=== PATIENT | female | born 1955 | race African-American/Black ===

== ENCOUNTER 2016-04-02 08:42 | Emergency (ER) | payer MEDICARE, OTHER ==
[~2016-04-02 08:42] MED LIST: ASPI81 PO; HYDR50TA15 PO; LISI20 PO; SIMV10TA PO; ZOFR4TAB3 SL
[2016-04-02 08:45] VITALS: BP 230/104; PULSE 71; RESP 16; TEMP 98.1; O2SAT 100
[2016-04-02 09:11] VITALS: BP 210/95
[2016-04-02] MEDS ORDERED: LISI40TA PO (09:14)
[2016-04-02] MEDS ORDERED: CLON0.3T PO (09:14)
[2016-04-02] MEDS ORDERED: ASPI1TAB69 PO (09:14)
[2016-04-02] MEDS ORDERED: HYDR50TA15 PO (09:14)
--- NOTE | 2016-04-02 09:21 | PD ---
HPI Chief Complaint: Fall Time Seen by Provider: 08:55 Travel History International Travel<30 days: No Contact w/Intl Traveler<30days: No Traveled to known affect area: No History of Present Illness HPI 60-year-old female complains of right-sided body pain and back pain. Patient states that she fell yesterday on the right side. Patient denies loss of consciousness. Patient denies headache or neck pain. Patient states that she has aching pain on the right upper arm, the right chest, right hip, the right leg and upper and low back. Patient denies any shortness of breath. Patient denies abdominal pain. Patient denies any focal weakness or numbness of the extremity. Patient has history of hypertension and has not taken her blood pressure medications this morning. PFSH Past Medical History Hx Anticoagulant Therapy: No Arthritis: No Asthma: No Autoimmune Disease: No Blood Disorders: Yes Anxiety: No Depression: Yes Heart Rhythm Problems: Yes (Bradycardia) Cancer: No Cardiac Catheterization: Yes (MAY 2013) Cardiovascular Problems: Yes High Cholesterol: Yes Chemotherapy: No Chest Pain: Yes Congestive Heart Failure: No COPD: No Cerebrovascular Accident: Yes (2009 CVA, RIGHT SIDED DEFICIT) Diabetes: No Diminished Hearing: No Endocrine: No Gastrointestinal Disorders: Yes GERD: Yes Genitourinary: No Headaches: Yes Hiatal Hernia: No Hypertension: Yes Immune Disorder: No Implanted Vascular Access Dvce: No Kidney Stones: No Musculoskeletal: Yes (NECK AND BACK INJURY 2007) Neurologic: Yes Psychiatric: No Reproductive: No Respiratory: No Immunizations Current: No Migraines: No Myocardial Infarction: Yes Radiation Therapy: No Renal Failure: No Seizures: No Sickle Cell Disease: No Sleep Apnea: No Thyroid Disease: No Ulcer: No PNEUMOCCOCAL Vaccine (Year): 2 ?: Not Menopausal: Yes : 3 Para: 3 Tubal Ligation: Yes Past Surgical History Abdominal Surgery: Yes AICD: No Arteriovenous Shunt: No Cardiac Surgery: Yes (cardiac cath 05/2013) Cholecystectomy: Yes Coronary Artery Bypass Graft: No Coronary Stent: Yes (X1) Ear Surgery: No Endocrine Surgery: No Eye Surgery: No Genitourinary Surgery: No Gynecologic Surgery: Yes Hysterectomy: Yes Insulin Pump: No Joint Replacement: No Neurologic Surgery: No Oral Surgery: No Pacemaker: No Thoracic Surgery: No Other Surgery: Yes (gallbladder removed, hysterectomy ) Social History Alcohol Use: No Tobacco Use: No Substance Use: No Allergies-Medications (Allergen,Severity, Reaction): Coded Allergies: Demerol (Verified Allergy, Severe, HIVES, 04/02/16) Morphine (Verified Allergy, Severe, Itching, 04/02/16) DENIES ALLERGY TODAY 01/18/16 *MDRO Multi-Drug Resistant Organism (Verified Allergy, Unknown, 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 2004 Reported Meds & Prescriptions Reported Meds & Active Scripts Active Reported Clonidine (Clonidine HCl) 0.3 Mg Tab 0.3 Mg PO TID Hydralazine (Hydralazine HCl) 50 Mg Tab 50 Mg PO TID Take with a meal Lisinopril 40 Mg Tab 40 Mg PO TID Aspirin 81 Mg Tabdr 81 Mg PO DAILY Review of Systems General / Constitutional: No: Fever Eyes: No: Visual changes HENT: No: Headaches Cardiovascular: No: Chest Pain or Discomfort Respiratory: No: Shortness of Breath Gastrointestinal: No: Abdominal Pain Genitourinary: No: Dysuria Musculoskeletal: Positive: Pain Skin: No Rash Neurologic: No: Weakness Psychiatric: No: Depression Endocrine: No: Polydipsia Hematologic/Lymphatic: No: Easy Bruising Physical Exam Narrative GENERAL: Well-nourished, well-developed patient. SKIN: Warm and dry. HEAD: Normocephalic. EYES: No scleral icterus. No injection or drainage. NECK: Supple, trachea midline. No JVD or lymphadenopathy. CARDIOVASCULAR: Regular rate and rhythm without murmurs, gallops, or rubs. RESPIRATORY: Breath sounds equal bilaterally. No accessory muscle use. GASTROINTESTINAL: Abdomen soft, non-tender, nondistended. MUSCULOSKELETAL: Patient has diffuse tenderness of the right upper arm, right chest wall midaxillary line area without crepitus, patient has diffuse tenderness over the lateral aspect the right hip right thigh and right lower leg. Full range of motion all extremity. BACK: Nontender without obvious deformity. No CVA tenderness. Neurologic exam normal. Data Data Last Documented VS Vital Signs Date Time Temp Pulse Resp B/P Pulse Ox O2 Delivery O2 Flow Rate FiO2 04/02/16 10:56 60 16 236/101 96 Room Air 04/02/16 08:45 98.1 Orders Femur (Ap & Lat/2vws) (04/02/16 08:58) Humerus (Min 2vws) (04/02/16 08:58) Tibia/Fibula (Ap/Lat) (04/02/16 08:58) Ribs, Uni (W/Exp Cxr-Min 3vw) (04/02/16 08:58) Pelvis, Ap Only (Routine) (04/02/16 08:58) Spine, Thoracic-Ap/Lat/Sw(3vw) (04/02/16 08:58) Spine, Lumbar - Ltd (Ap & Lat) (04/02/16 08:58) Clonidine (Catapres) (04/02/16 11:15) Lisinopril (Prinivil) (04/02/16 11:15) MDM Medical Decision Making Medical Screen Exam Complete: Yes Emergency Medical Condition: Yes Interpretation(s) Last Impressions Tibia/Fibula X-Ray 04/02/16857 Signed Impressions: Service Date/Time: March 09:33 - CONCLUSION: No acute fracture. Raman Rodriguez MD Thoracic Spine X-Ray 04/02/16857 Signed Impressions: Service Date/Time: March 09:43 - CONCLUSION: Levocurvature mild degenerative changes. No fracture.. Raman Rodriguez MD Ribs X-Ray 04/02/16857 Signed Impressions: Service Date/Time: March 09:47 - CONCLUSION: No right-sided rib fracture. Raman Rodriguez MD Pelvis X-Ray 04/02/16857 Signed Impressions: Service Date/Time: March 09:39 - CONCLUSION: 1. No acute findings. Mild osteoarthritis of the hips. Lloyd Valenzuela MD Lumbar Spine X-Ray 04/02/16857 Signed Impressions: Service Date/Time: March 09:29 - CONCLUSION: 1. Mild to moderate degenerative disc disease in the lower lumbar spine. No acute findings. Lloyd Valenzuela MD Humerus X-Ray 04/02/16857 Signed Impressions: Service Date/Time: March 09:31 - CONCLUSION: Normal examination for a patient of this age. Lloyd Valenzuela MD Femur X-Ray 04/02/16857 Signed Impressions: Service Date/Time: March 09:40 - CONCLUSION: No acute fracture. Raman Rodriguez MD Differential Diagnosis Differential diagnosis including contusion, fracture, dislocation. Narrative Course 60-year-old female with right-sided body pain and back pain, status post fall yesterday. Patient's hypotensive. Patient did not take her blood pressure medication this morning. Lisinopril 20 mg by mouth given. Clonidine 0.3 mg by mouth given. Diagnosis Primary Impression: Multiple contusions Patient Instructions: General Instructions Additional Instructions: Take medications as directed. Follow-up with personal physician. Follow-up with orthopedist if persistent problem. Return if worse. Med/Other Pt SpecificInfo: Prescription(s) given Scripts Tramadol (Ultram)50 Mg Tab50 Mg PO Q6H PRN (PAIN) #20 TAB Ref 0 Prov:Luis Dixon MD 04/02/16 Meloxicam (Mobic)15 Mg Tab15 Mg PO DAILY #20 TAB Ref 0 Prov:Luis Dixon MD 04/02/16 Disposition: 01 DISCHARGE HOME Condition: Stable Luis Dixon MD Apr 02, 2016 09:21
--- NOTE | 2016-04-02 09:58 | RADRPT ---
EXAM DATE/TIME: 04/02/2016 09:33 [facility] COMPARISON: No previous studies available for comparison. INDICATIONS : Right tibia pain after fall yesterday. MEDICAL HISTORY : None. SURGICAL HISTORY : None. ENCOUNTER: Initial ACUITY: 2 days PAIN SCORE: 10/10 LOCATION: Right proximal tibia. FINDINGS: Two view examination of the right tibia demonstrates no evidence of fracture or dislocation. Bony mi neralization is normal. The soft tissue structures are intact. CONCLUSION: No acute fracture. Raman Rodriguez MD on April 02, 2016 at 9:52 Board Certified Radiologist. This report was verified electronically.
--- NOTE | 2016-04-02 10:00 | RADRPT ---
EXAM DATE/TIME: 04/02/2016 09:40 [facility] COMPARISON: No previous studies available for comparison. INDICATIONS : Right femur pain after fall yesterday. MEDICAL HISTORY : None. SURGICAL HISTORY : None. ENCOUNTER: Initial ACUITY: 2 days PAIN SCORE: 10/10 LOCATION: Right proximal femur. FINDINGS: Two view examination of the right femur demonstrates no evidence of fracture or dislocation. Bony mi neralization is normal. The soft tissue structures are intact. CONCLUSION: No acute fracture. Raman Rodriguez MD on April 02, 2016 at 9:56 Board Certified Radiologist. This report was verified electronically.
--- NOTE | 2016-04-02 10:06 | RADRPT ---
EXAM DATE/TIME: 04/02/2016 09:43 [facility] COMPARISON: No previous studies available for comparison. INDICATIONS : Mid back pain after fall yesterday. MEDICAL HISTORY : None. SURGICAL HISTORY : None. ENCOUNTER: Initial ACUITY: 2 days PAIN SCORE: 10/10 LOCATION: Bilateral middle back. FINDINGS: There is normal alignment of the thoracic vertebral bodies. Vertebral body height is maintained. No evidence of fracture or subluxation. There is levocurvature. Mild degenerative changes. Pedicles are intact at all levels. The paravertebral reflections are not thickened. CONCLUSION: Levocurvature mild degenerative changes. No fracture.. Raman Rodriguez MD on April 02, 2016 at 9:59 Board Certified Radiologist. This report was verified electronically.
--- NOTE | 2016-04-02 10:08 | RADRPT ---
EXAM DATE/TIME: 04/02/2016 09:47 [facility] COMPARISON: No previous studies available for comparison. INDICATIONS : Right rib pain after fall yesterday. MEDICAL HISTORY : None. SURGICAL HISTORY : None. ENCOUNTER: Initial ACUITY: 1 day PAIN SCORE: 10/10 LOCATION: Right ribs. FINDINGS: Multiple views of the right ribs were performed. There is no evidence of displaced fracture. No aure tructive lesions or areas of periosteal thickening are seen. Expiratory view of the chest is negativ e for pneumothorax. The mediastinal structures are midline. CONCLUSION: No right-sided rib fracture. Raman Rodriguez MD on April 02, 2016 at 10:05 Board Certified Radiologist. This report was verified electronically.
--- NOTE | 2016-04-02 10:15 | RADRPT ---
EXAM DATE/TIME: 04/02/2016 09:31 [facility] COMPARISON: No previous studies available for comparison. INDICATIONS : Right humerus pain after fall yesterday. MEDICAL HISTORY : None. SURGICAL HISTORY : None. ENCOUNTER: Initial ACUITY: 2 days PAIN SCORE: 10/10 LOCATION: Right middle humerus. FINDINGS: Two view examination of the right humerus demonstrates no evidence of fracture or dislocation. Bony mineralization is normal. The soft tissue structures are intact. CONCLUSION: Normal examination for a patient of this age. Lloyd Valenzuela MD on April 02, 2016 at 10:14 Board Certified Radiologist. This report was verified electronically.
--- NOTE | 2016-04-02 10:15 | RADRPT ---
EXAM DATE/TIME: 04/02/2016 09:29 [facility] COMPARISON: No previous studies available for comparison. INDICATIONS : Lower back pain after fall yesterday. MEDICAL HISTORY : None. SURGICAL HISTORY : None. ENCOUNTER: Initial ACUITY: 2 days PAIN SCORE: 10/10 LOCATION: Bilateral lower back. FINDINGS: Two view examination was performed. There are five non-rib bearing vertebral bodies. The vertebral bodies are in normal alignment without evidence of subluxation or scoliosis. The pedicles are intact . Bony mineralization is normal. No fracture is identified. CONCLUSION: 1. Mild to moderate degenerative disc disease in the lower lumbar spine. No acute findings. Lloyd Valenzuela MD on April 02, 2016 at 10:04 Board Certified Radiologist. This report was verified electronically.
--- NOTE | 2016-04-02 10:16 | RADRPT ---
EXAM DATE/TIME: 04/02/2016 09:39 [facility] COMPARISON: No previous studies available for comparison. INDICATIONS : Pelvic pain after fall yesterday. MEDICAL HISTORY : None. SURGICAL HISTORY : None. ENCOUNTER: Initial ACUITY: 2 days PAIN SCORE: 10/10 LOCATION: Right pelvis. FINDINGS: A single frontal view of the pelvis demonstrates no evidence of fracture. The bony pelvic ring is in tact. Bony mineralization is normal. The soft tissues are intact. CONCLUSION: 1. No acute findings. Mild osteoarthritis of the hips. Lloyd Valenzuela MD on April 02, 2016 at 10:14 Board Certified Radiologist. This report was verified electronically.
[2016-04-02 10:56] VITALS: BP 236/101; PULSE 60; RESP 16; O2SAT 96
[2016-04-02] MEDS ORDERED: LISINOPRIL 20 MG TAB PO ONE (11:15)
[2016-04-02] MEDS ORDERED: cloNIDine HCL 0.3 MG TAB PO ONE (11:15)
[2016-04-02] MEDS ORDERED: ULTR50TA5 PO (11:27)
[2016-04-02] MEDS ORDERED: MOBI15TA PO (11:27)
[2016-04-02 12:50] VITALS: BP 150/76; TEMP 98
== END 2016-04-02 12:49 | disposition home or self-care (01) ==
LOC: NEPC 08:42
DX: T14.8 Other injury of unspecified body region (principal); I10 Essential (primary) hypertension; R00.1 Bradycardia, unspecified; E78.00 Pure hypercholesterolemia, unspecified; I25.2 Old myocardial infarction; W19.XXXA Unspecified fall, initial encounter; Y99.0 Civilian activity done for income or pay
CPT/HCPCS: 71101; 72072; 72100; 72170; 73060; 73552; 73590; 99283

== ENCOUNTER 2016-11-20 08:17 | Inpatient (IN) | payer MEDICARE ==
[2016-11-20] VITALS (12 sets, daily range): BP systolic 161–298; BP diastolic 68–145; PULSE 50–89; RESP 14–25; TEMP 98.1–99.3; O2SAT 98–100
[~2016-11-20] VITALS: Ht 158.8 cm; Wt 81.5 kg
[~2016-11-20 08:17] MED LIST changes: +ASPI1TAB69 PO; -ASPI81 PO; +CLON0.3T PO; -LISI20 PO; +LISI40TA PO; +MOBI15TA PO; -SIMV10TA PO; +ULTR50TA5 PO; -ZOFR4TAB3 SL
--- NOTE | 2016-11-20 08:24 | PD ---
HPI Chief Complaint: Hypertension Time Seen by Provider: 08:24 Travel History International Travel<30 days: No Contact w/Intl Traveler<30days: No Traveled to known affect area: No History of Present Illness HPI 60-year-old female was brought in emergently for headache, chest pain with significantly elevated blood pressure. In triage her blood pressure was 290s systolic. Patient told me that she has been taking her medication but last night she has been having diarrhea and vomiting. She appeared to be in distress. No history of fall coronary artery disease. She's been answering questions appropriately. She points to her left side of the chest and says it' s like a pressure and her headache is bitemporal. Patient has history of previous CVA on the right side which has had some weakness. She says her daughter brought her over. [facility] Past Medical History Narrative Medical List of her past medical, surgical, social and family history is reviewed from the nursing note. Hx Anticoagulant Therapy: No Arthritis: No Asthma: No Autoimmune Disease: No Blood Disorders: Yes Anxiety: No Depression: Yes Heart Rhythm Problems: Yes (Bradycardia) Cancer: No Cardiac Catheterization: Yes (MAY 2013) Cardiovascular Problems: Yes High Cholesterol: Yes Chemotherapy: No Chest Pain: Yes Congestive Heart Failure: No COPD: No Cerebrovascular Accident: Yes (2009 CVA, RIGHT SIDED DEFICIT) Diabetes: No Diminished Hearing: No Endocrine: No Gastrointestinal Disorders: Yes GERD: Yes Genitourinary: No Headaches: Yes Hiatal Hernia: No Hypertension: Yes Immune Disorder: No Implanted Vascular Access Dvce: No Kidney Stones: No Musculoskeletal: Yes (NECK AND BACK INJURY 2007) Neurologic: Yes Psychiatric: No Reproductive: No Respiratory: No Immunizations Current: No Migraines: No Myocardial Infarction: Yes Radiation Therapy: No Renal Failure: No Seizures: No Sickle Cell Disease: No Sleep Apnea: No Thyroid Disease: No Ulcer: No PNEUMOCCOCAL Vaccine (Year): 2 Menopausal: Yes : 3 Para: 3 Tubal Ligation: Yes Past Surgical History Abdominal Surgery: Yes AICD: No Arteriovenous Shunt: No Cardiac Surgery: Yes (cardiac cath 05/2013) Cholecystectomy: Yes Coronary Artery Bypass Graft: No Coronary Stent: Yes (X1) Ear Surgery: No Endocrine Surgery: No Eye Surgery: No Genitourinary Surgery: No Gynecologic Surgery: Yes Hysterectomy: Yes Insulin Pump: No Joint Replacement: No Neurologic Surgery: No Oral Surgery: No Pacemaker: No Thoracic Surgery: No Other Surgery: Yes (gallbladder removed, hysterectomy ) Social History Alcohol Use: No Tobacco Use: No Substance Use: No Allergies-Medications (Allergen,Severity, Reaction): Coded Allergies: meperidine (Unverified Allergy, Severe, HIVES, 11/10/16) morphine (Unverified Allergy, Severe, Itching, 11/10/16) DENIES ALLERGY TODAY 01/18/16 *MDRO Multi-Drug Resistant Organism (Verified Allergy, Unknown, 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 2004 Comments List of her allergies reviewed from the nursing note. Reported Meds & Prescriptions Reported Meds & Active Scripts Active Reported Hydrochlorothiazide 50 Mg Tab 50 Mg PO DAILY Metoprolol Succinate ER 24 HR (Metoprolol Succinate) 50 Mg Tab 50 Mg PO DAILY Simvastatin 40 Mg Tab 40 Mg PO HS Clonidine (Clonidine HCl) 0.2 Mg Tab 0.2 Mg PO DAILY Narrative Medication List of her home medications reviewed from the nursing note. Review of Systems Except as stated in HPI: all other systems reviewed are Neg Physical Exam Narrative GENERAL: Awake, alert, moderate distress SKIN: Focused skin assessment warm/dry. HEAD: Atraumatic. Normocephalic. EYES: Pupils equal and round. No scleral icterus. No injection or drainage. ENT: No nasal bleeding or discharge. Mucous membranes pink and moist. NECK: Trachea midline. No JVD. CARDIOVASCULAR: Regular rate and rhythm. No murmur appreciated. RESPIRATORY: No accessory muscle use. Clear to auscultation. Breath sounds equal bilaterally. GASTROINTESTINAL: Abdomen soft, non-tender, nondistended. Hepatic and splenic margins not palpable. MUSCULOSKELETAL: No obvious deformities. No clubbing. No cyanosis. No edema. NEUROLOGICAL: Awake and alert. No obvious cranial nerve deficits. Decreased right leg strength which is 3 out of 5 and right upper extremity is 4 out of 5. However this is a sequelae from previous stroke. Normal speech. PSYCHIATRIC: Appropriate mood and affect; insight and judgment normal. Data Data Last Documented VS Vital Signs Date Time Temp Pulse Resp B/P (MAP) Pulse Ox O2 Delivery O2 Flow Rate FiO2 11/20/16 10:45 64 165/78 11/20/16 09:06 20 98 11/20/16 08:57 98.2 Room Air Orders Orders Electrocardiogram (11/20/16 08:32) Prothrombin Time / Inr (Pt) (11/20/16 08:32) Complete Blood Count With Diff (11/20/16 08:32) Basic Metabolic Panel (Bmp) (11/20/16 08:32) Creatine Kinase (Cpk) (11/20/16 08:32) Drug Screen, Random Urine (11/20/16 08:32) Troponin I (11/20/16 08:32) Urinalysis - C+S If Indicated (11/20/16 08:32) Ct Brain W/O Iv Contrast(Rout) (11/20/16 08:32) Chest, Single Ap (11/20/16 08:32) Ecg Monitoring (11/20/16 08:32) Iv Access Insert/Monitor (11/20/16 08:32) Oximetry (11/20/16 08:32) Sodium Chloride 0.9% Flush (Ns Flush) (11/20/16 08:45) Hydralazine Inj (Apresoline Inj) (11/20/16 08:45) Sodium Chlor 0.9% 2... W/Nicardipine Inj (11/20/16 08:32) CKMB (11/20/16 08:40) CKMB% (11/20/16 08:40) Ondansetron Inj (Zofran Inj) (11/20/16 10:15) Aspirin Chew (Aspirin Chew) (11/20/16 10:15) Consult Cardiology (11/20/16 ) Admit To Inpatient (11/20/16 ) Vital Signs (Adult) Q4H (11/20/16 10:41) Neuro Checks Q4H (11/20/16 10:41) Activity Bed Rest (11/20/16 10:41) Bedside Glucose RANCHO.AC&HS (11/20/16 10:41) Apparel Rental Clerk / Telemetry .CONTINUOUS (11/20/16 10:41) Intake + Output RANCHO.QSHIFT (11/20/16 10:41) Notify Dr: Other (11/20/16 10:41) Diet Heart Healthy (11/20/16 Lunch) Sodium Chloride 0.9% Flush (Ns Flush) (11/20/16 10:45) Sodium Chloride 0.9% Flush (Ns Flush) (11/20/16 21:00) Acetaminophen (Tylenol) (11/20/16 10:45) Ondansetron Inj (Zofran Inj) (11/20/16 10:45) Basic Metabolic Panel (Bmp) (11/21/16 06:00) Comprehensive Metabolic Panel (11/21/16 06:00) Creatine Kinase (Cpk) (11/20/16 10:41) Creatine Kinase (Cpk) (11/20/16 16:41) Troponin I (11/20/16 10:41) Troponin I (11/20/16 16:41) Electrocardiogram (11/20/16 10:41) Electrocardiogram (11/20/16 16:41) Resp Oxygen Raad C Titrat 1-4 L (11/20/16 ) Heparin Inj (Heparin Inj) (11/20/16 12:00) Scd Bilateral/Knee High RANCHO.BID (11/20/16 10:41) Naloxone Inj (Narcan Inj) (11/20/16 10:45) Inpatient Certification (11/20/16 ) Labetalol Inj (Trandate Inj) (11/20/16 10:45) Hydralazine Inj (Apresoline Inj) (11/20/16 10:45) (Hub Use Only)Inp Phy Cons/Ref (11/20/16 ) Admit Order (Ed Use Only) (11/20/16 10:44) CKMB (11/20/16 12:35) CKMB% (11/20/16 12:35) Labs Laboratory Tests Test 11/20/16 08:40 11/20/16 09:25 White Blood Count 6.7 TH/MM3 Red Blood Count 6.15 MIL/MM3 Hemoglobin 13.4 GM/DL Hematocrit 42.8 % Mean Corpuscular Volume 69.5 FL Mean Corpuscular Hemoglobin 21.8 PG Mean Corpuscular Hemoglobin Concent 31.4 % Red Cell Distribution Width 17.4 % Platelet Count 240 TH/MM3 Mean Platelet Volume 8.9 FL Neutrophils (%) (Auto) 75.2 % Lymphocytes (%) (Auto) 15.0 % Monocytes (%) (Auto) 5.0 % Eosinophils (%) (Auto) 4.5 % Basophils (%) (Auto) 0.3 % Neutrophils # (Auto) 5.0 TH/MM3 Lymphocytes # (Auto) 1.0 TH/MM3 Monocytes # (Auto) 0.3 TH/MM3 Eosinophils # (Auto) 0.3 TH/MM3 Basophils # (Auto) 0.0 TH/MM3 CBC Comment DIFF FINAL Differential Comment Prothrombin Time 11.4 SEC Prothromb Time International Ratio 1.0 RATIO Blood Urea Nitrogen 15 MG/DL Creatinine 0.96 MG/DL Random Glucose 97 MG/DL Calcium Level 8.1 MG/DL Sodium Level 136 MEQ/L Potassium Level 4.1 MEQ/L Chloride Level 105 MEQ/L Carbon Dioxide Level 22.9 MEQ/L Anion Gap 8 MEQ/L Estimat Glomerular Filtration Rate 72 ML/MIN Total Creatine Kinase 243 U/L Creatine Kinase MB 1.7 NG/ML Creatine Kinase MB % 0.7 % Troponin I 0.25 NG/ML Urine Color LIGHT-YELLOW Urine Turbidity CLEAR Urine pH 7.0 Urine Specific [place] 1.013 Urine Protein 30 mg/dL Urine Glucose (UA) NEG mg/dL Urine Ketones NEG mg/dL Urine Occult Blood NEG Urine Nitrite NEG Urine Bilirubin NEG Urine Urobilinogen LESS THAN 2.0 MG/DL Urine Leukocyte Esterase NEG Urine RBC 1 /hpf Urine WBC LESS THAN 1 /hpf Urine Squamous Epithelial Cells 1 /hpf Urine Amorphous Sediment OCC Urine Granular Casts 1 /lpf Microscopic Urinalysis Comment CATH-CULT NOT IND Urine Opiates Screen NEG Urine Barbiturates Screen NEG Urine Amphetamines Screen NEG Urine Benzodiazepines Screen NEG Urine Cocaine Screen NEG Urine Cannabinoids Screen NEG MDM Medical Decision Making Medical Screen Exam Complete: Yes Emergency Medical Condition: Yes Medical Record Reviewed: Yes Interpretation(s) Twelve-lead EKG was reviewed by me. Normal sinus rhythm, left axis deviation, LVH, LV strain, poor R-wave progression, bradycardia. Heart rate of 51 bpm. Differential Diagnosis ACS, non-STEMI, hypertensive emergency, intracranial bleed Narrative Course 10:53 AM blood test results are back and patient has elevated troponin. She was given IV hydralazine initially as soon as she came in and then started on Cardene drip. Her blood pressure currently is 120 systolic. She continued to complain of chest pain and the repeat EKG was done. The repeat EKG does not look any different from the first EKG. I discussed the case with Dr. Valenzuela was on for cardiology. He agreed with the to aspirin and no heparin for now since my concern is her headache and hypertension and head bleed. I discussed the case with the hospitalist and patient has been admitted to the CICU. I let the patient know about the plan and she is agreeable to it. Critical Care Narrative Aggregate critical care time was 60 minutes. Time to perform other separately billable procedures was not included in the critical care time. My time did not include minutes spent treating any other patients simultaneously or on activities that did not directly contribute to the patient's treatment. The services I provided to this patient were to treat and/or prevent clinically significant deterioration that could result in: Hypertensive emergency, elevated troponin, IV Cardene drobi I provided critical care services requiring my management, as noted below: Chart data review, documentation time, medication orders and management, vital sign assessments/reviewing monitor data, ordering and reviewing lab tests, ordering and interpreting/reviewing x-rays and diagnostic studies, care of the patient and discussion of the patient with the admitting physicians. Procedures EKG Prior to Arrival: No Physician Communication Physician Communication Dr. Valenzuela Diagnosis Primary Impression: Hypertensive emergency Additional Impression: Elevated troponin I level Admitting Information Admitting Physician Requests: Admit Velma García MD Nov 20, 2016 08:24
[2016-11-20] MEDS ORDERED: SODIUM CHLORIDE 0.9% FLUSH 10 ML FLUSH IVF PRN (08:45)
[2016-11-20] MEDS ORDERED: hydrALAZINE HCL 20 MG/ML VIAL IV PUSH ONE (08:45)
[2016-11-20] MEDS: niCARdipine INJ 25 MG in SODIUM CHLOR 0.9% 250 ML INJ 250 ML IV PRN ×6 (08:54→23:10)
[2016-11-20 09:12] LABS: BASOPHIL % 0.3 % (0.0-2.0); EOSINOPHIL # 0.3 TH/MM3 (0-0.4); EOSINOPHIL % 4.5 % (0.0-4.0); HEMATOCRIT 42.8 % (35.0-46.0); HEMO FLAGS DIFF FINAL; MEAN CELL VOLUME 69.5 FL (80.0-100.0); MEAN CORPUSCULAR HEMOGLOBIN 21.8 PG (27.0-34.0); MEAN CORPUSCULAR HGB CONC 31.4 % (32.0-36.0); NEUT % 75.2 % (16.0-70.0); PLATELET COUNT 240 TH/MM3 (150-450); RED BLOOD COUNT 6.15 MIL/MM3 (4.00-5.30); RED CELL DISTRIBUTION WIDTH 17.4 % (11.6-17.2); WHITE BLOOD COUNT 6.7 TH/MM3 (4.0-11.0)
--- NOTE | 2016-11-20 09:15 | RADRPT ---
EXAM DATE/TIME: 11/20/2016 08:51 [facility] COMPARISON: CHEST SINGLE AP, January 19, 2016, 12:16. INDICATIONS : Chest pain, hypertension. MEDICAL HISTORY : Hypertension. Myocardial infarction. Stroke. SURGICAL HISTORY : None. ENCOUNTER: Initial ACUITY: 2 days PAIN SCORE: 8/10 LOCATION: Left chest FINDINGS: Portable AP view the chest demonstrates a normal-sized cardiac silhouette. Lungs are underinflated wi th atelectasis at the lung bases. No effusion, consolidation, or pneumothorax is appreciated. The bon es and soft tissues demonstrate no acute finding. CONCLUSION: Underinflated with atelectasis at the lung bases. Otherwise, no acute finding is identified. Alex Peña MD on November 20, 2016 at 9:12 Board Certified Radiologist. This report was verified electronically.
[2016-11-20 09:39] LABS: PROTHROMBIN TIME - PATIENT 11.4 SEC (9.8-11.6)
--- NOTE | 2016-11-20 09:41 | RADRPT ---
EXAM DATE/TIME: 11/20/2016 09:06 [place] COMPARISON: CT BRAIN W/O CONTRAST, January 02, 2014, 11:57. INDICATIONS : Hypertension with cephalgia. RADIATION DOSE: 39.54 CTDIvol (mGy) MEDICAL HISTORY : Stroke. Cardiovascular disease Hypertension. SURGICAL HISTORY : None. ENCOUNTER: Initial ACUITY: 2 months PAIN SCALE: 5/10 LOCATION: Bilateral cranial TECHNIQUE: Multiple contiguous axial images were obtained of the head. Using automated exposure control and adj ustment of the mA and/or kV according to patient size, radiation dose was kept as low as reasonably a chievable to obtain optimal diagnostic quality images. DICOM format image data is available electro nically for review and comparison. FINDINGS: CEREBRUM: There is mild cerebral atrophy. Moderate to severe periventricular white matter low-attenuation is pr esent. No midline shift, mass lesion, hemorrhage or acute infarction. No extra-axial fluid collecti ons are seen. POSTERIOR FOSSA: The cerebellum and brainstem demonstrate no acute finding. The 4th ventricle is midline. The cerebe llopontine angle is unremarkable. EXTRACRANIAL: Visualized sinuses are clear. SKULL: The calvaria is intact. No evidence of skull fracture. CONCLUSION: Stable noncontrast head CT without acute abnormality identified. There is a stable moderate to severe periventricular white matter low attenuation characteristic of chronic microvascular ischemia. Alex Peña MD on November 20, 2016 at 9:38 Board Certified Radiologist. This report was verified electronically.
[2016-11-20] MEDS ORDERED: METO50TA11 PO (09:48)
[2016-11-20] MEDS ORDERED: CLON0.2T PO (09:48)
[2016-11-20] MEDS ORDERED: HYDR50TA3 PO (09:48)
[2016-11-20] MEDS ORDERED: SIMV40TA PO (09:48)
[2016-11-20 09:51] LABS: BLOOD, URINE NEG (NEG); GLUCOSE,URINE NEG (NEG); GRANULAR CAST, URINE 1 /lpf; KETONE, URINE NEG (NEG); NITRITE,URINE NEG (NEG); SQUAMOUS EPITHELIAL CELL URINE 1 /hpf (0-5); URINE COLOR LIGHT-YELLOW (YELLW/STRAW)
[2016-11-20 09:52] LABS: COMMENT (UR) CATH-CULT NOT IND; CULTURE IF INDICATED CATH CULTURE NOT IND
[2016-11-20 09:54] LABS: BICARBONATE 22.9 MEQ/L (21.0-32.0); POTASSIUM 4.1 MEQ/L (3.5-5.1)
[2016-11-20 10:07] LABS: CKMB 1.7 NG/ML (0.5-3.6)
[2016-11-20] MEDS ORDERED: ONDANSETRON HCL 4 MG/2 ML VIAL IV PUSH ONE (10:15)
[2016-11-20] MEDS ORDERED: ASPIRIN 81 MG CHEW TAB CHEW ONE (10:15)
[2016-11-20] MEDS ORDERED: SODIUM CHLORIDE 0.9% FLUSH 10 ML FLUSH IV FLUSH PRN (10:45)
[2016-11-20] MEDS ORDERED: NALOXONE HCL 0.4 MG/ML AMP IV PRN (10:45)
[2016-11-20] MEDS ORDERED: ONDANSETRON HCL 4 MG/2 ML VIAL IVP PRN (10:45)
[2016-11-20] MEDS ORDERED: LABETALOL HCL 100 MG/20 ML VIAL IV PRN (10:45)
[2016-11-20] MEDS: HEPARIN SODIUM - SQ 10,000 UNITS/ML VIAL SQ SCH ×2 (12:00→23:09)
[2016-11-20] MEDS: ACETAMINOPHEN 325 MG TAB PO PRN ×2 (12:07→14:23)
--- NOTE | 2016-11-20 12:16 | HHI.HP ---
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 Patient told me she had the stroke due to "burst vessel "in the past, troponin was found to be related with T-wave inversion on EKG, cardiology consulted I discussed with Dr. Valenzuela, no anticoagulation at this point. Continue cardiac enzyme monitoring. Patient denied abdominal pain diarrhea or constipation, no sore throat fever or chills, no dysuria urgency or frequency. She had a history of hysterectomy and cholecystectomy in the past, she doesn't smoke or drink alcohol or do illicit drugs, father of prostate cancer and mother of heart attack Review of Systems All systems reviewed and was positive for what is mentioned in history of present illness otherwise negative Past Family Social History Past Medical History Hypertension Hyperlipidemia History of CVA Past Surgical History Cholecystectomy Hysterectomy Allergies: Coded Allergies: meperidine (Unverified Allergy, Severe, HIVES, 11/10/16) morphine (Unverified Allergy, Severe, Itching, 11/10/16) DENIES ALLERGY TODAY 01/18/16 *MDRO Multi-Drug Resistant Organism (Verified Allergy, Unknown, 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 Family History Father of prostate cancer, mother of heart attack Social History Denied tobacco alcohol or illicit drug abuse Physical Exam Vital Signs Vital Signs Date Time Temp Pulse Resp B/P (MAP) Pulse Ox O2 Delivery O2 Flow Rate FiO2 11/20/16 11:45 60 157/72 11/20/16 11:30 64 161/75 11/20/16 11:00 60 151/69 11/20/16 10:45 64 165/78 11/20/16 10:23 62 172/79 11/20/16 10:04 64 116/58 11/20/16 09:30 70 142/65 11/20/16 09:23 67 170/77 11/20/16 09:14 66 189/88 11/20/16 09:08 64 183/88 11/20/16 09:06 67 20 183/88 (119) 98 11/20/16 08:57 98.2 54 20 234/113 (153) 98 Room Air 11/20/16 08:54 51 234/113 11/20/16 08:30 48 20 11/20/16 08:30 98.2 50 20 185/117 (139) Room Air 11/20/16 08:23 98.1 89 16 298/145 (195) 100 Physical Exam GENERAL: This is a well-nourished, well-developed patient, in no apparent distress. SKIN: No rashes, warm and dry HEAD: Atraumatic. Normocephalic. EYES: Pupils equal round and reactive. Extraocular motions intact. No scleral icterus. ENT: Nose without bleeding, or drainage, Airway patent. NECK: Trachea midline. Supple CARDIOVASCULAR: Regular rate and rhythm, positive systolic murmur 2 out of 6 RESPIRATORY: Fair air entry bilaterally. No wheezes, rales, or rhonchi. GASTROINTESTINAL: Abdomen soft, non-tender, nondistended. Positive bowel sounds MUSCULOSKELETAL: Extremities without clubbing, cyanosis, or edema. Pedal pulses appreciated NEUROLOGICAL: Awake and alert. Moves all extremity. Normal speech.no focal neurological deficit Laboratory Laboratory Tests Test 11/20/16 08:40 11/20/16 09:25 White Blood Count 6.7 Red Blood Count 6.15 Hemoglobin 13.4 Hematocrit 42.8 Mean Corpuscular Volume 69.5 Mean Corpuscular Hemoglobin 21.8 Mean Corpuscular Hemoglobin Concent 31.4 Red Cell Distribution Width 17.4 Platelet Count 240 Mean Platelet Volume 8.9 Neutrophils (%) (Auto) 75.2 Lymphocytes (%) (Auto) 15.0 Monocytes (%) (Auto) 5.0 Eosinophils (%) (Auto) 4.5 Basophils (%) (Auto) 0.3 Neutrophils # (Auto) 5.0 Lymphocytes # (Auto) 1.0 Monocytes # (Auto) 0.3 Eosinophils # (Auto) 0.3 Basophils # (Auto) 0.0 CBC Comment DIFF FINAL Differential Comment Prothrombin Time 11.4 Prothromb Time International Ratio 1.0 Blood Urea Nitrogen 15 Creatinine 0.96 Random Glucose 97 Calcium Level 8.1 Sodium Level 136 Potassium Level 4.1 Chloride Level 105 Carbon Dioxide Level 22.9 Anion Gap 8 Estimat Glomerular Filtration Rate 72 Total Creatine Kinase 243 Creatine Kinase MB 1.7 Creatine Kinase MB % 0.7 Troponin I 0.25 Urine Color LIGHT-YELLOW Urine Turbidity CLEAR Urine pH 7.0 Urine Specific [place] 1.013 Urine Protein 30 Urine Glucose (UA) NEG Urine Ketones NEG Urine Occult Blood NEG Urine Nitrite NEG Urine Bilirubin NEG Urine Urobilinogen LESS THAN 2.0 Urine Leukocyte Esterase NEG Urine RBC 1 Urine WBC LESS THAN 1 Urine Squamous Epithelial Cells 1 Urine Amorphous Sediment OCC Urine Granular Casts 1 Microscopic Urinalysis Comment CATH-CULT NOT IND Urine Opiates Screen NEG Urine Barbiturates Screen NEG Urine Amphetamines Screen NEG Urine Benzodiazepines Screen NEG Urine Cocaine Screen NEG Urine Cannabinoids Screen NEG Result Diagram: 11/20/1683911/20/16839 Imaging Last Impressions Head CT 11/20/16831 Signed Impressions: Service Date/Time: Sunday, November 20, 2016 09:06 - CONCLUSION: Stable noncontrast head CT without acute abnormality identified. There is a stable moderate to severe periventricular white matter low attenuation characteristic of chronic microvascular ischemia. Alex Peña MD Chest X-Ray 11/20/16831 Signed Impressions: Service Date/Time: Sunday, November 20, 2016 08:51 - CONCLUSION: Underinflated with atelectasis at the lung bases. Otherwise, no acute finding is identified. Alex Peña MD Caprini VTE Risk Assessment Caprini VTE Risk Assessment: No/Low Risk (score <= 1) VTE Pharm Contraindication: Documented (hx brain hemorrhage) Caprini Risk Assessment Model Point Value = 1 Point Value = 2 Point Value = 3 Point Value = 5 Age 41-60 Minor surgery BMI > 25 kg/m2 Swollen legs Varicose veins or History of unexplained or recurrent spontaneous Oral contraceptives or hormone replacement Sepsis (< 1 month) Serious lung disease, including pneumonia (< 1 month) Abnormal pulmonary function Acute myocardial infarction Congestive heart failure (< 1 month) History of inflammatory bowel disease Medical patient at bed rest Age 61-74 Arthroscopic surgery Major open surgery (> 45 min) Laparoscopic surgery (> 45 min) Malignancy Confined to bed (> 72 hours) Immobilizing plaster cast Central venous access Age >= 75 History of VTE Family history of VTE Factor V Leiden Prothrombin [id number] Lupus anticoagulant Anticardiolipin antibodies Elevated serum homocysteine Heparin-induced thrombocytopenia Other congenital or acquired thrombophilia Stroke (< 1 month) Elective arthroplasty Hip, pelvis, or leg fracture Acute spinal cord injury (< 1 month) Prophylaxis Regimen Total Risk Factor Score Risk Level Prophylaxis Regimen 0-1 Low Early ambulation 2 Moderate Order ONE of the following: *Sequential Compression Device (SCD) *Heparin 5000 units SQ BID 3-4 Higher Order ONE of the following medications: *Heparin 5000 units SQ TID *Enoxaparin/Lovenox 40 mg SQ daily (WT < 150 kg, CrCl > 30 mL/min) *Enoxaparin/Lovenox 30 mg SQ daily (WT < 150 kg, CrCl > 10-29 mL/min) *Enoxaparin/Lovenox 30 mg SQ BID (WT < 150 kg, CrCl > 30 mL/min) AND/OR *Sequential Compression Device (SCD) 5 or more Highest Order ONE of the following medications: *Heparin 5000 units SQ TID (Preferred with Epidurals) *Enoxaparin/Lovenox 40 mg SQ daily (WT < 150 kg, CrCl > 30 mL/min) *Enoxaparin/Lovenox 30 mg SQ daily (WT < 150 kg, CrCl > 10-29 mL/min) *Enoxaparin/Lovenox 30 mg SQ BID (WT < 150 kg, CrCl > 30 mL/min) AND *Sequential Compression Device (SCD) Assessment and Plan Assessment and Plan 60 years old female admitted with Severe hypertensive emergency, with chest pain and elevated troponin Chest pain with elevated troponin, mostly due to hypertensive emergency rule out underlying ACS History of hypertension\\ Hyperlipidemia History of CVA"hemorrhagic'with right sided hemiparesis gradually improved DVT prophylaxis, will hold on heparin due Dasha/O ICH Plan: Admit to telemetry, ICU for close monitoring, patient at high risk for intracranial bleed due to previous history of CVA O2, started on Cardene drip with a goal of blood pressure 160/85 Close monitoring blood pressure Hydralazine iv as needed 2-D echo Continue cycling cardiac enzyme, personally reviewed by me first set elevated troponin 0.25 EKG personally reviewed by me showed precordial T-wave inversion Resume statin Consulted cardiology discussed with Dr. 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 In the case of services not specified as inpatient-only, they are appropriately provided as inpatient services in accordance with the 2-midnight benchmark. Estimated LOS (days): 2 days is the estimated time the patient will need to remain in the hospital, assuming treatment plan goals are met and no additional complications. Post-Hospital Plan: Not yet determined Joe Almazan MD Nov 20, 2016 12:15
--- NOTE | 2016-11-20 12:49 | MB ---
cc: JAY JAY WAY DATE OF CONSULTATION 11/20/2016 DATE OF 1955 REASON FOR CONSULTATION Hypertensive emergency, elevated troponins. HISTORY OF PRESENT ILLNESS 60-year-old female with a past medical history significant for ischemic CVA in 2009 with right-sided hemiparesis, hypertension, hyperlipidemia, who came to the emergency department because of high blood pressure. The patient reports that she woke up this morning took her blood pressure and his systolic blood pressure was above 200. She did complain of headache, denied chest pain, shortness of breath, palpitations. Daughter requested her to come to the ER. In the emergency department, she was found to have a blood pressure of 234/113 which was successfully treated with IV medications. EKG shows sinus rhythm with LVH and a left axis deviation. Blood work revealed elevated troponin in the range of 0.25, thus cardiology has been consulted for further management and evaluation. The patient reports being compliant with her hypertensive medications. She reports she does not follow with cardiology. REVIEW OF SYSTEMS Negative except for what is mentioned in the HPI. PAST MEDICAL HISTORY 1. CVA 2. Hypertension 3. Hyperlipidemia 4. Neck and back injury PAST SURGICAL HISTORY 1. Cholecystectomy 2. Hysterectomy SOCIAL HISTORY Denies alcohol use, tobacco use or illicit drug use. ALLERGIES DEMEROL HOME MEDICATIONS 1. Clonidine 0.2 mg p.o. daily 2. Metoprolol 50 mg p.o. twice a day 3. Hydrochlorothiazide 50 mg p.o. daily 4. Simvastatin 40 mg p.o. daily 5. Aspirin 81 mg p.o. daily 6. Lisinopril 40 mg p.o. daily FAMILY HISTORY No significant history of premature coronary artery disease. PHYSICAL EXAM VITAL SIGNS: Temperature 98, respiratory rate 20, heart rate 54, blood pressure 234/113 trending down to 142/65 with medications, O2 sat 100% room air. GENERAL: She is awake, alert, and oriented x3 in no acute distress. NECK: No JVD or carotid bruits. HEART: Regular rate and rhythm. No murmurs, rubs or gallops. LUNGS: Clear to auscultation bilaterally. No wheezes, rhonchi or rales. ABDOMEN: Soft, nontender, and nondistended with positive bowel sounds. EXTREMITIES: No cyanosis or edema. Pulses throughout. DATA CBC hemoglobin 13, hematocrit of 42, platelet count of 240. Chemistry sodium 136, potassium 4.1 and BUN 15, creatinine 0.96. Troponin 0.25, INR 1.0. Urinalysis shows a markedly elevated protein. Toxicology screen negative. EKG sinus rhythm with LVH and left axis deviation. Chest x-ray, no acute cardiopulmonary disease. Head CT unremarkable. She has a left heart cath done in 2013 that showed normal coronaries. ASSESSMENT/PLAN 60-year-old female with cardiac risk factors that include age, hypertension, hyperlipidemia who presented to the hospital with hypertensive urgency with a blood pressure of 234/113. She reports being compliant with medical therapy. On initial blood work, she was also found to have a mildly elevated troponin in the range of 0.25 which in the past she has had chronic elevations of troponins in the range of 0.14. Currently, she remains afebrile and hemodynamically stable. She does not have any cardiovascular complaints. Denies chest pain, palpitations, shortness of breath, PND, leg edema. Troponin elevation secondary to hypertensive crisis. RECOMMENDATIONS 1. Optimize blood pressure regimen. 2. Continue Festus, metoprolol and hydrochlorothiazide. 3. Start Procardia XL 30 mg p.o. daily. 4. Get a 2-D echocardiogram to assess LV systolic function. 5. Continue simvastatin. Thank you for the opportunity to take part in the care of this patient. We will be available on a p.r.n. basis for any other questions or concerns. MD LAZARA Varela/MARLO /11:11 AM /12:33 PM [place]
[2016-11-20 13:41] LABS: CKMB 1.3 NG/ML (0.5-3.6)
[2016-11-20] MEDS: LISINOPRIL 20 MG TAB PO SCH (14:22)
[2016-11-20] MEDS ORDERED: PNEUMOCOCCAL POLYVALENT INJ 25 MCG/0.5 ML SYR IM ONE (15:15)
[2016-11-20] MEDS: traMADol HCL 50 MG TAB PO PRN ×2 (16:58→23:24)
[2016-11-20] MEDS ORDERED: CHLORHEXIDINE GLUCONATE 2 % 1 PACK (2 CLOTHS)(extra cloths) TOPICAL PRN (17:00)
[2016-11-20] MEDS: PRAVASTATIN SOD 80 MG TAB PO SCH (20:03)
[2016-11-20] MEDS: hydrALAZINE HCL 20 MG/ML VIAL IV PRN (20:03)
[2016-11-20] MEDS: SODIUM CHLORIDE 0.9% FLUSH 10 ML FLUSH IV FLUSH SCH (20:03)
[2016-11-21] VITALS (19 sets, daily range): BP systolic 146–185; BP diastolic 65–85; PULSE 66–92; RESP 18–24; TEMP 97.5–99.1; O2SAT 95–100
[2016-11-21] MEDS: niCARdipine INJ 25 MG in SODIUM CHLOR 0.9% 250 ML INJ 250 ML IV PRN ×6 (01:16→23:07)
[2016-11-21] MEDS: CHLORHEXIDINE GLUCONATE 2 % 1 PACK (2 CLOTHS)(taper/protocol) TOPICAL SCH (04:00)
--- NOTE | 2016-11-21 08:53 | PD.CARD.PN ---
Subjective Subjective Remarks no overnight events Objective Medications Current Medications Medications (Trade) Dose Ordered Sig/Galilea Route Start Time Stop Time Status Last Admin Nicardipine HCl 25 mg/Sodium Chloride 260 ml @ 52 mls/hr Q5H PRN IV 11/20/16 08:32 11/21/16 06:03 (NS Flush) 2 ml UNSCH PRN IV FLUSH 11/20/16 10:45 (NS Flush) 2 ml BID IV FLUSH 11/20/16 21:00 11/20/16 20:03 (Tylenol) 650 mg Q4H PRN PO 11/20/16 10:45 11/20/16 14:23 (Zofran Inj) 4 mg Q6H PRN IVP 11/20/16 10:45 11/20/16 20:31 (Heparin Inj) 5,000 units Q12H SQ 11/20/16 12:00 11/20/16 23:09 (Narcan Inj) 0.4 mg UNSCH PRN IV 11/20/16 10:45 11/20/16 20:03 (Trandate Inj) 10 mg Q6H PRN IV 11/20/16 10:45 (Apresoline Inj) 10 mg Q6H PRN IV 11/20/16 10:45 11/20/16 20:03 (Prinivil) 40 mg DAILY PO 11/20/16 14:00 11/20/16 14:22 (Pravachol) 80 mg HS PO 11/20/16 21:00 11/20/16 20:03 (Ultram) 50 mg Q6H PRN PO 11/20/16 16:45 11/20/16 23:24 Miscellaneous Information Patient in critical care unit? Ass... [id number] .XX 11/20/16 17:00 11/20/16 17:00 (Chlorhexidine 2% Cloth) 3 pack DAILY@04 TOPICAL 11/21/16 04:00 11/25/16 04:01 11/21/16 04:00 (Chlorhexidine 2% Cloth) 3 pack UNSCH PRN TOPICAL 11/20/16 17:00 11/25/16 16:50 Vital Signs / I&O Vital Signs Date Time Temp Pulse Resp B/P (MAP) Pulse Ox O2 Delivery O2 Flow Rate FiO2 11/21/16 07:00 98 Nasal Cannula 2.00 8/26/17 06:03 73 145/65 11/21/16 06:00 66 11/21/16 04:13 79 146/65 11/21/16 04:00 98.9 71 24 146/65 (92) 95 11/21/16 04:00 71 11/21/16 02:00 66 11/21/16 01:16 69 148/67 11/21/16 00:00 99.1 67 23 152/67 (95) 97 11/21/16 00:00 67 11/20/16 23:10 67 161/71 11/20/16 22:00 75 11/20/16 21:00 98 21 11/20/16 20:07 73 212/116 11/20/16 20:00 76 11/20/16 20:00 99.2 76 25 162/68 (99) 100 11/20/16 19:28 68 183/78 11/20/16 19:00 98 Nasal Cannula 2.00 11/20/16 18:10 65 11/20/16 18:00 65 11/20/16 17:58 20 11/20/16 16:31 60 173/82 11/20/16 16:30 60 173/82 11/20/16 16:00 61 11/20/16 16:00 99.3 61 22 169/78 (108) 100 Manual Cuff/Auscultation 11/20/16 15:30 59 181/80 11/20/16 14:45 59 152/69 11/20/16 14:44 98.6 59 24 161/74 (103) 100 11/20/16 14:02 11/20/16 14:00 62 11/20/16 14:00 100 Nasal Cannula 2.00 11/20/16 13:32 63 14 162/81 (108) 11/20/16 12:49 60 170/79 11/20/16 12:15 63 170/78 11/20/16 11:45 60 157/72 11/20/16 11:30 64 161/75 11/20/16 11:00 60 151/69 11/20/16 10:45 64 165/78 11/20/16 10:23 62 172/79 11/20/16 10:04 64 116/58 11/20/16 09:30 70 142/65 11/20/16 09:23 67 170/77 11/20/16 09:14 66 189/88 11/20/16 09:08 64 183/88 11/20/16 09:06 67 20 183/88 (119) 98 11/20/16 08:57 98.2 54 20 234/113 (153) 98 Room Air 11/20/16 08:54 51 234/113 I/O 11/20/16 11/20/16 11/20/16 11/21/16 11/21/16 11/21/16 07:00 15:00 23:00 07:00 15:00 23:00 Intake Total 640 ml 1521 ml Output Total 1000 ml Balance 640 ml 521 ml Intake Oral 120 ml 300 ml IV Total 520 ml 1221 ml Output Urine Total 1000 ml # Voids 2 3 # Bowel Movements 0 Physical Exam GENERAL: Well-nourished, well-developed patient. SKIN: Warm and dry. HEAD: Normocephalic. EYES: No scleral icterus. No injection or drainage. NECK: Supple, trachea midline. No JVD or lymphadenopathy. CARDIOVASCULAR: Regular rate and rhythm without murmurs, gallops, or rubs. RESPIRATORY: Breath sounds equal bilaterally. No accessory muscle use. GASTROINTESTINAL: Abdomen soft, non-tender, nondistended. EXTREMITIES: No cyanosis, or edema. NEUROLOGICAL: Awake, alert, and oriented x 3. Non-focal. Laboratory Laboratory Tests Test 11/20/16 09:25 11/20/16 12:35 11/20/16 13:30 11/20/16 16:44 Urine Color LIGHT-YELLOW Urine Turbidity CLEAR Urine pH 7.0 Urine Specific [place] 1.013 Urine Protein 30 mg/dL Urine Glucose (UA) NEG mg/dL Urine Ketones NEG mg/dL Urine Occult Blood NEG Urine Nitrite NEG Urine Bilirubin NEG Urine Urobilinogen LESS THAN 2.0 MG/DL Urine Leukocyte Esterase NEG Urine RBC 1 /hpf Urine WBC LESS THAN 1 /hpf Urine Squamous Epithelial Cells 1 /hpf Urine Amorphous Sediment OCC Urine Granular Casts 1 /lpf Microscopic Urinalysis Comment CATH-CULT NOT IND Urine Opiates Screen NEG Urine Barbiturates Screen NEG Urine Amphetamines Screen NEG Urine Benzodiazepines Screen NEG Urine Cocaine Screen NEG Urine Cannabinoids Screen NEG Total Creatine Kinase 240 U/L 177 U/L Creatine Kinase MB 1.3 NG/ML Creatine Kinase MB % 0.5 % Troponin I 0.22 NG/ML 0.22 NG/ML Nasal Screen MRSA (PCR) MRSA NOT DETECTED Assessment and Plan Problem List: (1) Hypertensive emergency ICD Codes: I16.1 - Hypertensive emergency Status: Acute Plan: 60-year-old female with cardiac risk factors that include age, hypertension, hyperlipidemia admitted with hypertensive urgency with a blood pressure of 234/113. Currently, she remains afebrile and hemodynamically stable. She does not have any cardiovascular complaints. Denies chest pain, palpitations, shortness of breath, PND, leg edema. Troponin elevation secondary to hypertensive crisis. RECOMMENDATIONS 1. Optimize blood pressure regimen. 2. Continue Festus, metoprolol and hydrochlorothiazide. 3. Wean Cardene drip. 4. Start Procardia XL 30 mg p.o. daily. 5. Get a 2-D echocardiogram to assess LV systolic function. 6. Continue simvastatin. 7. Start ASA 81mg PO daily We will be available on a p.r.n. basis for any other questions or concerns. (2) Atypical chest pain Status: Chronic (3) Elevated troponin I level ICD Codes: R74.8 - Abnormal levels of other serum enzymes Status: Acute (4) Essential hypertension Status: Chronic (5) GERD Status: Chronic Jozef Fernando MD Nov 21, 2016 08:53
[2016-11-21] MEDS: LISINOPRIL 20 MG TAB PO SCH ×2 (09:00→14:01)
[2016-11-21] MEDS: SODIUM CHLORIDE 0.9% FLUSH 10 ML FLUSH IV FLUSH SCH ×2 (09:00→21:50)
[2016-11-21] MEDS: ASPIRIN EC 81 MG TABEC PO SCH ×2 (09:00→09:42)
[2016-11-21 09:40] LABS: ALKALINE PHOSPHATASE 70 U/L (45-117); ALT (GPT) 22 U/L (10-53); ANION GAP 7 MEQ/L (5-15); AST (GOT) 13 U/L (15-37); BICARBONATE 25.9 MEQ/L (21.0-32.0); BLOOD UREA NITROGEN 12 MG/DL (7-18); CHLORIDE 107 MEQ/L (98-107); GLOMERULAR FILTRATION RATE 80 ML/MIN (>89); SODIUM (NA) 140 MEQ/L (136-145); TOTAL BILIRUBIN ADULT 0.2 MG/DL (0.2-1.0)
[2016-11-21 09:44] LABS: POTASSIUM 2.6 MEQ/L (3.5-5.1)
[2016-11-21] MEDS: NIFEdipine 30 MG SUSTAINED RELEASE TAB PO SCH (09:45)
[2016-11-21] MEDS ORDERED: PNEUMOCOCCAL POLYVALENT INJ 25 MCG/0.5 ML SYR IM ONE (10:00)
[2016-11-21] MEDS ORDERED: POTASSIUM CHLOR 40 MEQ PREMIX 100 ML IV ONE (10:00)
[2016-11-21] MEDS: traMADol HCL 50 MG TAB PO PRN ×2 (10:44→17:14)
[2016-11-21] MEDS: POTASSIUM CHLOR 20 MEQ PREMIX 100 ML IV SCH ×3 (11:37→22:09)
[2016-11-21] MEDS: HEPARIN SODIUM - SQ 10,000 UNITS/ML VIAL SQ SCH (11:50)
[2016-11-21] MEDS: hydrALAZINE HCL 20 MG/ML VIAL IV PRN (15:34)
--- NOTE | 2016-11-21 16:58 | HHI.PR ---
Subjective Remarks Resting in bed, no chest pain or short of breath Potassium is 2.6 today, 3 sets of cardiac enzymes around 0.2 No nausea or vomiting Cardiology recommended continuing daily and electrolyte monitoring, awaiting 2- D echo Objective Vitals Vital Signs Date Time Temp Pulse Resp B/P (MAP) Pulse Ox O2 Delivery O2 Flow Rate FiO2 11/21/16 16:40 90 176/77 11/21/16 14:00 88 11/21/16 13:00 69 11/21/16 12:00 98.0 74 23 185/85 (118) 97 11/21/16 12:00 74 11/21/16 11:50 66 191/84 11/21/16 11:00 66 11/21/16 10:00 69 11/21/16 09:00 68 11/21/16 08:00 79 11/21/16 08:00 97.5 79 19 177/79 (111) 99 11/21/16 07:12 98 21 11/21/16 07:00 98 Nasal Cannula 2.00 11/21/16 07:00 72 11/21/16 06:03 73 145/65 11/21/16 06:00 66 11/21/16 04:13 79 146/65 11/21/16 04:00 98.9 71 24 146/65 (92) 95 11/21/16 04:00 71 11/21/16 02:00 66 11/21/16 01:16 69 148/67 11/21/16 00:00 99.1 67 23 152/67 (95) 97 11/21/16 00:00 67 11/20/16 23:10 67 161/71 11/20/16 22:00 75 11/20/16 21:00 98 21 11/20/16 20:07 73 212/116 11/20/16 20:00 76 11/20/16 20:00 99.2 76 25 162/68 (99) 100 11/20/16 19:28 68 183/78 11/20/16 19:00 98 Nasal Cannula 2.00 11/20/16 18:10 65 11/20/16 18:00 65 11/20/16 17:58 20 I/O 11/20/16 11/20/16 11/20/16 11/21/16 11/21/16 11/21/16 07:00 15:00 23:00 07:00 15:00 23:00 Intake Total 640 ml 1521 ml 100 ml Output Total 1000 ml Balance 640 ml 521 ml 100 ml Intake Oral 120 ml 300 ml IV Total 520 ml 1221 ml 100 ml Output Urine Total 1000 ml # Voids 2 3 # Bowel Movements 0 Result Diagram: 11/20/16 0840 11/21/16 0845 Imaging Last Impressions Head CT 11/20/16 0832 Signed Impressions: Service Date/Time: Sunday, November 20, 2016 09:06 - CONCLUSION: Stable noncontrast head CT without acute abnormality identified. There is a stable moderate to severe periventricular white matter low attenuation characteristic of chronic microvascular ischemia. Alex Peña MD Chest X-Ray 11/20/16831 Signed Impressions: Service Date/Time: Sunday, November 20, 2016 08:51 - CONCLUSION: Underinflated with atelectasis at the lung bases. Otherwise, no acute finding is identified. Alex Peña MD Objective Remarks GENERAL: This is a well-nourished, well-developed patient, in no apparent distress. SKIN: No rashes, warm and dry HEAD: Atraumatic. Normocephalic. EYES: Pupils equal round and reactive. Extraocular motions intact. No scleral icterus. ENT: Nose without bleeding, or drainage, Airway patent. NECK: Trachea midline. Supple CARDIOVASCULAR: Regular rate and rhythm without murmurs, gallops, or rubs. RESPIRATORY: Fair air entry bilaterally. No wheezes, rales, or rhonchi. GASTROINTESTINAL: Abdomen soft, non-tender, nondistended. Positive bowel sounds MUSCULOSKELETAL: Extremities without clubbing, cyanosis, or edema. Pedal pulses appreciated NEUROLOGICAL: Awake and alert. Moves all extremity. Normal speech.no focal neurological deficit A/P Assessment and Plan 60 years old female admitted with Severe hypertensive emergency, with chest pain and elevated troponin Chest pain with elevated troponin, mostly due to hypertensive emergency rule out underlying ACS Hypokalemia History of hypertension\\ Hyperlipidemia History of CVA"hemorrhagic'with right sided hemiparesis gradually improved DVT prophylaxis, will hold on heparin due Dasha/O ICH Plan: Appreciate cardiology consult Dr. Valenzuela recommended against full atrial fibrillation, recommending Procardia and beta filomena ICU for close monitoring, patient at high risk for intracranial bleed due to previous history of CVA KCl iv, check magnesium and replace iv, BMP in a.m. O2, started on Cardene drip with a goal of blood pressure 160/85 Close monitoring blood pressure Hydralazine iv as needed 2-D echo P neg cycling cardiac enzyme, personally reviewed by me first set elevated troponin 0.2 EKG personally reviewed by me showed precordial T-wave inversion Resume statin Resume heparin and SCD Joe Almazan MD Nov 21, 2016 16:58
[2016-11-21] MEDS ORDERED: MAGNESIUM SULFATE 2 GM/NS 100 ML IV ONE ×2 (17:00)
[2016-11-21] MEDS: MAGNESIUM SULFAT 1 GM PREMIX 100 ML x2 bags IV SCH ×2 (17:30→21:51)
--- NOTE | 2016-11-21 18:30 | EKG ---
Date Performed: 11/20/2016 Time Performed: 17:54:01 PTAGE: 60 years EKG: Sinus rhythm POSSIBLE LEFT ATRIAL ENLARGEMENT MARKED LEFT AXIS DEVIATION LEFT VENTRICULAR HYPERTROPHY AND ST-T CH DYLAN ABNORMAL ECG PREVIOUS TRACING : 11/20/2016 10.08 Compared to prior tracing no significant change DOCTOR: Lennie Reid Interpretating Date/Time 11/21/2016 18:29:24
[2016-11-21] MEDS: NITROGLYCERIN 0.4 MG SL 25 TABS/BTL SL PRN (18:51)
--- NOTE | 2016-11-21 18:51 | EKG ---
Date Performed: 11/20/2016 Time Performed: 10:08:19 PTAGE: 60 years EKG: SINUS BRADYCARDIA MARKED LEFT AXIS DEVIATION VOLTAGE CRITERIA FOR LVH MODERATE T-WAVE ABNOR MALITY, CONSIDER LATERAL ISCHEMIA ABNORMAL ECG PREVIOUS TRACING : 06/18/2015 09.43 Compared to prior tracing no significant change DOCTOR: Lennie Reid Interpretating Date/Time 11/21/2016 18:49:49
--- NOTE | 2016-11-21 18:53 | EKG ---
Date Performed: 11/20/2016 Time Performed: 08:32:51 PTAGE: 60 years EKG: SINUS BRADYCARDIA POSSIBLE LEFT ATRIAL ENLARGEMENT MARKED LEFT AXIS DEVIATION LEFT VENTRICU LAR HYPERTROPHY AND ST-T CHANGE ABNORMAL ECG Compared to prior tracing no significant change DOCTOR: Lennie Reid Interpretating Date/Time 11/21/2016 18:52:54
[2016-11-21] MEDS ORDERED: NITROGLYCERIN 0.4 MG SL 25 TABS/BTL SL ONE (18:58)
[2016-11-21] MEDS ORDERED: POTASSIUM CHLORIDE 25 MEQ EFFERVESCENT TAB PO ONE (21:45)
[2016-11-21] MEDS: PRAVASTATIN SOD 80 MG TAB PO SCH (21:51)
[2016-11-22] VITALS (15 sets, daily range): BP systolic 139–165; BP diastolic 64–76; PULSE 76–102; RESP 17–31; TEMP 98.2–98.8; O2SAT 95–100
[2016-11-22] MEDS: POTASSIUM CHLOR 20 MEQ PREMIX 100 ML IV SCH (00:04)
[2016-11-22] MEDS: HEPARIN SODIUM - SQ 10,000 UNITS/ML VIAL SQ SCH ×3 (00:04→23:50)
[2016-11-22] MEDS: niCARdipine INJ 25 MG in SODIUM CHLOR 0.9% 250 ML INJ 250 ML IV PRN ×7 (03:18→23:57)
[2016-11-22] MEDS: ACETAMINOPHEN 325 MG TAB PO PRN (03:19)
[2016-11-22] MEDS: CHLORHEXIDINE GLUCONATE 2 % 1 PACK (2 CLOTHS)(taper/protocol) TOPICAL SCH ×2 (04:00→23:50)
[2016-11-22] MEDS: traMADol HCL 50 MG TAB PO PRN ×2 (04:05→23:50)
[2016-11-22] MEDS: NITROGLYCERIN 0.4 MG SL 25 TABS/BTL SL PRN ×5 (04:41→12:31)
[2016-11-22] MEDS: SODIUM CHLORIDE 0.9% FLUSH 10 ML FLUSH IV FLUSH SCH ×2 (09:14→21:27)
[2016-11-22] MEDS: ASPIRIN EC 81 MG TABEC PO SCH (09:14)
[2016-11-22] MEDS: LISINOPRIL 20 MG TAB PO SCH (09:14)
[2016-11-22] MEDS: NIFEdipine 30 MG SUSTAINED RELEASE TAB PO SCH (09:14)
[2016-11-22] MEDS: hydrALAZINE HCL 20 MG/ML VIAL IV PRN (11:53)
--- NOTE | 2016-11-22 12:40 | ECHRPT ---
Indication: cad CONCLUSIONS The left ventricular systolic function is hyperdynamic with an estimated ejection fraction in the ra nge of 65- 70%. Normal left ventricular size. Moderate concentric left ventricular hypertrophy. No regional wall motion abnormalities are present. Doppler parameters are consistent with a pseudonormal left ventricular filling pattern with concomin ant abnormal relaxation and increased filling pressure (grade 2 diastolic dysfunction). Mild mitral valve regurgitation. There is mild tricuspid valve regurgitation. The estimated pulmonary arterial pressure is 38mmHg. BP: / HR: Rhythm: MEASUREMENTS (Male / Female) Normal Values Technical Quality:Good 2D ECHO LV Diastolic Diameter PLAX 3.9 cm 4.2 - 5.9 / 3.9 - 5.3 cm LV Systolic Diameter PLAX 2.6 cm IVS Diastolic Thickness 2.0 cm 0.6 - 1.0 / 0.6 - 0.9 cm LVPW Diastolic Thickness 1.8 cm 0.6 - 1.0 / 0.6 - 0.9 cm LV Relative Wall Thickness 1.0 RV Internal Dim ED PLAX 2.2 cm LVOT Diameter 2.0 cm M-MODE Aortic Root Diameter MM 2.1 cm LA Systolic Diameter MM 3.5 cm LA Ao Ratio MM 1.7 AV Cusp Separation MM 1.2 cm DOPPLER AV Peak Velocity 230.0 cm/s AV Peak Gradient 21.2 mmHg AV Mean Gradient 12.0 mmHg AV Velocity Time Integral 40.3 cm LVOT Peak Velocity 129.0 cm/s LVOT Peak Gradient 6.7 mmHg LVOT Velocity Time Integral 28.5 cm AV Area Cont Eq vti 2.2 cm AV Area Cont Eq pk 1.8 cm Mitral E Point Velocity 80.0 cm/s Mitral A Point Velocity 94.3 cm/s Mitral E to A Ratio 0.8 LV E' Lateral Velocity 9.3 cm/s Mitral E to LV E' Lateral Ratio 8.6 LV E' Septal Velocity 8.8 cm/s Mitral E to LV E' Septal Ratio 9.1 TR Peak Velocity 257.0 cm/s TR Peak Gradient 26.4 mmHg FINDINGS LEFT VENTRICLE The left ventricular systolic function is hyperdynamic with an estimated ejection fraction in the ra nge of 65- 70%. Normal left ventricular size. Moderate concentric left ventricular hypertrophy. No regional wall motion abnormalities are present. Doppler parameters are consistent with a pseudonormal left ventricular filling pattern with concomin ant abnormal relaxation and increased filling pressure (grade 2 diastolic dysfunction). RIGHT VENTRICLE Normal right ventricular size and systolic function. LEFT ATRIUM The left atrial size is normal. RIGHT ATRIUM The right atrial size is normal. ATRIAL SEPTUM Normal atrial septal thickness without atrial level shunting by limited color doppler interrogation. AORTA The aortic root and proximal ascending aorta are normal in size on limited imaging. MITRAL VALVE Structurally normal mitral valve. Mild mitral valve regurgitation. AORTIC VALVE Trileaflet aortic valve. No aortic valve stenosis or regurgitation. TRICUSPID VALVE Structurally normal tricuspid valve. There is mild tricuspid valve regurgitation. The estimated pulmonary arterial pressure is __ 38mmHg. PULMONARY VALVE The pulmonary valve is not well visualized. VESSELS The inferior vena cava is normal in size. PERICARDIUM No pericardial effusion. Jozef Fernando MD (Electronically Signed) Final Date:22 November 2016 12:39
--- NOTE | 2016-11-22 13:18 | PD.CARD.PN ---
Subjective Subjective Remarks Chest overnight Objective Medications Current Medications Medications (Trade) Dose Ordered Sig/Galilea Route Start Time Stop Time Status Last Admin Nicardipine HCl 25 mg/Sodium Chloride 260 ml @ 52 mls/hr Q5H PRN IV 11/20/16 08:32 11/22/16 09:16 (NS Flush) 2 ml UNSCH PRN IV FLUSH 11/20/16 10:45 (NS Flush) 2 ml BID IV FLUSH 11/20/16 21:00 11/22/16 09:14 (Tylenol) 650 mg Q4H PRN PO 11/20/16 10:45 11/22/16 03:19 (Zofran Inj) 4 mg Q6H PRN IVP 11/20/16 10:45 11/20/16 20:31 (Heparin Inj) 5,000 units Q12H SQ 11/20/16 12:00 11/22/16 11:53 (Narcan Inj) 0.4 mg UNSCH PRN IV 11/20/16 10:45 11/20/16 20:03 (Trandate Inj) 10 mg Q6H PRN IV 11/20/16 10:45 11/21/16 18:17 (Apresoline Inj) 10 mg Q6H PRN IV 11/20/16 10:45 11/22/16 11:53 (Prinivil) 40 mg DAILY PO 11/20/16 14:00 11/22/16 09:14 (Pravachol) 80 mg HS PO 11/20/16 21:00 11/21/16 21:51 (Ultram) 50 mg Q6H PRN PO 11/20/16 16:45 11/22/16 04:05 Miscellaneous Information Patient in critical care unit? Ass... Q361D .XX 11/20/16 17:00 11/20/16 17:00 (Chlorhexidine 2% Cloth) 3 pack DAILY@04 TOPICAL 11/21/16 04:00 11/25/16 04:01 11/22/16 04:00 (Chlorhexidine 2% Cloth) 3 pack UNSCH PRN TOPICAL 11/20/16 17:00 11/25/16 16:50 (Procardia Xl) 30 mg DAILY PO 11/21/16 10:00 11/22/16 09:14 (Ecotrin Ec) 81 mg DAILY PO 11/21/16 09:00 11/22/16 09:14 (Nitrostat Sl) 0.4 mg Q5M PRN SL 11/21/16 18:45 11/22/16 12:31 (Lopressor) 25 mg Q12HR PO 11/22/16 13:15 UNV Vital Signs / I&O Vital Signs Date Time Temp Pulse Resp B/P (MAP) Pulse Ox O2 Delivery O2 Flow Rate FiO2 11/22/16 12:00 86 11/22/16 12:00 98.7 86 19 161/69 (99) 100 11/22/16 10:00 89 11/22/16 09:16 97 139/66 11/22/16 08:00 98.8 84 17 156/70 (98) 97 11/22/16 08:00 84 11/22/16 07:54 98 Nasal Cannula 3.00 11/22/16 07:00 98 Nasal Cannula 2.00 11/22/16 06:36 81 155/69 11/22/16 06:00 86 11/22/16 05:08 18 11/22/16 05:05 18 11/22/16 05:03 84 145/66 11/22/16 04:19 18 11/22/16 04:00 93 11/22/16 04:00 98.2 93 19 154/65 (94) 100 11/22/16 03:18 91 165/73 11/22/16 02:00 84 11/22/16 00:00 77 11/22/16 00:00 98.7 77 20 165/76 (105) 100 11/21/16 23:07 76 174/81 11/21/16 22:00 82 11/21/16 21:14 98 Nasal Cannula 3.00 11/21/16 20:00 80 11/21/16 20:00 98.3 80 18 166/80 (108) 100 11/21/16 19:00 100 Nasal Cannula 2.00 11/21/16 18:00 92 11/21/16 17:00 87 11/21/16 16:40 90 176/77 11/21/16 16:00 98.5 86 23 169/72 (104) 99 11/21/16 16:00 86 11/21/16 14:00 88 I/O 811/21/16 11/21/16 11/22/16 11/22/16 11/22/16 07:00 15:00 23:00 07:00 15:00 23:00 Intake Total 1521 ml 100 ml 600 ml 1565 ml Output Total 1000 ml Balance 521 ml 100 ml 600 ml 1565 ml Intake Oral 300 ml 500 ml 240 ml IV Total 1221 ml 100 ml 100 ml 1325 ml Output Urine Total 1000 ml # Voids 6 5 # Bowel Movements 0 0 Physical Exam GENERAL: Well-nourished, well-developed patient. SKIN: Warm and dry. HEAD: Normocephalic. EYES: No scleral icterus. No injection or drainage. NECK: Supple, trachea midline. No JVD or lymphadenopathy. CARDIOVASCULAR: Regular rate and rhythm without murmurs, gallops, or rubs. RESPIRATORY: Breath sounds equal bilaterally. No accessory muscle use. GASTROINTESTINAL: Abdomen soft, non-tender, nondistended. EXTREMITIES: No cyanosis, or edema. NEUROLOGICAL: Awake, alert, and oriented x 3. Non-focal. Laboratory Laboratory Tests Test 11/21/16 20:15 11/22/16 12:19 Potassium Level 2.7 MEQ/L Assessment and Plan Problem List: (1) Hypertensive emergency ICD Codes: I16.1 - Hypertensive emergency Status: Acute Plan: 60-year-old female with cardiac risk factors that include age, hypertension, hyperlipidemia admitted with hypertensive urgency with a blood pressure of 234/113. Currently, she remains afebrile and hemodynamically stable. Denies palpitations, shortness of breath, PND, leg edema. Troponin elevation secondary to hypertensive crisis. Echo- preserved LV systolic function with LVH. EKG unchanged, no acute ST changes. RECOMMENDATIONS 1. Continue ACEi 2. Start Lopressor 25mg PO BID 3. Wean Cardene drip. 4. Cont Procardia XL 30 mg p.o. daily. 5. Continue simvastatin. 6. Replete K per protocol We will be available on a p.r.n. basis for any other questions or concerns. (2) Atypical chest pain Status: Chronic (3) Elevated troponin I level ICD Codes: R74.8 - Abnormal levels of other serum enzymes Status: Acute (4) Essential hypertension Status: Chronic (5) GERD Status: Chronic Jozef Fernando MD Nov 22, 2016 13:18
[2016-11-22 13:31] LABS: BICARBONATE 25.5 MEQ/L (21.0-32.0); POTASSIUM 3.3 MEQ/L (3.5-5.1)
[2016-11-22] MEDS ORDERED: hydrALAZINE HCL 25 MG TAB PO SCH (14:00)
--- NOTE | 2016-11-22 14:58 | HHI.PR ---
Subjective Remarks Resting in bed, feeling tired, she reported chest pain left sided 9 out of 10, still with mild short of breath Blood pressure still not optimized, cardiology added Lopressor Objective Vitals Vital Signs Date Time Temp Pulse Resp B/P (MAP) Pulse Ox O2 Delivery O2 Flow Rate FiO2 11/22/16 12:00 86 11/22/16 12:00 98.7 86 19 161/69 (99) 100 11/22/16 10:00 89 11/22/16 09:16 97 139/66 11/22/16 08:00 98.8 84 17 156/70 (98) 97 11/22/16 08:00 84 11/22/16 07:54 98 Nasal Cannula 3.00 11/22/16 07:00 98 Nasal Cannula 2.00 11/22/16 06:36 81 155/69 11/22/16 06:00 86 11/22/16 05:08 18 11/22/16 05:05 18 11/22/16 05:03 84 145/66 11/22/16 04:19 18 11/22/16 04:00 93 11/22/16 04:00 98.2 93 19 154/65 (94) 100 11/22/16 03:18 91 165/73 11/22/16 02:00 84 11/22/16 00:00 77 11/22/16 00:00 98.7 77 20 165/76 (105) 100 11/21/16 23:07 76 174/81 11/21/16 22:00 82 11/21/16 21:14 98 Nasal Cannula 3.00 11/21/16 20:00 80 11/21/16 20:00 98.3 80 18 166/80 (108) 100 11/21/16 19:00 100 Nasal Cannula 2.00 11/21/16 18:00 92 11/21/16 17:00 87 11/21/16 16:40 90 176/77 11/21/16 16:00 98.5 86 23 169/72 (104) 99 11/21/16 16:00 86 I/O 11/21/16 11/21/16 11/21/16 11/22/16 11/22/16 11/22/16 07:00 15:00 23:00 07:00 15:00 23:00 Intake Total 1521 ml 100 ml 600 ml 1565 ml Output Total 1000 ml Balance 521 ml 100 ml 600 ml 1565 ml Intake Oral 300 ml 500 ml 240 ml IV Total 1221 ml 100 ml 100 ml 1325 ml Output Urine Total 1000 ml # Voids 6 5 # Bowel Movements 0 0 Result Diagram: 11/20/16 0840 11/22/16 1219 Objective Remarks GENERAL: This is a well-nourished, well-developed patient, in no apparent distress. SKIN: No rashes, warm and dry HEAD: Atraumatic. Normocephalic. EYES: Pupils equal round and reactive. Extraocular motions intact. No scleral icterus. ENT: Nose without bleeding, or drainage, Airway patent. NECK: Trachea midline. Supple CARDIOVASCULAR: Regular rate and rhythm without murmurs, gallops, or rubs. RESPIRATORY: Fair air entry bilaterally. No wheezes, rales, or rhonchi. GASTROINTESTINAL: Abdomen soft, non-tender, nondistended. Positive bowel sounds MUSCULOSKELETAL: Extremities without clubbing, cyanosis, or edema. Pedal pulses appreciated NEUROLOGICAL: Awake and alert. Moves all extremity. Normal speech.no focal neurological deficit A/P Assessment and Plan 11/22: Today still with chest pain 9 out of 10 on the left side, blood pressure improved but still not optimized, appreciate cardiology [facility], added Lopressor , will continue monitoring electrolytes, awaiting 2-D echo 60 years old female admitted with Severe hypertensive emergency, with chest pain and elevated troponin Chest pain with elevated troponin, mostly due to hypertensive emergency rule out underlying ACS Hypokalemia History of hypertension\\ Hyperlipidemia History of CVA"hemorrhagic'with right sided hemiparesis gradually improved DVT prophylaxis, will hold on heparin due Dasha/O ICH Plan: Appreciate cardiology consult Dr. Valenzuela recommended against full atrial fibrillation, recommending Procardia and beta filomena ICU for close monitoring, patient at high risk for intracranial bleed due to previous history of CVA KCl iv, check magnesium and replace iv, BMP in a.m. O2, started on Cardene drip with a goal of blood pressure 160/85 Close monitoring blood pressure Hydralazine iv as needed 2-D echo P neg cycling cardiac enzyme, personally reviewed by me first set elevated troponin 0.2 EKG personally reviewed by me showed precordial T-wave inversion Resume statin Resume heparin and SCD Joe Almazan MD Nov 22, 2016 14:58
[2016-11-22] MEDS: METOPROLOL TARTRATE 25 MG TAB PO SCH ×2 (15:40→21:26)
[2016-11-22] MEDS: HYDROCHLOROTHIAZIDE 25 MG TAB PO SCH (15:41)
[2016-11-22 16:59] LABS: CREATINE KINASE 157 U/L (26-192)
[2016-11-22 17:22] LABS: CKMB 3.2 NG/ML (0.5-3.6)
[2016-11-22] MEDS ORDERED: POTASSIUM PHOSPHATE INJ 30 MMOL in SODIUM CHLOR 0.9% 250 ML INJ 250 ML IV ONE (18:00)
[2016-11-22 20:30] LABS: CREATINE KINASE 172 U/L (26-192)
[2016-11-22 20:42] LABS: CKMB 3.4 NG/ML (0.5-3.6)
[2016-11-22] MEDS: POTASSIUM PHOSPHATE/SODIUM PHOSPHATE 250 MG TAB PO SCH (21:27)
[2016-11-22] MEDS: PRAVASTATIN SOD 80 MG TAB PO SCH (21:27)
--- NOTE | 2016-11-22 22:15 | RADRPT ---
EXAM DATE/TIME: 11/22/2016 20:55 [place] COMPARISON: CT BRAIN W/O CONTRAST, November 20, 2016, 9:06. INDICATIONS : Trauma, fall. RADIATION DOSE: 45.32 CTDIvol (mGy) MEDICAL HISTORY : Cardiovascular disease. Hypertension. Gastroesophageal reflux disease.CVA. SURGICAL HISTORY : Cholecystectomy. Tubal ligation. ENCOUNTER: Initial ACUITY: 1 day PAIN SCALE: Non-responsive LOCATION: Cranial TECHNIQUE: Multiple contiguous axial images were obtained of the head. Using automated exposure control and adj ustment of the mA and/or kV according to patient size, radiation dose was kept as low as reasonably a chievable to obtain optimal diagnostic quality images. DICOM format image data is available electro nically for review and comparison. FINDINGS: Moderate periventricular and subcortical white matter small vessel ischemic changes are noted bilaterally. There is no acute infarct, acute hemorrhage, mass effect or extra-axial fluid co llections. The ventricles sulci and cisterns are in normal size, shape and position for the patient's age. The bon e windows are unremarkable. CONCLUSION: 1. Moderate periventricular and subcortical white matter small vessel ischemic changes bilaterally. 2. No acute infarct, acute hemorrhage, mass effect or extra-axial fluid collections. Luther Madera MD on November 22, 2016 at 21:03 Board Certified Radiologist. This report was verified electronically.
[2016-11-23] VITALS (19 sets, daily range): BP systolic 140–165; BP diastolic 68–79; PULSE 70–94; RESP 15–30; TEMP 98–98.8; O2SAT 94–98
[2016-11-23] MEDS: niCARdipine INJ 25 MG in SODIUM CHLOR 0.9% 250 ML INJ 250 ML IV PRN (02:17)
[2016-11-23] MEDS: hydrALAZINE HCL 20 MG/ML VIAL IV PRN (04:34)
[2016-11-23] MEDS: traMADol HCL 50 MG TAB PO PRN ×3 (06:20→17:29)
[2016-11-23] MEDS: HYDROCHLOROTHIAZIDE 25 MG TAB PO SCH (09:00)
[2016-11-23] MEDS: POTASSIUM PHOSPHATE/SODIUM PHOSPHATE 250 MG TAB PO SCH ×2 (09:26→21:10)
[2016-11-23] MEDS: METOPROLOL TARTRATE 25 MG TAB PO SCH ×2 (09:26→21:05)
[2016-11-23] MEDS: ASPIRIN EC 81 MG TABEC PO SCH (09:26)
[2016-11-23] MEDS: NIFEdipine 30 MG SUSTAINED RELEASE TAB PO SCH (09:27)
[2016-11-23] MEDS: SODIUM CHLORIDE 0.9% FLUSH 10 ML FLUSH IV FLUSH SCH ×2 (09:27→22:59)
[2016-11-23] MEDS: LOSARTAN 50 MG TAB PO SCH ×2 (10:36→21:06)
[2016-11-23] MEDS: HEPARIN SODIUM - SQ 10,000 UNITS/ML VIAL SQ SCH (11:36)
--- NOTE | 2016-11-23 12:38 | HHI.PR ---
Subjective Remarks Patient stated chest pain is much better today, blood pressure still going occasionally high systolic 170 as per the nurse No nausea or vomiting no short of breath, Cardene drip has been resumed due to systolic blood pressure 170 I instructed the nurse to DC Cardene drip and cover with hydralazine as needed, will continue titrating blood pressure medication, transfer to medical floor. Yesterday patient was trying to get out of bed she slipped, CT of the head did not show hemorrhage however did show small vessel ischemia most likely due to hypertension I advised the patient extensively about the importance of keeping her blood pressure under control Objective Vitals Vital Signs Date Time Temp Pulse Resp B/P (MAP) Pulse Ox O2 Delivery O2 Flow Rate FiO2 11/23/16 10:43 98 Nasal Cannula 2.00 11/23/16 10:00 88 11/23/16 09:00 94 11/23/16 08:00 98.1 80 19 149/74 (99) 97 11/23/16 08:00 80 11/23/16 07:00 84 11/23/16 07:00 Room Air 11/23/16 06:00 91 11/23/16 04:00 81 11/23/16 04:00 98.8 81 20 164/77 (106) 94 11/23/16 02:17 80 138/63 11/23/16 02:00 82 11/23/16 00:00 98.7 84 30 140/68 (92) 95 11/23/16 00:00 84 11/22/16 23:57 82 143/65 11/22/16 22:00 83 11/22/16 22:00 83 24 155/70 (98) 96 11/22/16 21:55 86 158/70 11/22/16 21:28 85 153/71 11/22/16 21:00 86 25 139/66 (90) 97 11/22/16 20:00 96 11/22/16 20:00 98.8 96 31 155/67 (96) 95 11/22/16 19:02 97 Nasal Cannula 2.00 11/22/16 19:00 97 Nasal Cannula 2.00 11/22/16 18:00 76 11/22/16 16:00 98.4 102 23 161/64 (96) 97 11/22/16 16:00 102 11/22/16 14:00 97 I/O 11/22/16 11/22/16 11/22/16 11/23/16 11/23/16 11/23/16 07:00 15:00 23:00 07:00 15:00 23:00 Intake Total 1565 ml 300 ml 5584 ml Output Total 850 ml 2800 ml Balance 1565 ml -550 ml 2784 ml Intake Oral 240 ml 300 ml 300 ml IV Total 1325 ml 5284 ml Output Urine Total 850 ml 2800 ml # Voids 5 # Bowel Movements 0 0 Result Diagram: 11/20/16 0840 11/22/16 1219 Objective Remarks GENERAL: This is a well-nourished, well-developed patient, in no apparent distress. SKIN: No rashes, warm and dry HEAD: Atraumatic. Normocephalic. EYES: Pupils equal round and reactive. Extraocular motions intact. No scleral icterus. ENT: Nose without bleeding, or drainage, Airway patent. NECK: Trachea midline. Supple CARDIOVASCULAR: Regular rate and rhythm without murmurs, gallops, or rubs. RESPIRATORY: Fair air entry bilaterally. No wheezes, rales, or rhonchi. GASTROINTESTINAL: Abdomen soft, non-tender, nondistended. Positive bowel sounds MUSCULOSKELETAL: Extremities without clubbing, cyanosis, or edema. Pedal pulses appreciated NEUROLOGICAL: Awake and alert. Moves all extremity. Normal speech.no focal neurological deficit A/P Assessment and Plan 11/22: Today still with chest pain 9 out of 10 on the left side, blood pressure improved but still not optimized, appreciate cardiology [facility], added Lopressor , will continue monitoring electrolytes, awaiting 2-D echo 11/23: , Cardene drip totally, cover with hydralazine drip, transferred to regular floor, chest pain much improved today, will switch lisinopril to candesartan since 2-D echo showed diastolic dysfunction grade 2 with preserved EF 65-70%, mild TR and MR, continue monitoring his blood pressure CT of the head without contrast has been done overnight due to fall, no hemorrhage, small vessel ischemia 60 years old female admitted with Severe hypertensive emergency, with chest pain and elevated troponin Chest pain with elevated troponin, mostly due to hypertensive emergency rule out underlying ACS Hypokalemia History of hypertension\\ Hyperlipidemia History of CVA"hemorrhagic'with right sided hemiparesis gradually improved DVT prophylaxis, will hold on heparin due Dasha/O ICH Plan: Appreciate cardiology consult Dr. Valenzuela recommended against full atrial fibrillation, recommending Procardia and beta filomena ICU for close monitoring, patient at high risk for intracranial bleed due to previous history of CVA KCl iv, check magnesium and replace iv, BMP in a.m. O2, started on Cardene drip with a goal of blood pressure 160/85 Close monitoring blood pressure Hydralazine iv as needed 2-D echo P neg cycling cardiac enzyme, personally reviewed by me first set elevated troponin 0.2 EKG personally reviewed by me showed precordial T-wave inversion Resume statin Resume heparin and SCD Joe Almazan MD Nov 23, 2016 12:38
--- NOTE | 2016-11-23 15:37 | PD.CARD.PN ---
Subjective Subjective Remarks no complaints off Cardene drip Objective Medications Current Medications Medications (Trade) Dose Ordered Sig/Galilea Route Start Time Stop Time Status Last Admin Nicardipine HCl 25 mg/Sodium Chloride 260 ml @ 52 mls/hr Q5H PRN IV 11/20/16 08:32 11/23/16 02:17 (NS Flush) 2 ml UNSCH PRN IV FLUSH 11/20/16 10:45 (NS Flush) 2 ml BID IV FLUSH 11/20/16 21:00 11/23/16 09:27 (Tylenol) 650 mg Q4H PRN PO 11/20/16 10:45 11/22/16 03:19 (Zofran Inj) 4 mg Q6H PRN IVP 11/20/16 10:45 11/20/16 20:31 (Heparin Inj) 5,000 units Q12H SQ 11/20/16 12:00 11/23/16 11:36 (Narcan Inj) 0.4 mg UNSCH PRN IV 11/20/16 10:45 11/20/16 20:03 (Trandate Inj) 10 mg Q6H PRN IV 11/20/16 10:45 11/21/16 18:17 (Apresoline Inj) 10 mg Q6H PRN IV 11/20/16 10:45 11/23/16 04:34 (Pravachol) 80 mg HS PO 11/20/16 21:00 11/22/16 21:27 (Ultram) 50 mg Q6H PRN PO 11/20/16 16:45 11/23/16 11:36 Miscellaneous Information Patient in critical care unit? Ass... Q361D .XX 11/20/16 17:00 11/20/16 17:00 (Chlorhexidine 2% Cloth) 3 pack DAILY@04 TOPICAL 11/21/16 04:00 11/25/16 04:01 11/22/16 23:50 (Chlorhexidine 2% Cloth) 3 pack UNSCH PRN TOPICAL 11/20/16 17:00 11/25/16 16:50 (Procardia Xl) 30 mg DAILY PO 11/21/16 10:00 11/23/16 09:27 (Ecotrin Ec) 81 mg DAILY PO 11/21/16 09:00 11/23/16 09:26 (Nitrostat Sl) 0.4 mg Q5M PRN SL 11/21/16 18:45 11/22/16 12:31 (Lopressor) 25 mg Q12HR PO 11/22/16 14:00 11/23/16 09:26 (Hydrodiuril) 25 mg DAILY PO 11/22/16 14:00 11/23/16 09:00 (K-Phos Neutral) 625 mg BID PO 11/22/16 21:00 11/24/16 09:01 11/23/16 09:26 (Cozaar) 50 mg Q12HR PO 11/23/16 09:30 11/23/16 10:36 Vital Signs / I&O Vital Signs Date Time Temp Pulse Resp B/P (MAP) Pulse Ox O2 Delivery O2 Flow Rate FiO2 11/23/16 15:00 73 11/23/16 14:00 70 11/23/16 13:00 70 11/23/16 12:00 72 11/23/16 12:00 98.0 72 18 156/74 (101) 97 11/23/16 11:00 89 11/23/16 10:43 98 Nasal Cannula 2.00 11/23/16 10:00 88 11/23/16 09:00 94 11/23/16 08:00 98.1 80 19 149/74 (99) 97 11/23/16 08:00 80 11/23/16 07:00 84 11/23/16 07:00 Room Air 11/23/16 06:00 91 11/23/16 04:00 81 11/23/16 04:00 98.8 81 20 164/77 (106) 94 11/23/16 02:17 80 138/63 11/23/16 02:00 82 11/23/16 00:00 98.7 84 30 140/68 (92) 95 11/23/16 00:00 84 11/22/16 23:57 82 143/65 11/22/16 22:00 83 11/22/16 22:00 83 24 155/70 (98) 96 11/22/16 21:55 86 158/70 11/22/16 21:28 85 153/71 11/22/16 21:00 86 25 139/66 (90) 97 11/22/16 20:00 96 11/22/16 20:00 98.8 96 31 155/67 (96) 95 11/22/16 19:02 97 Nasal Cannula 2.00 11/22/16 19:00 97 Nasal Cannula 2.00 11/22/16 18:00 76 11/22/16 16:00 98.4 102 23 161/64 (96) 97 11/22/16 16:00 102 I/O 11/22/16 11/22/16 11/22/16 11/23/16 11/23/16 11/23/16 07:00 15:00 23:00 07:00 15:00 23:00 Intake Total 1565 ml 300 ml 5584 ml Output Total 850 ml 2800 ml Balance 1565 ml -550 ml 2784 ml Intake Oral 240 ml 300 ml 300 ml IV Total 1325 ml 5284 ml Output Urine Total 850 ml 2800 ml # Voids 5 # Bowel Movements 0 0 Physical Exam GENERAL: Well-nourished, well-developed patient. SKIN: Warm and dry. HEAD: Normocephalic. EYES: No scleral icterus. No injection or drainage. NECK: Supple, trachea midline. No JVD or lymphadenopathy. CARDIOVASCULAR: Regular rate and rhythm without murmurs, gallops, or rubs. RESPIRATORY: Breath sounds equal bilaterally. No accessory muscle use. GASTROINTESTINAL: Abdomen soft, non-tender, nondistended. EXTREMITIES: No cyanosis, or edema. NEUROLOGICAL: Awake, alert, and oriented x 3. Non-focal. Laboratory Laboratory Tests Test 11/22/16 16:06 11/22/16 19:49 Total Creatine Kinase 157 U/L 172 U/L Creatine Kinase MB 3.2 NG/ML 3.4 NG/ML Troponin I 0.49 NG/ML 0.50 NG/ML Imaging Last Impressions Head CT 11/22/16 0000 Signed Impressions: Service Date/Time: Tuesday, November 22, 2016 20:55 - CONCLUSION: 1. Moderate periventricular and subcortical white matter small vessel ischemic changes bilaterally. 2. No acute infarct, acute hemorrhage, mass effect or extra- axial fluid collections. Luther Madera MD Chest X-Ray 11/20/16 0832 Signed Impressions: Service Date/Time: Sunday, November 20, 2016 08:51 - CONCLUSION: Underinflated with atelectasis at the lung bases. Otherwise, no acute finding is identified. Alex Peña MD Assessment and Plan Problem List: (1) Hypertensive emergency ICD Codes: I16.1 - Hypertensive emergency Status: Acute Plan: 60-year-old female with cardiac risk factors that include age, hypertension, hyperlipidemia admitted with hypertensive urgency with a blood pressure of 234/113. Currently, she remains afebrile and hemodynamically stable. BP better control, OFF Cardene drip. Denies palpitations, shortness of breath, PND, leg edema. Troponin elevation secondary to hypertensive crisis. Echo- preserved LV systolic function with LVH. EKG unchanged, no acute ST changes. RECOMMENDATIONS 1. Continue ACEi/ARB and HCTZ 2. Start Lopressor 50mg PO BID 3. Increase Procardia XL to 60 mg p.o. daily. 4. Continue simvastatin. Follow up with cardiology upon discharge Sign off (2) Atypical chest pain Status: Chronic (3) Elevated troponin I level ICD Codes: R74.8 - Abnormal levels of other serum enzymes Status: Acute (4) Essential hypertension Status: Chronic (5) GERD Status: Chronic Jozef Fernando MD Nov 23, 2016 15:37
--- NOTE | 2016-11-23 15:45 | EKG ---
Date Performed: 11/22/2016 Time Performed: 13:20:56 PTAGE: 60 years EKG: Sinus rhythm . Left axis deviation LVH with secondary repolarization abnormality Lateral ST-T changes are probably due to ventricular hypertrophy Abnormal ECG PREVIOUS TRACING 11/20/2016 17.54.01 Since previous tracing, no significant change noted DOCTOR: Dez Weiner Interpretating Date/Time 11/23/2016 15:44:10
[2016-11-23] MEDS: PRAVASTATIN SOD 80 MG TAB PO SCH (21:06)
[2016-11-23] MEDS ORDERED: hydrALAZINE HCL 20 MG/ML VIAL IV PUSH ONE (22:45)
[2016-11-24] VITALS (10 sets, daily range): BP systolic 142–170; BP diastolic 65–86; PULSE 64–74; RESP 16–18; TEMP 97.2–98.4; O2SAT 96–99
[2016-11-24] MEDS: HEPARIN SODIUM - SQ 10,000 UNITS/ML VIAL SQ SCH ×3 (01:04→23:46)
[2016-11-24] MEDS: traMADol HCL 50 MG TAB PO PRN ×3 (01:20→21:05)
[2016-11-24] MEDS: CHLORHEXIDINE GLUCONATE 2 % 1 PACK (2 CLOTHS)(taper/protocol) TOPICAL SCH ×2 (02:26→23:48)
[2016-11-24] MEDS: SODIUM CHLORIDE 0.9% FLUSH 10 ML FLUSH IV FLUSH SCH ×2 (08:18→21:08)
[2016-11-24] MEDS: HYDROCHLOROTHIAZIDE 25 MG TAB PO SCH (08:19)
[2016-11-24] MEDS: LOSARTAN 50 MG TAB PO SCH ×2 (08:19→21:08)
[2016-11-24] MEDS: ASPIRIN EC 81 MG TABEC PO SCH (08:20)
[2016-11-24] MEDS: NIFEdipine 30 MG SUSTAINED RELEASE TAB PO SCH (08:20)
[2016-11-24] MEDS: METOPROLOL TARTRATE 25 MG TAB PO SCH ×2 (08:20→21:08)
[2016-11-24] MEDS: POTASSIUM PHOSPHATE/SODIUM PHOSPHATE 250 MG TAB PO SCH (08:21)
[2016-11-24] MEDS: ENALAPRILAT 2.5 MG/2 ML VIAL IV PUSH PRN ×2 (11:57→23:46)
--- NOTE | 2016-11-24 12:13 | HHI.PR ---
Subjective Remarks Patient again complained off left chest pain but it looks more musculoskeletal it's reproducible with pressure Blood pressure still need more optimization, Lopressor and Procardia increased by cardiology will continue monitoring Objective Vitals Vital Signs Date Time Temp Pulse Resp B/P (MAP) Pulse Ox O2 Delivery O2 Flow Rate FiO2 11/24/16 08:44 97.2 73 17 161/84 (109) 96 11/24/16 07:00 Room Air 3.00 21 11/24/16 04:20 98.0 74 18 143/74 (97) 97 11/24/16 02:37 72 11/24/16 00:52 95 Room Air 11/24/16 00:48 98.3 74 16 142/65 (90) 99 11/23/16 22:00 71 11/23/16 20:00 76 11/23/16 20:00 98.4 76 15 165/79 (107) 98 11/23/16 19:00 98 3.00 11/23/16 18:00 73 11/23/16 17:00 82 11/23/16 16:00 98.7 73 18 161/78 (105) 97 11/23/16 16:00 73 11/23/16 15:00 73 11/23/16 14:00 70 11/23/16 13:00 70 I/O 11/23/16 11/23/16 11/23/16 11/24/16 11/24/16 11/24/16 07:00 15:00 23:00 07:00 15:00 23:00 Intake Total 5584 ml 1250 ml Output Total 2800 ml Balance 2784 ml 1250 ml Intake Oral 300 ml 1250 ml IV Total 5284 ml Output Urine Total 2800 ml # Voids 5 Result Diagram: 11/20/16 0840 11/22/16 1219 Objective Remarks GENERAL: This is a well-nourished, well-developed patient, in no apparent distress. SKIN: No rashes, warm and dry HEAD: Atraumatic. Normocephalic. EYES: Pupils equal round and reactive. Extraocular motions intact. No scleral icterus. ENT: Nose without bleeding, or drainage, Airway patent. NECK: Trachea midline. Supple CARDIOVASCULAR: Regular rate and rhythm without murmurs, gallops, or rubs. RESPIRATORY: Fair air entry bilaterally. No wheezes, rales, or rhonchi. GASTROINTESTINAL: Abdomen soft, non-tender, nondistended. Positive bowel sounds MUSCULOSKELETAL: Extremities without clubbing, cyanosis, or edema. Pedal pulses appreciated NEUROLOGICAL: Awake and alert. Moves all extremity. Normal speech.no focal neurological deficit A/P Assessment and Plan 11/22: Today still with chest pain 9 out of 10 on the left side, blood pressure improved but still not optimized, appreciate cardiology health, added Lopressor , will continue monitoring electrolytes, awaiting 2-D echo 11/23: , Cardene drip totally, cover with hydralazine drip, transferred to regular floor, chest pain much improved today, will switch lisinopril to candesartan since 2-D echo showed diastolic dysfunction grade 2 with preserved EF 65-70%, mild TR and MR, continue monitoring his blood pressure CT of the head without contrast has been done overnight due to fall, no hemorrhage, small vessel ischemia 11/24: Lopressor and Procardia increased by cardiology, continue monitor to optimize blood pressure 60 years old female admitted with Severe hypertensive emergency, with chest pain and elevated troponin Chest pain with elevated troponin, mostly due to hypertensive emergency rule out underlying ACS Hypokalemia History of hypertension\\ Hyperlipidemia History of CVA"hemorrhagic'with right sided hemiparesis gradually improved DVT prophylaxis, will hold on heparin due Dasha/O ICH Plan: Appreciate cardiology consult Dr. Valenzuela recommended against full atrial fibrillation, recommending Procardia and beta filomena ICU for close monitoring, patient at high risk for intracranial bleed due to previous history of CVA KCl iv, check magnesium and replace iv, BMP in a.m. O2, started on Cardene drip with a goal of blood pressure 160/85 Close monitoring blood pressure Hydralazine iv as needed 2-D echo P neg cycling cardiac enzyme, personally reviewed by me first set elevated troponin 0.2 EKG personally reviewed by me showed precordial T-wave inversion Resume statin Resume heparin and SCD Discharge Planning Hopefully in a.m. if blood pressure under control Joe Almazan MD Nov 24, 2016 12:13
[2016-11-24] MEDS: POTASSIUM PHOSPHATE MONOBASIC 500 MG TAB PO SCH ×2 (13:05→21:08)
--- NOTE | 2016-11-24 13:16 | EKG ---
Date Performed: 11/22/2016 Time Performed: 16:56:37 PTAGE: 60 years EKG: Sinus rhythm LEFT VENTRICULAR HYPERTROPHY AND ST-T CHANGE POSSIBLE ANTERIOR MYOCARDIAL INFARCTION , OF INDETERMIN ATE AGE ABNORMAL ECG PREVIOUS TRACING : 11/20/2016 17.54 Compared to prior tracing no significant change DOCTOR: Tara Ramírez Interpretating Date/Time 11/24/2016 13:15:07
[2016-11-24] MEDS: PRAVASTATIN SOD 80 MG TAB PO SCH (21:08)
[2016-11-25] VITALS (10 sets, daily range): BP systolic 138–178; BP diastolic 66–84; PULSE 62–72; RESP 14–18; TEMP 97.3–98.4; O2SAT 97–99
[2016-11-25] MEDS: ENALAPRILAT 2.5 MG/2 ML VIAL IV PUSH PRN (05:17)
[2016-11-25 06:59] LABS: BICARBONATE 31.1 MEQ/L (21.0-32.0); POTASSIUM 3.2 MEQ/L (3.5-5.1)
[2016-11-25] MEDS: traMADol HCL 50 MG TAB PO PRN ×2 (08:05→21:34)
[2016-11-25] MEDS: SODIUM CHLORIDE 0.9% FLUSH 10 ML FLUSH IV FLUSH SCH ×2 (08:05→20:55)
[2016-11-25] MEDS: POTASSIUM PHOSPHATE MONOBASIC 500 MG TAB PO SCH ×2 (08:06→20:55)
[2016-11-25] MEDS: NIFEdipine 30 MG SUSTAINED RELEASE TAB PO SCH (08:06)
[2016-11-25] MEDS: ASPIRIN EC 81 MG TABEC PO SCH (08:06)
[2016-11-25] MEDS: METOPROLOL TARTRATE 25 MG TAB PO SCH ×2 (08:06→20:55)
[2016-11-25] MEDS: LOSARTAN 50 MG TAB PO SCH (08:06)
[2016-11-25] MEDS: HYDROCHLOROTHIAZIDE 25 MG TAB PO SCH (08:09)
[2016-11-25] MEDS: hydrALAZINE HCL 50 MG TAB PO SCH ×3 (11:26→20:55)
[2016-11-25] MEDS: POTASSIUM CHLORIDE 10 MEQ CONTROLLED RELEASE TAB PO SCH ×2 (11:26→13:35)
[2016-11-25] MEDS: HEPARIN SODIUM - SQ 10,000 UNITS/ML VIAL SQ SCH (11:27)
--- NOTE | 2016-11-25 11:49 | HHI.PR ---
Subjective Remarks mild headache , no n/v bp still not optimized , and CR inc today LEYDI , will hold abbi /ARBs, will replace with hydralazine , ivf Objective Vitals Vital Signs Date Time Temp Pulse Resp B/P (MAP) Pulse Ox O2 Delivery O2 Flow Rate FiO2 11/25/16 09:30 18 11/25/16 08:49 97.4 62 16 173/84 (113) 98 11/25/16 05:15 97.8 69 14 158/81 (106) 98 11/25/16 01:00 70 159/82 (107) 11/24/16 23:45 97.9 69 18 170/81 (110) 97 11/24/16 21:17 98.4 73 16 163/80 (107) 98 11/24/16 20:00 Room Air 11/24/16 20:00 69 11/24/16 17:36 99 21 11/24/16 16:57 97.5 64 18 167/82 (110) 99 11/24/16 12:53 97.7 65 18 169/86 (113) 97 I/O 11/24/16 11/24/16 11/24/16 11/25/16 11/25/16 11/25/16 07:00 15:00 23:00 07:00 15:00 23:00 Intake Total 480 ml 350 ml Balance 480 ml 350 ml Intake Oral 480 ml 350 ml # Voids 1 1 1 Result Diagram: 11/25/16 0337 Objective Remarks GENERAL: This is a well-nourished, well-developed patient, in no apparent distress. SKIN: No rashes, warm and dry HEAD: Atraumatic. Normocephalic. EYES: Pupils equal round and reactive. Extraocular motions intact. No scleral icterus. ENT: Nose without bleeding, or drainage, Airway patent. NECK: Trachea midline. Supple CARDIOVASCULAR: Regular rate and rhythm without murmurs, gallops, or rubs. RESPIRATORY: Fair air entry bilaterally. No wheezes, rales, or rhonchi. GASTROINTESTINAL: Abdomen soft, non-tender, nondistended. Positive bowel sounds MUSCULOSKELETAL: Extremities without clubbing, cyanosis, or edema. Pedal pulses appreciated NEUROLOGICAL: Awake and alert. Moves all extremity. Normal speech.no focal neurological deficit A/P Assessment and Plan 11/22: Today still with chest pain 9 out of 10 on the left side, blood pressure improved but still not optimized, appreciate cardiology health, added Lopressor , will continue monitoring electrolytes, awaiting 2-D echo 11/23: , Cardene drip totally, cover with hydralazine drip, transferred to regular floor, chest pain much improved today, will switch lisinopril to candesartan since 2-D echo showed diastolic dysfunction grade 2 with preserved EF 65-70%, mild TR and MR, continue monitoring his blood pressure CT of the head without contrast has been done overnight due to fall, no hemorrhage, small vessel ischemia 11/24: Lopressor and Procardia increased by cardiology, continue monitor to optimize blood pressure 12/26: LEYDI >>inc CR 0.8>1.15, with hyponatremia and hypokalemia, hold CEinh and ARB, add hydralazine poq8 , add clonidine prn , monitor over night il ns ivf , avoid nephrotoxins 60 years old female admitted with Severe hypertensive emergency, with chest pain and elevated troponin Chest pain with elevated troponin, mostly due to hypertensive emergency rule out underlying ACS Hypokalemia History of hypertension\\ Hyperlipidemia History of CVA"hemorrhagic'with right sided hemiparesis gradually improved DVT prophylaxis, will hold on heparin due Dasha/O ICH Plan: cardiology consult Dr. Valenzuela recommended against full AntiCOAG recommending Procardia and beta filomena ICU for close monitoring, patient at high risk for intracranial bleed due to previous history of CVA KCl iv, check magnesium and replace iv, BMP in a.m. O2, started on Cardene drip with a goal of blood pressure 160/85 Close monitoring blood pressure Hydralazine iv as needed 2-D echo P neg cycling cardiac enzyme, personally reviewed by me first set elevated troponin 0.2 EKG personally reviewed by me showed precordial T-wave inversion Resume statin Resume heparin and SCD Discharge Planning Hopefully in a.m. if blood pressure under control Joe Almazan MD Nov 25, 2016 11:49
[2016-11-25] MEDS: cloNIDine HCL 0.1 MG TAB PO PRN (13:34)
[2016-11-25] MEDS: SODIUM CHLOR 0.9% 1000 ML INJ 1,000 ML IV SCH (13:35)
[2016-11-25] MEDS: PRAVASTATIN SOD 80 MG TAB PO SCH (20:55)
[2016-11-26] VITALS (7 sets, daily range): BP systolic 94–152; BP diastolic 60–82; PULSE 57–68; RESP 16–20; TEMP 97.6–98.3; O2SAT 96–100
[2016-11-26] MEDS: HEPARIN SODIUM - SQ 10,000 UNITS/ML VIAL SQ SCH ×2 (00:17→11:41)
[2016-11-26] MEDS: cloNIDine HCL 0.1 MG TAB PO PRN ×2 (00:18→05:41)
[2016-11-26] MEDS: traMADol HCL 50 MG TAB PO PRN (05:28)
[2016-11-26] MEDS: hydrALAZINE HCL 50 MG TAB PO SCH ×2 (05:28→14:07)
[2016-11-26] MEDS: SODIUM CHLOR 0.9% 1000 ML INJ 1,000 ML IV SCH (05:42)
[2016-11-26] MEDS: NIFEdipine 30 MG SUSTAINED RELEASE TAB PO SCH (08:22)
[2016-11-26] MEDS: METOPROLOL TARTRATE 25 MG TAB PO SCH (08:22)
[2016-11-26] MEDS: HYDROCHLOROTHIAZIDE 25 MG TAB PO SCH (08:22)
[2016-11-26] MEDS: ASPIRIN EC 81 MG TABEC PO SCH (08:25)
[2016-11-26] MEDS: POTASSIUM PHOSPHATE MONOBASIC 500 MG TAB PO SCH (08:25)
[2016-11-26] MEDS: SODIUM CHLORIDE 0.9% FLUSH 10 ML FLUSH IV FLUSH SCH (08:25)
[2016-11-26 09:09] LABS: BICARBONATE 25.4 MEQ/L (21.0-32.0); POTASSIUM 3.9 MEQ/L (3.5-5.1)
[2016-11-26] MEDS ORDERED: ASPI-99 PO (13:21)
[2016-11-26] MEDS ORDERED: HYDR-3800 PO (13:21)
[2016-11-26] MEDS ORDERED: K-PHTAB PO (13:21)
[2016-11-26] MEDS ORDERED: HYDR25TA5 PO (13:21)
[2016-11-26] MEDS ORDERED: NIFE30TA8 PO (13:21)
[2016-11-26] MEDS ORDERED: CLON.1 PO (13:22)
--- NOTE | 2016-11-26 13:39 | HHI.DS ---
Discharge Summary Admission Date Nov 20, 2016 at 10:51 Discharge Date: Nov 26, 2016 Admitting Diagnosis hypertensive emergency, elevated troponin (1) GERD Status: Chronic (2) Essential hypertension Status: Chronic (3) Atypical chest pain Status: Chronic (4) Hypertensive emergency ICD Code: I16.1 - Hypertensive emergency Status: Acute (5) Elevated troponin I level ICD Code: R74.8 - Abnormal levels of other serum enzymes Status: Acute Procedures See below Brief History - From Admission 60 years old female with history of hypertension and CVA in 2009 ended with right sided hemiparesis which improved with physical therapy came today complaining of left chest pain 8 out of 10 radiating to her arm, positive diaphoresis and short of breath, nausea but no vomiting, pain is steady , improved now after starting Cardene drip to increase her blood pressure. Patient told me she had the stroke due to "burst vessel "in the past, troponin was found to be related with T-wave inversion on EKG, cardiology consulted I discussed with Dr. Valenzuela, no anticoagulation at this point. Continue cardiac enzyme monitoring. Patient denied abdominal pain diarrhea or constipation, no sore throat fever or chills, no dysuria urgency or frequency. She had a history of hysterectomy and cholecystectomy in the past, she doesn't smoke or drink alcohol or do illicit drugs, father of prostate cancer and mother of heart attack CBC/BMP: 11/26/16 0654 Significant Findings Laboratory Tests Test 11/23/16 13:45 11/25/16 03:37 11/26/16 06:54 Creatinine 1.15 MG/DL (0.50-1.00) 1.25 MG/DL (0.50-1.00) Sodium Level 135 MEQ/L (136-145) 135 MEQ/L (136-145) Potassium Level 3.2 MEQ/L (3.5-5.1) Chloride Level 97 MEQ/L (98-107) Estimat Glomerular Filtration Rate 58 ML/MIN (>89) 53 ML/MIN (>89) Random Glucose 132 MG/DL (74-106) PE at Discharge GENERAL: This is a well-nourished, well-developed patient, in no apparent distress. SKIN: No rashes, warm and dry HEAD: Atraumatic. Normocephalic. EYES: Pupils equal round and reactive. Extraocular motions intact. No scleral icterus. ENT: Nose without bleeding, or drainage, Airway patent. NECK: Trachea midline. Supple CARDIOVASCULAR: Regular rate and rhythm without murmurs, gallops, or rubs. RESPIRATORY: Fair air entry bilaterally. No wheezes, rales, or rhonchi. GASTROINTESTINAL: Abdomen soft, non-tender, nondistended. Positive bowel sounds MUSCULOSKELETAL: Extremities without clubbing, cyanosis, or edema. Pedal pulses appreciated NEUROLOGICAL: Awake and alert. Moves all extremity. Normal speech.no focal neurological deficit Hospital Course Patient admitted for severe hypertensive emergency with chest pain and elevated own and hypokalemia, admitted to the ICU cardiology consult was started on Cardene drip and electrolyte monitoring and balancing 2-D echo has been done. Antihypertensive medication is being titrated via the hospitalist and cardiology service, patient creatinine start to increase so GABBY inhibitor on arms has been on hold substitute it with hydralazine and clonidine when necessary, blood pressure improved significantly, patient medically stable for discharge, BMP to be checked in the rehabilitation and followed by PCP. Encourage oral intake Sost-me-oaph encounter performed with the patient on discharge day, as well as physical exam, summary of hospitalization course and postdischarge plan has been D/W the patient. D/W nurse Discharge medications reviewed and printed and signed, post discharge follow up visit with PCP and other specialist as well as Brief hospital course and discharge summary has been placed. Pt Condition on Discharge: Fair Discharge Disposition: Discharge to SNF Discharge Time: > 30 minutes Discharge Instructions DIET: Follow Instructions for: Heart Healthy Diet Activities you can perform: See Additionl Instruction Other Activity Instructions: per PT Follow up Referrals: Cardiology - 2 Weeks with Jozef Fernando MD New Orders: BASIC METABOLIC PROF - Daily New Medications: Aspirin DR (Adult Aspirin EC Low Strength) 81 Mg Tabec 81 MG PO DAILY for proph, #30 TAB Clonidine (Catapres) 0.1 Mg Tab 0.1 MG PO Q6H PRN for bp>160/90, #30 TAB Hydralazine HCl (Hydralazine HCl) 50 Mg Tablet 50 MG PO Q8HR for htn, #90 TAB Hydrochlorothiazide (Hydrochlorothiazide) 25 Mg Tab 25 MG PO DAILY for htn, #30 TAB Nifedipine ER 24 HR (Nifedipine ER 24 HR) 30 Mg Tab 60 MG PO DAILY for htn, #30 TAB Potassium Phosphate Monobasic (K-Phos) 500 Mg Tab 500 MG PO Q12HR for replacement , #6 TAB Continued Medications: Metoprolol Succinate ER 24 HR (Metoprolol Succinate ER 24 HR) 50 Mg Tab 50 MG PO DAILY, #30 TAB 0 Refills Simvastatin (Simvastatin) 40 Mg Tab 40 MG PO HS for Cholesterol Management, #30 TAB 0 Refills Joe Almazan MD Nov 26, 2016 13:39
[2016-11-26] MEDS ORDERED: PERI8.6T PO (15:50)
[2016-11-26] MEDS ORDERED: DULC10SU3 RECTAL (15:50)
[2016-11-26] MEDS ORDERED: BISACODYL 10 MG SUPP RECTAL PRN (16:00)
[2016-11-26] MEDS ORDERED: MAGNESIUM HYDROXIDE SUSP 30 ML CUP PO PRN (16:00)
[2016-11-26] MEDS ORDERED: DOCUSATE SODIUM 50 MG/SENNA 8.6 MG TAB PO PRN (16:00)
== END 2016-11-26 20:16 | DRG 305 ==
LOC: NEPE 08:17 → NEDA 10:51 → HIME 13:50 → N05A 11-23 23:23
PROVIDERS: ADMIT Hospitalist; ATTEND Hospitalist
DX: I16.9 Hypertensive crisis, unspecified (principal); N17.9 Acute kidney failure, unspecified; E87.1 Hypo-osmolality and hyponatremia; I69.351 Hemiplegia and hemiparesis following cerebral infarction affecting right dominant side; I11.9 Hypertensive heart disease without heart failure; E78.5 Hyperlipidemia, unspecified; R74.8 Abnormal levels of other serum enzymes; K21.9 Gastro-esophageal reflux disease without esophagitis; E87.6 Hypokalemia; I08.1 Rheumatic disorders of both mitral and tricuspid valves; Z82.49 Family history of ischemic heart disease and other diseases of the circulatory system; Z86.14 Personal history of Methicillin resistant Staphylococcus aureus infection; Z88.5 Allergy status to narcotic agent
CPT/HCPCS: 70450; 71010; 76937; 80048; 80053; 80307; 81001; 82550; 82552; 82948; 83735; 84100; 84132; 84484; 85025; 85610; 87641; 93005; 93306; 96365; 96375; J0360; J1644; J2310; J2405; J3475; J3480; J7030; J7050

== ENCOUNTER 2016-12-31 21:34 | Inpatient (IN) | payer MEDICARE ==
[~2016-12-31] VITALS: Ht 157.5 cm; Wt 81.0 kg
[2016-12-31] MEDS: NITROGLYCERIN 0.4 MG SL 25 TABS/BTL SL SCH ×3 (00:45→23:35)
[~2016-12-31 21:34] MED LIST changes: +ASPI-99 PO; -ASPI1TAB69 PO; +CLON.1 PO; +CLON0.2T PO; -CLON0.3T PO; +DULC10SU3 RECTAL; +HYDR-3800 PO; +HYDR25TA5 PO; -HYDR50TA15 PO; +HYDR50TA3 PO; +K-PHTAB PO; -LISI40TA PO; +METO50TA11 PO; -MOBI15TA PO; +NIFE30TA8 PO; +PERI8.6T PO; +SIMV40TA PO; -ULTR50TA5 PO
[2016-12-31 21:36] VITALS: BP 149/107; PULSE 55; RESP 16; TEMP 98; O2SAT 100
[2016-12-31] MEDS ORDERED: SODIUM CHLORID 0.9% 500 ML INJ 500 ML IV ONE (23:00)
[2016-12-31] MEDS ORDERED: SODIUM CHLORIDE 0.9% FLUSH 10 ML FLUSH IVF PRN (23:00)
[2016-12-31] MEDS ORDERED: ASPIRIN 81 MG CHEW TAB PO ONE (23:00)
--- NOTE | 2016-12-31 23:14 | PD ---
HPI Chief Complaint: Numbness/Tingling Time Seen by Provider: 22:45 Travel History International Travel<30 days: No Contact w/Intl Traveler<30days: No Traveled to known affect area: No History of Present Illness HPI Patient is a 61-year-old female who presents to emergency room with complaints of chest pain and numbness and tingling started her left arm. She reports that she has been having these symptoms since . Patient reports that these symptoms have been continuous. Patient reports that she was recently admitted for hypertensive emergency and was hospitalized for multiple days in the ICU. Patient reports that after her hospitalization, she did go to rehabilitation. 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 Patient reports that she follow-up with her neurologist Dr. Siegel this morning as she was having left sided chest pain with numbness and burning to the left arm. Dr. Siegel told her that symptoms are most likely cardiac in nature and if she continued have symptoms, she should go to the emergency room for cardiac workup. As per patient's chest pain, patient reports that her chest pain is left-sided, that she feels a "pressure" to her chest with associated shortness of breath. Patient with no nausea or vomiting with symptoms. PFSH Past Medical History Hx Anticoagulant Therapy: No Arthritis: No Asthma: No Autoimmune Disease: No Blood Disorders: Yes Anxiety: Yes Depression: No Heart Rhythm Problems: Yes (Bradycardia) Cancer: No Cardiac Catheterization: Yes (MAY 2013) Cardiovascular Problems: Yes (HTN, ) High Cholesterol: Yes Chemotherapy: No Chest Pain: Yes Congestive Heart Failure: No COPD: No Cerebrovascular Accident: Yes (Stroke 2009) Diabetes: No Diminished Hearing: No Endocrine: No Gastrointestinal Disorders: Yes GERD: Yes Genitourinary: No Headaches: Yes Hiatal Hernia: No Hypertension: Yes Immune Disorder: No Implanted Vascular Access Dvce: No Kidney Stones: No Musculoskeletal: Yes (NECK AND BACK INJURY 2007) Neurologic: Yes Psychiatric: No Reproductive: No Respiratory: No Immunizations Current: No Migraines: No Myocardial Infarction: Yes Radiation Therapy: No Renal Failure: No Seizures: No Sickle Cell Disease: No Sleep Apnea: No Thyroid Disease: No Ulcer: No PNEUMOCCOCAL Vaccine (Year): 2 ?: Not Menopausal: Yes : 3 Para: 3 Tubal Ligation: Yes Past Surgical History Abdominal Surgery: Yes AICD: No Arteriovenous Shunt: No Cardiac Surgery: Yes (cardiac cath 05/2013) Cholecystectomy: Yes Coronary Artery Bypass Graft: No Coronary Stent: Yes (X1) Ear Surgery: No Endocrine Surgery: No Eye Surgery: No Genitourinary Surgery: No Gynecologic Surgery: Yes Hysterectomy: Yes Insulin Pump: No Joint Replacement: No Neurologic Surgery: No Oral Surgery: No Pacemaker: No Thoracic Surgery: No Other Surgery: Yes (gallbladder removed, hysterectomy ) Social History Alcohol Use: No Tobacco Use: No Substance Use: No Allergies-Medications (Allergen,Severity, Reaction): Coded Allergies: meperidine (Unverified Allergy, Severe, HIVES, 11/10/16) morphine (Unverified Allergy, Severe, Itching, 11/10/16) DENIES ALLERGY TODAY 01/18/16 Reported Meds & Prescriptions Reported Meds & Active Scripts Active Catapres (Clonidine) 0.1 Mg Tab 0.1 Mg PO Q6H PRN Hydralazine HCl 50 Mg Tablet 50 Mg PO Q8HR Nifedipine ER 24 HR (Nifedipine) 30 Mg Tab 60 Mg PO DAILY Adult Aspirin EC Low Strength (Aspirin) 81 Mg Tabec 81 Mg PO DAILY K-Phos (Potassium Phosphate Monobasic) 500 Mg Tab 500 Mg PO Q12HR Reported Hydrochlorothiazide 50 Mg Tab 50 Mg PO DAILY Metoprolol Succinate ER 24 HR (Metoprolol Succinate) 50 Mg Tab 50 Mg PO DAILY Simvastatin 40 Mg Tab 40 Mg PO HS Clonidine (Clonidine HCl) 0.2 Mg Tab 0.2 Mg PO DAILY Review of Systems General / Constitutional: No: Fever Eyes: No: Visual changes HENT: No: Headaches Cardiovascular: Positive: Chest Pain or Discomfort Respiratory: No: Shortness of Breath Gastrointestinal: No: Abdominal Pain Genitourinary: No: Dysuria Musculoskeletal: No: Pain Skin: No Rash Neurologic: Positive: Paresthesia, No: Weakness Psychiatric: No: Depression Endocrine: No: Polydipsia Hematologic/Lymphatic: No: Easy Bruising Physical Exam Narrative GENERAL: Mild distress SKIN: Focused skin assessment warm/dry. HEAD: Atraumatic. Normocephalic. EYES: Pupils equal and round. No scleral icterus. No injection or drainage. ENT: No nasal bleeding or discharge. Mucous membranes pink and moist. NECK: Trachea midline. No JVD. CARDIOVASCULAR: Regular rate and rhythm. No murmur appreciated. RESPIRATORY: No accessory muscle use. Clear to auscultation. Breath sounds equal bilaterally. GASTROINTESTINAL: Abdomen soft, non-tender, nondistended. Hepatic and splenic margins not palpable. MUSCULOSKELETAL: No obvious deformities. No clubbing. No cyanosis. No edema. NEUROLOGICAL: Awake and alert. No obvious cranial nerve deficits. Patient with right sided weakness which patient reports is at baseline given her past CVA. Normal speech. PSYCHIATRIC: Appropriate mood and affect; insight and judgment normal. Data Data Last Documented VS Vital Signs Date Time Temp Pulse Resp B/P (MAP) Pulse Ox O2 Delivery O2 Flow Rate FiO2 01/01/17 00:00 44 15 144/68 (93) 98 Room Air 12/31/16 21:36 98.0 Orders Orders Electrocardiogram (12/31/16 22:56) Ckmb (Isoenzyme) Profile (12/31/16 22:56) Complete Blood Count With Diff (12/31/16 22:56) Comprehensive Metabolic Panel (12/31/16 22:56) Magnesium (Mg) (12/31/16 22:56) Prothrombin Time / Inr (Pt) (12/31/16 22:56) Act Partial Throm Time (Ptt) (12/31/16 22:56) Troponin I (12/31/16 22:56) Chest, Single Ap (12/31/16 22:56) Ecg Monitoring (12/31/16 22:56) Iv Access Insert/Monitor (12/31/16 22:56) Oximetry (12/31/16 22:56) Aspirin Chew (Aspirin Chew) (12/31/16 23:00) Sodium Chloride 0.9% Flush (Ns Flush) (12/31/16 23:00) Nitroglycerin Sl (Nitrostat Sl) (12/31/16 23:00) Sodium Chlorid 0.9% 500 Ml Inj (Ns 500 M (12/31/16 23:00) Ct Brain W/O Iv Contrast(Rout) (12/31/16 22:56) CKMB (01/01/17 00:16) CKMB% (01/01/17 00:16) Heparin Infusion RANCHO.Q1H (01/01/17 01:36) Heparin-D5w 25,000 U/250 Ml (Heparin-D5w (01/01/17 01:45) Nitroglycerin-D5w 50 Mg/250 Ml (Nitrogly (01/01/17 01:45) Admit Order (Ed Use Only) (01/01/17 02:11) Labs Laboratory Tests Test 01/01/17 00:16 White Blood Count 7.9 TH/MM3 Red Blood Count 4.97 MIL/MM3 Hemoglobin 11.1 GM/DL Hematocrit 33.9 % Mean Corpuscular Volume 68.2 FL Mean Corpuscular Hemoglobin 22.4 PG Mean Corpuscular Hemoglobin Concent 32.9 % Red Cell Distribution Width 16.0 % Platelet Count 207 TH/MM3 Mean Platelet Volume 8.1 FL Neutrophils (%) (Auto) 56.4 % Lymphocytes (%) (Auto) 33.3 % Monocytes (%) (Auto) 7.5 % Eosinophils (%) (Auto) 2.2 % Basophils (%) (Auto) 0.6 % Neutrophils # (Auto) 4.4 TH/MM3 Lymphocytes # (Auto) 2.6 TH/MM3 Monocytes # (Auto) 0.6 TH/MM3 Eosinophils # (Auto) 0.2 TH/MM3 Basophils # (Auto) 0.0 TH/MM3 CBC Comment DIFF FINAL Differential Comment Prothrombin Time 11.0 SEC Prothromb Time International Ratio 1.0 RATIO Activated Partial Thromboplast Time 27.1 SEC Blood Urea Nitrogen 17 MG/DL Creatinine 1.22 MG/DL Random Glucose 99 MG/DL Total Protein 7.1 GM/DL Albumin 3.2 GM/DL Calcium Level 9.0 MG/DL Magnesium Level 2.0 MG/DL Alkaline Phosphatase 59 U/L Aspartate Amino Transf (AST/SGOT) 12 U/L Alanine Aminotransferase (ALT/SGPT) 21 U/L Total Bilirubin 0.2 MG/DL Sodium Level 140 MEQ/L Potassium Level 3.2 MEQ/L Chloride Level 103 MEQ/L Carbon Dioxide Level 28.8 MEQ/L Anion Gap 8 MEQ/L Estimat Glomerular Filtration Rate 54 ML/MIN Total Creatine Kinase 268 U/L Creatine Kinase MB 1.7 NG/ML Creatine Kinase MB % 0.6 % Troponin I 0.12 NG/ML MDM Medical Decision Making Medical Screen Exam Complete: Yes Emergency Medical Condition: Yes Medical Record Reviewed: Yes Interpretation(s) EKG at 2257: Sinus bradycardia at 48bpm, qt/qtc: 451/419, non specific t wave changes Vital Signs Date Time Temp Pulse Resp B/P (MAP) Pulse Ox O2 Delivery O2 Flow Rate FiO2 12/31/16 21:36 98.0 55 16 149/107 (121) 100 Room Air Differential Diagnosis Differential includes ACS, arrhythmia, electrolyte abnormality, cervical radiculopathy Narrative Course 61-year-old female who presents to emergency room with complaints of left sided chest pain with numbness and burning sensation to her left upper extremity since . She was seen by her neurologist this morning and was recommended to go to the emergency room for cardiac workup given her recent hospitalization for her blood pressure issues. Patient was placed on a ekg monitor tech upon arrival to the emergency room. Lab work including CE ordered. Chest xray ordered. SL nitro ordered. Plan to monitor patient Vital Signs Date Time Temp Pulse Resp B/P (MAP) Pulse Ox O2 Delivery O2 Flow Rate FiO2 12/31/16 23:21 55 14 168/71 (103) 100 Room Air 12/31/16 21:36 98.0 55 16 149/107 (121) 100 Room Air Laboratory Tests Test 01/01/17 00:16 White Blood Count 7.9 TH/MM3 (4.0-11.0) Red Blood Count 4.97 MIL/MM3 (4.00-5.30) Hemoglobin 11.1 GM/DL (11.6-15.3) Hematocrit 33.9 % (35.0-46.0) Mean Corpuscular Volume 68.2 FL (80.0-100.0) Mean Corpuscular Hemoglobin 22.4 PG (27.0-34.0) Mean Corpuscular Hemoglobin Concent 32.9 % (32.0-36.0) Red Cell Distribution Width 16.0 % (11.6-17.2) Platelet Count 207 TH/MM3 (150-450) Mean Platelet Volume 8.1 FL (7.0-11.0) Neutrophils (%) (Auto) 56.4 % (16.0-70.0) Lymphocytes (%) (Auto) 33.3 % (9.0-44.0) Monocytes (%) (Auto) 7.5 % (0.0-8.0) Eosinophils (%) (Auto) 2.2 % (0.0-4.0) Basophils (%) (Auto) 0.6 % (0.0-2.0) Neutrophils # (Auto) 4.4 TH/MM3 (1.8-7.7) Lymphocytes # (Auto) 2.6 TH/MM3 (1.0-4.8) Monocytes # (Auto) 0.6 TH/MM3 (0-0.9) Eosinophils # (Auto) 0.2 TH/MM3 (0-0.4) Basophils # (Auto) 0.0 TH/MM3 (0-0.2) CBC Comment DIFF FINAL Differential Comment Prothrombin Time 11.0 SEC (9.8-11.6) Prothromb Time International Ratio 1.0 RATIO Activated Partial Thromboplast Time 27.1 SEC (24.3-30.1) Blood Urea Nitrogen 17 MG/DL (7-18) Creatinine 1.22 MG/DL (0.50-1.00) Random Glucose 99 MG/DL (74-106) Total Protein 7.1 GM/DL (6.4-8.2) Albumin 3.2 GM/DL (3.4-5.0) Calcium Level 9.0 MG/DL (8.5-10.1) Magnesium Level 2.0 MG/DL (1.5-2.5) Alkaline Phosphatase 59 U/L (45-117) Aspartate Amino Transf (AST/SGOT) 12 U/L (15-37) Alanine Aminotransferase (ALT/SGPT) 21 U/L (10-53) Total Bilirubin 0.2 MG/DL (0.2-1.0) Sodium Level 140 MEQ/L (136-145) Potassium Level 3.2 MEQ/L (3.5-5.1) Chloride Level 103 MEQ/L (98-107) Carbon Dioxide Level 28.8 MEQ/L (21.0-32.0) Anion Gap 8 MEQ/L (5-15) Estimat Glomerular Filtration Rate 54 ML/MIN (>89) Total Creatine Kinase 268 U/L (26-192) Creatine Kinase MB 1.7 NG/ML (0.5-3.6) Creatine Kinase MB % 0.6 % (0.0-4.0) Troponin I 0.12 NG/ML (0.02-0.05) trop 0.12 - patient reports slight relief of chest pain with SL nitro, given her positive troponin, plan to admit to [facility] with nitro gtt and heparin gtt. case reviewed with dr. teixeira who accepts pt to service Critical Care Narrative Aggregate critical care time was 30 minutes. Time to perform other separately billable procedures was not included in the critical care time. My time did not include minutes spent treating any other patients simultaneously or on activities that did not directly contribute to the patient's treatment. The services I provided to this patient were to treat and/or prevent clinically significant deterioration that could result in: , decompensation, deterioration I provided critical care services requiring my management, as noted below: Chart data review, documentation time, medication orders and management, vital sign assessments/reviewing monitor data, ordering and reviewing lab tests, ordering and interpreting/reviewing x-rays and diagnostic studies, care of the patient and discussion of the patient with the admitting physicians. Diagnosis Primary Impression: NSTEMI (non-ST elevated myocardial infarction) Admitting Information Admitting Physician Requests: Heather Yeager DO Dec 31, 2016 23:14
[2016-12-31 23:21] VITALS: BP 168/71; PULSE 55; RESP 14; O2SAT 100
--- NOTE | 2016-12-31 23:24 | RADRPT ---
EXAM DATE/TIME: 12/31/2016 23:01 [facility] COMPARISON: CHEST SINGLE AP, November 20, 2016, 8:51. INDICATIONS : Left sided numbness and pain from jaw to left fingers. MEDICAL HISTORY : Hypertension. Myocardial infarction. Stroke. SURGICAL HISTORY : None. ENCOUNTER: Initial ACUITY: 4 - 6 days PAIN SCORE: 7/10 LOCATION: Bilateral chest FINDINGS: A single view of the chest demonstrates the lungs to be symmetrically aerated without evidence of mas s, infiltrate or effusion. Mild cardiomegaly. No pulmonary vascular engorgement. Osseous structures a re intact. CONCLUSION: Cardiomegaly. Clear lungs. Jorge Chen Jr., MD on December 31, 2016 at 23:22 Board Certified Radiologist. This report was verified electronically.
[2017-01-01] VITALS: BP 144/68; PULSE 44; RESP 15; O2SAT 98
[2017-01-01 00:45] LABS: AUTOMATED NEUTROPHIL # 4.4 TH/MM3 (1.8-7.7); BASOPHIL % 0.6 % (0.0-2.0); EOSINOPHIL # 0.2 TH/MM3 (0-0.4); EOSINOPHIL % 2.2 % (0.0-4.0); HEMATOCRIT 33.9 % (35.0-46.0); HEMO FLAGS DIFF FINAL; LYMPH % 33.3 % (9.0-44.0); LYMPHOCYTE # 2.6 TH/MM3 (1.0-4.8); MEAN CELL VOLUME 68.2 FL (80.0-100.0); MEAN CORPUSCULAR HEMOGLOBIN 22.4 PG (27.0-34.0); MEAN CORPUSCULAR HGB CONC 32.9 % (32.0-36.0); MONO % 7.5 % (0.0-8.0); NEUT % 56.4 % (16.0-70.0); PLATELET COUNT 207 TH/MM3 (150-450); RED BLOOD COUNT 4.97 MIL/MM3 (4.00-5.30); WHITE BLOOD COUNT 7.9 TH/MM3 (4.0-11.0)
[2017-01-01 01:00] LABS: ALT (GPT) 21 U/L (10-53); ANION GAP 8 MEQ/L (5-15); APTT (PATIENT) 27.1 SEC (24.3-30.1); AST (GOT) 12 U/L (15-37); BICARBONATE 28.8 MEQ/L (21.0-32.0); BLOOD UREA NITROGEN 17 MG/DL (7-18); CHLORIDE 103 MEQ/L (98-107); GLOMERULAR FILTRATION RATE 54 ML/MIN (>89); POTASSIUM 3.2 MEQ/L (3.5-5.1); SODIUM (NA) 140 MEQ/L (136-145)
[2017-01-01 01:05] LABS: ALKALINE PHOSPHATASE 59 U/L (45-117); CREATINE KINASE 268 U/L (26-192); TOTAL BILIRUBIN ADULT 0.2 MG/DL (0.2-1.0)
--- NOTE | 2017-01-01 01:07 | RADRPT ---
EXAM DATE/TIME: 01/01/2017 00:54 [facility] COMPARISON: CT BRAIN W/O CONTRAST, November 22, 2016, 20:55. INDICATIONS : Dizziness. Left arm numbness. RADIATION DOSE: 44.50 CTDIvol (mGy) MEDICAL HISTORY : Cerebrovascular disease. Hypertension. SURGICAL HISTORY : None. ENCOUNTER: Initial ACUITY: 1 day PAIN SCALE: 0/10 LOCATION: cranial TECHNIQUE: Multiple contiguous axial images were obtained of the head. Using automated exposure control and adj ustment of the mA and/or kV according to patient size, radiation dose was kept as low as reasonably a chievable to obtain optimal diagnostic quality images. DICOM format image data is available electro nically for review and comparison. FINDINGS: CEREBRUM: Extensive periventricular low attenuation change involving both cerebral hemispheres. Pattern is stab le from the prior study. The ventricles are normal for age. No evidence of midline shift, mass lesio n, hemorrhage or acute infarction. No extra-axial fluid collections are seen. POSTERIOR FOSSA: The cerebellum and brainstem are intact. The 4th ventricle is midline. The cerebellopontine angle i s unremarkable. EXTRACRANIAL: The visualized portion of the orbits is intact. SKULL: The calvaria is intact. No evidence of skull fracture. CONCLUSION: 1. No acute intracranial abnormality. 2. Extensive chronic small vessel ischemic change. Jorge Chen Jr., MD on January 01, 2017 at 1:04 Board Certified Radiologist. This report was verified electronically.
[2017-01-01 01:17] LABS: CKMB 1.7 NG/ML (0.5-3.6)
[2017-01-01] MEDS ORDERED: NITROGLYCERIN-D5W 50 MG/250 ML 250 ML IV PRN (01:45)
[2017-01-01] MEDS ORDERED: ALPR0.5T3 PO (02:29)
[2017-01-01] MEDS ORDERED: OMEP40CA2 PO (02:29)
[2017-01-01] MEDS ORDERED: HYDR-3583 PO (02:29)
[2017-01-01] MEDS ORDERED: ESTR0.5T PO (02:29)
[2017-01-01] MEDS ORDERED: NALOXONE HCL 0.4 MG/ML AMP IV PUSH PRN (02:30)
[2017-01-01] MEDS: HEPARIN-D5W 25,000 U/250 ML 250 ML IV PRN (03:20)
--- NOTE | 2017-01-01 06:30 | HHI.HP ---
[facility] Suhail Christensen, DO Admission Diagnosis NSTEMI Diagnoses: Travel History International Travel<30 Days: No Contact w/Intl Traveler <30 Da: No Traveled to Known Affected Are: No History of Present Illness left arm numb, painful, swollen, started like a tothache= started on wednesday went to neurologist yesterday did not lie on the arm had prior nerve damage to it before was 5 days in icu-discharged 11/26/16 then to rehab [facility] - for 20 days cva in 2009, had right side paralysis [facility] nurse came home and pt too neurologist told to come to er bp was also starting high also had chest pain, left side, neck pain nothing makes the pain go away diaphoretic and dizziness during pain usually works with a work neurologist is dr billy has had continued dizziness while walking around home in past few weeks cramps in stomach Review of Systems Except as stated in HPI: all other systems reviewed are Neg Past Family Social History Past Medical History htn cad- s/p stent heart murmur stroke 2009- residual right weakness/ paralysis Past Surgical History [id number]- cholecystetomy Reported Medications denies eoth abuse father- colon [facility]- [facility] sister- dm + Allergies: Coded Allergies: meperidine (Unverified Allergy, Severe, HIVES, 11/10/16) morphine (Unverified Allergy, Severe, Itching, 11/10/16) DENIES ALLERGY TODAY 01/18/16 Family History none as far as she knows Social History denies smoking/ etoh abuse/ drug abuse Physical Exam Vital Signs Vital Signs Date Time Temp Pulse Resp B/P (MAP) Pulse Ox O2 Delivery O2 Flow Rate FiO2 01/01/17 00:00 44 15 144/68 (93) 98 Room Air 12/31/16 23:21 55 14 168/71 (103) 100 Room Air 12/31/16 21:36 98.0 55 16 149/107 (121) 100 Room Air Physical Exam GENERAL: This is a well-nourished, well-developed patient, in no apparent distress. SKIN: No rashes, ecchymoses or lesions. Cool and dry. HEAD: Atraumatic. Normocephalic. No temporal or scalp tenderness. EYES: Pupils equal round and reactive. Extraocular motions intact. No scleral icterus. No injection or drainage. ENT: Nose without bleeding, purulent drainage or septal hematoma. . Airway patent. NECK: Trachea midline. No JVD CARDIOVASCULAR: Regular rate and rhythm without murmurs, gallops, or rubs. RESPIRATORY: Clear to auscultation. Breath sounds equal bilaterally. No wheezes , rales, or rhonchi. GASTROINTESTINAL: Abdomen soft, non-tender, nondistended. No hepato-splenomegaly , or palpable masses. No guarding. MUSCULOSKELETAL: Extremities without clubbing, cyanosis, or edema. No calf tenderness. NEUROLOGICAL: Awake and alert. Cranial nerves II through XII intact. Motor and sensory grossly within normal limits. Normal speech. Laboratory Laboratory Tests Test 01/01/17 00:16 White Blood Count 7.9 Red Blood Count 4.97 Hemoglobin 11.1 Hematocrit 33.9 Mean Corpuscular Volume 68.2 Mean Corpuscular Hemoglobin 22.4 Mean Corpuscular Hemoglobin Concent 32.9 Red Cell Distribution Width 16.0 Platelet Count 207 Mean Platelet Volume 8.1 Neutrophils (%) (Auto) 56.4 Lymphocytes (%) (Auto) 33.3 Monocytes (%) (Auto) 7.5 Eosinophils (%) (Auto) 2.2 Basophils (%) (Auto) 0.6 Neutrophils # (Auto) 4.4 Lymphocytes # (Auto) 2.6 Monocytes # (Auto) 0.6 Eosinophils # (Auto) 0.2 Basophils # (Auto) 0.0 CBC Comment DIFF FINAL Differential Comment Prothrombin Time 11.0 Prothromb Time International Ratio 1.0 Activated Partial Thromboplast Time 27.1 Blood Urea Nitrogen 17 Creatinine 1.22 Random Glucose 99 Total Protein 7.1 Albumin 3.2 Calcium Level 9.0 Magnesium Level 2.0 Alkaline Phosphatase 59 Aspartate Amino Transf (AST/SGOT) 12 Alanine Aminotransferase (ALT/SGPT) 21 Total Bilirubin 0.2 Sodium Level 140 Potassium Level 3.2 Chloride Level 103 Carbon Dioxide Level 28.8 Anion Gap 8 Estimat Glomerular Filtration Rate 54 Total Creatine Kinase 268 Creatine Kinase MB 1.7 Creatine Kinase MB % 0.6 Troponin I 0.12 Result Diagram: 01/01/171501/01/1715 Caprini VTE Risk Assessment Caprini VTE Risk Assessment: Mod/High Risk (score >= 2) Caprini Risk Assessment Model Point Value = 1 Point Value = 2 Point Value = 3 Point Value = 5 Age 41-60 Minor surgery BMI > 25 kg/m2 Swollen legs Varicose veins or History of unexplained or recurrent spontaneous Oral contraceptives or hormone replacement Sepsis (< 1 month) Serious lung disease, including pneumonia (< 1 month) Abnormal pulmonary function Acute myocardial infarction Congestive heart failure (< 1 month) History of inflammatory bowel disease Medical patient at bed rest Age 61-74 Arthroscopic surgery Major open surgery (> 45 min) Laparoscopic surgery (> 45 min) Malignancy Confined to bed (> 72 hours) Immobilizing plaster cast Central venous access Age >= 75 History of VTE Family history of VTE Factor V Leiden Prothrombin [id number] Lupus anticoagulant Anticardiolipin antibodies Elevated serum homocysteine Heparin-induced thrombocytopenia Other congenital or acquired thrombophilia Stroke (< 1 month) Elective arthroplasty Hip, pelvis, or leg fracture Acute spinal cord injury (< 1 month) Prophylaxis Regimen Total Risk Factor Score Risk Level Prophylaxis Regimen 0-1 Low Early ambulation 2 Moderate Order ONE of the following: *Sequential Compression Device (SCD) *Heparin 5000 units SQ BID 3-4 Higher Order ONE of the following medications: *Heparin 5000 units SQ TID *Enoxaparin/Lovenox 40 mg SQ daily (WT < 150 kg, CrCl > 30 mL/min) *Enoxaparin/Lovenox 30 mg SQ daily (WT < 150 kg, CrCl > 10-29 mL/min) *Enoxaparin/Lovenox 30 mg SQ BID (WT < 150 kg, CrCl > 30 mL/min) AND/OR *Sequential Compression Device (SCD) 5 or more Highest Order ONE of the following medications: *Heparin 5000 units SQ TID (Preferred with Epidurals) *Enoxaparin/Lovenox 40 mg SQ daily (WT < 150 kg, CrCl > 30 mL/min) *Enoxaparin/Lovenox 30 mg SQ daily (WT < 150 kg, CrCl > 10-29 mL/min) *Enoxaparin/Lovenox 30 mg SQ BID (WT < 150 kg, CrCl > 30 mL/min) AND *Sequential Compression Device (SCD) Assessment and Plan Assessment and Plan Impression: elevated troponin/ possible NSTEMI Left UE pain -possibly musculoskeletal ; good radial pulse htn cad- s/p stent heart murmur stroke 2009- residual right weakness/ paralysis Plan: serial enzymes and ekg heparin drip asa full dose cardiology consult neurology consult head ct - personally reviewed, no evidence of infarct/ hemorrhage/ mass per CT CXR reviewed- no overt failur/ pneumothorax Discussed Condition With patient, ER MD, nursing staff Physician Certification 2 Midnight Certification Type: Admission for Inpatient Services Order for Inpatient Services The services are ordered in accordance with Medicare regulations or non- Medicare payer requirements, as applicable. In the case of services not specified as inpatient-only, they are appropriately provided as inpatient services in accordance with the 2-midnight benchmark. Estimated LOS (days): 3 days is the estimated time the patient will need to remain in the hospital, assuming treatment plan goals are met and no additional complications. Post-Hospital Plan: Home Zaki Sommer MD Jan 01, 2017 06:30
[2017-01-01 08:00] VITALS: BP 224/104; PULSE 51; RESP 22; TEMP 98; O2SAT 97
[2017-01-01 08:16] LABS: CKMB 1.4 NG/ML (0.5-3.6)
[2017-01-01] MEDS: niCARdipine INJ 25 MG in SODIUM CHLOR 0.9% 250 ML INJ 240 ML IV PRN ×3 (08:34→18:13)
[2017-01-01] MEDS: SODIUM CHLORIDE 0.9% FLUSH 10 ML FLUSH IV FLUSH SCH ×2 (09:00→21:00)
[2017-01-01] MEDS: LISINOPRIL 20 MG TAB PO SCH (09:15)
--- NOTE | 2017-01-01 09:16 | HHI.PR ---
Subjective Remarks Follow up for chest pain, severely accelerated hypertension. Ms. Guillen is a 61 year old female with a history of CVA in 2010, resistant hypertension who presented to the ED on 12/31/2016 due to left sided sharp chest pain radiation to the neck, left arm numbness and tingling that started about one week prior to this admission. Upon admission, patient was started on heparin drip, received aspirin. Cardiology and Neurology were consulted. I received a call in the morning regarding patient's blood pressure well above 200 systolic. I immediately went to evaluate patient. She complains of left sided sharp chest discomfort. No nausea, vomiting or diaphoresis. Objective Vitals Vital Signs Date Time Temp Pulse Resp B/P (MAP) Pulse Ox O2 Delivery O2 Flow Rate FiO2 01/01/17 08:34 50 230/111 01/01/17 00:00 44 15 144/68 (93) 98 Room Air 12/31/16 23:21 55 14 168/71 (103) 100 Room Air 12/31/16 21:36 98.0 55 16 149/107 (121) 100 Room Air Result Diagram: 01/01/17 0016 01/01/17 0016 Imaging Last Impressions Upper Extremity Ultrasound 01/01/17 0000 Signed Impressions: Service Date/Time: Sunday, January 01, 2017 17:02 - CONCLUSION: 1. No sonographic evidence for left upper extremity DVT. Moises Ambrose MD Head Magnetic Resonance Angiography 01/01/17 Signed Impressions: Service Date/Time: Sunday, January 01, 2017 20:03 - CONCLUSION: Normal examination for a patient of this age. Lloyd Valenzuela MD Cervical Spine MRI 01/01/17 Signed Impressions: Service Date/Time: Sunday, January 01, 2017 20:03 - CONCLUSION: 1. Mild stenosis at C4-5 and C5-6 centrally and at the neural foramina. Normal alignment. No cord signal abnormality. Lloyd Valenzuela MD Carotid Artery Ultrasound 01/01/17 Signed Impressions: Service Date/Time: Sunday, January 01, 2017 16:38 - CONCLUSION: 1. No significant flow-limiting stenosis. 2. Antegrade vertebral artery flow bilaterally. Moises Ambrose MD Brain MRI 01/01/17 Signed Impressions: Service Date/Time: Sunday, January 01, 2017 20:03 - CONCLUSION: 1. Probable acute small lacunar infarct left posterior periventricular white matter. Severe white matter disease, probably ischemic with multiple lacunar infarcts in the white matter and corpus callosum. Cannot exclude multiple sclerosis or other causes of demyelinization. Lloyd Valenzuela MD Head CT 12/31/162255 Signed Impressions: Service Date/Time: Sunday, January 01, 2017 00:54 - CONCLUSION: 1. No acute intracranial abnormality. 2. Extensive chronic small vessel ischemic change. Jorge Chen Jr., MD Chest X-Ray 12/31/162255 Signed Impressions: Service Date/Time: December 23:01 - CONCLUSION: Cardiomegaly. Clear lungs. Jorge Chen Jr., MD Objective Remarks GENERAL: Alert, has some chest discomfort. SKIN: Warm and dry. HEAD: Normocephalic. EYES: No scleral icterus. No injection or drainage. NECK: Supple, trachea midline. No JVD or lymphadenopathy. CARDIOVASCULAR: Regular rate and rhythm without murmurs, gallops, or rubs. RESPIRATORY: Breath sounds equal bilaterally. No accessory muscle use. GASTROINTESTINAL: Abdomen soft, non-tender, nondistended. MUSCULOSKELETAL: No cyanosis, or edema. BACK: Nontender without obvious deformity. No CVA tenderness. Procedures None. A/P Problem List: (1) Accelerated hypertension ICD Code: I10 - Essential (primary) hypertension (2) Lacunar infarct, acute ICD Code: I63.9 - Cerebral infarction, unspecified (3) Non-ST elevation myocardial infarction (NSTEMI), type 2 ICD Code: I21.4 - Non-ST elevation (NSTEMI) myocardial infarction (4) Microcytic normochromic anemia ICD Code: D50.9 - Iron deficiency anemia, unspecified (5) LEYDI (acute kidney injury) ICD Code: N17.9 - Acute kidney failure, unspecified Assessment and Plan Ms. Guillen is a pleasant 61 year old female with a history of CVA in 2010, resistant HTN who presented to the ED on 12/31/2016 due to left sided sharp chest pain with radiation to the neck/jaw and also numbness, tingling of her left arm. Troponins were mildly elevated 0.12, 0.13, 0.13. Patient's blood pressure was in the 200s range systolic. - Accelerated hypertension - Patient's blood pressure went upto 230 systlic. - After evaluating patient in the morning, started patient on Nicardipine drip. - Will start patient on Nifedipine 60mg Qday, Continue Lisinopril 40mg Qday. - IF a third agent is needed, we will consider a diuretic. - Patient's home med includes clonidine 0.2mg Qday and PRN clonidine. - Once Nicardipine drip is weaned off, we can consider clonidine for PRN. However, we would prefer to not use Clonidine - Once patient is on 3 blood pressure meds including a diuretic, we can consider secondary cause work up. - NSTEMI - type 2. - Patient's left sided chest pain was not consistent with cardiac chest pain. - Cardiology evaluated patient. I also believe mild elevation in troponin is due to non-cardiac reasons including hypertension. - Probable Lexiscan in the AM. - We can likely discontinue Heparin drip tomorrow morning if okay with Cardiology. - Acute lacunar infarction - Per neurology, Patient underwent further brain imaging studies. MRI brain indicated probable acute lacunar infarction. - Continue Aspirin 325mg Qday. - Will also start patient on Lipitor 40mg Qday. - Acute kidney injury - Creatinine is slightly up 1.2 range. Baseline below 1.0. - Avoid nephrotoxins, we will monitor. Full code. Heparin drip. Discussed with RN. Total critical care time spent over 40 minutes. Marcial German DO Jan 01, 2017 09:16
--- NOTE | 2017-01-01 09:46 | MB ---
cc: CISCO AGUILAR DATE OF CONSULTATION: 01/01/2017 REASON FOR CONSULTATION Elevated troponin. HISTORY OF PRESENT ILLNESS This is a 61-year-old female. She has significant hypertension with prior history of coronary disease and percutaneous intervention. She had a stroke back in 2009 with some residual right-sided weakness, follows with neurology on an outpatient basis. She states that recently she has had some left arm pain, it is swollen and tender to touch. This started last Wednesday. She went to her neurologist yesterday and was unable to move the arm very well. She came into the emergency department and was found to be significantly hypertensive with systolic blood pressure around 200. She had initial troponin drawn which was 0.12, mildly elevated. She states she has a slight chest pain on the left lateral aspect midclavicular line just underneath her breast. It is not associated with any nausea or vomiting, no diaphoresis, but does have some mild shortness of breath. She is limited in her mobility due to a prior stroke. We are consulted for further recommendations. PAST MEDICAL HISTORY 1. Bradycardia. 2. Hypertension. 3. Prior cardiac catheterization 2013. 4. Prior stroke 2009. 5. Neck/back injury 2007. SOCIAL HISTORY Denies alcohol, tobacco or drug use. ALLERGIES 1. MEPERIDINE. 2. MORPHINE. MEDICATIONS 1. Catapres. 2. Hydralazine. 3. Nifedipine. 4. Potassium. 5. Aspirin. 6. Hydrochlorothiazide. 7. Metoprolol. 8. Simvastatin. 9. Clonidine. REVIEW OF SYSTEMS A 12-point review of systems was performed and negative unless otherwise listed in the history of present illness. PHYSICAL EXAMINATION VITAL SIGNS: Temperature 98, pulse 50, blood pressure 230/111 mmHg. GENERAL: Alert and oriented x3, in no acute distress. HEENT: Pupils are reactive to light and accommodation. Extraocular movements are intact. NECK: No jugular venous distention. No thyromegaly. No lymphadenopathy. No carotid bruits. LUNGS: Clear to auscultation bilaterally. CARDIOVASCULAR: Regular rate and rhythm without murmurs, rubs or gallops. 1/6 systolic murmur right sternal border. ABDOMEN: Nontender, nondistended. Good bowel sounds. No hepatosplenomegaly. EXTREMITIES: No clubbing, cyanosis or edema. Good peripheral pulses. NEUROLOGIC: Cranial nerves intact. Motor and sensory grossly intact. LABORATORY WBC 7.9, hemoglobin 7.1, platelet counts 207. INR is 1. Sodium 140, potassium 3.2, BUN 17, creatinine 1.22. Troponin 0.12 and 0.13. ASSESSMENT 1. Elevated troponin. 2. Hypertension. 3. History of coronary disease. 4. History of stroke. PLAN Her mildly elevated troponin may be demand mediated secondary to severe hypertension. Her left arm and chest pain is rather atypical and not classic for angina. Given her hypertension right now with systolic blood pressure well over 200, I do not think it is a safe to take her for cardiac catheterization due to risk of bleeding. Will need to get her blood pressure under better control. She may be a better candidate for a Lexiscan to determine if she really does have any significant ischemic territory to warrant an invasive strategy. Will make her n.p.o. after midnight for a Lexiscan tomorrow and if that is abnormal then she would require heart catheterization. I do not think that clonidine is a very good drug for her for blood pressure control if we can avoid it. If she misses a dose and has rebound hypertension she is likely to sustain another stroke. I do not see any allergies on her regimen. She may be better served with converting over to carvedilol instead of metoprolol and will have less heart rate bradycardia in addition to better blood pressure control. Also, addition of lisinopril would be helpful and then we can wean off the Cardene drip and hopefully wean her off clonidine. Amlodipine would also be another option if her blood pressure is still uncontrolled. Will continue to follow. Will get a 2-D echocardiogram secondary to her hypertension to evaluate for structural heart disease including left ventricular hypertrophy and/or valvular heart disease. MD TEAGAN [place]/WINSOME /8:59 AM /9:11 AM
[2017-01-01 11:05] LABS: APTT (PATIENT) 45.4 SEC (24.3-30.1)
[2017-01-01 12:00] VITALS: BP 145/63; PULSE 47; RESP 24; TEMP 98.4; O2SAT 99
--- NOTE | 2017-01-01 12:52 | EKG ---
Date Performed: 12/31/2016 Time Performed: 22:57:25 PTAGE: 61 years EKG: SINUS BRADYCARDIA BORDERLINE LEFT AXIS DEVIATION LEFT VENTRICULAR HYPERTROPHY NONSPECIFIC T -WAVE ABNORMALITY Poor R-wave progression ABNORMAL ECG PREVIOUS TRACING : 11/22/2016 16.56 DOCTOR: Jarod Reyez Interpretating Date/Time 01/01/2017 12:59:43
[2017-01-01] MEDS: HYDROmorphone HCL PF 1 MG/ML VIAL IV PUSH PRN ×2 (14:07→21:26)
--- NOTE | 2017-01-01 14:57 | PD.CONS ---
History of Present Illness Service Neurology Consult Requested By medical Reason for Consult weakness Primary Care Physician Suhail Christensen DO History of Present Illness 61 y/o f admitted for severe htn, left arm pain, swelling numbness/cp. tx'd to icu for closer bp management. ct brain- naicp, extensive white matter dz. seen by cardiology. acute left mca stroke in 08/2009, with residual right sided hemiparesis and speech difficulty, ambulates with a cane. she feels better and feels the swelling her left arm has gone down. no white, no cp. 10/2016 similar symptoms/dx: elevated bp, elevated trops was on cardene gtt at that time and seen by cardiology Review of Systems Except as stated in HPI: all other systems reviewed are Neg Past Family Social History Past Medical History htn cad- s/p stent heart murmur stroke 2009- residual right weakness Past Surgical History hysterectomy cholecystectomy Reported Medications denies etoh abuse father- colon cancer mohter- [place] sister- dm + Allergies: Coded Allergies: meperidine (Unverified Allergy, Severe, HIVES, 11/10/16) morphine (Unverified Allergy, Severe, Itching, 11/10/16) DENIES ALLERGY TODAY 01/18/16 Family History none as far as she knows Social History denies smoking/ etoh abuse/ drug abuse Review of Systems All other ROS: ROS reviewed as documented in chart Past Family Social History Allergies: Coded Allergies: meperidine (Unverified Allergy, Severe, HIVES, 11/10/16) morphine (Unverified Allergy, Severe, Itching, 11/10/16) DENIES ALLERGY TODAY 01/18/16 Active Ordered Medications Current Medications Medications (Trade) Dose Ordered Sig/Galilea Route Start Time Stop Time Status Last Admin (NS Flush) 2 ml UNSCH PRN IVF 12/31/16 23:00 Heparin Sodium/ Dextrose 250 ml @ 8.52 mls/hr TITRATE PRN IV 01/01/17 01:45 01/01/17 03:20 (NS Flush) 2 ml UNSCH PRN IV FLUSH 01/01/17 02:30 (NS Flush) 2 ml BID IV FLUSH 01/01/17 09:00 01/01/17 09:00 (Narcan Inj) 0.4 mg UNSCH PRN IV PUSH 01/01/17 02:30 (Nitrostat Sl) 0.4 mg Q5M PRN SL 01/01/17 04:00 (Dilaudid Pf Inj) 0.5 mg Q4H PRN IV PUSH 01/01/17 06:45 01/01/17 14:07 (Benadryl Inj) 25 mg Q4H PRN IV PUSH 01/01/17 06:45 Nicardipine HCl 25 mg/Sodium Chloride 250 ml @ 50 mls/hr TITRATE PRN IV 01/01/17 08:30 01/01/17 11:34 (Prinivil) 40 mg DAILY PO 01/01/17 09:15 01/01/17 09:15 (Coreg) 6.25 mg Q12HR PO 01/01/17 21:00 (Apresoline Inj) 20 mg Q4H PRN IV PUSH 01/01/17 10:00 Exam I&O / VS Vital Signs Date Time Temp Pulse Resp B/P (MAP) Pulse Ox O2 Delivery O2 Flow Rate FiO2 01/01/17 12:00 98.4 47 24 145/63 (90) 99 01/01/17 11:34 55 157/72 01/01/17 08:34 50 230/111 01/01/17 08:00 98.0 51 22 224/104 (144) 97 01/01/17 07:00 94 Room Air 01/01/17 00:00 44 15 144/68 (93) 98 Room Air 12/31/16 23:21 55 14 168/71 (103) 100 Room Air 12/31/16 21:36 98.0 55 16 149/107 (121) 100 Room Air General: Alert and Oriented, No acute distress Eye: EOMI Respiratory: Non-labored respirations Neurologic: Alert, Oriented, CN II-XII intact Psychiatric: Cooperative, Appropriate mood & affect Exam Comments alert, ox3, mild expressive aphasia, follows, eomi, mild rt nlf, rt hemiparesis -05/31 Review/Management Diagnosis/Plan: (1) Hypertensive emergency ICD Codes: I16.1 - Hypertensive emergency Status: Acute Plan: probable cause of symptoms on cardene gtt 10/2016 similar symptoms/dx: elevated bp, elevated trops was on cardene gtt at that time (2) Chronic ischemic left MCA stroke ICD Codes: I69.30 - Unspecified sequelae of cerebral infarction Status: Chronic Plan: w/u with left sided symptoms and subjective feeling of worse check mri/mra check left ue u/s restart aspirin therapy (3) Essential hypertension Status: Chronic (4) Atypical chest pain Status: Acute Plan: seen by cardiology (5) Elevated troponin ICD Codes: R74.8 - Abnormal levels of other serum enzymes Status: Acute Plan: seen by cardiology Kory Correia MD Jan 01, 2017 14:57
[2017-01-01] MEDS: diphenhydrAMINE HCL 50 MG/ML VIAL IV PUSH PRN ×2 (15:24→21:26)
[2017-01-01 16:00] VITALS: BP 138/66; PULSE 44; RESP 20; TEMP 97.7; O2SAT 96
[2017-01-01 16:54] LABS: CKMB 1.3 NG/ML (0.5-3.6)
--- NOTE | 2017-01-01 17:32 | RADRPT ---
EXAM DATE/TIME: 01/01/2017 16:38 [facility] COMPARISON: CAROTID ARTERIES, September 19, 2009, 11:59. EXTERNAL COMPARISON : [facility], CAROTID ARTERIES, September 02, 2016 INDICATIONS : Cerebrovascular accident. MEDICAL HISTORY : Myocardial infarction. Hypercholesterolemia. Arthritis. CVA. Headaches. Chest pain. Dizziness. Irregu lar heartbeat. HTN. Dyspnea. Depression. Anxiety. MRSA. SURGICAL HISTORY : Coronary artery stent. Cholecystectomy. Hysterectomy. Cardiac cath. Tubal ligation. Blood transfusion s. ENCOUNTER: Initial ACUITY: 1 day PAIN SCORE: 2/10 LOCATION: Bilateral neck PEAK SYSTOLIC VELOCITIES (cm/sec): ICA/CCA RATIO: Right: 0.9 Left: 0.7 ICA: Right: 85.3 Left: 64.6 CCA: Right: 90.3 Left: 87.1 ECA: Right: 74.2 Left: 77.5 VERTEBRAL: Right: 51.4 antegrade Left: 39.8 antegrade Elevated flow velocities and ICA/CCA ratios have been found to correlate with increased degrees of vessel stenosis, calculated as percentage of diameter relative to a normal segment of distal ICA/CCA FINDINGS: RIGHT CAROTID: No significant stenosis is visualized. The waveforms are within normal limits. LEFT CAROTID: No significant stenosis is visualized. The waveforms are within normal limits. VERTEBRAL ARTERIES: Antegrade flow is seen in both vertebral arteries. MISCELLANEOUS: None. CONCLUSION: 1. No significant flow-limiting stenosis. 2. Antegrade vertebral artery flow bilaterally. Moises Ambrose MD on January 01, 2017 at 17:30 Board Certified Radiologist. This report was verified electronically.
--- NOTE | 2017-01-01 17:37 | RADRPT ---
EXAM DATE/TIME: 01/01/2017 17:02 [facility] COMPARISON: No previous studies available for comparison. INDICATIONS : Left arm swelling. MEDICAL HISTORY : Arthritis. Hypercholesterolemia. Myocardial infarction. CVA. Headaches. Chest pain. Dizziness. Irregu lar heartbeat. HTN. Dyspnea. Depression. Anxiety. MRSA. SURGICAL HISTORY : Hysterectomy. Cholecystectomy. Coronary artery stent. Cardiac cath. Tubal ligation. Blood transfusio ns. ENCOUNTER: Initial ACUITY: 1 day PAIN SCORE: 6/10 LOCATION: Left arm. FINDINGS: There is spontaneous flow documented in the brachial, basilic, cephalic, axillary, and subclavian vei ns. The vessels are compressible and augmentation response is documented. No filling defects are se en. The flow is phasic with respiration. Direction of flow in the jugular vein is caudal. CONCLUSION: 1. No sonographic evidence for left upper extremity DVT. Moises Ambrose MD on January 01, 2017 at 17:35 Board Certified Radiologist. This report was verified electronically.
[2017-01-01] MEDS: ASPIRIN EC 325 MG TABEC PO SCH (18:13)
--- NOTE | 2017-01-01 21:01 | RADRPT ---
EXAM DATE/TIME: 01/01/2017 20:03 [facility] COMPARISON: MRA BRAIN W/O CONTRAST, September 19, 2009, 11:26. Not currently available for comparison. INDICATIONS : Right side weakness, right facial droop. MEDICAL HISTORY : Hypertension. Stroke SURGICAL HISTORY : Coronary artery stent. Hysterectomy. ENCOUNTER: Initial ACUITY: 1 day PAIN SCORE: 0/10 LOCATION: cranial TECHNIQUE: Multiplanar, multisequence MRI of the brain was performed without contrast. FINDINGS: Agustín probable small acute lacunar infarct in the left posterior periventricular white matter. Ther e is severe white matter disease, probably ischemic infarcts in the periventricular white matter and in the corpus callosum. Multiple sclerosis is a consideration as well. There is no mass effect or mid line shift. No hydrocephalus. No abnormal extra-axial fluid. Multifocal hemosiderin deposits noted ar e related to remote infarcts. CONCLUSION: 1. Probable acute small lacunar infarct left posterior periventricular white matter. Severe white matter disease, probably ischemic with multiple lacunar infarcts in the white matter and corpus callosum. Cannot exclude multiple sclerosis or other causes of demyelinization. Lloyd Valenzuela MD on January 01, 2017 at 20:54 Board Certified Radiologist. This report was verified electronically.
--- NOTE | 2017-01-01 21:05 | RADRPT ---
EXAM DATE/TIME: 01/01/2017 20:03 [facility] COMPARISON: No previous studies available for comparison. INDICATIONS : Right side weakness, right facial droop. MEDICAL HISTORY : Hypertension. CVA. SURGICAL HISTORY : Coronary artery stent. Hysterectomy. ENCOUNTER: Initial ACUITY: 1 day PAIN SCORE: 0/10 LOCATION: cranial Please note a normal MRA of the brain does not entirely exclude the possibility of a small aneurysm, nor the possibility of distal intracranial vessel disease. TECHNIQUE: 3D time of flight MRA was performed. Source images, multiplanar STS MIP, and 3D volume MIP reconstru ctions were reviewed. FINDINGS: There is excellent visualization of the major intracranial arteries out to the second-order branch ve ssels. There is no evidence for aneurysm, vessel truncation or stenosis, and no evidence for vascula r malformation. CONCLUSION: Normal examination for a patient of this age. Lloyd Valenzuela MD on January 01, 2017 at 20:59 Board Certified Radiologist. This report was verified electronically.
--- NOTE | 2017-01-01 21:08 | RADRPT ---
EXAM DATE/TIME: 01/01/2017 20:03 [facility] COMPARISON: Not currently available. INDICATIONS : Right side weakness, right facial droop. MEDICAL HISTORY : Hypertension. Stroke SURGICAL HISTORY : Coronary artery stent. Hysterectomy. ENCOUNTER: Initial ACUITY: 1 day PAIN SCORE: 0/10 LOCATION: Paraspinal TECHNIQUE: Multiplanar, multisequence MRI examination of the cervical spine was performed. FINDINGS: At C2-3 there is no significant abnormality. At C3-4 there is a disc bulge without stenosis At C4-5 and C5-6 posterior disc osteophyte complexes result in mild stenosis and foraminal encroachme nt. Minimal bulge at C6-7 without stenosis. C7-T1 unremarkable. No fracture or spondylolisthesis. No cord signal abnormality. CONCLUSION: 1. Mild stenosis at C4-5 and C5-6 centrally and at the neural foramina. Normal alignment. No cord sig nal abnormality. Lloyd Valenzuela MD on January 01, 2017 at 21:04 Board Certified Radiologist. This report was verified electronically.
[2017-01-01] MEDS: CARVEDILOL 6.25 MG TAB PO SCH (21:27)
[2017-01-01] MEDS: hydrALAZINE HCL 20 MG/ML VIAL IV PUSH PRN (22:10)
[2017-01-02] VITALS (12 sets, daily range): BP systolic 126–171; BP diastolic 55–75; PULSE 51–90; RESP 13–22; TEMP 97.6–98.9; O2SAT 97–100
[2017-01-02] MEDS: NITROGLYCERIN 0.4 MG SL 25 TABS/BTL SL PRN (01:51)
[2017-01-02] MEDS: HYDROmorphone HCL PF 1 MG/ML VIAL IV PUSH PRN ×6 (02:07→23:42)
[2017-01-02] MEDS: diphenhydrAMINE HCL 50 MG/ML VIAL IV PUSH PRN ×6 (02:07→23:41)
--- NOTE | 2017-01-02 05:19 | EKG ---
Date Performed: 01/01/2017 Time Performed: 12:01:20 PTAGE: 61 years EKG: SINUS BRADYCARDIA LEFT VENTRICULAR HYPERTROPHY AND ST-T CHANGE POSSIBLE ANTERIOR MYOCARDIAL INFARCTION , OF INDETERMINATE AGE ABNORMAL ECG PREVIOUS TRACING : 01/01/2017 07.26 DOCTOR: Jozef Fernando Interpretating Date/Time 01/02/2017 05:14:13
[2017-01-02 05:21] LABS: APTT (PATIENT) 61.4 SEC (24.3-30.1)
[2017-01-02 05:23] LABS: AUTOMATED NEUTROPHIL # 3.7 TH/MM3 (1.8-7.7); BASOPHIL % 0.6 % (0.0-2.0); EOSINOPHIL # 0.3 TH/MM3 (0-0.4); EOSINOPHIL % 3.9 % (0.0-4.0); HEMATOCRIT 34.9 % (35.0-46.0); HEMO FLAGS DIFF FINAL; LYMPH % 35.9 % (9.0-44.0); LYMPHOCYTE # 2.6 TH/MM3 (1.0-4.8); MEAN CELL VOLUME 68.6 FL (80.0-100.0); MEAN CORPUSCULAR HEMOGLOBIN 21.9 PG (27.0-34.0); MONO % 7.5 % (0.0-8.0); NEUT % 52.1 % (16.0-70.0); PLATELET COUNT 233 TH/MM3 (150-450); RED BLOOD COUNT 5.09 MIL/MM3 (4.00-5.30); RED CELL DISTRIBUTION WIDTH 16.5 % (11.6-17.2); WHITE BLOOD COUNT 7.1 TH/MM3 (4.0-11.0)
--- NOTE | 2017-01-02 05:27 | EKG ---
Date Performed: 01/01/2017 Time Performed: 07:26:27 PTAGE: 61 years EKG: SINUS BRADYCARDIA POSSIBLE LEFT VENTRICULAR HYPERTROPHY MODERATE T-WAVE ABNORMALITY, CONSID ER LATERAL ISCHEMIA ABNORMAL ECG PREVIOUS TRACING : 12/31/2016 22.57 DOCTOR: Jozef Fernando Interpretating Date/Time 01/02/2017 05:16:47
[2017-01-02 05:39] LABS: BICARBONATE 28.2 MEQ/L (21.0-32.0); POTASSIUM 3.1 MEQ/L (3.5-5.1)
--- NOTE | 2017-01-02 07:06 | PD.CARD.PN ---
Subjective Subjective Remarks no CV complaints Objective Medications Current Medications Medications (Trade) Dose Ordered Sig/Galilea Route Start Time Stop Time Status Last Admin (NS Flush) 2 ml UNSCH PRN IVF 12/31/16 23:00 Heparin Sodium/ Dextrose 250 ml @ 8.52 mls/hr TITRATE PRN IV 01/01/17 01:45 01/01/17 03:20 (NS Flush) 2 ml UNSCH PRN IV FLUSH 01/01/17 02:30 (NS Flush) 2 ml BID IV FLUSH 01/01/17 09:00 01/01/17 21:00 (Narcan Inj) 0.4 mg UNSCH PRN IV PUSH 01/01/17 02:30 (Nitrostat Sl) 0.4 mg Q5M PRN SL 01/01/17 04:00 01/02/17 01:51 (Dilaudid Pf Inj) 0.5 mg Q4H PRN IV PUSH 01/01/17 06:45 01/02/17 06:14 (Benadryl Inj) 25 mg Q4H PRN IV PUSH 01/01/17 06:45 01/02/17 06:13 Nicardipine HCl 25 mg/Sodium Chloride 250 ml @ 50 mls/hr TITRATE PRN IV 01/01/17 08:30 01/01/17 18:13 (Prinivil) 40 mg DAILY PO 01/01/17 09:15 01/01/17 09:15 (Coreg) 6.25 mg Q12HR PO 01/01/17 21:00 01/01/17 21:27 (Apresoline Inj) 20 mg Q4H PRN IV PUSH 01/01/17 10:00 01/01/17 22:10 (Ecotrin Ec) 325 mg DAILY PO 01/01/17 15:30 01/01/17 18:13 (Procardia Xl) 60 mg DAILY PO 01/02/17 09:00 (Lipitor) 40 mg HS PO 01/02/17 21:00 Vital Signs / I&O Vital Signs Date Time Temp Pulse Resp B/P (MAP) Pulse Ox O2 Delivery O2 Flow Rate FiO2 01/02/17 04:00 97.6 54 14 126/57 (80) 99 01/02/17 00:00 01/01/17 20:00 01/01/17 19:00 Room Air 01/01/17 18:13 55 154/68 01/01/17 16:00 97.7 44 20 138/66 (90) 96 01/01/17 12:00 98.4 47 24 145/63 (90) 99 01/01/17 11:34 55 157/72 01/01/17 08:34 50 230/111 01/01/17 08:00 98.0 51 22 224/104 (144) 97 I/O 01/01/17 01/01/17 01/01/17 01/02/17 01/02/17 01/02/17 07:00 15:00 23:00 07:00 15:00 23:00 Intake Total 1523 ml 99 ml 99.1 ml Output Total 0 ml Balance 1523 ml 99 ml 99.1 ml Intake Oral 500 ml 0 ml IV Total 1023 ml 99 ml 99.1 ml Output Stool Total 0 ml # Voids 4 3 # Bowel Movements 0 Physical Exam GENERAL: Well-nourished, well-developed patient. SKIN: Warm and dry. HEAD: Normocephalic. EYES: No scleral icterus. No injection or drainage. NECK: Supple, trachea midline. No JVD or lymphadenopathy. CARDIOVASCULAR: Regular rate and rhythm without murmurs, gallops, or rubs. RESPIRATORY: Breath sounds equal bilaterally. No accessory muscle use. GASTROINTESTINAL: Abdomen soft, non-tender, nondistended. EXTREMITIES: No cyanosis, or edema. Laboratory Laboratory Tests Test 01/01/17 07:07 01/01/17 08:47 01/01/17 10:23 01/01/17 15:15 Total Creatine Kinase 227 U/L 211 U/L Creatine Kinase MB 1.4 NG/ML 1.3 NG/ML Creatine Kinase MB % 0.6 % 0.6 % Troponin I 0.13 NG/ML 0.13 NG/ML Nasal Screen MRSA (PCR) MRSA NOT DETECTED Activated Partial Thromboplast Time 45.4 SEC Test 01/01/17 15:55 01/02/17 04:55 Activated Partial Thromboplast Time 67.0 SEC 61.4 SEC White Blood Count 7.1 TH/MM3 Red Blood Count 5.09 MIL/MM3 Hemoglobin 11.2 GM/DL Hematocrit 34.9 % Mean Corpuscular Volume 68.6 FL Mean Corpuscular Hemoglobin 21.9 PG Mean Corpuscular Hemoglobin Concent 32.0 % Red Cell Distribution Width 16.5 % Platelet Count 233 TH/MM3 Mean Platelet Volume 7.8 FL Neutrophils (%) (Auto) 52.1 % Lymphocytes (%) (Auto) 35.9 % Monocytes (%) (Auto) 7.5 % Eosinophils (%) (Auto) 3.9 % Basophils (%) (Auto) 0.6 % Neutrophils # (Auto) 3.7 TH/MM3 Lymphocytes # (Auto) 2.6 TH/MM3 Monocytes # (Auto) 0.5 TH/MM3 Eosinophils # (Auto) 0.3 TH/MM3 Basophils # (Auto) 0.0 TH/MM3 CBC Comment DIFF FINAL Differential Comment Blood Urea Nitrogen 16 MG/DL Creatinine 1.34 MG/DL Random Glucose 113 MG/DL Calcium Level 9.2 MG/DL Sodium Level 140 MEQ/L Potassium Level 3.1 MEQ/L Chloride Level 104 MEQ/L Carbon Dioxide Level 28.2 MEQ/L Anion Gap 8 MEQ/L Estimat Glomerular Filtration Rate 49 ML/MIN Imaging Last Impressions Upper Extremity Ultrasound 01/01/17 Signed Impressions: Service Date/Time: Sunday, January 01, 2017 17:02 - CONCLUSION: 1. No sonographic evidence for left upper extremity DVT. Moises Ambrose MD Head Magnetic Resonance Angiography 01/01/17 Signed Impressions: Service Date/Time: Sunday, January 01, 2017 20:03 - CONCLUSION: Normal examination for a patient of this age. Lloyd Valenzuela MD Cervical Spine MRI 01/01/17 Signed Impressions: Service Date/Time: Sunday, January 01, 2017 20:03 - CONCLUSION: 1. Mild stenosis at C4-5 and C5-6 centrally and at the neural foramina. Normal alignment. No cord signal abnormality. Lloyd Valenzuela MD Carotid Artery Ultrasound 01/01/17 Signed Impressions: Service Date/Time: Sunday, January 01, 2017 16:38 - CONCLUSION: 1. No significant flow-limiting stenosis. 2. Antegrade vertebral artery flow bilaterally. Moises Ambrose MD Brain MRI 01/01/17 Signed Impressions: Service Date/Time: Sunday, January 01, 2017 20:03 - CONCLUSION: 1. Probable acute small lacunar infarct left posterior periventricular white matter. Severe white matter disease, probably ischemic with multiple lacunar infarcts in the white matter and corpus callosum. Cannot exclude multiple sclerosis or other causes of demyelinization. Lloyd Valenzuela MD Head CT [id number]/31/162255 Signed Impressions: Service Date/Time: Sunday, January 01, 2017 00:54 - CONCLUSION: 1. No acute intracranial abnormality. 2. Extensive chronic small vessel ischemic change. Jorge Chen Jr., MD Chest X-Ray 12/31/162255 Signed Impressions: Service Date/Time: December 23:01 - CONCLUSION: Cardiomegaly. Clear lungs. Jorge Chen Jr., MD Assessment and Plan Problem List: (1) Elevated troponin ICD Codes: R74.8 - Abnormal levels of other serum enzymes Status: Acute Plan: Her mildly elevated troponin may be demand mediated secondary to severe hypertension. Her left arm and chest pain is rather atypical and not classic for angina. Recs: BP management Lexiscan Stress test (2) NSTEMI (non-ST elevated myocardial infarction) ICD Codes: I21.4 - Non-ST elevation (NSTEMI) myocardial infarction Status: Acute (3) Hypertensive emergency ICD Codes: I16.1 - Hypertensive emergency Status: Acute (4) Atypical chest pain Status: Acute Jozef Fernando MD Jan 02, 2017 07:06
[2017-01-02] MEDS: SODIUM CHLORIDE 0.9% FLUSH 10 ML FLUSH IV FLUSH SCH ×2 (07:44→21:16)
[2017-01-02] MEDS: HEPARIN-D5W 25,000 U/250 ML 250 ML IV PRN (08:01)
--- NOTE | 2017-01-02 08:55 | HHI.PR ---
Subjective Remarks Follow up for chest pain, severely accelerated hypertension. Patient is currently doing well. No chest pain but she still has left arm numbness and tingling. No fever or chills. Going for [employer] today. Objective Vitals Vital Signs Date Time Temp Pulse Resp B/P (MAP) Pulse Ox O2 Delivery O2 Flow Rate FiO2 01/02/17 08:00 98.2 51 13 166/61 (96) 100 01/02/17 07:00 99 Nasal Cannula 2.00 01/02/17 04:00 97.6 54 14 126/57 (80) 99 01/02/17 00:00 01/01/17 20:00 01/01/17 19:00 Room Air 01/01/17 18:13 55 154/68 01/01/17 16:00 97.7 44 20 138/66 (90) 96 01/01/17 12:00 98.4 47 24 145/63 (90) 99 01/01/17 11:34 55 157/72 I/O 01/01/17 01/01/17 01/01/17 01/02/17 01/02/17 01/02/17 07:00 15:00 23:00 07:00 15:00 23:00 Intake Total 1523 ml 99 ml 99.1 ml Output Total 0 ml Balance 1523 ml 99 ml 99.1 ml Intake Oral 500 ml 0 ml IV Total 1023 ml 99 ml 99.1 ml Output Stool Total 0 ml # Voids 4 3 # Bowel Movements 0 Result Diagram: 01/02/17 0455 01/02/17 0455 Imaging Last Impressions Upper Extremity Ultrasound 01/01/17 Signed Impressions: Service Date/Time: Sunday, January 01, 2017 17:02 - CONCLUSION: 1. No sonographic evidence for left upper extremity DVT. Moises Ambrose MD Head Magnetic Resonance Angiography 01/01/17 Signed Impressions: Service Date/Time: Sunday, January 01, 2017 20:03 - CONCLUSION: Normal examination for a patient of this age. Lloyd Valenzuela MD Cervical Spine MRI 01/01/17 Signed Impressions: Service Date/Time: Sunday, January 01, 2017 20:03 - CONCLUSION: 1. Mild stenosis at C4-5 and C5-6 centrally and at the neural foramina. Normal alignment. No cord signal abnormality. Lloyd Valenzuela MD Carotid Artery Ultrasound 01/01/17 0000 Signed Impressions: Service Date/Time: Sunday, January 01, 2017 16:38 - CONCLUSION: 1. No significant flow-limiting stenosis. 2. Antegrade vertebral artery flow bilaterally. Moises Ambrose MD Brain MRI 01/01/17 0000 Signed Impressions: Service Date/Time: Sunday, January 01, 2017 20:03 - CONCLUSION: 1. Probable acute small lacunar infarct left posterior periventricular white matter. Severe white matter disease, probably ischemic with multiple lacunar infarcts in the white matter and corpus callosum. Cannot exclude multiple sclerosis or other causes of demyelinization. Lloyd Valenzuela MD Head CT 12/31/162255 Signed Impressions: Service Date/Time: Sunday, January 01, 2017 00:54 - CONCLUSION: 1. No acute intracranial abnormality. 2. Extensive chronic small vessel ischemic change. Jorge Chen Jr., MD Chest X-Ray 12/31/162255 Signed Impressions: Service Date/Time: December 23:01 - CONCLUSION: Cardiomegaly. Clear lungs. Jorge Chen Jr., MD Objective Remarks GENERAL: Alert, has some chest discomfort. SKIN: Warm and dry. HEAD: Normocephalic. EYES: No scleral icterus. No injection or drainage. NECK: Supple, trachea midline. No JVD or lymphadenopathy. CARDIOVASCULAR: Regular rate and rhythm without murmurs, gallops, or rubs. RESPIRATORY: Breath sounds equal bilaterally. No accessory muscle use. GASTROINTESTINAL: Abdomen soft, non-tender, nondistended. MUSCULOSKELETAL: No cyanosis, or edema. BACK: Nontender without obvious deformity. No CVA tenderness. Procedures None. A/P Problem List: (1) Accelerated hypertension ICD Code: I10 - Essential (primary) hypertension (2) Lacunar infarct, acute ICD Code: I63.9 - Cerebral infarction, unspecified (3) Non-ST elevation myocardial infarction (NSTEMI), type 2 ICD Code: I21.4 - Non-ST elevation (NSTEMI) myocardial infarction (4) Microcytic normochromic anemia ICD Code: D50.9 - Iron deficiency anemia, unspecified (5) LEYDI (acute kidney injury) ICD Code: N17.9 - Acute kidney failure, unspecified Assessment and Plan Ms. Guillen is a pleasant 61 year old female with a history of CVA in 2010, resistant HTN who presented to the ED on 12/31/2016 due to left sided sharp chest pain with radiation to the neck/jaw and also numbness, tingling of her left arm. Troponins were mildly elevated 0.12, 0.13, 0.13. Patient's blood pressure was in the 200s range systolic. - Accelerated hypertension - We'll try to wean off nicardipine drip - Continue Nifedipine 60mg Qday, Lisinopril 40mg Qday. - IF a third agent is needed, we will consider a diuretic. - We'll try to avoid clonidine. - Once patient is on 3 blood pressure meds including a diuretic, we can consider secondary cause work up. - NSTEMI - type 2. - Patient's left sided chest pain was not consistent with cardiac chest pain. - Cardiology evaluated patient. I also believe mild elevation in troponin is due to non-cardiac reasons including hypertension. - Lexiscan pending this morning - Discontinue heparin drip. - Acute lacunar infarction - Per neurology, Patient underwent further brain imaging studies. MRI brain indicated probable acute lacunar infarction. - Continue Aspirin 325mg Qday. - Continue Lipitor 40mg Qday. - Acute kidney injury - Creatinine is slightly up 1.2 range. Baseline below 1.0. - Avoid nephrotoxins, we will monitor. Full code. Heparin subcutaneous - Will transfer patient to the floor once she is off Nicardipine drip. Discussed with GRETA. Marcial German DO Jan 02, 2017 8:55 am
--- NOTE | 2017-01-02 10:06 | HHI.PR ---
Review/Management Diagnosis/Plan: (1) Hypertensive emergency ICD Codes: I16.1 - Hypertensive emergency Status: Acute Plan: probable cause of symptoms on cardene gtt 10/2016 similar symptoms/dx: elevated bp, elevated trops was on cardene gtt at that time (2) Chronic ischemic left MCA stroke ICD Codes: I69.30 - Unspecified sequelae of cerebral infarction Status: Chronic Plan: w/u with left sided symptoms and subjective feeling of worse check mri/mra check left ue u/s restart aspirin therapy (3) Essential hypertension Status: Chronic (4) Atypical chest pain Status: Acute Plan: seen by cardiology (5) Elevated troponin ICD Codes: R74.8 - Abnormal levels of other serum enzymes Status: Acute Plan: seen by cardiology Subjective Subjective Comments No acute events reported No headache No chest pain No dyspnea Active Medications Current Medications Medications (Trade) Dose Ordered Sig/Galilea Route Start Time Stop Time Status Last Admin (NS Flush) 2 ml UNSCH PRN IVF 12/31/16 23:00 Heparin Sodium/ Dextrose 250 ml @ 8.52 mls/hr TITRATE PRN IV 01/01/17 01:45 01/02/17 08:01 (NS Flush) 2 ml UNSCH PRN IV FLUSH 01/01/17 02:30 (NS Flush) 2 ml BID IV FLUSH 01/01/17 09:00 01/02/17 07:44 (Narcan Inj) 0.4 mg UNSCH PRN IV PUSH 01/01/17 02:30 (Nitrostat Sl) 0.4 mg Q5M PRN SL 01/01/17 04:00 01/02/17 01:51 (Dilaudid Pf Inj) 0.5 mg Q4H PRN IV PUSH 01/01/17 06:45 01/02/17 06:14 (Benadryl Inj) 25 mg Q4H PRN IV PUSH 01/01/17 06:45 01/02/17 06:13 Nicardipine HCl 25 mg/Sodium Chloride 250 ml @ 50 mls/hr TITRATE PRN IV 01/01/17 08:30 01/01/17 18:13 (Prinivil) 40 mg DAILY PO 01/01/17 09:15 01/01/17 09:15 (Coreg) 6.25 mg Q12HR PO 01/01/17 21:00 01/01/17 21:27 (Apresoline Inj) 20 mg Q4H PRN IV PUSH 01/01/17 10:00 01/01/17 22:10 (Ecotrin Ec) 325 mg DAILY PO 01/01/17 15:30 01/01/17 18:13 (Procardia Xl) 60 mg DAILY PO 01/02/17 09:00 (Lipitor) 40 mg HS PO 01/02/17 21:00 Allergies Allergies Coded Allergies meperidine (Unverified Allergy, Severe, HIVES, 11/10/16) morphine (Unverified Allergy, Severe, Itching, 11/10/16) Review of Systems All other ROS: ROS reviewed as documented in chart Exam I&O / VS 01/02/17 01/02/17 01/03/17 15:00 23:00 07:00 Intake Total 99.1 ml Balance 99.1 ml IV Total 99.1 ml Vital Signs Date Time Temp Pulse Resp B/P (MAP) Pulse Ox O2 Delivery O2 Flow Rate FiO2 01/02/17 08:00 98.2 51 13 166/61 (96) 100 01/02/17 07:00 99 Nasal Cannula 2.00 01/02/17 04:00 97.6 54 14 126/57 (80) 99 01/02/17 00:00 01/01/17 20:00 01/01/17 19:00 Room Air 01/01/17 18:13 55 154/68 01/01/17 16:00 97.7 44 20 138/66 (90) 96 01/01/17 12:00 98.4 47 24 145/63 (90) 99 01/01/17 11:34 55 157/72 General: Alert and Oriented, No acute distress Eye: EOMI Respiratory: Non-labored respirations Neurologic: Alert, Oriented, CN II-XII intact Psychiatric: Cooperative, Appropriate mood & affect Exam Comments alert, ox3, mild expressive aphasia, follows, eomi, mild rt nlf, rt hemiparesis 2-3/5 Objective Micro and Labs Laboratory Tests Test 01/01/17 10:23 01/01/17 15:15 01/01/17 15:55 01/02/17 04:55 Activated Partial Thromboplast Time 45.4 67.0 61.4 Total Creatine Kinase 211 Creatine Kinase MB 1.3 Creatine Kinase MB % 0.6 Troponin I 0.13 White Blood Count 7.1 Red Blood Count 5.09 Hemoglobin 11.2 Hematocrit 34.9 Mean Corpuscular Volume 68.6 Mean Corpuscular Hemoglobin 21.9 Mean Corpuscular Hemoglobin Concent 32.0 Red Cell Distribution Width 16.5 Platelet Count 233 Mean Platelet Volume 7.8 Neutrophils (%) (Auto) 52.1 Lymphocytes (%) (Auto) 35.9 Monocytes (%) (Auto) 7.5 Eosinophils (%) (Auto) 3.9 Basophils (%) (Auto) 0.6 Neutrophils # (Auto) 3.7 Lymphocytes # (Auto) 2.6 Monocytes # (Auto) 0.5 Eosinophils # (Auto) 0.3 Basophils # (Auto) 0.0 CBC Comment DIFF FINAL Differential Comment Blood Urea Nitrogen 16 Creatinine 1.34 Random Glucose 113 Calcium Level 9.2 Sodium Level 140 Potassium Level 3.1 Chloride Level 104 Carbon Dioxide Level 28.2 Anion Gap 8 Estimat Glomerular Filtration Rate 49 Kory Correia MD Jan 02, 2017 10:06
[2017-01-02] MEDS ORDERED: REGADENOSON INJ 0.4 MG/5 ML SYR ONE (10:38)
[2017-01-02] MEDS: NIFEdipine 60 MG SUSTAINED RELEASE TAB PO SCH (12:06)
[2017-01-02] MEDS: LISINOPRIL 20 MG TAB PO SCH (12:06)
[2017-01-02] MEDS: ASPIRIN EC 325 MG TABEC PO SCH (12:07)
[2017-01-02] MEDS: CARVEDILOL 6.25 MG TAB PO SCH ×2 (12:07→21:16)
--- NOTE | 2017-01-02 12:13 | RADRPT ---
EXAM DATE/TIME: 01/02/2017 10:23 [facility] COMPARISON: MYOCARDIAL PERF PHARM SPECT, GATED W/EF, November 08, 2014, 12:45. INDICATIONS : Left sided chest pain with shortness of breath for one day. Angina. DOSE: 25.4 mCi Tc99m Myoview at stress. 8.5 mCi Tc99m Myoview at rest. 0.4 mg Lexiscan STRESS SYMPTOMS: Shortness of breath. EJECTION FRACTION: 43% MEDICAL HISTORY : Cardiovascular disease. Hypertension. Stroke. SURGICAL HISTORY : Coronary artery stent. Hysterectomy. Cholecystectomy. ENCOUNTER: Initial ACUITY: 1 day PAIN SCALE: 2/10 LOCATION: Left chest TECHNIQUE: The patient underwent pharmacologic stress with infusion of prescribed dose. Continuous ECG tracing was monitored during stress. Gated SPECT imaging was performed after stress and conventional SPECT i maging was performed at rest. The examination was performed on a SPECT/CT scanner, both attenuation and non-corrected datasets were reviewed. FINDINGS: DISTRIBUTION: The maximum perfused segment at stress is in the septal wall. PERFUSION STUDY: The pattern of perfusion at stress is within normal limits. GATED STUDY: The gated study demonstrates abnormal wall motion with dyskinesis in the cardiac apex. Ejection fract ion is somewhat low. CONCLUSION: 1. No reversible perfusion defect indicate myocardial ischemia identified. 2. The ejection fraction is somewhat low at 43%. RISK CATEGORY: Intermediate (1-3% Annual Mortality Rate) Hemanth Mayo MD on January 02, 2017 at 12:09 Board Certified Radiologist. This report was verified electronically.
[2017-01-02] MEDS: hydrALAZINE HCL 20 MG/ML VIAL IV PUSH PRN ×2 (12:58→16:15)
[2017-01-02] MEDS ORDERED: hydrALAZINE HCL 50 MG TAB PO ONE (14:30)
[2017-01-02] MEDS: HEPARIN SODIUM - SQ 10,000 UNITS/ML VIAL SQ SCH (21:16)
[2017-01-02] MEDS: ATORVASTATIN 40 MG TAB PO SCH (21:16)
[2017-01-02] MEDS: hydrALAZINE HCL 50 MG TAB PO SCH (21:16)
[2017-01-03] VITALS (25 sets, daily range): BP systolic 151–211; BP diastolic 63–94; PULSE 64–111; RESP 18; TEMP 97.5–98.8; O2SAT 94–100
[2017-01-03] MEDS: hydrALAZINE HCL 50 MG TAB PO SCH ×3 (05:26→21:04)
[2017-01-03] MEDS: diphenhydrAMINE HCL 50 MG/ML VIAL IV PUSH PRN ×5 (05:27→22:43)
[2017-01-03] MEDS: HYDROmorphone HCL PF 1 MG/ML VIAL IV PUSH PRN ×5 (05:30→22:45)
--- NOTE | 2017-01-03 08:17 | PD.CARD.PN ---
Subjective Subjective Remarks no CV complaints Objective Medications Current Medications Medications (Trade) Dose Ordered Sig/Galilea Route Start Time Stop Time Status Last Admin (NS Flush) 2 ml UNSCH PRN IVF 12/31/16 23:00 (NS Flush) 2 ml UNSCH PRN IV FLUSH 01/01/17 02:30 (NS Flush) 2 ml BID IV FLUSH 01/01/17 09:00 01/02/17 21:16 (Narcan Inj) 0.4 mg UNSCH PRN IV PUSH 01/01/17 02:30 (Nitrostat Sl) 0.4 mg Q5M PRN SL 01/01/17 04:00 01/02/17 01:51 (Dilaudid Pf Inj) 0.5 mg Q4H PRN IV PUSH 01/01/17 06:45 01/03/17 05:30 (Benadryl Inj) 25 mg Q4H PRN IV PUSH 01/01/17 06:45 01/03/17 05:27 Nicardipine HCl 25 mg/Sodium Chloride 250 ml @ 50 mls/hr TITRATE PRN IV 01/01/17 08:30 01/01/17 18:13 (Prinivil) 40 mg DAILY PO 01/01/17 09:15 01/02/17 12:06 (Coreg) 6.25 mg Q12HR PO 01/01/17 21:00 01/02/17 21:16 (Apresoline Inj) 20 mg Q4H PRN IV PUSH 01/01/17 10:00 01/02/17 16:15 (Ecotrin Ec) 325 mg DAILY PO 01/01/17 15:30 01/02/17 12:07 (Procardia Xl) 60 mg DAILY PO 01/02/17 09:00 01/02/17 12:06 (Lipitor) 40 mg HS PO 01/02/17 21:00 01/02/17 21:16 (Heparin Inj) 5,000 units Q12HR SQ 01/02/17 21:00 01/02/17 21:16 (Apresoline) 50 mg Q8HR PO 01/02/17 22:00 01/03/17 05:26 Vital Signs / I&O Vital Signs Date Time Temp Pulse Resp B/P (MAP) Pulse Ox O2 Delivery O2 Flow Rate FiO2 01/03/17 06:00 80 01/03/17 05:00 74 01/03/17 04:28 75 18 153/63 (93) 95 01/03/17 04:00 78 01/03/17 03:00 79 01/03/17 02:00 82 01/03/17 01:00 76 01/03/17 00:00 82 01/02/17 23:48 90 20 137/63 (87) 97 01/02/17 23:00 86 01/02/17 22:00 90 01/02/17 21:00 86 01/02/17 20:00 88 01/02/17 19:00 97 Room Air 01/02/17 19:00 84 01/02/17 19:00 98.9 74 18 157/67 (97) 97 01/02/17 17:00 147/55 (85) 01/02/17 16:00 98.2 66 16 171/64 (99) 99 01/02/17 15:33 70 18 139/63 (88) 100 01/02/17 12:00 97.9 81 22 169/75 (106) 100 01/02/17 08:00 98.2 51 13 166/61 (96) 100 I/O 01/02/17 01/02/17 01/02/17 01/03/17 01/03/17 01/03/17 06:59 14:59 22:59 06:59 14:59 22:59 Intake Total 99 ml 214.1 ml 100 ml 500 ml Output Total 0 ml Balance 99 ml 214.1 ml 100 ml 500 ml Intake Oral 0 ml 100 ml 500 ml IV Total 99 ml 214.1 ml Output Stool Total 0 ml # Voids 3 2 # Bowel Movements 0 0 Physical Exam GENERAL: Well-nourished, well-developed patient. SKIN: Warm and dry. HEAD: Normocephalic. EYES: No scleral icterus. No injection or drainage. NECK: Supple, trachea midline. No JVD or lymphadenopathy. CARDIOVASCULAR: Regular rate and rhythm without murmurs, gallops, or rubs. RESPIRATORY: Breath sounds equal bilaterally. No accessory muscle use. GASTROINTESTINAL: Abdomen soft, non-tender, nondistended. EXTREMITIES: No cyanosis, or edema. Imaging Last Impressions Myocardial Perfusion Scan Nuc Med 01/02/17 0000 Signed Impressions: Service Date/Time: Monday, January 02, 2017 10:23 - CONCLUSION: 1. No reversible perfusion defect indicate myocardial ischemia identified. 2. The ejection fraction is somewhat low at 43%%. RISK CATEGORY: Intermediate (1-3%% Annual Mortality Rate) Hemanth Mayo MD Upper Extremity Ultrasound 01/01/17 Signed Impressions: Service Date/Time: Sunday, January 01, 2017 17:02 - CONCLUSION: 1. No sonographic evidence for left upper extremity DVT. Moises Ambrose MD Head Magnetic Resonance Angiography 01/01/17 Signed Impressions: Service Date/Time: Sunday, January 01, 2017 20:03 - CONCLUSION: Normal examination for a patient of this age. Lloyd Valenzuela MD Cervical Spine MRI 01/01/17 Signed Impressions: Service Date/Time: Sunday, January 01, 2017 20:03 - CONCLUSION: 1. Mild stenosis at C4-5 and C5-6 centrally and at the neural foramina. Normal alignment. No cord signal abnormality. Lloyd Valenzuela MD Carotid Artery Ultrasound 01/01/17 Signed Impressions: Service Date/Time: Sunday, January 01, 2017 16:38 - CONCLUSION: 1. No significant flow-limiting stenosis. 2. Antegrade vertebral artery flow bilaterally. Moises Ambrose MD Brain MRI 01/01/17 Signed Impressions: Service Date/Time: Sunday, January 01, 2017 20:03 - CONCLUSION: 1. Probable acute small lacunar infarct left posterior periventricular white matter. Severe white matter disease, probably ischemic with multiple lacunar infarcts in the white matter and corpus callosum. Cannot exclude multiple sclerosis or other causes of demyelinization. Lloyd Valenzuela MD Head CT 12/31/162255 Signed Impressions: Service Date/Time: Sunday, January 01, 2017 00:54 - CONCLUSION: 1. No acute intracranial abnormality. 2. Extensive chronic small vessel ischemic change. Jorge Chen Jr., MD Chest X-Ray 12/31/162255 Signed Impressions: Service Date/Time: December 23:01 - CONCLUSION: Cardiomegaly. Clear lungs. Jorge Chen Jr., MD Assessment and Plan Problem List: (1) Elevated troponin ICD Codes: R74.8 - Abnormal levels of other serum enzymes Status: Acute Plan: Elevated troponin demand secondary to severe hypertension. Unremarkable Lexiscan stress test Recommendations: BP management Sign off (2) NSTEMI (non-ST elevated myocardial infarction) ICD Codes: I21.4 - Non-ST elevation (NSTEMI) myocardial infarction Status: Acute (3) Hypertensive emergency ICD Codes: I16.1 - Hypertensive emergency Status: Acute (4) Atypical chest pain Status: Acute Jozef Fernando MD Jan 03, 2017 07:36
[2017-01-03] MEDS: NIFEdipine 60 MG SUSTAINED RELEASE TAB PO SCH (08:37)
[2017-01-03] MEDS: ASPIRIN EC 325 MG TABEC PO SCH (08:37)
[2017-01-03] MEDS: LISINOPRIL 20 MG TAB PO SCH (08:38)
[2017-01-03] MEDS: HEPARIN SODIUM - SQ 10,000 UNITS/ML VIAL SQ SCH ×2 (08:38→21:05)
[2017-01-03] MEDS: CARVEDILOL 6.25 MG TAB PO SCH (08:54)
[2017-01-03] MEDS: SODIUM CHLORIDE 0.9% FLUSH 10 ML FLUSH IV FLUSH SCH ×3 (08:54→21:05)
[2017-01-03] MEDS ORDERED: ACETAMINOPHEN 500 MG CPLT PO PRN (11:15)
[2017-01-03] MEDS: oxyCODONE/ACETAMINOPHEN 7.5 MG/325 MG TAB PO PRN ×2 (12:49→21:28)
--- NOTE | 2017-01-03 13:06 | HHI.PR ---
Review/Management Diagnosis/Plan: (1) Hypertensive emergency ICD Codes: I16.1 - Hypertensive emergency Status: Acute Plan: probable cause of symptoms on cardene gtt 10/2016 similar symptoms/dx: elevated bp, elevated trops was on cardene gtt at that time recs iv solumedrol for left ue pain; ? mild rhabdo vs inflammatory check esr/crp/aldolase p.t. follow exam (2) Chronic ischemic left MCA stroke ICD Codes: I69.30 - Unspecified sequelae of cerebral infarction Status: Chronic Plan: w/u with left sided symptoms and subjective feeling of worse check mri/mra check left ue u/s restart aspirin therapy (3) Essential hypertension Status: Chronic (4) Atypical chest pain Status: Acute Plan: seen by cardiology (5) Elevated troponin ICD Codes: R74.8 - Abnormal levels of other serum enzymes Status: Acute Plan: seen by cardiology Subjective Subjective Comments No acute events reported c/o of left arm pain/swelling No headache No chest pain No dyspnea Active Medications Current Medications Medications (Trade) Dose Ordered Sig/Galilea Route Start Time Stop Time Status Last Admin (NS Flush) 2 ml UNSCH PRN IVF 12/31/16 23:00 (NS Flush) 2 ml UNSCH PRN IV FLUSH 01/01/17 02:30 (NS Flush) 2 ml BID IV FLUSH 01/01/17 09:00 01/03/17 12:50 (Narcan Inj) 0.4 mg UNSCH PRN IV PUSH 01/01/17 02:30 (Nitrostat Sl) 0.4 mg Q5M PRN SL 01/01/17 04:00 01/02/17 01:51 (Benadryl Inj) 25 mg Q4H PRN IV PUSH 01/01/17 06:45 01/03/17 12:50 Nicardipine HCl 25 mg/Sodium Chloride 250 ml @ 50 mls/hr TITRATE PRN IV 01/01/17 08:30 01/01/17 18:13 (Prinivil) 40 mg DAILY PO 01/01/17 09:15 01/03/17 08:38 (Coreg) 6.25 mg Q12HR PO 01/01/17 21:00 01/03/17 08:54 (Apresoline Inj) 20 mg Q4H PRN IV PUSH 01/01/17 10:00 01/02/17 16:15 (Ecotrin Ec) 325 mg DAILY PO 01/01/17 15:30 01/03/17 08:37 (Procardia Xl) 60 mg DAILY PO 01/02/17 09:00 01/03/17 08:37 (Lipitor) 40 mg HS PO 01/02/17 21:00 01/02/17 21:16 (Heparin Inj) 5,000 units Q12HR SQ 01/02/17 21:00 01/03/17 08:38 (Apresoline) 50 mg Q8HR PO 01/02/17 22:00 01/03/17 05:26 (Dilaudid Pf Inj) 1 mg Q4H PRN IV PUSH 01/03/17 14:45 01/03/17 12:49 (Tylenol) 500 mg Q4H PRN PO 01/03/17 11:15 (Percocet 7.5-325 Mg) 1 tab Q6H PRN PO 01/03/17 11:15 01/03/17 12:49 Allergies Allergies Coded Allergies meperidine (Unverified Allergy, Severe, HIVES, 11/10/16) morphine (Unverified Allergy, Severe, Itching, 11/10/16) Review of Systems All other ROS: ROS reviewed as documented in chart Exam I&O / VS Vital Signs Date Time Temp Pulse Resp B/P (MAP) Pulse Ox O2 Delivery O2 Flow Rate FiO2 01/03/17 07:30 98.3 78 18 151/72 (98) 95 01/03/17 06:00 80 01/03/17 05:00 74 01/03/17 04:28 75 18 153/63 (93) 95 01/03/17 04:00 78 01/03/17 03:00 79 01/03/17 02:00 82 01/03/17 01:00 76 01/03/17 00:00 82 01/02/17 23:48 90 20 137/63 (87) 97 01/02/17 23:00 86 01/02/17 22:00 90 01/02/17 21:00 86 01/02/17 20:00 88 01/02/17 19:00 97 Room Air 01/02/17 19:00 84 01/02/17 19:00 98.9 74 18 157/67 (97) 97 01/02/17 17:00 147/55 (85) 01/02/17 16:00 98.2 66 16 171/64 (99) 99 01/02/17 15:33 70 18 139/63 (88) 100 General: Alert and Oriented, No acute distress Eye: EOMI Respiratory: Non-labored respirations Neurologic: Alert, Oriented, CN II-XII intact Psychiatric: Cooperative, Appropriate mood & affect Exam Comments alert, ox3, mild expressive aphasia, follows, eomi, mild rt nlf, rt hemiparesis 2-3/5 left ue tender to touch Kory Correia MD Jan 03, 2017 13:05
--- NOTE | 2017-01-03 13:10 | ECHRPT ---
Indication: Chest pain CONCLUSIONS Normal left ventricular size. Moderate concentric left ventricular hypertrophy. The left ventricular systolic function is hyperdynamic with an estimated ejection fraction in the ra nge of 65- 70%. There is trace tricuspid valve regurgitation. The estimated pulmonary arterial pressure is 25.2 mmHg. BP: 230 / 111 HR: 50 Rhythm: MEASUREMENTS (Male / Female) Normal Values Technical Quality:Good 2D ECHO LV Diastolic Diameter PLAX 3.9 cm 4.2 - 5.9 / 3.9 - 5.3 cm LV Systolic Diameter PLAX 2.5 cm IVS Diastolic Thickness 1.7 cm 0.6 - 1.0 / 0.6 - 0.9 cm LVPW Diastolic Thickness 1.4 cm 0.6 - 1.0 / 0.6 - 0.9 cm LV Relative Wall Thickness 0.8 RV Internal Dim ED PLAX 2.0 cm LA Systolic Diameter LX 3.3 cm 3.0 - 4.0 / 2.7 - 3.8 cm M-MODE Aortic Root Diameter MM 2.6 cm AV Cusp Separation MM 1.7 cm DOPPLER AV Peak Velocity 239.0 cm/s AV Peak Gradient 22.8 mmHg LVOT Peak Velocity 85.9 cm/s LVOT Peak Gradient 3.0 mmHg Mitral E Point Velocity 64.7 cm/s Mitral A Point Velocity 91.3 cm/s Mitral E to A Ratio 0.7 TR Peak Velocity 195.0 cm/s TR Peak Gradient 15.2 mmHg Right Atrial Pressure 10.0 mmHg Pulmonary Artery Systolic Pressu 25.2 mmHg Right Ventricular Systolic Press 25.2 mmHg FINDINGS LEFT VENTRICLE Normal left ventricular size. Moderate concentric left ventricular hypertrophy. The left ventricular systolic function is hyperdynamic with an estimated ejection fraction in the ra nge of 65- 70%. RIGHT VENTRICLE Normal right ventricular size and systolic function. LEFT ATRIUM The left atrial size is normal. RIGHT ATRIUM The right atrial size is normal. ATRIAL SEPTUM Normal atrial septal thickness without atrial level shunting by limited color doppler interrogation. AORTA The aortic root and proximal ascending aorta are normal in size on limited imaging. MITRAL VALVE Structurally normal mitral valve. No mitral valve stenosis or regurgitation. AORTIC VALVE Trileaflet aortic valve. No aortic valve stenosis or regurgitation. TRICUSPID VALVE There is trace tricuspid valve regurgitation. The estimated pulmonary arterial pressure is 25.2 mmHg. PULMONARY VALVE No pulmonary valve regurgitation or stenosis. VESSELS The inferior vena cava is normal in size. PERICARDIUM No pericardial effusion. Jozef Valenzuela-Gm MD (Electronically Signed) Final Date:03 January 2017 13:09
--- NOTE | 2017-01-03 13:14 | HHI.PR ---
Subjective Remarks Follow up for chest pain, severely accelerated hypertension. Patient complains of left upper chest, shoulder and left upper ext pain. No N/V, SOB, fever, chills. Objective Vitals Vital Signs Date Time Temp Pulse Resp B/P (MAP) Pulse Ox O2 Delivery O2 Flow Rate FiO2 01/03/17 07:30 98.3 78 18 151/72 (98) 95 01/03/17 06:00 80 01/03/17 05:00 74 01/03/17 04:28 75 18 153/63 (93) 95 01/03/17 04:00 78 01/03/17 03:00 79 01/03/17 02:00 82 01/03/17 01:00 76 01/03/17 00:00 82 01/02/17 23:48 90 20 137/63 (87) 97 01/02/17 23:00 86 01/02/17 22:00 90 01/02/17 21:00 86 01/02/17 20:00 88 01/02/17 19:00 97 Room Air 01/02/17 19:00 84 01/02/17 19:00 98.9 74 18 157/67 (97) 97 01/02/17 17:00 147/55 (85) 01/02/17 16:00 98.2 66 16 171/64 (99) 99 01/02/17 15:33 70 18 139/63 (88) 100 I/O 01/02/17 01/02/17 01/02/17 01/03/17 01/03/17 01/03/17 07:00 15:00 23:00 07:00 15:00 23:00 Intake Total 99 ml 214.1 ml 100 ml 500 ml Output Total 0 ml Balance 99 ml 214.1 ml 100 ml 500 ml Intake Oral 0 ml 100 ml 500 ml IV Total 99 ml 214.1 ml Output Stool Total 0 ml # Voids 3 2 # Bowel Movements 0 0 Result Diagram: 01/02/17 0455 01/02/17 0455 Imaging Last Impressions Myocardial Perfusion Scan Nuc Med 01/02/17 0000 Signed Impressions: Service Date/Time: Monday, January 02, 2017 10:23 - CONCLUSION: 1. No reversible perfusion defect indicate myocardial ischemia identified. 2. The ejection fraction is somewhat low at 43%%. RISK CATEGORY: Intermediate (1-3%% Annual Mortality Rate) Hemanth Mayo MD Upper Extremity Ultrasound 01/01/17 Signed Impressions: Service Date/Time: Sunday, January 01, 2017 17:02 - CONCLUSION: 1. No sonographic evidence for left upper extremity DVT. Moises Ambrose MD Head Magnetic Resonance Angiography 01/01/17 Signed Impressions: Service Date/Time: Sunday, January 01, 2017 20:03 - CONCLUSION: Normal examination for a patient of this age. Lloyd Valenzuela MD Cervical Spine MRI 01/01/17 Signed Impressions: Service Date/Time: Sunday, January 01, 2017 20:03 - CONCLUSION: 1. Mild stenosis at C4-5 and C5-6 centrally and at the neural foramina. Normal alignment. No cord signal abnormality. Lloyd Valenzuela MD Carotid Artery Ultrasound 01/01/17 Signed Impressions: Service Date/Time: Sunday, January 01, 2017 16:38 - CONCLUSION: 1. No significant flow-limiting stenosis. 2. Antegrade vertebral artery flow bilaterally. Moises Ambrose MD Brain MRI 01/01/17 Signed Impressions: Service Date/Time: Sunday, January 01, 2017 20:03 - CONCLUSION: 1. Probable acute small lacunar infarct left posterior periventricular white matter. Severe white matter disease, probably ischemic with multiple lacunar infarcts in the white matter and corpus callosum. Cannot exclude multiple sclerosis or other causes of demyelinization. Lloyd Valenzuela MD Head CT 12/31/162255 Signed Impressions: Service Date/Time: Sunday, January 01, 2017 00:54 - CONCLUSION: 1. No acute intracranial abnormality. 2. Extensive chronic small vessel ischemic change. Jorge Chen Jr., MD Chest X-Ray 12/31/162255 Signed Impressions: Service Date/Time: December 23:01 - CONCLUSION: Cardiomegaly. Clear lungs. Jorge Chen Jr., MD Objective Remarks GENERAL: Alert, has some chest discomfort. SKIN: Warm and dry. HEAD: Normocephalic. EYES: No scleral icterus. No injection or drainage. NECK: Supple, trachea midline. No JVD or lymphadenopathy. CARDIOVASCULAR: Regular rate and rhythm without murmurs, gallops, or rubs. RESPIRATORY: Breath sounds equal bilaterally. No accessory muscle use. GASTROINTESTINAL: Abdomen soft, non-tender, nondistended. MUSCULOSKELETAL: No cyanosis, or edema. BACK: Nontender without obvious deformity. No CVA tenderness. Procedures None. A/P Problem List: (1) Accelerated hypertension ICD Code: I10 - Essential (primary) hypertension (2) Lacunar infarct, acute ICD Code: I63.9 - Cerebral infarction, unspecified (3) Non-ST elevation myocardial infarction (NSTEMI), type 2 ICD Code: I21.4 - Non-ST elevation (NSTEMI) myocardial infarction (4) Microcytic normochromic anemia ICD Code: D50.9 - Iron deficiency anemia, unspecified (5) LEYDI (acute kidney injury) ICD Code: N17.9 - Acute kidney failure, unspecified Assessment and Plan Ms. Guillen is a pleasant 61 year old female with a history of CVA in 2009, resistant HTN who presented to the ED on 12/31/2016 due to left sided sharp chest pain with radiation to the neck/jaw and also numbness, tingling of her left arm. Troponins were mildly elevated 0.12, 0.13, 0.13. Patient's blood pressure was in the 200s range systolic. - Accelerated hypertension - Tachycardia - Continue Nifedipine 60mg Qday, Lisinopril 40mg Qday. - Start Hydralazine 50mg Q8hrs. - Increase Carvedilol to 12.5mg Q12hrs. - We'll try to avoid clonidine. - Once patient is on 3 blood pressure meds including a diuretic, we can consider secondary cause work up. - NSTEMI - type 2. - Patient's left sided chest pain was not consistent with cardiac chest pain. - Cardiology evaluated patient.Mild elevation in troponin is due to non- cardiac reasons including hypertension. - Lexiscan unremarkable. Cardiology signed off. - Discontinued heparin drip. - Acute lacunar infarction - Per neurology, Patient underwent further brain imaging studies. MRI brain indicated probable acute lacunar infarction. - Continue Aspirin 81mg Qday. Neurology started Plavix 75mg Qday. - Continue Lipitor 40mg Qday. - Acute kidney injury - Creatinine 1.2 --> 1.34. Can be monitored outpatient. - Avoid nephrotoxins. Full code. Heparin subcutaneous Marcial German DO Jan 03, 2017 13:14
[2017-01-03] MEDS: methylPREDNISolone SOD SUCC 125 MG/2 ML VIAL IV SCH ×2 (14:05→21:05)
[2017-01-03] MEDS: SODIUM CHLORIDE 0.9% FLUSH 10 ML FLUSH IV FLUSH PRN (17:19)
[2017-01-03 17:43] LABS: CKMB 1.4 NG/ML (0.5-3.6)
[2017-01-03] MEDS: CARVEDILOL 12.5 MG TAB PO SCH (21:04)
[2017-01-03] MEDS: ATORVASTATIN 40 MG TAB PO SCH (21:05)
[2017-01-03] MEDS: POTASSIUM CHLORIDE 10 MEQ CONTROLLED RELEASE TAB PO SCH (21:28)
[2017-01-03] MEDS: hydrALAZINE HCL 20 MG/ML VIAL IV PUSH PRN (21:35)
[2017-01-04] VITALS (17 sets, daily range): BP systolic 153–189; BP diastolic 70–82; PULSE 81–104; RESP 18–20; TEMP 98.1–98.3; O2SAT 96–100
[2017-01-04] MEDS: NITROGLYCERIN 0.4 MG SL 25 TABS/BTL SL PRN ×3 (00:46→01:22)
[2017-01-04] MEDS: diphenhydrAMINE HCL 50 MG/ML VIAL IV PUSH PRN ×3 (02:19→10:27)
[2017-01-04] MEDS: hydrALAZINE HCL 20 MG/ML VIAL IV PUSH PRN ×2 (02:20→10:37)
[2017-01-04] MEDS: HYDROmorphone HCL PF 1 MG/ML VIAL IV PUSH PRN ×3 (02:21→10:28)
[2017-01-04] MEDS: oxyCODONE/ACETAMINOPHEN 7.5 MG/325 MG TAB PO PRN ×2 (03:52→15:27)
[2017-01-04] MEDS: hydrALAZINE HCL 50 MG TAB PO SCH ×2 (05:30→14:41)
--- NOTE | 2017-01-04 06:01 | HHI.PR ---
Review/Management Diagnosis/Plan: (1) Hypertensive emergency ICD Codes: I16.1 - Hypertensive emergency Status: Acute Plan: probable cause of symptoms on cardene gtt 10/2016 similar symptoms/dx: elevated bp, elevated trops was on cardene gtt at that time left swelling/pain, mildly elevated ck- ? focal rhabdo/myopathy vs brachial plexitis- responding to steroids recs doing better chage to prednisone 10mg po qam on d/c and further titration outpatient crp mildly elevated; aldolase pending pain control d/c planning from neuro and outpatient f/u (2) Chronic ischemic left MCA stroke ICD Codes: I69.30 - Unspecified sequelae of cerebral infarction Status: Chronic Plan: w/u with left sided symptoms and subjective feeling of worse check mri/mra check left ue u/s restart aspirin therapy (3) Essential hypertension Status: Chronic (4) Atypical chest pain Status: Acute Plan: seen by cardiology (5) Elevated troponin ICD Codes: R74.8 - Abnormal levels of other serum enzymes Status: Acute Plan: seen by cardiology Subjective Subjective Comments No acute events reported arm feels better, less swollen takes xanax bid at home; asking for dose this am for anxiety No headache No chest pain No dyspnea Active Medications Current Medications Medications (Trade) Dose Ordered Sig/Galilea Route Start Time Stop Time Status Last Admin (NS Flush) 2 ml UNSCH PRN IV FLUSH 01/01/17 02:30 01/03/17 17:19 (NS Flush) 2 ml BID IV FLUSH 01/01/17 09:00 01/03/17 21:05 (Narcan Inj) 0.4 mg UNSCH PRN IV PUSH 01/01/17 02:30 (Nitrostat Sl) 0.4 mg Q5M PRN SL 01/01/17 04:00 01/04/17 01:22 (Benadryl Inj) 25 mg Q4H PRN IV PUSH 01/01/17 06:45 01/04/17 02:19 Nicardipine HCl 25 mg/Sodium Chloride 250 ml @ 50 mls/hr TITRATE PRN IV 01/01/17 08:30 01/01/17 18:13 (Prinivil) 40 mg DAILY PO 01/01/17 09:15 01/03/17 08:38 (Apresoline Inj) 20 mg Q4H PRN IV PUSH 01/01/17:00 01/04/17 02:20 (Procardia Xl) 60 mg DAILY PO 01/02/17 09:00 01/03/17 08:37 (Lipitor) 40 mg HS PO 01/02/17 21:00 01/03/17 21:05 (Heparin Inj) 5,000 units Q12HR SQ 01/02/17 21:00 01/03/17 21:05 (Apresoline) 50 mg Q8HR PO 01/02/17 22:00 01/04/17 05:30 (Dilaudid Pf Inj) 1 mg Q4H PRN IV PUSH 01/03/17 14:45 01/04/17 02:21 (Tylenol) 500 mg Q4H PRN PO 01/03/17 11:15 (Percocet 7.5-325 Mg) 1 tab Q6H PRN PO 01/03/17 11:15 01/04/17 03:52 (SoluMEDROL INJ) 125 mg Q12HR IV 01/03/17 13:15 01/05/17 09:00 01/03/17 21:05 (Ecotrin Ec) 81 mg DAILY PO 01/04/17 09:00 (Plavix) 75 mg DAILY PO 01/04/17 09:00 (KCl) 30 meq Q12HR PO 01/03/17 21:00 01/06/17 20:59 01/03/17 21:28 (Coreg) 12.5 mg Q12HR PO 01/03/17 21:00 01/03/17 21:04 Allergies Allergies Coded Allergies meperidine (Unverified Allergy, Severe, HIVES, 11/10/16) morphine (Unverified Allergy, Severe, Itching, 11/10/16) Review of Systems All other ROS: ROS reviewed as documented in chart Exam I&O / VS Vital Signs Date Time Temp Pulse Resp B/P (MAP) Pulse Ox O2 Delivery O2 Flow Rate FiO2 01/04/17 05:21 89 01/04/17 04:31 18 01/04/17 04:00 99 01/04/17 03:33 98.1 97 18 189/82 (117) 100 01/04/17 03:00 98 01/04/17 02:51 18 01/04/17 02:00 97 01/04/17 01:28 18 01/04/17 01:00 104 01/03/17 23:00 105 01/03/17 23:00 98.1 111 18 188/94 (125) 94 01/03/17 21:00 102 01/03/17 20:00 95 01/03/17 19:00 97 Room Air 01/03/17 19:00 97.5 85 18 211/94 (133) 100 01/03/17 19:00 82 01/03/17 18:00 94 01/03/17 17:00 82 01/03/17 16:00 80 01/03/17 15:15 98.8 64 18 159/73 (101) 97 01/03/17 15:00 82 01/03/17 14:00 70 01/03/17 13:00 70 01/03/17 12:00 74 01/03/17 11:00 97.5 67 18 153/76 (101) 96 01/03/17 11:00 65 01/03/17 10:00 78 01/03/17 09:00 78 01/03/17 08:00 76 01/03/17 07:30 98.3 78 18 151/72 (98) 95 01/03/17 07:30 72 01/03/17 07:00 Room Air General: Alert and Oriented, No acute distress Eye: EOMI Respiratory: Non-labored respirations Neurologic: Alert, Oriented, CN II-XII intact Psychiatric: Cooperative, Appropriate mood & affect Exam Comments alert, ox3, mild expressive aphasia, follows, eomi, mild rt nlf, rt hemiparesis 2-3/5 left ue mildly tender, reduced swelling Objective Micro and Labs Laboratory Tests Test 01/03/17 16:13 Erythrocyte Sedimentation Rate 17 Total Creatine Kinase 200 Creatine Kinase MB 1.4 Creatine Kinase MB % 0.7 C-Reactive Protein 0.46 Vitamin B12 Level 1220 Thyroid Stimulating Hormone 3rd Gen 1.760 Kory Correia MD Jan 04, 2017 06:01
[2017-01-04] MEDS ORDERED: ALPRAZolam 0.5 MG TAB PO PRN (08:45)
[2017-01-04] MEDS: methylPREDNISolone SOD SUCC 125 MG/2 ML VIAL IV SCH (09:00)
[2017-01-04] MEDS ORDERED: CLOPIDOGREL 75 MG TAB PO SCH (09:00)
[2017-01-04] MEDS ORDERED: ASPIRIN EC 81 MG TABEC PO SCH (09:00)
[2017-01-04] MEDS: LISINOPRIL 20 MG TAB PO SCH (09:01)
[2017-01-04] MEDS: NIFEdipine 60 MG SUSTAINED RELEASE TAB PO SCH (09:03)
[2017-01-04] MEDS: POTASSIUM CHLORIDE 10 MEQ CONTROLLED RELEASE TAB PO SCH (09:03)
[2017-01-04] MEDS: CARVEDILOL 12.5 MG TAB PO SCH (09:04)
[2017-01-04] MEDS: HEPARIN SODIUM - SQ 10,000 UNITS/ML VIAL SQ SCH (09:07)
[2017-01-04] MEDS: SODIUM CHLORIDE 0.9% FLUSH 10 ML FLUSH IV FLUSH PRN (09:08)
[2017-01-04] MEDS ORDERED: WHEEMIS3 (14:47)
--- NOTE | 2017-01-04 14:48 | HHI.FF ---
Face to Face Verification Diagnosis: (1) Lacunar infarct, acute (2) Hypertensive emergency (3) LEYDI (acute kidney injury) (4) Chronic ischemic left MCA stroke Physical Therapy Order: Evaluate and Treat, Improve ambulation, Strength and gait training Home Health Nursing Order: Medical education Signs/symptoms of disease process Diabetic education Medication education-adverse effect Nursing assessment with vital signs I have seen patient Vivian Guillen on 01/04/17. My clinical findings support the need for the requested home health care services because: Deconditioned w/ increased weakness Med compliance is questionable Limited ability to care for self Need for psychosocial assistance Impaired cognition/judgement High risk of falls Infection w/ risk of complications I certify that my clinical findings support that this patient is homebound because: Impaired cognitive ability/safety Unsteady gait/balance Unsafe to leave home unassisted Need for psychosocial assistance [id number] bed/chair Unable to use public transportation Marcial German DO Jan 04, 2017 2:48 pm
[2017-01-04] MEDS ORDERED: PLAV75TA29 PO (14:50)
[2017-01-04] MEDS ORDERED: HYDR-3800 PO (14:50)
[2017-01-04] MEDS ORDERED: LIPI10TA PO (14:50)
[2017-01-04] MEDS ORDERED: NIFE60TA8 PO (14:50)
[2017-01-04] MEDS ORDERED: CARV12.5 PO (14:50)
--- NOTE | 2017-01-04 14:51 | HHI.DS ---
Discharge Summary Admission Date Jan 01, 2017 at 2:12 am Discharge Date: Jan 04, 2017 Admitting Diagnosis NSTEMI (1) Accelerated hypertension ICD Code: I10 - Essential (primary) hypertension Diagnosis: Principal (2) Lacunar infarct, acute ICD Code: I63.9 - Cerebral infarction, unspecified Diagnosis: Principal (3) Non-ST elevation myocardial infarction (NSTEMI), type 2 ICD Code: I21.4 - Non-ST elevation (NSTEMI) myocardial infarction Diagnosis: Principal (4) Microcytic normochromic anemia ICD Code: D50.9 - Iron deficiency anemia, unspecified (5) LEYDI (acute kidney injury) ICD Code: N17.9 - Acute kidney failure, unspecified Procedures echo 01/03/2017 Normal left ventricular size. Moderate concentric left ventricular hypertrophy. The left ventricular systolic function is hyperdynamic with an estimated ejection fraction in the range of 65- 70%. There is trace tricuspid valve regurgitation. The estimated pulmonary arterial pressure is 25.2 mmHg. Brief History - From Admission left arm numb, painful, swollen, started like a tothache= started on wednesday went to neurologist yesterday did not lie on the arm had prior nerve damage to it before was 5 days in icu-discharged 11/26/16 then to rehab [facility] - for 20 days cva in 2009, had right side paralysis [facility] came home and pt too neurologist told to come to er bp was also starting high also had chest pain, left side, neck pain nothing makes the pain go away diaphoretic and dizziness during pain usually works with a work neurologist is dr billy has had continued dizziness while walking around home in past few weeks cramps in stomach CBC/BMP: 01/02/17 0455 01/02/17 0455 Significant Findings Laboratory Tests Test 01/01/17 15:15 01/01/17 15:55 01/02/17 04:55 01/03/17 16:13 Total Creatine Kinase 211 U/L (26-192) 200 U/L (26-192) Troponin I 0.13 NG/ML (0.02-0.05) Activated Partial Thromboplast Time 67.0 SEC (24.3-30.1) 61.4 SEC (24.3-30.1) Hemoglobin 11.2 GM/DL (11.6-15.3) Hematocrit 34.9 % (35.0-46.0) Mean Corpuscular Volume 68.6 FL (80.0-100.0) Mean Corpuscular Hemoglobin 21.9 PG (27.0-34.0) Creatinine 1.34 MG/DL (0.50-1.00) Random Glucose 113 MG/DL (74-106) Potassium Level 3.1 MEQ/L (3.5-5.1) Estimat Glomerular Filtration Rate 49 ML/MIN (>89) C-Reactive Protein 0.46 MG/DL (0.00-0.30) Vitamin B12 Level 1220 PG/ML (193-986) Imaging Last Impressions Myocardial Perfusion Scan Nuc Med 01/02/17 Signed Impressions: Service Date/Time: Monday, January 02, 2017 10:23 - CONCLUSION: 1. No reversible perfusion defect indicate myocardial ischemia identified. 2. The ejection fraction is somewhat low at 43%%. RISK CATEGORY: Intermediate (1-3%% Annual Mortality Rate) Hemanth Mayo MD Upper Extremity Ultrasound 01/01/17 Signed Impressions: Service Date/Time: Sunday, January 01, 2017 17:02 - CONCLUSION: 1. No sonographic evidence for left upper extremity DVT. Moises Ambrose MD Head Magnetic Resonance Angiography 01/01/17 Signed Impressions: Service Date/Time: Sunday, January 01, 2017 20:03 - CONCLUSION: Normal examination for a patient of this age. Lloyd Valenzuela MD Cervical Spine MRI 01/01/17 Signed Impressions: Service Date/Time: Sunday, January 01, 2017 20:03 - CONCLUSION: 1. Mild stenosis at C4-5 and C5-6 centrally and at the neural foramina. Normal alignment. No cord signal abnormality. Lloyd Valenzuela MD Carotid Artery Ultrasound 01/01/17 Signed Impressions: Service Date/Time: Sunday, January 01, 2017 16:38 - CONCLUSION: 1. No significant flow-limiting stenosis. 2. Antegrade vertebral artery flow bilaterally. Moises Ambrose MD Brain MRI 01/01/17 0000 Signed Impressions: Service Date/Time: Sunday, January 01, 2017 20:03 - CONCLUSION: 1. Probable acute small lacunar infarct left posterior periventricular white matter. Severe white matter disease, probably ischemic with multiple lacunar infarcts in the white matter and corpus callosum. Cannot exclude multiple sclerosis or other causes of demyelinization. Lloyd Valenzuela MD Head CT 12/31/162255 Signed Impressions: Service Date/Time: Sunday, January 01, 2017 00:54 - CONCLUSION: 1. No acute intracranial abnormality. 2. Extensive chronic small vessel ischemic change. Jorge Chen Jr., MD Chest X-Ray 12/31/162255 Signed Impressions: Service Date/Time: December 23:01 - CONCLUSION: Cardiomegaly. Clear lungs. Jorge Chen Jr., MD PE at Discharge GENERAL: Alert, has some chest discomfort. SKIN: Warm and dry. HEAD: Normocephalic. EYES: No scleral icterus. No injection or drainage. NECK: Supple, trachea midline. No JVD or lymphadenopathy. CARDIOVASCULAR: Regular rate and rhythm without murmurs, gallops, or rubs. RESPIRATORY: Breath sounds equal bilaterally. No accessory muscle use. GASTROINTESTINAL: Abdomen soft, non-tender, nondistended. MUSCULOSKELETAL: No cyanosis, or edema. BACK: Nontender without obvious deformity. No CVA tenderness. Pt update on day of discharge Patient is doing well. No acute concerns. Hospital Course Ms. Guillen is a pleasant 61 year old female with a history of CVA in 2010, resistant HTN who presented to the ED on 12/31/2016 due to left sided sharp chest pain with radiation to the neck/jaw and also numbness, tingling of her left arm. Troponins were mildly elevated 0.12, 0.13, 0.13. Patient's blood pressure was in the 200s range systolic. - Accelerated hypertension - Tachycardia - Continue Nifedipine 60mg BID, Lisinopril 40mg Qday. - Start Hydralazine 50mg Q8hrs. - Increased Carvedilol to 12.5mg Q12hrs. - We'll try to avoid clonidine. - NSTEMI - type 2. - Patient's left sided chest pain was not consistent with cardiac chest pain. - Cardiology evaluated patient.Mild elevation in troponin is due to non- cardiac reasons including hypertension. - Lexiscan unremarkable. Cardiology signed off. - Discontinued heparin drip. - Acute lacunar infarction - Per neurology, Patient underwent further brain imaging studies. MRI brain indicated probable acute lacunar infarction. - Continue Aspirin 81mg Qday. Neurology started Plavix 75mg Qday. - Continue Lipitor 40mg Qday. - Possible myopathy - Neurology gave IV steroid and recommended Prednisone 10mg QAM on discharge. - Acute kidney injury - Creatinine 1.2 --> 1.34. Can be monitored outpatient. - Avoid nephrotoxins. Full code. Heparin subcutaneous while in the hospital. Pt Condition on Discharge: Good Discharge Disposition: Disch w/ Home Health Serv Discharge Time: > 30 minutes Discharge Instructions DIET: Follow Instructions for: Diabetic Diet Activities you can perform: Regular-No Restrictions Follow up Referrals: Neurology - 10 Days with Kory Correia MD PCP Follow-up - 1 Week New Medications: Prednisone (Prednisone) 10 Mg Tab 10 MG PO DAILY for Inflammation for 30 Days, #30 TAB 0 Refills Per neurology recommendations. Wheelchair (Wheelchair) 1 Mis Mis EA DIRECTED, #1 0 Refills Atorvastatin (Lipitor) 10 Mg Tab 10 MG PO HS for Cholesterol Management, #90 TAB 3 Refills Carvedilol (Coreg) 12.5 Mg Tab 12.5 MG PO Q12HR for Blood Pressure Management, #60 TAB 3 Refills Clopidogrel (Plavix) 75 Mg Tab 75 MG PO DAILY for Blood Clot Prevention, #30 TAB 3 Refills Nifedipine ER 24 HR (Nifedipine ER 24 HR) 60 Mg Tab 60 MG PO BID for Blood Pressure Management, #60 TAB 2 Refills Oxycodone-Acetaminophen (Oxycodone-Acetaminophen) 7.5-325 mg Tab 1 TAB PO Q6H PRN for PAIN SCALE 5 TO 10, #20 TAB Continued Medications: Alprazolam (Alprazolam) 0.5 Mg Tab 0.5 MG PO DAILY PRN for ANXIETY, TAB [address] (Adult Aspirin EC Low Strength) 81 Mg Tabec 81 MG PO DAILY for proph, #30 TAB Estradiol (Estradiol) 0.5 Mg Tab 0.5 MG PO DAILY for Estrogen Supplements, #30 TAB 0 Refills Hydralazine HCl (Hydralazine HCl) 50 Mg Tablet 50 MG PO Q8HR for Blood Pressure Management, #90 TAB 3 Refills (This prescription has been renewed) Hydrochlorothiazide (Hydrochlorothiazide) 50 Mg Tab 50 MG PO DAILY, #60 TAB 0 Refills Hydrocodone-Acetaminophen (Hydrocodone-Acetaminophen) 10-325 mg Tab 1 TAB PO BID PRN for PAIN, #60 TAB 0 Refills Omeprazole (Omeprazole) 40 Mg Cap 40 MG PO DAILY, #30 CAP 0 Refills Potassium Phosphate Monobasic (K-Phos) 500 Mg Tab 500 MG PO Q12HR for replacement , #6 TAB Discontinued Medications: Clonidine (Clonidine) 0.2 Mg Tab 0.2 MG PO DAILY for Blood Pressure Management, #60 TAB 0 Refills Clonidine (Catapres) 0.1 Mg Tab 0.1 MG PO Q6H PRN for bp>160/90, #30 TAB Metoprolol Succinate ER 24 HR (Metoprolol Succinate ER 24 HR) 50 Mg Tab 50 MG PO DAILY, #30 TAB 0 Refills Nifedipine ER 24 HR (Nifedipine ER 24 HR) 30 Mg Tab 60 MG PO DAILY for htn, #30 TAB Simvastatin (Simvastatin) 40 Mg Tab 40 MG PO HS for Cholesterol Management, #30 TAB 0 Refills Marcial German DO Jan 04, 2017 14:51
[2017-01-04] MEDS ORDERED: OXYC1TAB35 PO (14:53)
[2017-01-04] MEDS ORDERED: PRED10 PO (16:50)
[2017-01-04] MEDS ORDERED: NIFEdipine 60 MG SUSTAINED RELEASE TAB PO SCH (21:00)
[2017-01-04] MEDS ORDERED: ATORVASTATIN 10 MG TAB PO SCH (21:00)
--- NOTE | 2017-01-12 15:22 | PQ ---
Physician Query Response Document PATIENT: TIMMY TEMPLE : 1955 ADMIT DATE: 01/01/2017 2:12 AM DISCH DATE: 01/04/2017 3:52 PM RESPONDING PROVIDER #: [email or web address] QUERY TEXT: Conflicting Documentation Clarification A single mention or documentation of multiple diagnoses for the same clinical presentation appears in the record. Please clarify the diagnosis/diagnoses: Was NSTEMI ruled in or out? Please also document if the condition is: -- Confirmed and current -- Confirmed, treated and resolved -- Ruled out -- Other, please specify If you have any additional questions/comments and/or concerns, please do not hesitate to reach out to the CDI/Coding Hotline, Ext. [phone]. The patient's Clinical Indicators include: Cardiology Progress notes (Dr. Fernando) document: Assessment and Plan : Problem List: (1) Elevated troponin ICD Codes: R74.8 - Abnormal levels of other serum enzymes Status: Acute Plan: Her mildly elevated troponin may be demand mediated secondary to severe hypertension. Her left arm an d chest pain is rather atypical and not classic for angina. Recs: BP management Lexiscan Stress test (2) NSTEMI (non-ST elevated myocardial infarction) ICD Codes: I21.4 - Non-ST elevation (NSTEMI) myocardial infarction Status: Acute Discharge Summary documents: - NSTEMI - type 2. - Patient's left sided chest pain was not consistent with cardiac chest pain. - Cardiology evaluated patient.Mild elevation in troponin is due to non-cardiac reasons including hypertension. - Lexiscan unremarkable. Cardiology signed off. - Discontinued heparin drip. Query created by: Veda Rees on 01/12/2017 8:36 AM RESPONSE TEXT: NSTEMI type 2 is likely due to hypertension. Acute coronary syndrome was ruled out by negative Lexisc an. Electronically signed by: Asif German DO 01/12/2017 3:18 PM
== END 2017-01-04 15:52 | disposition home health service (06) | DRG 280 ==
LOC: NEPC 21:34 → NEDA 01-01 02:12 → N03B 01-01 08:10 → HCIS 01-02 15:45
PROVIDERS: ADMIT Hospitalist; ATTEND Hospitalist
DX: I21.4 Non-ST elevation (NSTEMI) myocardial infarction (principal); I63.8 Other cerebral infarction; N17.9 Acute kidney failure, unspecified; I69.351 Hemiplegia and hemiparesis following cerebral infarction affecting right dominant side; I16.1 Hypertensive emergency; I69.328 Other speech and language deficits following cerebral infarction; I10 Essential (primary) hypertension; I25.10 Atherosclerotic heart disease of native coronary artery without angina pectoris; Z95.5 Presence of coronary angioplasty implant and graft; D50.9 Iron deficiency anemia, unspecified; M79.602 Pain in left arm; R20.0 Anesthesia of skin
CPT/HCPCS: 70450; 70544; 70551; 71010; 72141; 78452; 80048; 80053; 82085; 82550; 82552; 82607; 83735; 84443; 84484; 85025; 85610; 85652; 85730; 86140; 87641; 93005; 93017; 93306; 93880; 93971; 96360; 99291; A9502; J0360; J1170; J1200; J1644; J2785; J2930; J7040; J7050

== ENCOUNTER 2017-01-16 23:09 | Inpatient (IN) | payer MEDICARE ==
[~2017-01-16] VITALS: Ht 160 cm; Wt 79.8 kg
[~2017-01-16 23:09] MED LIST changes: +ALPR0.5T3 PO; +CARV12.5 PO; -CLON.1 PO; -CLON0.2T PO; -DULC10SU3 RECTAL; +ESTR0.5T PO; +HYDR-3583 PO; -HYDR25TA5 PO; +LIPI10TA PO; -METO50TA11 PO; -NIFE30TA8 PO; +NIFE60TA8 PO; +OMEP40CA2 PO; -PERI8.6T PO; +PLAV75TA29 PO; +PRED10 PO; -SIMV40TA PO; +WHEEMIS3
[2017-01-16] MEDS ORDERED: LISI40TA PO (23:20)
[2017-01-16] MEDS ORDERED: RANI150T PO (23:20)
[2017-01-16] MEDS ORDERED: CLON0.2T PO (23:26)
--- NOTE | 2017-01-16 23:27 | PD ---
HPI Chief Complaint: chest pain Time Seen by Provider: 23:26 Travel History International Travel<30 days: No Contact w/Intl Traveler<30days: No History of Present Illness HPI Patient is a 61-year-old female recent history of stroke, cardiac catheterization presents emergency department for evaluation of shortness of breath. Patient states she's been having a cough nonproductive has been short of breath [facility]. Denies any fever denies any chest pain. She endorses a mild headache as well. She states she's been having some pain in the left upper left lower extremity consensus at the stroke was on. States symptoms are moderate, gradually worsening, not associated with any chest pain. Context as above. PFSH Past Medical History Hx Anticoagulant Therapy: No Arthritis: Yes Asthma: No Autoimmune Disease: No Blood Disorders: Yes Anxiety: Yes Depression: Yes Heart Rhythm Problems: Yes Cancer: No Cardiac Catheterization: Yes (MAY 2013) Cardiovascular Problems: Yes High Cholesterol: Yes Chemotherapy: No Chest Pain: Yes Congestive Heart Failure: No COPD: No Cerebrovascular Accident: Yes Diabetes: No Diminished Hearing: No Endocrine: No Gastrointestinal Disorders: Yes GERD: No Genitourinary: No Headaches: Yes Hiatal Hernia: No Hypertension: Yes Immune Disorder: No Implanted Vascular Access Dvce: No Kidney Stones: No Musculoskeletal: Yes Neurologic: Yes (stroke in 2009) Psychiatric: Yes (anxiety) Reproductive: Yes Respiratory: Yes Immunizations Current: No Migraines: No Myocardial Infarction: Yes Radiation Therapy: No Renal Failure: No Seizures: No Sickle Cell Disease: No Sleep Apnea: No Thyroid Disease: No Ulcer: No PNEUMOCCOCAL Vaccine (Year): 2 Menopausal: Yes : 3 Para: 3 Tubal Ligation: Yes Past Surgical History Abdominal Surgery: Yes (gall bladder) AICD: No Arteriovenous Shunt: No Cardiac Surgery: Yes (stents x1 (1999)) Cholecystectomy: Yes Coronary Artery Bypass Graft: No Coronary Stent: Yes (X1) Ear Surgery: No Endocrine Surgery: No Eye Surgery: No Genitourinary Surgery: No Gynecologic Surgery: Yes (hysterectomy) Hysterectomy: Yes Insulin Pump: No Joint Replacement: No Neurologic Surgery: No Oral Surgery: No Pacemaker: No Thoracic Surgery: No Other Surgery: Yes (gallbladder removed, hysterectomy ) Social History Alcohol Use: No Tobacco Use: No Substance Use: No Allergies-Medications (Allergen,Severity, Reaction): Coded Allergies: meperidine (Unverified Allergy, Severe, HIVES, 11/10/16) morphine (Unverified Allergy, Severe, Itching, 11/10/16) DENIES ALLERGY TODAY 01/18/16 Reported Meds & Prescriptions Reported Meds & Active Scripts Active Prednisone 10 Mg Tab 10 Mg PO DAILY 30 Days Per neurology recommendations. Nifedipine ER 24 HR (Nifedipine) 60 Mg Tab 60 Mg PO BID Coreg (Carvedilol) 12.5 Mg Tab 12.5 Mg PO Q12HR Lipitor (Atorvastatin Calcium) 10 Mg Tab 10 Mg PO HS Plavix (Clopidogrel Bisulfate) 75 Mg Tab 75 Mg PO DAILY Hydralazine HCl 50 Mg Tablet 50 Mg PO Q8HR Wheelchair (Device) 1 Mis Mis Ea DIRECTED Adult Aspirin EC Low Strength (Aspirin) 81 Mg Tabec 81 Mg PO DAILY K-Phos (Potassium Phosphate Monobasic) 500 Mg Tab 500 Mg PO Q12HR Reported Clonidine (Clonidine HCl) 0.2 Mg Tab 0.2 Mg PO DAILY Lisinopril 40 Mg Tab 40 Mg PO DAILY Ranitidine (Ranitidine HCl) 150 Mg Tab 150 Mg PO BID Estradiol 0.5 Mg Tab 0.5 Mg PO DAILY Alprazolam 0.5 Mg Tab 0.5 Mg PO DAILY PRN Hydrocodone-Acetaminophen 10-325 mg Tab 1 Tab PO BID PRN Hydrochlorothiazide 50 Mg Tab 50 Mg PO DAILY Review of Systems Except as stated in HPI: all other systems reviewed are Neg Physical Exam Narrative GENERAL: WD/WN in nad SKIN: Warm and dry. HEAD: Atraumatic. Normocephalic. EYES: Pupils equal and round. No scleral icterus. No injection or drainage. ENT: No nasal bleeding or discharge. Mucous membranes pink and moist. NECK: Trachea midline. No JVD. CARDIOVASCULAR: Regular rate and rhythm. RESPIRATORY: No accessory muscle use. Clear to auscultation. Breath sounds equal bilaterally. GASTROINTESTINAL: Abdomen soft, non-tender, nondistended. Hepatic and splenic margins not palpable. MUSCULOSKELETAL: Extremities without clubbing, cyanosis, or edema. No obvious deformities. NEUROLOGICAL: Awake and alert. No obvious cranial nerve deficits. Motor grossly within normal limits. Five out of 5 muscle strength in the arms and legs. Normal speech. PSYCHIATRIC: Appropriate mood and affect; insight and judgment normal. Data Data Last Documented VS Vital Signs Date Time Temp Pulse Resp B/P (MAP) Pulse Ox O2 Delivery O2 Flow Rate FiO2 01/17/17 06:30 72 172/76 (108) Room Air 01/17/17 05:11 14 95 Orders Orders Electrocardiogram (01/16/17 23:27) Ckmb (Isoenzyme) Profile (01/16/17 23:27) Complete Blood Count With Diff (01/16/17 23:27) Comprehensive Metabolic Panel (01/16/17:) D-Dimer (01/16/17:27) Magnesium (Mg) (01/16/17 23:27) Prothrombin Time / Inr (Pt) (01/16/17:27) Act Partial Throm Time (Ptt) (01/16/17:27) Troponin I (01/16/17:27) Chest, Single Ap (01/16/17 23:) Ecg Monitoring (01/16/17 23:27) Iv Access Insert/Monitor (01/16/17 23:27) Oximetry (01/16/17 23:27) Oxygen Administration (01/16/17 23:27) Sodium Chloride 0.9% Flush (Ns Flush) (01/16/17 23:30) CKMB (01/16/17 23:59) CKMB% (01/16/17 23:59) Ct Pulmonary Angiogram (01/17/17 ) Diphenhydramine Inj (Benadryl Inj) (01/17/17 01:30) Prochlorperazine Inj (Compazine Inj) (01/17/17 01:30) Diphenhydramine Inj (Benadryl Inj) (01/17/17 01:45) Methylprednisolone So Succ Inj (Solumedr (01/17/17 01:45) Nicardipine Inj (Cardene Inj) (01/17/17 03:00) Troponin I (01/17/17 05:52) Electrocardiogram (01/17/17 ) Admit Order (Ed Use Only) (01/17/17 ) Labs Laboratory Tests Test 01/16/17 23:59 01/17/17 06:33 White Blood Count 9.4 TH/MM3 Red Blood Count 5.04 MIL/MM3 Hemoglobin 11.2 GM/DL Hematocrit 35.0 % Mean Corpuscular Volume 69.5 FL Mean Corpuscular Hemoglobin 22.2 PG Mean Corpuscular Hemoglobin Concent 32.0 % Red Cell Distribution Width 16.7 % Platelet Count 224 TH/MM3 Mean Platelet Volume 7.9 FL Neutrophils (%) (Auto) 68.3 % Lymphocytes (%) (Auto) 24.5 % Monocytes (%) (Auto) 4.9 % Eosinophils (%) (Auto) 2.0 % Basophils (%) (Auto) 0.3 % Neutrophils # (Auto) 6.4 TH/MM3 Lymphocytes # (Auto) 2.3 TH/MM3 Monocytes # (Auto) 0.5 TH/MM3 Eosinophils # (Auto) 0.2 TH/MM3 Basophils # (Auto) 0.0 TH/MM3 CBC Comment DIFF FINAL Differential Comment Prothrombin Time 10.8 SEC Prothromb Time International Ratio 1.0 RATIO Activated Partial Thromboplast Time 23.8 SEC D-Dimer Quantitative (PE/DVT) 0.57 MG/L FEU Blood Urea Nitrogen 15 MG/DL Creatinine 1.07 MG/DL Random Glucose 132 MG/DL Total Protein 7.1 GM/DL Albumin 3.4 GM/DL Calcium Level 8.9 MG/DL Magnesium Level 2.1 MG/DL Alkaline Phosphatase 58 U/L Aspartate Amino Transf (AST/SGOT) 9 U/L Alanine Aminotransferase (ALT/SGPT) 23 U/L Total Bilirubin 0.2 MG/DL Sodium Level 139 MEQ/L Potassium Level 3.7 MEQ/L Chloride Level 106 MEQ/L Carbon Dioxide Level 27.5 MEQ/L Anion Gap 6 MEQ/L Estimat Glomerular Filtration Rate 63 ML/MIN Total Creatine Kinase 125 U/L Creatine Kinase MB 1.4 NG/ML Troponin I 0.10 NG/ML 0.11 NG/ML [facility] Medical Decision Making Medical Screen Exam Complete: Yes Emergency Medical Condition: Yes Differential Diagnosis Hypertensive emergency, ACS, AMI, Narrative Course Patient roomed emergency department, given Benadryl and Compazine for her headache, no response blood pressure, headache better. Started on a Cardene drip. Troponin elevated at 0.10, EKG nonischemic. Repeat troponin 0.11. Patient certainly is high risk for competitions of hypertension, will discussed with hospitalist for admission. Patient did have a weakly positive d-dimer, given her recent hospitalization PE does need to be considered. A CT PE protocol was ordered however the patient does have iodine allergy documented in the PAC system. She was given Benadryl and steroids however the patient was discussed with radiology techs and cannot be having a CT PE protocol without 24 hour prep. Will defer to Dr. German regarding CT PE versus VQ scan versus observation. Diagnosis Primary Impression: Hypertensive emergency Additional Impression: Elevated troponin Admitting Information Admitting Physician Requests: Admit Condition: Stable Luther Pina MD Jan 16, 2017 23:27
[2017-01-16] MEDS ORDERED: SODIUM CHLORIDE 0.9% FLUSH 10 ML FLUSH IVF PRN (23:30)
--- NOTE | 2017-01-16 23:59 | RADRPT ---
EXAM DATE/TIME: 01/16/2017 23:32 [facility] COMPARISON: CHEST SINGLE AP, December 31, 2016, 23:01. INDICATIONS : Chest pain MEDICAL HISTORY : Cardiovascular disease. Hypertension Stroke. SURGICAL HISTORY : Hysterectomy. Cholecystectomy. Coronary Artery stent ENCOUNTER: Initial ACUITY: 1 day PAIN SCORE: 6/10 LOCATION: Bilateral chest FINDINGS: A single view of the chest demonstrates cardiomegaly. Mild basilar airspace disease. No significant e ffusion. No pneumothorax. CONCLUSION: Cardiomegaly with mild basilar airspace disease. No pneumothorax. Findings similar to December 31. Lloyd Valenzuela MD on January 16, 2017 at 23:57 Board Certified Radiologist. This report was verified electronically.
[2017-01-17] VITALS (19 sets, daily range): BP systolic 90–209; BP diastolic 57–96; PULSE 50–95; RESP 14–20; TEMP 98–98.4; O2SAT 95–100
[2017-01-17 00:35] LABS: AUTOMATED NEUTROPHIL # 6.4 TH/MM3 (1.8-7.7); BASOPHIL % 0.3 % (0.0-2.0); EOSINOPHIL # 0.2 TH/MM3 (0-0.4); HEMO FLAGS DIFF FINAL; LYMPH % 24.5 % (9.0-44.0); LYMPHOCYTE # 2.3 TH/MM3 (1.0-4.8); MEAN CELL VOLUME 69.5 FL (80.0-100.0); MEAN CORPUSCULAR HEMOGLOBIN 22.2 PG (27.0-34.0); MONO % 4.9 % (0.0-8.0); NEUT % 68.3 % (16.0-70.0); PLATELET COUNT 224 TH/MM3 (150-450); RED BLOOD COUNT 5.04 MIL/MM3 (4.00-5.30); RED CELL DISTRIBUTION WIDTH 16.7 % (11.6-17.2); WHITE BLOOD COUNT 9.4 TH/MM3 (4.0-11.0)
[2017-01-17 00:49] LABS: ANION GAP 6 MEQ/L (5-15); AST (GOT) 9 U/L (15-37); BICARBONATE 27.5 MEQ/L (21.0-32.0); BLOOD UREA NITROGEN 15 MG/DL (7-18); CHLORIDE 106 MEQ/L (98-107); GLOMERULAR FILTRATION RATE 63 ML/MIN (>89); MAGNESIUM 2.1 MG/DL (1.5-2.5); POTASSIUM 3.7 MEQ/L (3.5-5.1); SODIUM (NA) 139 MEQ/L (136-145)
[2017-01-17 00:54] LABS: ALKALINE PHOSPHATASE 58 U/L (45-117); ALT (GPT) 23 U/L (10-53); APTT (PATIENT) 23.8 SEC (24.3-30.1); CREATINE KINASE 125 U/L (26-192); PROTHROMBIN TIME - PATIENT 10.8 SEC (9.8-11.6); TOTAL BILIRUBIN ADULT 0.2 MG/DL (0.2-1.0)
[2017-01-17 01:06] LABS: CKMB 1.4 NG/ML (0.5-3.6)
[2017-01-17] MEDS ORDERED: PROCHLORPERAZINE INJ 10 MG/2 ML VIAL IV PUSH ONE (01:30)
[2017-01-17] MEDS ORDERED: diphenhydrAMINE HCL 50 MG/ML VIAL IV PUSH ONE ×2 (01:30→01:45)
[2017-01-17] MEDS ORDERED: methylPREDNISolone SOD SUCC 125 MG/2 ML VIAL IV PUSH ONE (01:45)
[2017-01-17] MEDS: niCARdipine INJ 25 MG in SODIUM CHLOR 0.9% 250 ML INJ 240 ML IV PRN ×5 (03:19→15:05)
[2017-01-17] MEDS ORDERED: SODIUM CHLORIDE 0.9% FLUSH 10 ML FLUSH IV FLUSH PRN (08:15)
[2017-01-17] MEDS ORDERED: ONDANSETRON HCL 4 MG/2 ML VIAL IVP PRN (08:15)
[2017-01-17] MEDS ORDERED: LACTULOSE SYRUP 20 GM/30 ML CUP PO PRN (08:15)
[2017-01-17] MEDS ORDERED: MAGNESIUM HYDROXIDE SUSP 30 ML CUP PO PRN (08:15)
[2017-01-17] MEDS ORDERED: NALOXONE HCL 0.4 MG/ML AMP IV PUSH PRN (08:15)
[2017-01-17] MEDS ORDERED: BISACODYL 10 MG SUPP RECTAL PRN (08:15)
[2017-01-17] MEDS ORDERED: SENNOSIDES 8.6 MG TAB PO PRN (08:15)
[2017-01-17] MEDS ORDERED: TEMAZEPAM 15 MG CAP PO PRN (08:15)
[2017-01-17] MEDS: SODIUM CHLORIDE 0.9% FLUSH 10 ML FLUSH IV FLUSH SCH ×2 (09:00→21:00)
[2017-01-17] MEDS: CLOPIDOGREL 75 MG TAB PO SCH (10:01)
[2017-01-17] MEDS: NIFEdipine 60 MG SUSTAINED RELEASE TAB PO SCH ×2 (10:02→21:00)
[2017-01-17] MEDS ORDERED: TORSEMIDE 5 MG TAB PO ONE (10:30)
[2017-01-17] MEDS: ACETAMINOPHEN 325 MG TAB PO PRN ×2 (13:09→17:35)
[2017-01-17] MEDS: hydrALAZINE HCL 50 MG TAB PO SCH ×2 (13:13→22:00)
--- NOTE | 2017-01-17 13:19 | HHI.HP ---
HPI Service [facility] Primary Care Physician Suhail Christensen DO Admission Diagnosis Hypertensive Emergency Diagnoses: Travel History International Travel<30 Days: No Contact w/Intl Traveler <30 Da: No Traveled to Known Affected Are: No History of Present Illness Ms. Guillen is a pleasant 61-year-old female with a history of CAD, CVA who presented to the emergency department due to shortness of breath. She reports having a nonproductive cough as well. She reports no chest pain, fever or chills. Patient's blood pressure was significantly high which led to this admission. Patient was discharged on 01/04/2017 after being treated for hypertensive urgency. She has had resistant hypertension for a while. Patient denies any abdominal pain, constipation or diarrhea. No changes in bladder habits. Review of Systems Except as stated in HPI: all other systems reviewed are Neg Past Family Social History Past Medical History Hypertension Coronary artery disease status post stent Stroke 2009 - residual right weakness Past Surgical History Hysterectomy, cholecystectomy Reported Medications Prednisone 10 Mg Tab 10 Mg PO DAILY 30 Days Per neurology recommendations. Nifedipine ER 24 HR (Nifedipine) 60 Mg Tab 60 Mg PO BID Coreg (Carvedilol) 12.5 Mg Tab 12.5 Mg PO Q12HR Lipitor (Atorvastatin Calcium) 10 Mg Tab 10 Mg PO HS Plavix (Clopidogrel Bisulfate) 75 Mg Tab 75 Mg PO DAILY Hydralazine HCl 50 Mg Tablet 50 Mg PO Q8HR Wheelchair (Device) 1 Mis Mis Ea DIRECTED Adult Aspirin EC Low Strength (Aspirin) 81 Mg Tabec 81 Mg PO DAILY K-Phos (Potassium Phosphate Monobasic) 500 Mg Tab 500 Mg PO Q12HR Reported Clonidine (Clonidine HCl) 0.2 Mg Tab 0.2 Mg PO DAILY Lisinopril 40 Mg Tab 40 Mg PO DAILY Ranitidine (Ranitidine HCl) 150 Mg Tab 150 Mg PO BID Estradiol 0.5 Mg Tab 0.5 Mg PO DAILY Alprazolam 0.5 Mg Tab 0.5 Mg PO DAILY PRN Hydrocodone-Acetaminophen 10-325 mg Tab 1 Tab PO BID PRN Hydrochlorothiazide 50 Mg Tab 50 Mg PO DAILY Allergies: Coded Allergies: meperidine (Unverified Allergy, Severe, HIVES, 11/10/16) morphine (Unverified Allergy, Severe, Itching, 11/10/16) DENIES ALLERGY TODAY 01/18/16 Iodinated Contrast- Oral and IV Dye (Verified Allergy, Unknown, 01/17/17) Family History No family history of Alzheimer's or Parkinson's disease Social History Patient denies using alcohol or tobacco. Physical Exam Vital Signs Vital Signs Date Time Temp Pulse Resp B/P (MAP) Pulse Ox O2 Delivery O2 Flow Rate FiO2 01/17/17 12:25 01/17/17 12:00 85 20 155/68 (97) 100 Room Air 01/17/17 11:21 69 184/79 01/17/17 10:00 58 17 123/60 (81) 97 Room Air 01/17/17 09:18 74 153/67 01/17/17 09:11 76 125/60 01/17/17 09:08 98 Room Air 01/17/17 09:07 82 18 125/60 (81) 98 Room Air 01/17/17 08:53 75 140/64 01/17/17 08:50 83 181/79 01/17/17 06:30 72 172/76 (108) Room Air 01/17/17 05:11 58 14 134/60 (84) 95 Room Air 01/17/17 04:10 95 161/75 (103) 95 Room Air 01/17/17 04:00 50 209/96 (133) 01/17/17 03:19 62 251/111 Physical Exam GENERAL: This is a well-nourished, well-developed patient, in no apparent distress. SKIN: No rashes, ecchymoses or lesions. Warm and dry. HEAD: Atraumatic. Normocephalic. No temporal or scalp tenderness. EYES: Pupils equal round and reactive. No injection or drainage. ENT: Nose without bleeding, purulent drainage or septal hematoma. Airway patent. NECK: Trachea midline. No lymphadenopathy. Supple, nontender, no meningeal signs. CARDIOVASCULAR: Regular rate and rhythm without murmurs, gallops, or rubs. No JVD. RESPIRATORY: Clear to auscultation. Breath sounds equal bilaterally. No wheezes , rales, or rhonchi. GASTROINTESTINAL: Abdomen soft, non-tender, nondistended. No guarding. MUSCULOSKELETAL: Extremities without clubbing, cyanosis, or edema. NEUROLOGICAL: Awake and alert. Cranial nerves II through XII intact. No focal neurological deficits. Normal speech. Laboratory Laboratory Tests Test 01/16/17 23:59 01/17/17 06:33 White Blood Count 9.4 Red Blood Count 5.04 Hemoglobin 11.2 Hematocrit 35.0 Mean Corpuscular Volume 69.5 Mean Corpuscular Hemoglobin 22.2 Mean Corpuscular Hemoglobin Concent 32.0 Red Cell Distribution Width 16.7 Platelet Count 224 Mean Platelet Volume 7.9 Neutrophils (%) (Auto) 68.3 Lymphocytes (%) (Auto) 24.5 Monocytes (%) (Auto) 4.9 Eosinophils (%) (Auto) 2.0 Basophils (%) (Auto) 0.3 Neutrophils # (Auto) 6.4 Lymphocytes # (Auto) 2.3 Monocytes # (Auto) 0.5 Eosinophils # (Auto) 0.2 Basophils # (Auto) 0.0 CBC Comment DIFF FINAL Differential Comment Prothrombin Time 10.8 Prothromb Time International Ratio 1.0 Activated Partial Thromboplast Time 23.8 D-Dimer Quantitative (PE/DVT) 0.57 Blood Urea Nitrogen 15 Creatinine 1.07 Random Glucose 132 Total Protein 7.1 Albumin 3.4 Calcium Level 8.9 Magnesium Level 2.1 Alkaline Phosphatase 58 Aspartate Amino Transf (AST/SGOT) 9 Alanine Aminotransferase (ALT/SGPT) 23 Total Bilirubin 0.2 Sodium Level 139 Potassium Level 3.7 Chloride Level 106 Carbon Dioxide Level 27.5 Anion Gap 6 Estimat Glomerular Filtration Rate 63 Total Creatine Kinase 125 Creatine Kinase MB 1.4 Troponin I 0.10 0.11 Result Diagram: 01/16/17235801/16/172358 Imaging Last Impressions Chest X-Ray 01/16/172326 Signed Impressions: Service Date/Time: Monday, January 16, 2017 23:32 - CONCLUSION: Cardiomegaly with mild basilar airspace disease. No pneumothorax. Findings similar to December 31. Lloyd Valenzuela MD Caprini VTE Risk Assessment Caprini VTE Risk Assessment: Mod/High Risk (score >= 2) Caprini Risk Assessment Model Point Value = 1 Point Value = 2 Point Value = 3 Point Value = 5 Age 41-60 Minor surgery BMI > 25 kg/m2 Swollen legs Varicose veins or History of unexplained or recurrent spontaneous Oral contraceptives or hormone replacement Sepsis (< 1 month) Serious lung disease, including pneumonia (< 1 month) Abnormal pulmonary function Acute myocardial infarction Congestive heart failure (< 1 month) History of inflammatory bowel disease Medical patient at bed rest Age 61-74 Arthroscopic surgery Major open surgery (> 45 min) Laparoscopic surgery (> 45 min) Malignancy Confined to bed (> 72 hours) Immobilizing plaster cast Central venous access Age >= 75 History of VTE Family history of VTE Factor V Leiden Prothrombin [id number] Lupus anticoagulant Anticardiolipin antibodies Elevated serum homocysteine Heparin-induced thrombocytopenia Other congenital or acquired thrombophilia Stroke (< 1 month) Elective arthroplasty Hip, pelvis, or leg fracture Acute spinal cord injury (< 1 month) Prophylaxis Regimen Total Risk Factor Score Risk Level Prophylaxis Regimen 0-1 Low Early ambulation 2 Moderate Order ONE of the following: *Sequential Compression Device (SCD) *Heparin 5000 units SQ BID 3-4 Higher Order ONE of the following medications: *Heparin 5000 units SQ TID *Enoxaparin/Lovenox 40 mg SQ daily (WT < 150 kg, CrCl > 30 mL/min) *Enoxaparin/Lovenox 30 mg SQ daily (WT < 150 kg, CrCl > 10-29 mL/min) *Enoxaparin/Lovenox 30 mg SQ BID (WT < 150 kg, CrCl > 30 mL/min) AND/OR *Sequential Compression Device (SCD) 5 or more Highest Order ONE of the following medications: *Heparin 5000 units SQ TID (Preferred with Epidurals) *Enoxaparin/Lovenox 40 mg SQ daily (WT < 150 kg, CrCl > 30 mL/min) *Enoxaparin/Lovenox 30 mg SQ daily (WT < 150 kg, CrCl > 10-29 mL/min) *Enoxaparin/Lovenox 30 mg SQ BID (WT < 150 kg, CrCl > 30 mL/min) AND *Sequential Compression Device (SCD) Assessment and Plan Problem List: (1) Accelerated hypertension ICD Code: I10 - Essential (primary) hypertension Assessment and Plan Ms. Guillen is a 61-year-old female with a history of CVA, CAD who presents today due to shortness of breath and hypertensive urgency. On presentation her blood pressure was 251/111. Patient was started on Cardene drip. - Hypertensive urgency - Continue Cardene drip. We'll try to wean off as soon as possible. - Start nifedipine 60 mg twice a day, hydralazine 50 mg by mouth every 8 hours, torsemide 10 mg twice a day. - The blood pressure not controlled by tomorrow we'll consider workup for secondary causes of hypertension. - History of CAD - History of CVA - Continue atorvastatin 10 mg daily at bedtime, Plavix 75 mg daily - Continue carvedilol 12.5 mg by mouth every 12 hours - Anxiety - Continue alprazolam 0.5 mg every 8 hours when necessary Full code. [facility] Physician Certification 2 Midnight Certification Type: Admission for Inpatient Services Order for Inpatient Services The services are ordered in accordance with Medicare regulations or non- Medicare payer requirements, as applicable. In the case of services not specified as inpatient-only, they are appropriately provided as inpatient services in accordance with the 2-midnight benchmark. Estimated LOS (days): 2 days is the estimated time the patient will need to remain in the hospital, assuming treatment plan goals are met and no additional complications. Post-Hospital Plan: Home Marcial German DO Jan 17, 2017 13:19
--- NOTE | 2017-01-17 13:20 | EKG ---
Date Performed: 01/16/2017 Time Performed: 23:56:22 PTAGE: 61 years EKG: SINUS BRADYCARDIA BORDERLINE LEFT AXIS DEVIATION MODERATE VOLTAGE CRITERIA FOR LVH, CONSIDE R NORMAL VARIANT NONSPECIFIC T-WAVE ABNORMALITY BORDERLINE ECG PREVIOUS TRACING : 01/01/2017 12.01 DOCTOR: Jacob Hawkins Interpretating Date/Time 01/17/2017 13:19:38
[2017-01-17] MEDS: ENOXAPARIN SODIUM 40 MG/0.4 ML SYRINGE SQ SCH (17:30)
[2017-01-17] MEDS: TORSEMIDE 5 MG TAB PO SCH (17:30)
[2017-01-17] MEDS: ALPRAZolam 0.5 MG TAB PO PRN (17:35)
[2017-01-17] MEDS: ATORVASTATIN 10 MG TAB PO SCH (21:00)
[2017-01-18] VITALS (18 sets, daily range): BP systolic 92–148; BP diastolic 52–70; PULSE 53–81; RESP 12–18; TEMP 95.3–98.1; O2SAT 94–98
[2017-01-18 05:25] LABS: AUTOMATED NEUTROPHIL # 11.3 TH/MM3 (1.8-7.7); BASOPHIL % 0.2 % (0.0-2.0); EOSINOPHIL % 0.1 % (0.0-4.0); HEMATOCRIT 36.1 % (35.0-46.0); HEMO FLAGS DIFF FINAL; LYMPH % 15.2 % (9.0-44.0); LYMPHOCYTE # 2.2 TH/MM3 (1.0-4.8); MEAN CELL VOLUME 68.6 FL (80.0-100.0); MEAN CORPUSCULAR HEMOGLOBIN 21.7 PG (27.0-34.0); MEAN CORPUSCULAR HGB CONC 31.6 % (32.0-36.0); MONO % 5.7 % (0.0-8.0); NEUT % 78.8 % (16.0-70.0); PLATELET COUNT 239 TH/MM3 (150-450); RED BLOOD COUNT 5.26 MIL/MM3 (4.00-5.30); RED CELL DISTRIBUTION WIDTH 16.8 % (11.6-17.2); WHITE BLOOD COUNT 14.3 TH/MM3 (4.0-11.0)
[2017-01-18 05:50] LABS: BICARBONATE 26.6 MEQ/L (21.0-32.0); POTASSIUM 3.4 MEQ/L (3.5-5.1)
[2017-01-18] MEDS: hydrALAZINE HCL 50 MG TAB PO SCH ×3 (06:00→22:16)
[2017-01-18] MEDS: NIFEdipine 60 MG SUSTAINED RELEASE TAB PO SCH ×3 (08:35→20:48)
[2017-01-18] MEDS: TORSEMIDE 5 MG TAB PO SCH ×3 (08:37→19:21)
[2017-01-18] MEDS: SODIUM CHLORIDE 0.9% FLUSH 10 ML FLUSH IV FLUSH SCH ×2 (09:00→20:48)
[2017-01-18] MEDS: CLOPIDOGREL 75 MG TAB PO SCH (09:26)
--- NOTE | 2017-01-18 10:46 | HHI.PR ---
Subjective Remarks F-u Hypertensive emergency 01/18/17-patient seen and examined; BP now improved however soft this AM; patient denies any chest pain or shortness of breath Objective Vitals Vital Signs Date Time Temp Pulse Resp B/P (MAP) Pulse Ox O2 Delivery O2 Flow Rate FiO2 01/18/17 10:00 73 01/18/17 09:00 65 01/18/17 08:00 64 01/18/17 08:00 98.0 64 12 92/52 (65) 96 01/18/17 07:00 55 01/18/17 06:10 97.8 54 14 105/68 (80) 96 01/18/17 06:00 55 01/18/17 05:00 53 01/18/17 04:00 58 01/18/17 03:00 54 01/18/17 03:00 98.1 54 12 101/61 (74) 96 01/18/17 02:00 57 01/18/17 01:00 58 01/18/17 00:01 55 01/17/17 23:00 55 01/17/17 23:00 55 90/58 01/17/17 23:00 98.0 55 14 90/58 (69) 96 01/17/17 22:00 55 01/17/17 22:00 71 109/64 01/17/17 21:00 58 01/17/17 20:00 61 01/17/17 19:00 60 01/17/17 19:00 98.4 61 14 109/57 (74) 95 01/17/17 18:31 87 117/62 01/17/17 18:29 16 01/17/17 18:00 60 01/17/17 18:00 59 124/60 01/17/17 17:03 87 01/17/17 17:00 82 178/80 01/17/17 16:37 94 01/17/17 15:47 98.0 79 16 147/71 (96) 100 01/17/17 15:47 81 01/17/17 15:30 88 165/78 01/17/17 15:05 87 141/71 01/17/17 15:00 62 147/71 01/17/17 15:00 62 147/71 01/17/17 14:16 95 01/17/17 13:31 98.0 79 16 156/81 (106) 95 10/22/17 13:31 81 01/17/17 12:25 01/17/17 12:00 85 20 155/68 (97) 100 Room Air 01/17/17 11:21 69 184/79 I/O 01/17/17 01/17/17 01/17/17 01/18/17 01/18/17 01/18/17 07:00 15:00 23:00 07:00 15:00 23:00 Intake Total 597 ml 480 ml Output Total 1150 ml 660 ml Balance -553 ml -180 ml Intake Oral 480 ml 480 ml IV Total 117 ml Output Urine Total 1150 ml 660 ml # Voids 1 # Bowel Movements 0 Result Diagram: 01/18/1744601/18/17446 Imaging Last Impressions Chest X-Ray 01/16/172326 Signed Impressions: Service Date/Time: Wednesday, January 16, 2017 23:32 - CONCLUSION: Cardiomegaly with mild basilar airspace disease. No pneumothorax. Findings similar to December 31. Lloyd Valenzuela MD Objective Remarks GENERAL: NAD SKIN: Warm and dry. HEAD: Normocephalic. EYES: No scleral icterus. No injection or drainage. NECK: Supple, trachea midline. No JVD or lymphadenopathy. CARDIOVASCULAR: Regular rate and rhythm without murmurs, gallops, or rubs. RESPIRATORY: Breath sounds equal bilaterally. No accessory muscle use. GASTROINTESTINAL: Abdomen soft, non-tender, nondistended. MUSCULOSKELETAL: No cyanosis, or edema. BACK: Nontender without obvious deformity. No CVA tenderness. A/P Problem List: (1) Accelerated hypertension ICD Code: I10 - Essential (primary) hypertension Assessment and Plan 61 yrs old female with - Hypertensive urgency - d/c Cardene drip. - Currently on nifedipine 60 mg twice a day, hydralazine 50 mg by mouth every 8 hours, torsemide 10 mg twice a day. -Recent 2D echo 65-70% (01/12) H/o of Resistant hypertension -Patient will need follow up after discharge with MD specializing on HTN - History of CAD - History of CVA - Continue atorvastatin 10 mg daily at bedtime, Plavix 75 mg daily and resume ASA 81mg daily - Continue carvedilol 12.5 mg by mouth every 12 hours - Anxiety - Continue alprazolam 0.5 mg every 8 hours when necessary Hypokalemia Give K 60meQ x 1 and monitor electrolyte Leukocytosis Stress reactive, and continue to monitor Full code. [facility]urg Discharge Planning Likely discharge in 1 day Raman Damian MD Jan 18, 2017 10:46
[2017-01-18] MEDS ORDERED: POTASSIUM CHLORIDE 10 MEQ CONTROLLED RELEASE TAB PO ONE (11:00)
[2017-01-18] MEDS ORDERED: RESP: ALBUTEROL 2.5 MG/IPRATROPIUM 0.5 MG NEB (PRN) NEB (11:00)
[2017-01-18] MEDS: ENOXAPARIN SODIUM 40 MG/0.4 ML SYRINGE SQ SCH (15:10)
[2017-01-18] MEDS: ALPRAZolam 0.5 MG TAB PO PRN (20:47)
[2017-01-18] MEDS: ACETAMINOPHEN 325 MG TAB PO PRN (20:47)
[2017-01-18] MEDS: ATORVASTATIN 10 MG TAB PO SCH (20:48)
[2017-01-19 00:29] VITALS: BP 112/57; PULSE 80; RESP 17; TEMP 96.4; O2SAT 96
[2017-01-19 04:15] VITALS: BP 146/66; PULSE 80; RESP 17; TEMP 96.5; O2SAT 98
[2017-01-19] MEDS: hydrALAZINE HCL 50 MG TAB PO SCH ×2 (05:33→13:52)
[2017-01-19] MEDS: ACETAMINOPHEN 325 MG TAB PO PRN ×2 (05:33→10:46)
[2017-01-19 08:00] VITALS: BP 148/69; PULSE 90; RESP 16; TEMP 97.6; O2SAT 100
[2017-01-19] MEDS: NIFEdipine 60 MG SUSTAINED RELEASE TAB PO SCH (08:57)
[2017-01-19] MEDS: CLOPIDOGREL 75 MG TAB PO SCH (08:57)
[2017-01-19] MEDS: TORSEMIDE 5 MG TAB PO SCH (08:57)
[2017-01-19] MEDS: SODIUM CHLORIDE 0.9% FLUSH 10 ML FLUSH IV FLUSH SCH (08:58)
[2017-01-19] MEDS ORDERED: CARVEDILOL 12.5 MG TAB PO SCH (09:00)
[2017-01-19] MEDS ORDERED: ASPIRIN EC 81 MG TABEC PO SCH (09:00)
[2017-01-19 12:00] VITALS: BP 145/70; PULSE 78; RESP 16; TEMP 97.8; O2SAT 99
--- NOTE | 2017-01-19 13:44 | HHI.PR ---
Objective Vitals Vital Signs Date Time Temp Pulse Resp B/P (MAP) Pulse Ox O2 Delivery O2 Flow Rate FiO2 01/19/17 12:00 97.8 78 16 145/70 (95) 99 01/19/17 08:00 97.6 90 16 148/69 (95) 100 01/19/17 04:15 96.5 80 17 146/66 (92) 98 01/19/17 00:29 96.4 80 17 112/57 (75) 96 01/18/17 20:00 97.6 79 17 133/60 (84) 98 01/18/17 20:00 70 01/18/17 14:35 95.3 81 18 142/70 (94) 94 I/O 01/18/17 01/18/17 01/18/17 01/19/17 01/19/17 01/19/17 07:00 15:00 23:00 07:00 15:00 23:00 Intake Total 480 ml 725 ml 120 ml 240 ml Output Total 660 ml 550 ml Balance -180 ml 175 ml 120 ml 240 ml Intake Oral 480 ml 725 ml 120 ml 240 ml Output Urine Total 660 ml 550 ml # Voids 2 2 # Bowel Movements 1 0 0 Result Diagram: 01/18/1744601/18/17446 Imaging Last Impressions Chest X-Ray 01/16/172326 Signed Impressions: Service Date/Time: Wednesday, January 16, 2017 23:32 - CONCLUSION: Cardiomegaly with mild basilar airspace disease. No pneumothorax. Findings similar to December 31. Lloyd Valenzuela MD Objective Remarks GENERAL: NAD SKIN: Warm and dry. HEAD: Normocephalic. EYES: No scleral icterus. No injection or drainage. NECK: Supple, trachea midline. No JVD or lymphadenopathy. CARDIOVASCULAR: Regular rate and rhythm without murmurs, gallops, or rubs. RESPIRATORY: Breath sounds equal bilaterally. No accessory muscle use. GASTROINTESTINAL: Abdomen soft, non-tender, nondistended. MUSCULOSKELETAL: No cyanosis, or edema. BACK: Nontender without obvious deformity. No CVA tenderness. Procedures none A/P Problem List: (1) Accelerated hypertension ICD Code: I10 - Essential (primary) hypertension Assessment and Plan 61 yrs old female with - Hypertensive urgency - d/c Cardene drip. - Currently on nifedipine 60 mg twice a day, hydralazine 50 mg by mouth every 8 hours, torsemide 10 mg twice a day. -Recent 2D echo 65-70% (01/12) H/o of Resistant hypertension -Patient will need follow up after discharge with MD specializing on HTN - History of CAD - History of CVA - Continue atorvastatin 10 mg daily at bedtime, Plavix 75 mg daily and resume ASA 81mg daily - Continue carvedilol 12.5 mg by mouth every 12 hours - Anxiety - Continue alprazolam 0.5 mg every 8 hours when necessary Hypokalemia Give K 60meQ x 1 and monitor electrolyte Leukocytosis Stress reactive, and continue to monitor Full code. Mina Aguayo MD Jan 19, 2017 13:44
[2017-01-19 15:16] LABS: AUTOMATED NEUTROPHIL # 6.7 TH/MM3 (1.8-7.7); BASOPHIL # 0.1 TH/MM3 (0-0.2); BASOPHIL % 0.9 % (0.0-2.0); EOSINOPHIL # 0.2 TH/MM3 (0-0.4); EOSINOPHIL % 1.5 % (0.0-4.0); HEMO FLAGS DIFF FINAL; LYMPH % 27.7 % (9.0-44.0); MEAN CELL VOLUME 68.7 FL (80.0-100.0); MEAN CORPUSCULAR HEMOGLOBIN 22.4 PG (27.0-34.0); MEAN CORPUSCULAR HGB CONC 32.6 % (32.0-36.0); MONO % 7.6 % (0.0-8.0); NEUT % 62.3 % (16.0-70.0); PLATELET COUNT 258 TH/MM3 (150-450); RED BLOOD COUNT 5.97 MIL/MM3 (4.00-5.30); RED CELL DISTRIBUTION WIDTH 16.9 % (11.6-17.2); WHITE BLOOD COUNT 10.8 TH/MM3 (4.0-11.0)
[2017-01-19 15:37] LABS: BICARBONATE 28.3 MEQ/L (21.0-32.0); POTASSIUM 3.5 MEQ/L (3.5-5.1)
[2017-01-19] MEDS ORDERED: TORS5TAB2 PO (15:37)
[2017-01-19] MEDS ORDERED: FAMO1TAB37 PO (15:39)
--- NOTE | 2017-01-19 15:39 | HHI.DCPOC ---
Discharge Care Plan Diagnosis: (1) Accelerated hypertension Your Health Problems Are: Difficulty with ADL Exercise Tolerance Goals to Promote Your Health * To prevent worsening of your condition and complications * To maintain your health at the optimal level Directions to Meet Your Goals Take your medications as prescribed Follow your dietary instruction Follow activity as directed Keep your appointments as scheduled Take your immunizations and boosters as scheduled If your symptoms worsen call your PCP, if no PCP go to Urgent Care Center or Emergency Room Smoking is Dangerous to Your Health. Avoid second hand smoke Call the 24-hour hour crisis hotline for domestic abuse at Mina Larsen MD Jan 19, 2017 15:39
[2017-01-19] MEDS: ENOXAPARIN SODIUM 40 MG/0.4 ML SYRINGE SQ SCH (16:00)
[2017-01-19] MEDS ORDERED: predniSONE 5 MG TAB PO SCH (16:00)
[2017-01-19 16:22] VITALS: BP 146/78; PULSE 88; RESP 16; TEMP 97.7; O2SAT 99
--- NOTE | 2017-01-19 16:28 | HHI.FF ---
Face to Face Verification Diagnosis: (1) Coronary artery disease (2) Accelerated hypertension (3) Hypertensive emergency (4) Chronic ischemic left MCA stroke Physical Therapy Order: Evaluate and Treat, Improve ambulation, Strength and gait training Occupational Therapy Order: Evaluate and Treat, Improve ADL, Gross motor coordination, Fine motor coordination Speech Therapy Order: To Improve: Speech and communication skills, Cognitive skills, Swallowing Home Health Nursing Order: Medical education Signs/symptoms of disease process Medication education-adverse effect Nursing assessment with vital signs I have seen patient Vivian Guillen on 01/19/17. My clinical findings support the need for the requested home health care services because: Ltd mobility - disease progression Deconditioned w/ increased weakness I certify that my clinical findings support that this patient is homebound because: Unsteady gait/balance Unsafe to leave home unassisted Unable to use public transportation Poor cardiac reserve Mery Lopes Jan 19, 2017 16:28
--- NOTE | 2017-01-19 17:12 | HHI.DS ---
Discharge Summary Admission Date Jan 17, 2017 at 08:01 Discharge Date: Jan 19, 2017 Admitting Diagnosis Hypertensive Emergency (1) Accelerated hypertension ICD Code: I10 - Essential (primary) hypertension Diagnosis: Principal Procedures none Brief History - From Admission Ms. Guillen is a pleasant 61-year-old female with a history of CAD, CVA who presented to the emergency department due to shortness of breath. She reports having a nonproductive cough as well. She reports no chest pain, fever or chills. Patient's blood pressure was significantly high which led to this admission. Patient was discharged on 01/04/2017 after being treated for hypertensive urgency. She has had resistant hypertension for a while. Patient denies any abdominal pain, constipation or diarrhea. No changes in bladder habits. CBC/BMP: 01/19/17 1503 01/19/17 1503 Significant Findings Laboratory Tests Test 01/16/17 23:59 01/17/17 06:33 01/18/17 04:47 01/19/17 15:03 Hemoglobin 11.2 GM/DL (11.6-15.3) 11.4 GM/DL (11.6-15.3) Mean Corpuscular Volume 69.5 FL (80.0-100.0) 68.6 FL (80.0-100.0) 68.7 FL (80.0-100.0) Mean Corpuscular Hemoglobin 22.2 PG (27.0-34.0) 21.7 PG (27.0-34.0) 22.4 PG (27.0-34.0) Activated Partial Thromboplast Time 23.8 SEC (24.3-30.1) D-Dimer Quantitative (PE/DVT) 0.57 MG/L FEU (0.00-0.50) Creatinine 1.07 MG/DL (0.50-1.00) 1.61 MG/DL (0.50-1.00) 1.41 MG/DL (0.50-1.00) Random Glucose 132 MG/DL (74-106) 141 MG/DL (74-106) 109 MG/DL (74-106) Aspartate Amino Transf (AST/SGOT) 9 U/L (15-37) Estimat Glomerular Filtration Rate 63 ML/MIN (>89) 39 ML/MIN (>89) 46 ML/MIN (>89) Troponin I 0.10 NG/ML (0.02-0.05) 0.11 NG/ML (0.02-0.05) White Blood Count 14.3 TH/MM3 (4.0-11.0) Mean Corpuscular Hemoglobin Concent 31.6 % (32.0-36.0) Neutrophils (%) (Auto) 78.8 % (16.0-70.0) Neutrophils # (Auto) 11.3 TH/MM3 (1.8-7.7) Blood Urea Nitrogen 25 MG/DL (7-18) 26 MG/DL (7-18) Potassium Level 3.4 MEQ/L (3.5-5.1) Red Blood Count 5.97 MIL/MM3 (4.00-5.30) Imaging Last Impressions Chest X-Ray 01/16/17 0086 Signed Impressions: Service Date/Time: Wednesday, January 16, 2017 23:32 - CONCLUSION: Cardiomegaly with mild basilar airspace disease. No pneumothorax. Findings similar to December 31. Lloyd Valenzuela MD PE at Discharge GENERAL: NAD SKIN: Warm and dry. HEAD: Normocephalic. EYES: No scleral icterus. No injection or drainage. NECK: Supple, trachea midline. No JVD or lymphadenopathy. CARDIOVASCULAR: Regular rate and rhythm without murmurs, gallops, or rubs. RESPIRATORY: Breath sounds equal bilaterally. No accessory muscle use. GASTROINTESTINAL: Abdomen soft, non-tender, nondistended. MUSCULOSKELETAL: No cyanosis, or edema. BACK: Nontender without obvious deformity. No CVA tenderness. Hospital Course 61 yrs old female with - Hypertensive urgency. Resolved - d/c Cardene drip. - Currently on nifedipine 60 mg twice a day, hydralazine 50 mg by mouth every 8 hours, torsemide 10 mg twice a day and Coreg. - Recent 2D echo 65-70% (01/12) H/o of Resistant hypertension -Patient will need follow up after discharge with MD specializing on HTN - History of CAD - History of CVA - Continue atorvastatin 10 mg daily at bedtime, Plavix 75 mg daily and resume ASA 81mg daily - Continue carvedilol 12.5 mg by mouth every 12 hours - Anxiety - Continue alprazolam 0.5 mg every 8 hours when necessary Hypokalemia Status post-replacement Leukocytosis. Resolved Stress reactive, and continue to monitor Chronic kidney disease stage III. Nonoliguric. Avoid nephrotoxins Full code. Lovenox Pt Condition on Discharge: Stable Discharge Disposition: Discharge Home Discharge Time: > 30 minutes Discharge Instructions DIET: Follow Instructions for: As Tolerated, No Restrictions Activities you can perform: Regular-No Restrictions Activities to Avoid: Driving Follow up Referrals: PCP Follow-up - 1 Week New Orders: BASIC METABOLIC PROF - 1 Week New Medications: Famotidine (Pepcid) 20 Mg Tab 10 MG PO BID for Regulate Heart Beat, #60 TAB 0 Refills Torsemide (Torsemide) 5 Mg Tab 10 MG PO BID@09,18 for Blood Pressure Management, #60 TAB Continued Medications: Alprazolam (Alprazolam) 0.5 Mg Tab 0.5 MG PO DAILY PRN for ANXIETY, TAB [address] (Adult Aspirin EC Low Strength) 81 Mg Tabec 81 MG PO DAILY for proph, #30 TAB Atorvastatin (Lipitor) 10 Mg Tab 10 MG PO HS for Cholesterol Management, #90 TAB 3 Refills Carvedilol (Coreg) 12.5 Mg Tab 12.5 MG PO Q12HR for Blood Pressure Management, #60 TAB 3 Refills Clopidogrel (Plavix) 75 Mg Tab 75 MG PO DAILY for Blood Clot Prevention, #30 TAB 3 Refills Estradiol (Estradiol) 0.5 Mg Tab 0.5 MG PO DAILY for Estrogen Supplements, #30 TAB 0 Refills Hydralazine HCl (Hydralazine HCl) 50 Mg Tablet 50 MG PO Q8HR for Blood Pressure Management, #90 TAB 3 Refills Hydrocodone-Acetaminophen (Hydrocodone-Acetaminophen) 10-325 mg Tab 1 TAB PO BID PRN for PAIN, #60 TAB 0 Refills Nifedipine ER 24 HR (Nifedipine ER 24 HR) 60 Mg Tab 60 MG PO BID for Blood Pressure Management, #60 TAB 2 Refills Prednisone (Prednisone) 10 Mg Tab 10 MG PO DAILY for Inflammation for 30 Days, #30 TAB 0 Refills Per neurology recommendations. Wheelchair (Wheelchair) 1 Mis Mis EA DIRECTED, #1 0 Refills Discontinued Medications: Clonidine (Clonidine) 0.2 Mg Tab 0.2 MG PO DAILY for Blood Pressure Management, #60 TAB 0 Refills Hydrochlorothiazide (Hydrochlorothiazide) 50 Mg Tab 50 MG PO DAILY, #60 TAB 0 Refills Lisinopril (Lisinopril) 40 Mg Tab 40 MG PO DAILY for Blood Pressure Management, #30 TAB 0 Refills Potassium Phosphate Monobasic (K-Phos) 500 Mg Tab 500 MG PO Q12HR for replacement , #6 TAB Ranitidine (Ranitidine) 150 Mg Tab 150 MG PO BID for Heartburn Management, #60 TAB 0 Refills Mina Larsen MD Jan 19, 2017 17:12
== END 2017-01-19 17:03 | disposition home or self-care (01) | DRG 305 ==
LOC: NEPE 23:09 → NEDH 01-17 08:01 → HCPC 01-17 12:10 → N06B 01-18 13:59
PROVIDERS: ADMIT Internal Medicine; ATTEND Internal Medicine
DX: I16.1 Hypertensive emergency (principal); I69.351 Hemiplegia and hemiparesis following cerebral infarction affecting right dominant side; N18.3 Chronic kidney disease, stage 3 (moderate); E87.6 Hypokalemia; F41.9 Anxiety disorder, unspecified; I12.9 Hypertensive chronic kidney disease with stage 1 through stage 4 chronic kidney disease, or unspecified chronic kidney disease; I25.10 Atherosclerotic heart disease of native coronary artery without angina pectoris; D72.829 Elevated white blood cell count, unspecified; R06.02 Shortness of breath; R74.8 Abnormal levels of other serum enzymes; M19.90 Unspecified osteoarthritis, unspecified site; I25.2 Old myocardial infarction; F32.9 Major depressive disorder, single episode, unspecified; Z95.5 Presence of coronary angioplasty implant and graft; Z88.5 Allergy status to narcotic agent; Z91.041 Radiographic dye allergy status
CPT/HCPCS: 71010; 80048; 80053; 82550; 82552; 83735; 84484; 85025; 85379; 85610; 85730; 93005; 96365; 96366; 96375; J0780; J1200; J1650; J2930; J7050; J7512

== ENCOUNTER 2017-07-23 23:32 | Inpatient (IN) | payer MEDICARE ==
[~2017-07-23] VITALS: Ht 157.5 cm; Wt 76.7 kg
[~2017-07-23 23:32] MED LIST changes: -ASPI-99 PO; +ASPI1TAB56 PO; +FAMO1TAB37 PO; -HYDR50TA3 PO; -K-PHTAB PO; -OMEP40CA2 PO; +TORS5TAB2 PO
[2017-07-23 23:56] VITALS: BP 159/73; PULSE 63; RESP 16; TEMP 98.6; O2SAT 98
[2017-07-24] VITALS (24 sets, daily range): BP systolic 129–179; BP diastolic 62–81; PULSE 41–76; RESP 16–18; TEMP 97.7–98.6; O2SAT 96–98
[2017-07-24] MEDS ORDERED: SODIUM CHLORID 0.9% 500 ML INJ 500 ML IV ONE
[2017-07-24 00:09] LABS: AUTOMATED NEUTROPHIL # 5.7 TH/MM3 (1.8-7.7); BASOPHIL # 0.1 TH/MM3 (0-0.2); BASOPHIL % 0.8 % (0.0-2.0); EOSINOPHIL # 0.2 TH/MM3 (0-0.4); EOSINOPHIL % 2.2 % (0.0-4.0); HEMATOCRIT 37.8 % (35.0-46.0); HEMOGLOBIN 12.3 GM/DL (11.6-15.3); LYMPH % 26.7 % (9.0-44.0); LYMPHOCYTE # 2.5 TH/MM3 (1.0-4.8); MEAN CELL VOLUME 67.7 FL (80.0-100.0); MEAN CORPUSCULAR HGB CONC 32.5 % (32.0-36.0); MEAN PLATELET VOLUME 7.9 FL (7.0-11.0); MONO % 8.5 % (0.0-8.0); MONOCYTE # 0.8 TH/MM3 (0-0.9); NEUT % 61.8 % (16.0-70.0); PLATELET COUNT 278 TH/MM3 (150-450); RED BLOOD COUNT 5.58 MIL/MM3 (4.00-5.30); RED CELL DISTRIBUTION WIDTH 16.6 % (11.6-17.2); WHITE BLOOD COUNT 9.3 TH/MM3 (4.0-11.0)
[2017-07-24 00:45] LABS: ALKALINE PHOSPHATASE 66 U/L (45-117); ALT (GPT) 25 U/L (10-53); AST (GOT) 20 U/L (15-37); BICARBONATE 31.3 MEQ/L (21.0-32.0); BLOOD UREA NITROGEN 37 MG/DL (7-18); CALCIUM 10.8 MG/DL (8.5-10.1); CHLORIDE 97 MEQ/L (98-107); CREATININE 2.05 MG/DL (0.50-1.00); GLOMERULAR FILTRATION RATE 30 ML/MIN (>89); GLUCOSE,RANDOM 118 MG/DL (74-106); SODIUM (NA) 139 MEQ/L (136-145); TOTAL BILIRUBIN ADULT 0.4 MG/DL (0.2-1.0); TOTAL PROTEIN 8.3 GM/DL (6.4-8.2); TROPONIN I 0.13 NG/ML (0.02-0.05)
--- NOTE | 2017-07-24 00:52 | PD ---
HPI Chief Complaint: Syncope/Near-Syncope Time Seen by Provider: 23:38 Travel History International Travel<30 days: No Contact w/Intl Traveler<30days: No Traveled to known affect area: No History of Present Illness HPI Patient is a 7-year-old female who today after eating is getting up to go to the bathroom and the next thing she knew she was in the hospital and the nurse was asking her questions she does not remember falling she denies any injury to her body she has a history of hypertension for which she takes this Toprol all and lisinopril. Patient in the ER his normal blood pressure denies head trauma she is a poor historian because she says she does not remember anything more than getting up to go to the bathroom and the family member at the bedside says that " she fell out on the floor meaning she was praying to God thinking that she was going to pass" , this is what the family member said Pt said before she syncopized. Patient having left-sided CP PFSH Past Medical History Hx Anticoagulant Therapy: No Arthritis: Yes Asthma: No Autoimmune Disease: No Blood Disorders: Yes Anxiety: Yes Depression: Yes Heart Rhythm Problems: Yes Cancer: No Cardiac Catheterization: Yes (MAY 2013) Cardiovascular Problems: Yes High Cholesterol: Yes Chemotherapy: No Chest Pain: Yes Congestive Heart Failure: No COPD: No Cerebrovascular Accident: Yes Diabetes: No Diminished Hearing: No Endocrine: No Gastrointestinal Disorders: Yes GERD: No Genitourinary: No Headaches: Yes Hiatal Hernia: No Hypertension: Yes Immune Disorder: No Implanted Vascular Access Dvce: No Kidney Stones: No Musculoskeletal: Yes Neurologic: Yes (stroke in 2009) Psychiatric: Yes (anxiety) Reproductive: Yes Respiratory: Yes Immunizations Current: No Migraines: No Myocardial Infarction: Yes Radiation Therapy: No Renal Failure: No Seizures: No Sickle Cell Disease: No Sleep Apnea: No Thyroid Disease: No Ulcer: No PNEUMOCCOCAL Vaccine (Year): 2 Menopausal: Yes : 3 Para: 3 Tubal Ligation: Yes Past Surgical History Abdominal Surgery: Yes (gall bladder) AICD: No Arteriovenous Shunt: No Cardiac Surgery: Yes (stents x1 (1999)) Cholecystectomy: Yes Coronary Artery Bypass Graft: No Coronary Stent: Yes (X1) Ear Surgery: No Endocrine Surgery: No Eye Surgery: No Genitourinary Surgery: No Gynecologic Surgery: Yes (hysterectomy) Hysterectomy: Yes Insulin Pump: No Joint Replacement: No Neurologic Surgery: No Oral Surgery: No Pacemaker: No Thoracic Surgery: No Other Surgery: Yes (gallbladder removed, hysterectomy ) Social History Alcohol Use: No Tobacco Use: No Substance Use: No Allergies-Medications (Allergen,Severity, Reaction): Coded Allergies: meperidine (Unverified Allergy, Severe, HIVES, 07/24/17) morphine (Unverified Allergy, Severe, Itching, 07/24/17) DENIES ALLERGY TODAY 01/18/16 Iodinated Contrast- Oral and IV Dye (Verified Allergy, Unknown, 07/24/17) Reported Meds & Prescriptions Reported Meds & Active Scripts Active Pepcid (Famotidine) 20 Mg Tab 10 Mg PO BID Torsemide 5 Mg Tab 10 Mg PO BID@,18 Nifedipine ER 24 HR (Nifedipine) 60 Mg Tab 60 Mg PO BID Lipitor (Atorvastatin Calcium) 10 Mg Tab 10 Mg PO HS Plavix (Clopidogrel Bisulfate) 75 Mg Tab 75 Mg PO DAILY Hydralazine HCl 50 Mg Tablet 50 Mg PO Q8HR Wheelchair (Device) 1 Mis Mis Ea DIRECTED Adult Aspirin EC Low Strength (Aspirin) 81 Mg Tabec 81 Mg PO DAILY Reported Estradiol 0.5 Mg Tab 0.5 Mg PO DAILY Hydrocodone-Acetaminophen 10-325 mg Tab 1 Tab PO BID PRN Review of Systems Except as stated in HPI: all other systems reviewed are Neg Neurologic: Positive: Weakness, Dizziness, Syncope Physical Exam Narrative GENERAL: non toxic awake alert SKIN: Warm and dry. HEAD: Atraumatic. Normocephalic. EYES: Pupils equal and round. No scleral icterus. No injection or drainage. ENT: No nasal bleeding or discharge. Mucous membranes pink and moist. NECK: Trachea midline. No JVD. CARDIOVASCULAR: Regular rate and rhythm. chest wall reproducible left pain with palpation RESPIRATORY: No accessory muscle use. Clear to auscultation. Breath sounds equal bilaterally. GASTROINTESTINAL: Abdomen soft, non-tender, nondistended. Hepatic and splenic margins not palpable. MUSCULOSKELETAL: Extremities without clubbing, cyanosis, or edema. No obvious deformities. NEUROLOGICAL: Awake and alert. No obvious cranial nerve deficits. Motor grossly within normal limits. Five out of 5 muscle strength in the arms and legs. Normal speech. PSYCHIATRIC: Appropriate mood and affect; insight and judgment normal. Data Data Last Documented VS Orders Orders Complete Blood Count With Diff (07/23/17 23:58) Comprehensive Metabolic Panel (07/23/17 23:58) Ckmb (Isoenzyme) Profile (07/23/17 23:58) Troponin I (07/23/17 23:58) Lipase (07/23/17 23:58) Sodium Chlorid 0.9% 500 Ml Inj (Ns 500 M (07/24/17 00:00) CKMB (07/24/17 00:00) CKMB% (07/24/17 00:00) Aspirin Chew (Aspirin Chew) (07/24/17 01:00) Potassium Chloride (Kcl) (07/24/17 01:00) D5-1/2 Ns + Kcl 40 Meq Inj (D5-1/2 Ns + (07/24/17 01:45) Morphine Inj (Morphine Inj) (07/24/17 01:45) Diphenhydramine Inj (Benadryl Inj) (07/24/17 02:15) Urinalysis - C+S If Indicated (07/24/17 02:24) Chest, Single Ap (07/24/17 ) Admit To Inpatient (07/24/17 ) Vital Signs (Adult) Q4H (07/24/17 02:24) Activity Oob With Assistance (07/24/17 02:24) Manager Stone / Telemetry .CONTINUOUS (07/24/17 02:24) Intake + Output RANCHO.QSHIFT (07/24/17 02:24) Sodium Chlor 0.9% 1000 Ml Inj (Ns 1000 M (07/24/17 02:24) Sodium Chloride 0.9% Flush (Ns Flush) (07/24/17 02:30) Sodium Chloride 0.9% Flush (Ns Flush) (07/24/17 09:00) Ondansetron Inj (Zofran Inj) (07/24/17 02:30) Comprehensive Metabolic Panel (07/25/17 06:00) Complete Blood Count With Diff (07/25/17 06:00) Troponin I (07/24/17 06:00) Troponin I (07/24/17 12:00) Pt Request For Service (07/24/17 02:24) Case Management Consult (07/24/17 02:24) Scd Bilateral/Knee High RANCHO.BID (07/24/17 02:24) Noah Bilateral/Knee High RANCHO.QSHIFT (07/24/17 02:26) Acetaminophen (Tylenol) (07/24/17 02:30) Acetamin-Hydrocod 325-5 Mg (Jenkins 5-325 (07/24/17 02:30) Acetamin-Hydrocod 325-10 Mg (Jenkins 10-32 (07/24/17 02:30) Docusate Sodium-Senna (Kae-Colace) (07/24/17 09:00) Magnesium Hydroxide Liq (Milk Of Magnesi (07/24/17 02:30) Sennosides (Senokot) (07/24/17 02:30) Bisacodyl Supp (Dulcolax Supp) (07/24/17 02:30) Lactulose Liq (Lactulose Liq) (07/24/17 02:30) Inpatient Certification (07/24/17 ) Alprazolam (Xanax) (07/24/17 02:30) Aspirin Ec (Ecotrin Ec) (07/24/17 09:00) Atorvastatin (Lipitor) (07/24/17 21:00) Carvedilol (Coreg) (07/24/17 09:00) Clopidogrel (Plavix) (07/24/17 09:00) Admit Order (Ed Use Only) (07/24/17 02:34) Thyroid Stimulating Hormone (07/24/17 12:05) Labs Laboratory Tests Test 07/24/17 00:00 07/24/17 02:00 White Blood Count 9.3 TH/MM3 Red Blood Count 5.58 MIL/MM3 Hemoglobin 12.3 GM/DL Hematocrit 37.8 % Mean Corpuscular Volume 67.7 FL Mean Corpuscular Hemoglobin 22.0 PG Mean Corpuscular Hemoglobin Concent 32.5 % Red Cell Distribution Width 16.6 % Platelet Count 278 TH/MM3 Mean Platelet Volume 7.9 FL Neutrophils (%) (Auto) 61.8 % Lymphocytes (%) (Auto) 26.7 % Monocytes (%) (Auto) 8.5 % Eosinophils (%) (Auto) 2.2 % Basophils (%) (Auto) 0.8 % Neutrophils # (Auto) 5.7 TH/MM3 Lymphocytes # (Auto) 2.5 TH/MM3 Monocytes # (Auto) 0.8 TH/MM3 Eosinophils # (Auto) 0.2 TH/MM3 Basophils # (Auto) 0.1 TH/MM3 CBC Comment DIFF FINAL Differential Comment Blood Urea Nitrogen 37 MG/DL Creatinine 2.05 MG/DL Random Glucose 118 MG/DL Total Protein 8.3 GM/DL Albumin 4.0 GM/DL Calcium Level 10.8 MG/DL Alkaline Phosphatase 66 U/L Aspartate Amino Transf (AST/SGOT) 20 U/L Alanine Aminotransferase (ALT/SGPT) 25 U/L Total Bilirubin 0.4 MG/DL Sodium Level 139 MEQ/L Potassium Level 2.5 MEQ/L Chloride Level 97 MEQ/L Carbon Dioxide Level 31.3 MEQ/L Anion Gap 11 MEQ/L Estimat Glomerular Filtration Rate 30 ML/MIN Total Creatine Kinase 342 U/L Creatine Kinase MB 2.0 NG/ML Creatine Kinase MB % 0.6 % Troponin I 0.13 NG/ML Lipase 152 U/L Urine Color LIGHT-YELLOW Urine Turbidity CLEAR Urine pH 5.0 Urine Specific [place] 1.008 Urine Protein NEG mg/dL Urine Glucose (UA) NEG mg/dL Urine Ketones NEG mg/dL Urine Occult Blood NEG Urine Nitrite NEG Urine Bilirubin NEG Urine Urobilinogen LESS THAN 2.0 MG/DL Urine Leukocyte Esterase NEG Urine RBC LESS THAN 1 /hpf Microscopic Urinalysis Comment CULT NOT INDICATED MDM Medical Decision Making Medical Screen Exam Complete: Yes Emergency Medical Condition: Yes Differential Diagnosis chest pain and syncope of ACS or ischemia or arrhythmia and neuro cause of syncope vasovagal syncope Narrative Course mild elevation in Trop and normal ekg no ST elevation and aspirin 324 mg po chew given.. and pt is admitted to [facility] for syncope .I reviewed her prior trops levels and troponins have been mildly elevated. always so no heparin given at this time and will trend trops and treat with ASA pt stable at this time CP only with Palpation of chest wall Diagnosis Primary Impression: Syncope Additional Impression: Elevated troponin Scripts Hydrocodone/Acetaminophen (Hydrocodone-Acetamin 10-325 mg) 10 Mg-325 Mg Tablet 1 TAB PO Q4H Y for PAIN SCALE 6 TO 10, #30 TAB Prov: Nelson Solis DO 07/27/17 Potassium Chloride ER (Potassium Chloride ER) 20 Meq Tab 20 MEQ PO DAILY for Electrolyte Replacement, #30 TAB 0 Refills Prov: Nelson Solis DO 07/27/17 Carvedilol (Coreg) 6.25 Mg Tab 6.25 MG PO Q12HR for Blood Pressure Management, #60 TAB Prov: Nelson Solis DO 07/27/17 Alprazolam (Alprazolam) 0.5 Mg Tab 0.5 MG PO DAILY Y for ANXIETY, #20 TAB 0 Refills Prov: Nelson Solis DO 07/27/17 Anmol Mari MD Jul 24, 2017 00:52
[2017-07-24] MEDS ORDERED: ASPIRIN 81 MG CHEW TAB CHEW ONE (01:00)
[2017-07-24] MEDS ORDERED: POTASSIUM CHLORIDE 20 MEQ CONTROLLED RELEASE TAB PO ONE ×2 (01:00→16:00)
[2017-07-24] MEDS ORDERED: D5-1/2 NS + KCL 40 MEQ INJ 1,000 ML IV SCH (01:45)
[2017-07-24] MEDS ORDERED: MORPHINE SULFATE 2 MG/ML SYRINGE IV PUSH ONE (01:45)
[2017-07-24] MEDS ORDERED: diphenhydrAMINE HCL 50 MG/ML VIAL IV PUSH ONE (02:15)
[2017-07-24] MEDS ORDERED: LACTULOSE SYRUP 20 GM/30 ML CUP PO PRN (02:30)
[2017-07-24] MEDS ORDERED: MAGNESIUM HYDROXIDE SUSP 30 ML CUP PO PRN (02:30)
[2017-07-24] MEDS ORDERED: BISACODYL 10 MG SUPP RECTAL PRN (02:30)
[2017-07-24] MEDS ORDERED: ACETAMINOPHEN/HYDROcodone 325 MG/5 MG TAB PO PRN (02:30)
[2017-07-24] MEDS ORDERED: ONDANSETRON HCL 4 MG/2 ML VIAL IVP PRN (02:30)
[2017-07-24] MEDS ORDERED: SENNOSIDES 8.6 MG TAB PO PRN (02:30)
[2017-07-24] MEDS ORDERED: ACETAMINOPHEN 325 MG TAB PO PRN (02:30)
[2017-07-24] MEDS ORDERED: SODIUM CHLORIDE 0.9% FLUSH 10 ML FLUSH IV FLUSH PRN (02:30)
[2017-07-24] MEDS: SODIUM CHLOR 0.9% 1000 ML INJ 1,000 ML IV SCH ×2 (02:49→12:16)
[2017-07-24 03:04] LABS: BILIRUBIN, URINE NEG (NEG); BLOOD, URINE NEG (NEG); GLUCOSE,URINE NEG (NEG); KETONE, URINE NEG (NEG); NITRITE,URINE NEG (NEG); URINE COLOR LIGHT-YELLOW (YELLW/STRAW); URINE LEUKOCYTE ESTERASE NEG (NEG)
--- NOTE | 2017-07-24 03:14 | RADRPT ---
EXAM DATE/TIME: 07/24/2017 02:52 [facility] COMPARISON: CHEST SINGLE AP, December 31, 2016, 23:01. CHEST SINGLE AP, January 16, 2017, 23:32. INDICATIONS : Syncopal episode. MEDICAL HISTORY : Cardiovascular disease. Hypertension Stroke. SURGICAL HISTORY : Hysterectomy. Cholecystectomy. Coronary artery stent. ENCOUNTER: Initial ACUITY: 1 day PAIN SCORE: 0/10 LOCATION: Bilateral chest FINDINGS: There is mild non-consolidative opacity in the left lower lung, similar to prior. The right lung is clear. Both hemidiaphragms are well delineated. No evidence of pneumothorax. The heart is normal s ize. CONCLUSION: Chronic left lower lobe opacity/atelectasis. No acute findings. No focal areas of consolidation. Jorge Baer MD on July 24, 2017 at 3:10 Board Certified Radiologist. This report was verified electronically.
--- NOTE | 2017-07-24 03:19 | HHI.HP ---
HPI Service [facility] Primary Care Physician No Primary Care Physician Admission Diagnosis low potassium and elevated trop Diagnoses: (1) Syncope Diagnosis: Principal (2) Elevated troponin Diagnosis: Principal (3) Hypokalemia Diagnosis: Principal (4) LEYDI (acute kidney injury) Diagnosis: Principal Travel History International Travel<30 Days: No Contact w/Intl Traveler <30 Da: No Traveled to Known Affected Are: No History of Present Illness This is a 61-year-old female with a PMH of Anxiety, Depression, HTN, Hyperlipidemia, CAD and h/o CVA who was brought to the ER after syncopal event. Pt states she was having a conversation w/ her Sister In Law and doesn't remember anything else until now. Denies fever, chills, chest pain or SOB. States she was cleaning the house and "feeling good" all day. Family reports pt got up to go to the bathroom when she fell to the floor saying she was going to pass out. No seizure activity noted, no head trauma. On arrival, BP 159/73 , HR 63, O2 sat 98% on RA, Afebrile. CBC unremarkable. K+ 2.5. Creatinine 2.05, previously 1.41 on 01/19/2017. CPK 342. Troponin 0.13. EKG with no acute changes. UA negative for UTI. Patient currently without complaints. States she follows w/ Dr. Valenzuela as outpatient. Review of Systems Except as stated in HPI: all other systems reviewed are Neg ROS: 14 point review of systems otherwise negative. Past Family Social History Past Medical History PMH: Anxiety, Depression, HTN, Hyperlipidemia, CAD and h/o CVA Past Surgical History PAST SURGICAL HISTORY: Cholecystectomy, Cardiac Stents, Hysterectomy Allergies: Coded Allergies: meperidine (Unverified Allergy, Severe, HIVES, 07/24/17) morphine (Unverified Allergy, Severe, Itching, 07/24/17) DENIES ALLERGY TODAY 01/18/16 Iodinated Contrast- Oral and IV Dye (Verified Allergy, Unknown, 07/24/17) Family History PAST FAMILY HISTORY: Reviewed. No h/o DM or CAD Social History PAST SOCIAL HISTORY: Negative for alcohol, tobacco or drugs. Physical Exam Vital Signs Vital Signs Date Time Temp Pulse Resp B/P (MAP) Pulse Ox O2 Delivery O2 Flow Rate FiO2 07/23/17 23:56 98.6 63 16 159/73 (101) 98 Room Air 07/23/17 23:40 16 98 Room Air Physical Exam PE: GENERAL: Very pleasant middle-aged black female in no acute distress. HEENT: PERRLA, EOMI. No scleral icterus or conjunctival pallor. No lid lag or facial droop. CARDIOVASCULAR: Regular rate and rhythm. No obvious murmurs to auscultation. No chest tenderness to palpation. RESPIRATORY: No obvious rhonchi or wheezing. Clear to auscultation. Breath sounds equal bilaterally. GASTROINTESTINAL: Abdomen soft, non-tender, nondistended. BS normal. MUSCULOSKELETAL: Extremities without clubbing, cyanosis, or edema. No obvious deformities. NEUROLOGICAL: Awake, alert and oriented x4. No focal neurologic deficits. Moving both upper and lower extremities spontaneously. Laboratory Laboratory Tests Test 07/24/17 00:00 07/24/17 02:00 White Blood Count 9.3 Red Blood Count 5.58 Hemoglobin 12.3 Hematocrit 37.8 Mean Corpuscular Volume 67.7 Mean Corpuscular Hemoglobin 22.0 Mean Corpuscular Hemoglobin Concent 32.5 Red Cell Distribution Width 16.6 Platelet Count 278 Mean Platelet Volume 7.9 Neutrophils (%) (Auto) 61.8 Lymphocytes (%) (Auto) 26.7 Monocytes (%) (Auto) 8.5 Eosinophils (%) (Auto) 2.2 Basophils (%) (Auto) 0.8 Neutrophils # (Auto) 5.7 Lymphocytes # (Auto) 2.5 Monocytes # (Auto) 0.8 Eosinophils # (Auto) 0.2 Basophils # (Auto) 0.1 CBC Comment DIFF FINAL Differential Comment Blood Urea Nitrogen 37 Creatinine 2.05 Random Glucose 118 Total Protein 8.3 Albumin 4.0 Calcium Level 10.8 Alkaline Phosphatase 66 Aspartate Amino Transf (AST/SGOT) 20 Alanine Aminotransferase (ALT/SGPT) 25 Total Bilirubin 0.4 Sodium Level 139 Potassium Level 2.5 Chloride Level 97 Carbon Dioxide Level 31.3 Anion Gap 11 Estimat Glomerular Filtration Rate 30 Total Creatine Kinase 342 Creatine Kinase MB 2.0 Creatine Kinase MB % 0.6 Troponin I 0.13 Lipase 152 Urine Color LIGHT-YELLOW Urine Turbidity CLEAR Urine pH 5.0 Urine Specific [place] 1.008 Urine Protein NEG Urine Glucose (UA) NEG Urine Ketones NEG Urine Occult Blood NEG Urine Nitrite NEG Urine Bilirubin NEG Urine Urobilinogen LESS THAN 2.0 Urine Leukocyte Esterase NEG Urine RBC LESS THAN 1 Microscopic Urinalysis Comment CULT NOT INDICATED Result Diagram: 07/24/17 0000 07/24/17 0000 Caprini VTE Risk Assessment Caprini VTE Risk Assessment: No/Low Risk (score <= 1) Caprini Risk Assessment Model Point Value = 1 Point Value = 2 Point Value = 3 Point Value = 5 Age 41-60 Minor surgery BMI > 25 kg/m2 Swollen legs Varicose veins or History of unexplained or recurrent spontaneous Oral contraceptives or hormone replacement Sepsis (< 1 month) Serious lung disease, including pneumonia (< 1 month) Abnormal pulmonary function Acute myocardial infarction Congestive heart failure (< 1 month) History of inflammatory bowel disease Medical patient at bed rest Age 61-74 Arthroscopic surgery Major open surgery (> 45 min) Laparoscopic surgery (> 45 min) Malignancy Confined to bed (> 72 hours) Immobilizing plaster cast Central venous access Age >= 75 History of VTE Family history of VTE Factor V Leiden Prothrombin [id number] Lupus anticoagulant Anticardiolipin antibodies Elevated serum homocysteine Heparin-induced thrombocytopenia Other congenital or acquired thrombophilia Stroke (< 1 month) Elective arthroplasty Hip, pelvis, or leg fracture Acute spinal cord injury (< 1 month) Prophylaxis Regimen Total Risk Factor Score Risk Level Prophylaxis Regimen 0-1 Low Early ambulation 2 Moderate Order ONE of the following: *Sequential Compression Device (SCD) *Heparin 5000 units SQ BID 3-4 Higher Order ONE of the following medications: *Heparin 5000 units SQ TID *Enoxaparin/Lovenox 40 mg SQ daily (WT < 150 kg, CrCl > 30 mL/min) *Enoxaparin/Lovenox 30 mg SQ daily (WT < 150 kg, CrCl > 10-29 mL/min) *Enoxaparin/Lovenox 30 mg SQ BID (WT < 150 kg, CrCl > 30 mL/min) AND/OR *Sequential Compression Device (SCD) 5 or more Highest Order ONE of the following medications: *Heparin 5000 units SQ TID (Preferred with Epidurals) *Enoxaparin/Lovenox 40 mg SQ daily (WT < 150 kg, CrCl > 30 mL/min) *Enoxaparin/Lovenox 30 mg SQ daily (WT < 150 kg, CrCl > 10-29 mL/min) *Enoxaparin/Lovenox 30 mg SQ BID (WT < 150 kg, CrCl > 30 mL/min) AND *Sequential Compression Device (SCD) Assessment and Plan Problem List: (1) Syncope ICD Code: R55 - Syncope and collapse (2) Elevated troponin ICD Code: R74.8 - Abnormal levels of other serum enzymes (3) Hypokalemia ICD Code: E87.6 - Hypokalemia (4) LEYDI (acute kidney injury) ICD Code: N17.9 - Acute kidney failure, unspecified Assessment and Plan A/P: 1. Syncope: acute syncopal event, pt denies prior lightheadedness/dizziness. Admit for further work up, place on telemetry. Echo 01/03/17 w/ EF 65-70%. Check CT Head to eval for possible underlying CVA in light of extensive history. 2. Elevated Trop: Trop 0.13, EKG w/ no acute ischemia, no c/o chest pain, chronically elevated trop per review of labs back to 2017. Follows w/ Dr. Valenzuela as outpatient, will consult for further evaluation. Check serial cardiac enzymes for trend. Resume home ASA/Plavix, Statin, Coreg. Check CXR to eval for possible abnormalities. 3. Hypokalemia: K+ 2.5, s/p replacement, will recheck and replace as needed. IVF for hydration. 4. LEYDI: Acute on Chronic. Creatinine 2.05, previously 1.41 on 01/19/17, IVF for hydration, U/a negative for UTI, repeat labs in am 5. DVT Prophylaxis: SCD/Teds 6. Social work for d/c planning as needed 7. Case discussed w/ ER physician at length, labs/records reviewed by me. Physician Certification 2 Midnight Certification Type: Admission for Inpatient Services Order for Inpatient Services The services are ordered in accordance with Medicare regulations or non- Medicare payer requirements, as applicable. In the case of services not specified as inpatient-only, they are appropriately provided as inpatient services in accordance with the 2-midnight benchmark. Estimated LOS (days): 2 days is the estimated time the patient will need to remain in the hospital, assuming treatment plan goals are met and no additional complications. Post-Hospital Plan: Not yet determined Guerline Moreno MD Jul 24, 2017 03:19
--- NOTE | 2017-07-24 04:04 | RADRPT ---
EXAM DATE/TIME: 07/24/2017 03:28 [facility] COMPARISON: CT BRAIN W/O CONTRAST, January 01, 2017, 0:54. INDICATIONS : Syncopal episode; patient complains of weakness. RADIATION DOSE: 56.35 CTDIvol (mGy) MEDICAL HISTORY : Hypertension. Myocardial infarction. SURGICAL HISTORY : Hysterectomy. Cholecystectomy.Cardiac stents ENCOUNTER: Initial ACUITY: 1 day PAIN SCALE: 0/10 LOCATION: cranial TECHNIQUE: Multiple contiguous axial images were obtained of the head. Using automated exposure control and adj ustment of the mA and/or kV according to patient size, radiation dose was kept as low as reasonably a chievable to obtain optimal diagnostic quality images. DICOM format image data is available electro nically for review and comparison. FINDINGS: CEREBRUM: The ventricles are mildly prominent but stable from prior. Attenuation in the supratentorial white m atter characteristic of diffuse ischemic change, stable in appearance.. No evidence of midline shift , mass lesion, hemorrhage or acute infarction. No extra-axial fluid collections are seen. POSTERIOR FOSSA: The cerebellum and brainstem are intact. The 4th ventricle is midline. The cerebellopontine angle i s unremarkable. EXTRACRANIAL: The visualized portion of the orbits is intact. SKULL: The calvaria is intact. No evidence of skull fracture. CONCLUSION: 1. No new findings in the brain. 2. Stable diffuse supratentorial white matter ischemic change. Jorge Baer MD on July 24, 2017 at 3:59 Board Certified Radiologist. This report was verified electronically.
[2017-07-24] MEDS: ACETAMINOPHEN/HYDROcodone 325 MG/10 MG TAB PO PRN ×3 (04:05→21:21)
[2017-07-24] MEDS: DOCUSATE SODIUM 50 MG/SENNA 8.6 MG TAB PO SCH ×2 (08:29→20:18)
[2017-07-24] MEDS: ASPIRIN EC 81 MG TABEC PO SCH (08:29)
[2017-07-24] MEDS: CLOPIDOGREL 75 MG TAB PO SCH (08:29)
[2017-07-24] MEDS: SODIUM CHLORIDE 0.9% FLUSH 10 ML FLUSH IV FLUSH SCH ×2 (08:29→20:19)
[2017-07-24] MEDS ORDERED: CARVEDILOL 12.5 MG TAB PO SCH (09:00)
--- NOTE | 2017-07-24 10:23 | EKG ---
Date Performed: 07/23/2017 Time Performed: 23:44:31 PTAGE: 61 years EKG: Sinus rhythm ST DEVIATION AND MODERATE T-WAVE ABNORMALITY, CONSIDER INFERIOR ISCHEMIA ABNORMAL ECG Compared to PREVIOUS TRACING , ST/T wave changes noted inferiorly DOCTOR: Alessandro Serrano Interpretating Date/Time 07/24/2017 10:22:24
[2017-07-24] MEDS ORDERED: hydrALAZINE HCL 20 MG/ML VIAL IV PUSH PRN (11:30)
[2017-07-24] MEDS ORDERED: amLODIPine BESYLATE 5 MG TAB PO SCH (11:45)
--- NOTE | 2017-07-24 11:58 | HHI.PR ---
Addendum to Inpatient Note Addendum Reason: Additional Documentation Additional Information The patient was currently asymptomatic. Phlebotomy was having a hard time drawing her labs the patient does not recall much from her syncopal episode. She has never had any episodes before. Appreciate cardiology consultation. Continue to trend troponins. Echocardiogram pending. Coreg dose reduced secondary to bradycardia. Resumed home antihypertensive medications. Will monitor and replete electrolytes as needed. Check orthostatics. Continue telemetry. Discussed with nursing. Taco Alberto DO Jul 24, 2017 11:58
[2017-07-24] MEDS: NIFEdipine 60 MG SUSTAINED RELEASE TAB PO SCH ×2 (12:14→20:18)
[2017-07-24] MEDS: ESTRADIOL 1 MG TAB PO SCH (12:14)
[2017-07-24] MEDS: FAMOTIDINE 20 MG TAB PO SCH ×2 (12:14→20:18)
--- NOTE | 2017-07-24 12:18 | MB ---
cc: Alessandro Serrano DO DATE: 07/24/2017 REASON FOR CONSULTATION: Elevated troponin. HISTORY OF PRESENT ILLNESS: Melia Cho is a pleasant 61-year-old female who previously was followed by Dr. Valenzuela and presented to [facility] Emergency Department after a syncopal episode. Overall, the patient is a poor historian as she does not remember much from the actual episode. She states that she got up and was having a normal day. She used the restroom as she normally would and then she told me that she was going back to bed, whereas other reports say that she was having a conversation with her [id number]. Apparently, on her way back to going to bed, she does not remember what happened, but woke up in the hospital. She does not remember falling and hitting her head, having chest pain, shortness of breath or palpitations. In seeing her, she is currently hemodynamically stable, without complaints. PAST MEDICAL HISTORY: 1. Coronary artery disease. 2. Cerebrovascular accident. 3. Anxiety. 4. Depression. 5. Hypertension. 6. Hyperlipidemia. PAST SURGICAL HISTORY: 1. Cholecystectomy. 2. Questionable history of previous coronary stenting. 3. Hysterectomy. ALLERGIES: 1. IODINE. 2. MEPERIDINE. 3. MORPHINE. MEDICATIONS: 1. Plavix 75 mg daily. 2. Lipitor 10 mg every night. 3. Hydralazine 50 mg every 8 hours. 4. Coreg 12.5 mg every 12 hours. 5. Nifedipine ER 60 mg b.i.d. 6. Aspirin 81 mg daily. 7. Hydrocodone/acetaminophen 10/325 b.i.d. as needed for pain. 8. Xanax 0.5 mg daily. 9. Furosemide 10 mg b.i.d. 10. Pepcid 10 mg b.i.d. 11. Estradiol 0.5 mg daily. FAMILY HISTORY: Denies premature coronary artery disease or sudden cardiac within the family. SOCIAL HISTORY: Denies tobacco, alcohol or drug abuse. REVIEW OF SYSTEMS: Fourteen systems were reviewed including osteopathic. Pertinent positives and negatives above, otherwise negative. PHYSICAL EXAMINATION: VITAL SIGNS: Temperature 98.4, heart rate 47, blood pressure 135/63, respirations 16, pulse oximetry 97% on room air. GENERAL: The patient appears well in no acute distress, alert, awake and oriented x 3. HEENT: Extraocular muscles intact. Mucous membranes moist. NECK: Supple. No JVD at 45 degrees. No carotid bruits heard bilaterally. Carotid upstroke is brisk in nature. HEART: Regular rhythm, but bradycardic in nature. No murmurs, gallops or rubs. LUNGS: Clear to auscultation bilaterally. No wheezes, rales, or rhonchi. ABDOMEN: Soft, nontender, and nondistended. No organomegaly noted. EXTREMITIES: Show no clubbing, cyanosis or edema. Femoral and distal pulses are intact bilaterally. NEUROLOGIC: No focal deficits. SKIN: Warm, dry and intact. OSTEOPATHIC: No kyphoscoliosis, lordosis or paraspinal tender points. LABORATORY DATA: Hemoglobin 12.3, hematocrit 37.8, platelets 278. Potassium 2.5, BUN 37, creatinine 2.05. Troponin 0.14. Electrocardiogram (07/23/2017 at 2344) sinus rhythm, possible minimal ST-T wave changes inferiorly, cannot rule out ischemia. IMPRESSION: 1. Syncope of unknown cause. 2. Chronically elevated troponins. 3. Hypertension. 4. Hypokalemia. 5. Acute kidney injury on chronic kidney disease. 6. History of cerebrovascular accident with right-sided residual neurological defects. 7. Bradycardia. RECOMMENDATIONS: 1. Ms. Cho appears to have had a syncopal episode which might be due to multiple problems, although it is difficult as she is unable to give us any true history on it. Apparently, she appears dehydrated with an acute kidney injury, as well as bradycardic on beta filomena therapy, which may all have combined for this episode. 2. Overall, with her dehydration, she will be treated with IV fluids gently. 3. As far as her baseline bradycardia, her carvedilol had been increased previously due to her blood pressure issues, but overall would attempt to decrease her carvedilol and possibly increase her hydralazine. 4. She currently is on estradiol and with a syncopal episode, consideration should be made for ruling out a pulmonary embolism, although overall she does not have significant hypoxia. 5. She does have a mildly elevated troponin, but looking back, she has had this chronically going back to 2012. She recently had a pharmacologic nuclear stress test in 12/2016, which showed no reversible defects. No further workup at this time. 6. Would plan to repeat 2-D echocardiogram to evaluate the overall left ventricular function, her left ventricular hypertrophy and possible diastolic dysfunction. 7. Further recommendations will be made based on the hospital course. Thank you for allowing me to see Melia Cho. If there are any questions, please do not hesitate to call. Alessandro Serrano DO VGP/KD , 11:46 AM , 12:16 PM
[2017-07-24 13:07] LABS: BICARBONATE 28.2 MEQ/L (21.0-32.0); CALCIUM 9.8 MG/DL (8.5-10.1); CREATININE 1.48 MG/DL (0.50-1.00); TROPONIN I 0.14 NG/ML (0.02-0.05)
[2017-07-24] MEDS: ALPRAZolam 0.5 MG TAB PO PRN (13:22)
[2017-07-24] MEDS: hydrALAZINE HCL 50 MG TAB PO SCH ×2 (14:11→22:00)
[2017-07-24] MEDS: D5-1/2 NS + KCL 20 MEQ INJ 1,000 ML IV SCH (16:23)
[2017-07-24] MEDS: TORSEMIDE 5 MG TAB PO SCH (16:24)
[2017-07-24] MEDS: CARVEDILOL 6.25 MG TAB PO SCH (20:18)
[2017-07-24] MEDS: ATORVASTATIN 10 MG TAB PO SCH (20:18)
[2017-07-25] VITALS (28 sets, daily range): BP systolic 123–142; BP diastolic 60–99; PULSE 49–80; RESP 16–18; TEMP 97.6–98.6; O2SAT 97–98
[2017-07-25 05:38] LABS: AUTOMATED NEUTROPHIL # 3.3 TH/MM3 (1.8-7.7); BASOPHIL % 0.5 % (0.0-2.0); EOSINOPHIL # 0.2 TH/MM3 (0-0.4); EOSINOPHIL % 2.6 % (0.0-4.0); HEMATOCRIT 35.9 % (35.0-46.0); HEMOGLOBIN 11.5 GM/DL (11.6-15.3); LYMPH % 38.6 % (9.0-44.0); LYMPHOCYTE # 2.6 TH/MM3 (1.0-4.8); MEAN CELL VOLUME 69.2 FL (80.0-100.0); MEAN CORPUSCULAR HEMOGLOBIN 22.2 PG (27.0-34.0); MEAN PLATELET VOLUME 8.1 FL (7.0-11.0); MONO % 8.8 % (0.0-8.0); MONOCYTE # 0.6 TH/MM3 (0-0.9); NEUT % 49.5 % (16.0-70.0); PLATELET COUNT 245 TH/MM3 (150-450); RED BLOOD COUNT 5.19 MIL/MM3 (4.00-5.30); RED CELL DISTRIBUTION WIDTH 16.6 % (11.6-17.2); WHITE BLOOD COUNT 6.7 TH/MM3 (4.0-11.0)
[2017-07-25 06:14] LABS: ALBUMIN 3.3 GM/DL (3.4-5.0); ALKALINE PHOSPHATASE 56 U/L (45-117); ALT (GPT) 21 U/L (10-53); AST (GOT) 18 U/L (15-37); BICARBONATE 28.9 MEQ/L (21.0-32.0); BLOOD UREA NITROGEN 21 MG/DL (7-18); CALCIUM 9.4 MG/DL (8.5-10.1); CHLORIDE 102 MEQ/L (98-107); CREATININE 1.37 MG/DL (0.50-1.00); GLOMERULAR FILTRATION RATE 48 ML/MIN (>89); GLUCOSE,RANDOM 127 MG/DL (74-106); SODIUM (NA) 141 MEQ/L (136-145); TOTAL BILIRUBIN ADULT 0.3 MG/DL (0.2-1.0); TOTAL PROTEIN 6.8 GM/DL (6.4-8.2)
[2017-07-25] MEDS: hydrALAZINE HCL 50 MG TAB PO SCH ×2 (07:09→13:15)
[2017-07-25] MEDS: TORSEMIDE 5 MG TAB PO SCH (08:20)
[2017-07-25] MEDS: FAMOTIDINE 20 MG TAB PO SCH ×2 (08:20→20:23)
[2017-07-25] MEDS: DOCUSATE SODIUM 50 MG/SENNA 8.6 MG TAB PO SCH ×2 (08:21→20:23)
[2017-07-25] MEDS: CLOPIDOGREL 75 MG TAB PO SCH (08:21)
[2017-07-25] MEDS: SODIUM CHLORIDE 0.9% FLUSH 10 ML FLUSH IV FLUSH SCH ×2 (08:21→20:23)
[2017-07-25] MEDS: ASPIRIN EC 81 MG TABEC PO SCH (08:21)
[2017-07-25] MEDS: CARVEDILOL 6.25 MG TAB PO SCH ×2 (08:21→20:23)
[2017-07-25] MEDS: NIFEdipine 60 MG SUSTAINED RELEASE TAB PO SCH ×2 (08:21→20:23)
[2017-07-25] MEDS: ESTRADIOL 1 MG TAB PO SCH (08:21)
[2017-07-25] MEDS ORDERED: POTASSIUM CHLORIDE 25 MEQ EFFERVESCENT TAB PO ONE (09:00)
[2017-07-25] MEDS: ACETAMINOPHEN/HYDROcodone 325 MG/10 MG TAB PO PRN ×2 (09:02→16:59)
[2017-07-25] MEDS: ALPRAZolam 0.5 MG TAB PO PRN (10:49)
[2017-07-25] MEDS: D5-1/2 NS + KCL 20 MEQ INJ 1,000 ML IV SCH (11:26)
--- NOTE | 2017-07-25 12:07 | HHI.PR ---
Subjective Remarks The pt was resting in a chair. She said she feels better. She is breathing comfortably and denies any chest pain. She says her chronic back pain got worse after passing out. Her questions were answered. Discussed with nursing. Objective Vitals Vital Signs Date Time Temp Pulse Resp B/P (MAP) Pulse Ox O2 Delivery O2 Flow Rate FiO2 07/25/17 11:16 98.3 78 16 142/69 (93) 97 07/25/17 11:00 74 07/25/17 10:00 78 07/25/17 09:00 80 07/25/17 08:00 66 07/25/17 07:52 98.5 58 16 140/99 (113) 97 07/25/17 07:00 51 07/25/17 06:06 49 07/25/17 05:03 53 07/25/17 04:00 98.4 53 18 132/60 (84) 97 07/25/17 04:00 53 07/25/17 03:00 52 07/25/17 02:00 55 07/25/17 01:00 55 07/25/17 00:03 98.6 52 18 123/61 (81) 97 07/25/17 00:00 52 07/24/17 23:00 58 07/24/17 22:00 57 07/24/17 21:00 56 07/24/17 20:00 98.6 69 18 179/80 (113) 98 07/24/17 20:00 58 07/24/17 19:00 69 07/24/17 18:00 58 07/24/17 17:00 60 07/24/17 16:00 67 07/24/17 15:23 98.0 55 16 164/69 (100) 96 07/24/17 15:00 53 07/24/17 14:00 54 07/24/17 13:00 67 07/24/17 12:00 55 I/O 07/24/17 07/24/17 07/24/17 07/25/17 07/25/17 07/25/17 07:00 15:00 23:00 07:00 15:00 23:00 Intake Total 840 ml 1420 ml 1440 ml Output Total 450 ml 850 ml 300 ml Balance 390 ml 570 ml 1140 ml Intake Oral 240 ml 920 ml 240 ml IV Total 600 ml 500 ml 1200 ml Output Urine Total 450 ml 850 ml 300 ml # Bowel Movements 0 Result Diagram: 07/25/17 0454 07/25/17 0454 Imaging Last Impressions Head CT 07/24/17 0000 Signed Impressions: Service Date/Time: Monday, July 24, 2017 03:28 - CONCLUSION: 1. No new findings in the brain. 2. Stable diffuse supratentorial white matter ischemic change. Jorge Baer MD Chest X-Ray 07/24/17 0000 Signed Impressions: Service Date/Time: Monday, July 24, 2017 02:52 - CONCLUSION: Chronic left lower lobe opacity/atelectasis. No acute findings. No focal areas of consolidation. Jorge Baer MD Objective Remarks GENERAL: Very pleasant female in no acute distress. HEENT: PERRLA, EOMI. No scleral icterus or conjunctival pallor. No lid lag or facial droop. CARDIOVASCULAR: Regular rate and rhythm. No obvious murmurs to auscultation. No chest tenderness to palpation. RESPIRATORY: No obvious rhonchi or wheezing. Clear to auscultation. Breath sounds equal bilaterally. GASTROINTESTINAL: Abdomen soft, non-tender, nondistended. BS normal. MUSCULOSKELETAL: Extremities without clubbing, cyanosis, or edema. No obvious deformities. NEUROLOGICAL: Awake, alert and oriented x4. No focal neurologic deficits. Moving both upper and lower extremities spontaneously. PSYCH: Mood and affect appropriate. Medications and IVs Current Medications Medications (Trade) Dose Ordered Sig/Galilea Route Start Time Stop Time Status Last Admin (NS Flush) 2 ml UNSCH PRN IV FLUSH 07/24/17 02:30 (NS Flush) 2 ml BID IV FLUSH 07/24/17 09:00 07/25/17 08:21 (Zofran Inj) 4 mg Q6H PRN IVP 07/24/17 02:30 (Tylenol) 650 mg Q6H PRN PO 07/24/17 02:30 ([place] 5-325 Mg) 1 tab Q4H PRN PO 07/24/17 02:30 ([place] 10-325 Mg) 1 tab Q4H PRN PO 07/24/17 02:30 07/25/17 09:02 (Kae-Colace) 1 tab BID PO 07/24/17 09:00 07/25/17 08:21 (Milk Of Magnesia Liq) 30 ml Q12H PRN PO 07/24/17 02:30 (Senokot) 17.2 mg Q12H PRN PO 07/24/17 02:30 (Dulcolax Supp) 10 mg DAILY PRN RECTAL 07/24/17 02:30 (Lactulose Liq) 30 ml DAILY PRN PO 07/24/17 02:30 (Xanax) 0.5 mg DAILY PRN PO 07/24/17 02:30 07/25/17 10:49 (Ecotrin Ec) 81 mg DAILY PO 07/24/17 09:00 07/25/17 08:21 (Lipitor) 10 mg HS PO 07/24/17 21:00 07/24/17 20:18 (Plavix) 75 mg DAILY PO 07/24/17 09:00 07/25/17 08:21 (Apresoline Inj) 10 mg Q4H PRN IV PUSH 07/24/17 11:30 (Estradiol) 0.5 mg DAILY PO 07/24/17 11:45 07/25/17 08:21 (Pepcid) 10 mg BID PO 07/24/17 11:45 07/25/17 08:20 (Apresoline) 50 mg Q8HR PO 07/24/17 14:00 07/25/17 07:09 (Procardia Xl) 60 mg BID PO 07/24/17 11:45 07/25/17 08:21 (Coreg) 6.25 mg Q12HR PO 07/24/17 21:00 07/25/17 08:21 Potassium Chloride/Dextrose/ Sod Cl 1,000 ml @ 100 mls/hr Q10H IV 07/24/17 16:00 07/25/17 11:26 A/P Problem List: (1) Syncope ICD Code: R55 - Syncope and collapse (2) Elevated troponin ICD Code: R74.8 - Abnormal levels of other serum enzymes (3) Hypokalemia ICD Code: E87.6 - Hypokalemia (4) LEYDI (acute kidney injury) ICD Code: N17.9 - Acute kidney failure, unspecified Assessment and Plan Syncope/ elevated troponin Acute syncopal event, pt denies prior lightheadedness/dizziness. Head CT and CXR without acute process. Echo 01/03/17 w/ EF 65-70%. EKG w/ no acute ischemia. No chest pain. Trops are chronically elevated. Cardiology consult appreciated. Possibly exacerbated by bradycardia. - decrease Coreg. Hold clonidine. - repeat echo pending. - follow up with cardiology. Continue cardiac regimen. - PT. - check thoracic x ray as pt is indicated increased pain there following syncope. Hypokalemia K+ 2.5 on admission. Possibly s/t torsemide and dehydration. - IVFs with KCl, as well as PO supplementation. - hold torsemide. LEYDI Acute on Chronic. Creatinine 2.05, previously 1.41 on 01/19/17. - IVF for hydration. - hold torsemide. DVT Prophylaxis: SCD/Teds Discharge Planning Hopefully d/c home with C in 1-2 days Taco Alberto DO Jul 25, 2017 12:07
--- NOTE | 2017-07-25 12:15 | PD.CARD.PN ---
Subjective Subjective Remarks No events overnight Up and moving without a problem Objective Medications Current Medications Medications (Trade) Dose Ordered Sig/Galilea Route Start Time Stop Time Status Last Admin (NS Flush) 2 ml UNSCH PRN IV FLUSH 07/24/17 02:30 (NS Flush) 2 ml BID IV FLUSH 07/24/17 09:00 07/25/17 08:21 (Zofran Inj) 4 mg Q6H PRN IVP 07/24/17 02:30 (Tylenol) 650 mg Q6H PRN PO 07/24/17 02:30 ([place] 5-325 Mg) 1 tab Q4H PRN PO 07/24/17 02:30 ([place] 10-325 Mg) 1 tab Q4H PRN PO 07/24/17 02:30 07/25/17 09:02 (Kae-Colace) 1 tab BID PO 07/24/17 09:00 07/25/17 08:21 (Milk Of Magnesia Liq) 30 ml Q12H PRN PO 07/24/17 02:30 (Senokot) 17.2 mg Q12H PRN PO 07/24/17 02:30 (Dulcolax Supp) 10 mg DAILY PRN RECTAL 07/24/17 02:30 (Lactulose Liq) 30 ml DAILY PRN PO 07/24/17 02:30 (Xanax) 0.5 mg DAILY PRN PO 07/24/17 02:30 07/25/17 10:49 (Ecotrin Ec) 81 mg DAILY PO 07/24/17 09:00 07/25/17 08:21 (Lipitor) 10 mg HS PO 07/24/17 21:00 07/24/17 20:18 (Plavix) 75 mg DAILY PO 07/24/17 09:00 07/25/17 08:21 (Apresoline Inj) 10 mg Q4H PRN IV PUSH 07/24/17 11:30 (Estradiol) 0.5 mg DAILY PO 07/24/17 11:45 07/25/17 08:21 (Pepcid) 10 mg BID PO 07/24/17 11:45 07/25/17 08:20 (Apresoline) 50 mg Q8HR PO 07/24/17 14:00 07/25/17 07:09 (Procardia Xl) 60 mg BID PO 07/24/17 11:45 07/25/17 08:21 (Coreg) 6.25 mg Q12HR PO 07/24/17 21:00 07/25/17 08:21 Potassium Chloride/Dextrose/ Sod Cl 1,000 ml @ 100 mls/hr Q10H IV 07/24/17 16:00 07/25/17 11:26 Vital Signs / I&O Vital Signs Date Time Temp Pulse Resp B/P (MAP) Pulse Ox O2 Delivery O2 Flow Rate FiO2 07/25/17 12:00 62 07/25/17 11:16 98.3 78 16 142/69 (93) 97 07/25/17 11:00 74 07/25/17 10:00 78 07/25/17 09:00 80 07/25/17 08:00 66 07/25/17 07:52 98.5 58 16 140/99 (113) 97 07/25/17 07:00 51 07/25/17 06:06 49 07/25/17 05:03 53 07/25/17 04:00 98.4 53 18 132/60 (84) 97 07/25/17 04:00 53 07/25/17 03:00 52 07/25/17 02:00 55 07/25/17 01:00 55 07/25/17 00:03 98.6 52 18 123/61 (81) 97 07/25/17 00:00 52 07/24/17 23:00 58 07/24/17 22:00 57 07/24/17 21:00 56 07/24/17 20:00 98.6 69 18 179/80 (113) 98 07/24/17 20:00 58 07/24/17 19:00 69 07/24/17 18:00 58 07/24/17 17:00 60 07/24/17 16:00 67 07/24/17 15:23 98.0 55 16 164/69 (100) 96 07/24/17 15:00 53 07/24/17 14:00 54 07/24/17 13:00 67 I/O 07/24/17 07/24/17 07/24/17 07/25/17 07/25/17 07/25/17 07:00 15:00 23:00 07:00 15:00 23:00 Intake Total 840 ml 1420 ml 1440 ml Output Total 450 ml 850 ml 300 ml Balance 390 ml 570 ml 1140 ml Intake Oral 240 ml 920 ml 240 ml IV Total 600 ml 500 ml 1200 ml Output Urine Total 450 ml 850 ml 300 ml # Bowel Movements 0 Physical Exam GENERAL: NAD, AAOx3 SKIN: Warm and dry. HEAD: Atraumatic. Normocephalic. EYES: Pupils equal and round. No scleral icterus. No injection or drainage. ENT: No nasal bleeding or discharge. Mucous membranes pink and moist. NECK: Trachea midline. No JVD. CARDIOVASCULAR: Regular rate and rhythm. RESPIRATORY: No accessory muscle use. Clear to auscultation. Breath sounds equal bilaterally. GASTROINTESTINAL: Abdomen soft, non-tender, nondistended. Hepatic and splenic margins not palpable. MUSCULOSKELETAL: Extremities without clubbing, cyanosis, or edema. No obvious deformities. NEUROLOGICAL: Awake and alert. No obvious cranial nerve deficits. Motor grossly within normal limits. Five out of 5 muscle strength in the arms and legs. Normal speech. PSYCHIATRIC: Appropriate mood and affect; insight and judgment normal. Laboratory Laboratory Tests Test 07/25/17 04:54 White Blood Count 6.7 TH/MM3 Red Blood Count 5.19 MIL/MM3 Hemoglobin 11.5 GM/DL Hematocrit 35.9 % Mean Corpuscular Volume 69.2 FL Mean Corpuscular Hemoglobin 22.2 PG Mean Corpuscular Hemoglobin Concent 32.0 % Red Cell Distribution Width 16.6 % Platelet Count 245 TH/MM3 Mean Platelet Volume 8.1 FL Neutrophils (%) (Auto) 49.5 % Lymphocytes (%) (Auto) 38.6 % Monocytes (%) (Auto) 8.8 % Eosinophils (%) (Auto) 2.6 % Basophils (%) (Auto) 0.5 % Neutrophils # (Auto) 3.3 TH/MM3 Lymphocytes # (Auto) 2.6 TH/MM3 Monocytes # (Auto) 0.6 TH/MM3 Eosinophils # (Auto) 0.2 TH/MM3 Basophils # (Auto) 0.0 TH/MM3 CBC Comment DIFF FINAL Differential Comment Blood Urea Nitrogen 21 MG/DL Creatinine 1.37 MG/DL Random Glucose 127 MG/DL Total Protein 6.8 GM/DL Albumin 3.3 GM/DL Calcium Level 9.4 MG/DL Alkaline Phosphatase 56 U/L Aspartate Amino Transf (AST/SGOT) 18 U/L Alanine Aminotransferase (ALT/SGPT) 21 U/L Total Bilirubin 0.3 MG/DL Sodium Level 141 MEQ/L Potassium Level 3.0 MEQ/L Chloride Level 102 MEQ/L Carbon Dioxide Level 28.9 MEQ/L Anion Gap 10 MEQ/L Estimat Glomerular Filtration Rate 48 ML/MIN Assessment and Plan Problem List: (1) Syncope ICD Codes: R55 - Syncope and collapse (2) Dehydration ICD Codes: E86.0 - Dehydration (3) LEYDI (acute kidney injury) ICD Codes: N17.9 - Acute kidney failure, unspecified (4) Elevated troponin ICD Codes: R74.8 - Abnormal levels of other serum enzymes (5) Essential hypertension Status: Chronic Assessment and Plan 1) Syncope Difficult to ascertain the cause as does not remember the episode Overall dehydrated with LEYDI Bradycardia on BB, decreased dose 2) 2D echo pending 3) Elevated troponin Chronic going back to 2012 Negative stress test 12/2016 4) If no cause noted, consideration of outpatient group home rhythm analysis Alessandro Serrano DO Jul 25, 2017 12:15
--- NOTE | 2017-07-25 17:22 | RADRPT ---
EXAM DATE/TIME: 07/25/2017 15:47 [place] COMPARISON: SPINE THORACIC AP/LAT/SW (3VW), April 02, 2016, 9:43. INDICATIONS : Back pain from a fall. MEDICAL HISTORY : Hypertension. Myocardial infarction. SURGICAL HISTORY : Hysterectomy. Cholecystectomy. Coronary artery stent. ENCOUNTER: Subsequent ACUITY: 2 days PAIN SCORE: 8/10 LOCATION: Bilateral back FINDINGS: There is normal alignment of the thoracic vertebral bodies. Vertebral body height is maintained. No evidence of fracture or subluxation. Pedicles are intact at all levels. The paravertebral reflecti ons are not thickened. CONCLUSION: 1. No acute fracture or subluxation. Moises Ambrose MD on July 25, 2017 at 17:19 Board Certified Radiologist. This report was verified electronically.
[2017-07-25] MEDS: ATORVASTATIN 10 MG TAB PO SCH (20:23)
[2017-07-26] VITALS (24 sets, daily range): BP systolic 127–168; BP diastolic 61–74; PULSE 54–88; RESP 16–18; TEMP 98–98.8; O2SAT 97–100
[2017-07-26 04:20] LABS: BICARBONATE 28.5 MEQ/L (21.0-32.0); CALCIUM 9.1 MG/DL (8.5-10.1); CREATININE 1.17 MG/DL (0.50-1.00); MAGNESIUM 1.6 MG/DL (1.5-2.5)
[2017-07-26] MEDS: hydrALAZINE HCL 50 MG TAB PO SCH ×3 (05:43→21:23)
[2017-07-26] MEDS: ACETAMINOPHEN/HYDROcodone 325 MG/10 MG TAB PO PRN ×4 (05:43→20:23)
[2017-07-26] MEDS: D5-1/2 NS + KCL 20 MEQ INJ 1,000 ML IV SCH (07:16)
[2017-07-26] MEDS: CARVEDILOL 6.25 MG TAB PO SCH ×2 (08:28→20:22)
[2017-07-26] MEDS: NIFEdipine 60 MG SUSTAINED RELEASE TAB PO SCH ×2 (08:28→20:22)
[2017-07-26] MEDS: ASPIRIN EC 81 MG TABEC PO SCH (08:28)
[2017-07-26] MEDS: CLOPIDOGREL 75 MG TAB PO SCH (08:28)
[2017-07-26] MEDS: ALPRAZolam 0.5 MG TAB PO PRN (08:29)
[2017-07-26] MEDS: ESTRADIOL 1 MG TAB PO SCH (08:29)
[2017-07-26] MEDS: DOCUSATE SODIUM 50 MG/SENNA 8.6 MG TAB PO SCH ×2 (08:29→20:22)
[2017-07-26] MEDS: FAMOTIDINE 20 MG TAB PO SCH ×2 (08:29→20:22)
[2017-07-26] MEDS: SODIUM CHLORIDE 0.9% FLUSH 10 ML FLUSH IV FLUSH SCH ×2 (08:29→20:23)
[2017-07-26] MEDS ORDERED: POTASSIUM CHLORIDE 25 MEQ EFFERVESCENT TAB PO ONE (10:00)
--- NOTE | 2017-07-26 12:02 | PD.CARD.PN ---
Subjective Subjective Remarks No events overnight Up and moving without a problem Objective Medications Current Medications Medications (Trade) Dose Ordered Sig/Galilea Route Start Time Stop Time Status Last Admin (NS Flush) 2 ml UNSCH PRN IV FLUSH 07/24/17 02:30 (NS Flush) 2 ml BID IV FLUSH 07/24/17 09:00 07/25/17 08:21 (Zofran Inj) 4 mg Q6H PRN IVP 07/24/17 02:30 (Tylenol) 650 mg Q6H PRN PO 07/24/17 02:30 ([place] 5-325 Mg) 1 tab Q4H PRN PO 07/24/17 02:30 ([place] 10-325 Mg) 1 tab Q4H PRN PO 07/24/17 02:30 07/26/17 10:26 (Kae-Colace) 1 tab BID PO 07/24/17 09:00 07/26/17 08:29 (Milk Of Magnesia Liq) 30 ml Q12H PRN PO 07/24/17 02:30 (Senokot) 17.2 mg Q12H PRN PO 07/24/17 02:30 (Dulcolax Supp) 10 mg DAILY PRN RECTAL 07/24/17 02:30 (Lactulose Liq) 30 ml DAILY PRN PO 07/24/17 02:30 (Xanax) 0.5 mg DAILY PRN PO 07/24/17 02:30 07/26/17 08:29 (Ecotrin Ec) 81 mg DAILY PO 07/24/17 09:00 07/26/17 08:28 (Lipitor) 10 mg HS PO 07/24/17 21:00 07/25/17 20:23 (Plavix) 75 mg DAILY PO 07/24/17 09:00 07/26/17 08:28 (Apresoline Inj) 10 mg Q4H PRN IV PUSH 07/24/17 11:30 (Estradiol) 0.5 mg DAILY PO 07/24/17 11:45 07/26/17 08:29 (Pepcid) 10 mg BID PO 07/24/17 11:45 07/26/17 08:29 (Apresoline) 50 mg Q8HR PO 07/24/17 14:00 07/26/17 05:43 (Procardia Xl) 60 mg BID PO 07/24/17 11:45 07/26/17 08:28 (Coreg) 6.25 mg Q12HR PO 07/24/17 21:00 07/26/17 08:28 Potassium Chloride/Dextrose/ Sod Cl 1,000 ml @ 100 mls/hr Q10H IV 07/24/17 16:00 07/26/17 07:16 Vital Signs / I&O Vital Signs Date Time Temp Pulse Resp B/P (MAP) Pulse Ox O2 Delivery O2 Flow Rate FiO2 07/26/17 11:26 16 07/26/17 10:06 71 07/26/17 09:00 72 07/26/17 08:30 75 07/26/17 08:30 98.5 73 16 168/72 (104) 100 07/26/17 06:45 58 07/26/17 05:00 69 07/26/17 04:00 83 07/26/17 04:00 98.1 72 18 146/67 (93) 98 07/26/17 03:00 59 07/26/17 02:00 72 07/26/17 01:00 59 07/26/17 00:00 98.4 54 18 127/61 (83) 98 07/26/17 00:00 54 07/25/17 23:00 54 07/25/17 22:00 60 07/25/17 21:00 60 07/25/17 20:00 97.6 66 18 124/69 (87) 98 07/25/17 20:00 60 07/25/17 19:00 66 07/25/17 18:00 59 07/25/17 17:00 62 07/25/17 16:00 66 07/25/17 15:20 98.5 67 16 139/65 (89) 98 07/25/17 15:00 62 07/25/17 14:00 64 07/25/17 13:00 62 07/25/17 12:00 62 I/O 07/25/17 07/25/17 07/25/17 07/26/17 07/26/17 07/26/17 07:00 15:00 23:00 07:00 15:00 23:00 Intake Total 1440 ml 920 ml 240 ml Output Total 300 ml 2700 ml Balance 1140 ml 920 ml -2460 ml Intake Oral 240 ml 920 ml 240 ml IV Total 1200 ml Output Urine Total 300 ml 2700 ml # Voids 4 3 # Bowel Movements 0 Physical Exam GENERAL: NAD, AAOx3 SKIN: Warm and dry. HEAD: Atraumatic. Normocephalic. EYES: Pupils equal and round. No scleral icterus. No injection or drainage. ENT: No nasal bleeding or discharge. Mucous membranes pink and moist. NECK: Trachea midline. No JVD. CARDIOVASCULAR: Regular rate and rhythm. RESPIRATORY: No accessory muscle use. Clear to auscultation. Breath sounds equal bilaterally. GASTROINTESTINAL: Abdomen soft, non-tender, nondistended. Hepatic and splenic margins not palpable. MUSCULOSKELETAL: Extremities without clubbing, cyanosis, or edema. No obvious deformities. NEUROLOGICAL: Awake and alert. No obvious cranial nerve deficits. Motor grossly within normal limits. Five out of 5 muscle strength in the arms and legs. Normal speech. PSYCHIATRIC: Appropriate mood and affect; insight and judgment normal. Laboratory Laboratory Tests Test 07/26/17 03:51 Blood Urea Nitrogen 13 MG/DL Creatinine 1.17 MG/DL Random Glucose 105 MG/DL Calcium Level 9.1 MG/DL Magnesium Level 1.6 MG/DL Sodium Level 140 MEQ/L Potassium Level 3.3 MEQ/L Chloride Level 104 MEQ/L Carbon Dioxide Level 28.5 MEQ/L Anion Gap 8 MEQ/L Estimat Glomerular Filtration Rate 57 ML/MIN Assessment and Plan Problem List: (1) Syncope ICD Codes: R55 - Syncope and collapse (2) Dehydration ICD Codes: E86.0 - Dehydration (3) LEYDI (acute kidney injury) ICD Codes: N17.9 - Acute kidney failure, unspecified (4) Elevated troponin ICD Codes: R74.8 - Abnormal levels of other serum enzymes (5) Essential hypertension Status: Chronic Assessment and Plan 1) Syncope Difficult to ascertain the cause as does not remember the episode Overall dehydrated with LEYDI Bradycardia on BB, decreased dose 2) 2D echo pending 3) Elevated troponin Chronic going back to 2013 Negative stress test 12/2016 4) If no cause noted, consideration of outpatient quality assurance practice manager rhythm analysis 5) If echo with no problems, no further cardiovascular work up, may be discharged for follow up with me in the office Alessandro Serrano DO Jul 26, 2017 12:02
--- NOTE | 2017-07-26 12:13 | HHI.PR ---
Subjective Remarks The patient feels well. She has not had any further episodes of passing out or near passing out. She has been ambulating well. She says she normally uses a cane as an outpatient. Discussed with nursing and cardiology. Objective Vitals Vital Signs Date Time Temp Pulse Resp B/P (MAP) Pulse Ox O2 Delivery O2 Flow Rate FiO2 07/26/17 12:07 80 07/26/17 11:30 98.8 71 16 143/68 (93) 98 07/26/17 11:30 63 07/26/17 11:26 16 07/26/17 10:06 71 07/26/17 09:00 72 07/26/17 08:30 75 07/26/17 08:30 98.5 73 16 168/72 (104) 100 07/26/17 06:45 58 07/26/17 05:00 69 07/26/17 04:00 83 07/26/17 04:00 98.1 72 18 146/67 (93) 98 07/26/17 03:00 59 07/26/17 02:00 72 07/26/17 01:00 59 07/26/17 00:00 98.4 54 18 127/61 (83) 98 07/26/17 00:00 54 07/25/17 23:00 54 07/25/17 22:00 60 07/25/17 21:00 60 07/25/17 20:00 97.6 66 18 124/69 (87) 98 07/25/17 20:00 60 07/25/17 19:00 66 07/25/17 18:00 59 07/25/17 17:00 62 07/25/17 16:00 66 07/25/17 15:20 98.5 67 16 139/65 (89) 98 07/25/17 15:00 62 07/25/17 14:00 64 07/25/17 13:00 62 I/O 07/25/17 07/25/17 07/25/17 07/26/17 07/26/17 07/26/17 07:00 15:00 23:00 07:00 15:00 23:00 Intake Total 1440 ml 920 ml 240 ml Output Total 300 ml 2700 ml Balance 1140 ml 920 ml -2460 ml Intake Oral 240 ml 920 ml 240 ml IV Total 1200 ml Output Urine Total 300 ml 2700 ml # Voids 4 3 # Bowel Movements 0 Result Diagram: 07/25/17 0454 07/26/17 0351 Imaging Last Impressions Thoracic Spine X-Ray 07/25/17 0000 Signed Impressions: Service Date/Time: Tuesday, July 25, 2017 15:47 - CONCLUSION: 1. No acute fracture or subluxation. Moises Ambrose MD Head CT 07/24/17 0000 Signed Impressions: Service Date/Time: Monday, July 24, 2017 03:28 - CONCLUSION: 1. No new findings in the brain. 2. Stable diffuse supratentorial white matter ischemic change. Jorge Baer MD Chest X-Ray 07/24/17 0000 Signed Impressions: Service Date/Time: Monday, July 24, 2017 02:52 - CONCLUSION: Chronic left lower lobe opacity/atelectasis. No acute findings. No focal areas of consolidation. Jorge Baer MD Objective Remarks GENERAL: Very pleasant female in no acute distress. HEENT: PERRLA, EOMI. No scleral icterus or conjunctival pallor. No lid lag or facial droop. CARDIOVASCULAR: Regular rate and rhythm. No obvious murmurs to auscultation. No chest tenderness to palpation. RESPIRATORY: No obvious rhonchi or wheezing. Clear to auscultation. Breath sounds equal bilaterally. GASTROINTESTINAL: Abdomen soft, non-tender, nondistended. BS normal. MUSCULOSKELETAL: Extremities without clubbing, cyanosis, or edema. No obvious deformities. NEUROLOGICAL: Awake, alert and oriented x4. No focal neurologic deficits. Moving both upper and lower extremities spontaneously. PSYCH: Mood and affect appropriate. Medications and IVs Current Medications Medications (Trade) Dose Ordered Sig/Galilea Route Start Time Stop Time Status Last Admin (NS Flush) 2 ml UNSCH PRN IV FLUSH 07/24/17 02:30 (NS Flush) 2 ml BID IV FLUSH 07/24/17 09:00 07/25/17 08:21 (Zofran Inj) 4 mg Q6H PRN IVP 07/24/17 02:30 (Tylenol) 650 mg Q6H PRN PO 07/24/17 02:30 ([place] 5-325 Mg) 1 tab Q4H PRN PO 07/24/17 02:30 ([place] 10-325 Mg) 1 tab Q4H PRN PO 07/24/17 02:30 07/26/17 10:26 (Kae-Colace) 1 tab BID PO 07/24/17 09:00 07/26/17 08:29 (Milk Of Magnesia Liq) 30 ml Q12H PRN PO 07/24/17 02:30 (Senokot) 17.2 mg Q12H PRN PO 07/24/17 02:30 (Dulcolax Supp) 10 mg DAILY PRN RECTAL 07/24/17 02:30 (Lactulose Liq) 30 ml DAILY PRN PO 07/24/17 02:30 (Xanax) 0.5 mg DAILY PRN PO 07/24/17 02:30 07/26/17 08:29 (Ecotrin Ec) 81 mg DAILY PO 07/24/17 09:00 07/26/17 08:28 (Lipitor) 10 mg HS PO 07/24/17 21:00 07/25/17 20:23 (Plavix) 75 mg DAILY PO 07/24/17 09:00 07/26/17 08:28 (Apresoline Inj) 10 mg Q4H PRN IV PUSH 07/24/17 11:30 (Estradiol) 0.5 mg DAILY PO 07/24/17 11:45 07/26/17 08:29 (Pepcid) 10 mg BID PO 07/24/17 11:45 07/26/17 08:29 (Apresoline) 50 mg Q8HR PO 07/24/17 14:00 07/26/17 05:43 (Procardia Xl) 60 mg BID PO 07/24/17 11:45 07/26/17 08:28 (Coreg) 6.25 mg Q12HR PO 07/24/17 21:00 07/26/17 08:28 A/P Problem List: (1) Syncope ICD Code: R55 - Syncope and collapse (2) Elevated troponin ICD Code: R74.8 - Abnormal levels of other serum enzymes (3) Hypokalemia ICD Code: E87.6 - Hypokalemia (4) LEYDI (acute kidney injury) ICD Code: N17.9 - Acute kidney failure, unspecified Assessment and Plan Syncope/ elevated troponin Acute syncopal event, pt denies prior lightheadedness/dizziness. Head CT and CXR without acute process. Echo 01/03/17 w/ EF 65-70%. EKG w/ no acute ischemia. No chest pain. Trops are chronically elevated. Cardiology consult appreciated. Possibly exacerbated by bradycardia. - decrease Coreg. Hold clonidine. - repeat echo pending. - follow up with cardiology. Continue cardiac regimen. Outpt follow-up for possible long-term rhythm analysis. - PT. Hypokalemia/ Hypoglycemia K+ 2.5 on admission. Possibly s/t torsemide and dehydration. Requiring D5 with KCl. - d/c IVFs and encourage PO intake. - hold torsemide. LEYDI Acute on Chronic. Creatinine 2.05, previously 1.41 on 01/19/17. Improving. - d/c IVF for hydration. - hold torsemide. DVT Prophylaxis: SCD/Teds Discharge Planning Await echo. D/c in AM with [facility] if potassium and glucose remain stable off of fluids Taco Alberto DO Jul 26, 2017 12:13
--- NOTE | 2017-07-26 19:04 | ECHRPT ---
Indication: SYNCOPE CONCLUSIONS Normal left ventricular size. Mild concentric left ventricular hypertrophy. The left ventricular systolic function is normal (EF 60%). The left atrial size is mildly dilated. The right atrial size is mildly dilated. [id number] mitral valve regurgitation. Aortic valve sclerosis is present. There is trace tricuspid valve regurgitation. A right sided pleural effusion is present. BP: / HR: Rhythm: Sinus MEASUREMENTS (Male / Female) Normal Values Technical Quality:Fair 2D ECHO LV Diastolic Diameter PLAX 4.3 cm 4.2 - 5.9 / 3.9 - 5.3 cm LV Systolic Diameter PLAX 2.6 cm IVS Diastolic Thickness 1.4 cm 0.6 - 1.0 / 0.6 - 0.9 cm LVPW Diastolic Thickness 1.4 cm 0.6 - 1.0 / 0.6 - 0.9 cm LV Relative Wall Thickness 0.6 RV Internal Dim ED PLAX 2.5 cm LVOT Diameter 1.7 cm Aortic Root Diameter 2.9 cm LA Systolic Diameter LX 3.3 cm 3.0 - 4.0 / 2.7 - 3.8 cm M-MODE AV Cusp Separation MM 1.8 cm DOPPLER AV Peak Velocity 142.0 cm/s AV Peak Gradient 8.1 mmHg AV Mean Gradient 4.0 mmHg AV Velocity Time Integral 28.6 cm LVOT Peak Velocity 72.2 cm/s LVOT Peak Gradient 2.1 mmHg LVOT Velocity Time Integral 13.1 cm AV Area Cont Eq vti 1.0 cm AV Area Cont Eq pk 1.2 cm Mitral E Point Velocity 59.7 cm/s Mitral A Point Velocity 86.9 cm/s Mitral E to A Ratio 0.7 LV E' Lateral Velocity 5.7 cm/s Mitral E to LV E' Lateral Ratio 10.6 LV E' Septal Velocity 4.1 cm/s Mitral E to LV E' Septal Ratio 14.6 PV Peak Velocity 69.2 cm/s PV Peak Gradient 1.9 mmHg FINDINGS LEFT VENTRICLE Normal left ventricular size. Mild concentric left ventricular hypertrophy. The left ventricular systolic function is normal (EF 60%). RIGHT VENTRICLE Normal right ventricular size and systolic function. LEFT ATRIUM The left atrial size is mildly dilated. RIGHT ATRIUM The right atrial size is mildly dilated. ATRIAL SEPTUM No atrial level shunt is demonstrated by color flow Doppler interrogation. AORTA The aortic root and proximal ascending aorta are not well visualized. MITRAL VALVE [id number] mitral valve regurgitation. AORTIC VALVE Aortic valve sclerosis is present. TRICUSPID VALVE There is trace tricuspid valve regurgitation. PULMONARY VALVE No pulmonary valve regurgitation or stenosis. VESSELS The inferior vena cava is normal in size. PERICARDIUM No pericardial effusion. A right sided pleural effusion is present. Lennie Reid MD, FACC (Electronically Signed) Final Date:26 July 2017 19:04
[2017-07-26] MEDS: ATORVASTATIN 10 MG TAB PO SCH (20:22)
[2017-07-27] VITALS (18 sets, daily range): BP systolic 142–164; BP diastolic 68–71; PULSE 56–75; RESP 20; TEMP 98–98.1; O2SAT 96
[2017-07-27] MEDS: hydrALAZINE HCL 50 MG TAB PO SCH ×2 (05:39→13:46)
[2017-07-27 06:22] LABS: BICARBONATE 24.7 MEQ/L (21.0-32.0); CALCIUM 9.5 MG/DL (8.5-10.1); CREATININE 1.02 MG/DL (0.50-1.00); MAGNESIUM 1.7 MG/DL (1.5-2.5); PHOSPHORUS 1.8 MG/DL (2.5-4.9)
[2017-07-27] MEDS: ACETAMINOPHEN/HYDROcodone 325 MG/10 MG TAB PO PRN ×2 (09:24→16:10)
[2017-07-27] MEDS: ESTRADIOL 1 MG TAB PO SCH (09:25)
[2017-07-27] MEDS: ASPIRIN EC 81 MG TABEC PO SCH (09:25)
[2017-07-27] MEDS: CLOPIDOGREL 75 MG TAB PO SCH (09:25)
[2017-07-27] MEDS: NIFEdipine 60 MG SUSTAINED RELEASE TAB PO SCH (09:26)
[2017-07-27] MEDS: CARVEDILOL 6.25 MG TAB PO SCH (09:28)
[2017-07-27] MEDS: DOCUSATE SODIUM 50 MG/SENNA 8.6 MG TAB PO SCH (09:28)
[2017-07-27] MEDS: SODIUM CHLORIDE 0.9% FLUSH 10 ML FLUSH IV FLUSH SCH (09:28)
[2017-07-27] MEDS: FAMOTIDINE 20 MG TAB PO SCH (09:28)
[2017-07-27] MEDS: ALPRAZolam 0.5 MG TAB PO PRN (09:31)
--- NOTE | 2017-07-27 15:02 | HHI.PR ---
Subjective Remarks This is a 61-year-old female with a PMH of Anxiety, Depression, HTN, Hyperlipidemia, CAD and h/o CVA who was brought to the ER after syncopal event. Pt states she was having a conversation w/ her Sister In Law and doesn't remember anything else until now. Denies fever, chills, chest pain or SOB. States she was cleaning the house and "feeling good" all day. Family reports pt got up to go to the bathroom when she fell to the floor saying she was going to pass out. No seizure activity noted, no head trauma. On arrival, BP 159/73 , HR 63, O2 sat 98% on RA, Afebrile. CBC unremarkable. K+ 2.5. Creatinine 2.05, previously 1.41 on 01/19/2017. CPK 342. Troponin 0.13. EKG with no acute changes. UA negative for UTI. Patient currently without complaints. States she follows w/ Dr. Valenzuela as outpatient. 07-25 The pt was resting in a chair. She said she feels better. She is breathing comfortably and denies any chest pain. She says her chronic back pain got worse after passing out. Her questions were answered. Discussed with nursing. 07-26 The patient feels well. She has not had any further episodes of passing out or near passing out. She has been ambulating well. She says she normally uses a cane as an outpatient. Discussed with nursing and cardiology. 5 PATIENT HAS BEEN CLEARED BY CARDIOLOGY WANTS TO GO HOME DW CARDIOLOGY DW RN AND PT DC to home today Objective Vitals Vital Signs Date Time Temp Pulse Resp B/P (MAP) Pulse Ox O2 Delivery O2 Flow Rate FiO2 07/27/17 14:00 62 07/27/17 13:00 66 07/27/17 12:00 64 07/27/17 11:23 98.0 63 20 142/68 (92) 96 07/27/17 11:00 63 07/27/17 10:25 16 07/27/17 10:00 64 07/27/17 09:00 154/68 (96) 07/27/17 09:00 66 07/27/17 08:00 98.0 61 20 164/71 (102) 96 07/27/17 08:00 61 07/27/17 07:00 60 07/27/17 06:11 68 07/27/17 05:12 59 07/27/17 04:28 98.1 70 154/70 (98) 96 07/27/17 04:01 65 07/27/17 03:00 66 07/27/17 02:00 64 07/27/17 01:00 62 07/27/17 00:00 56 07/26/17 23:57 98.2 65 155/68 (97) 97 07/26/17 23:00 60 07/26/17 22:00 88 07/26/17 21:00 62 07/26/17 20:00 60 07/26/17 19:00 60 07/26/17 19:00 98.0 65 158/74 (102) 98 07/26/17 18:48 63 07/26/17 17:09 60 07/26/17 16:00 61 07/26/17 15:02 98.2 57 16 153/66 (95) 99 07/26/17 15:02 57 I/O 07/26/17 07/26/17 07/26/17 07/27/17 07/27/17 07/27/17 07:00 15:00 23:00 07:00 15:00 23:00 Intake Total 240 ml 500 ml 600 ml 600 ml Output Total 2700 ml 800 ml 1150 ml Balance -2460 ml 500 ml -200 ml -550 ml Intake Oral 240 ml 600 ml 600 ml IV Total 500 ml Output Urine Total 2700 ml 800 ml 1150 ml # Voids 3 # Bowel Movements 0 1 Result Diagram: 07/25/17 0454 07/27/17 0534 Other Results Laboratory Tests Test 07/25/17 04:54 07/26/17 03:51 07/27/17 05:34 White Blood Count 6.7 TH/MM3 Red Blood Count 5.19 MIL/MM3 Hemoglobin 11.5 GM/DL Hematocrit 35.9 % Mean Corpuscular Volume 69.2 FL Mean Corpuscular Hemoglobin 22.2 PG Mean Corpuscular Hemoglobin Concent 32.0 % Red Cell Distribution Width 16.6 % Platelet Count 245 TH/MM3 Mean Platelet Volume 8.1 FL Neutrophils (%) (Auto) 49.5 % Lymphocytes (%) (Auto) 38.6 % Monocytes (%) (Auto) 8.8 % Eosinophils (%) (Auto) 2.6 % Basophils (%) (Auto) 0.5 % Neutrophils # (Auto) 3.3 TH/MM3 Lymphocytes # (Auto) 2.6 TH/MM3 Monocytes # (Auto) 0.6 TH/MM3 Eosinophils # (Auto) 0.2 TH/MM3 Basophils # (Auto) 0.0 TH/MM3 CBC Comment DIFF FINAL Differential Comment Blood Urea Nitrogen 21 MG/DL 13 MG/DL 8 MG/DL Creatinine 1.37 MG/DL 1.17 MG/DL 1.02 MG/DL Random Glucose 127 MG/DL 105 MG/DL 97 MG/DL Total Protein 6.8 GM/DL Albumin 3.3 GM/DL Calcium Level 9.4 MG/DL 9.1 MG/DL 9.5 MG/DL Alkaline Phosphatase 56 U/L Aspartate Amino Transf (AST/SGOT) 18 U/L Alanine Aminotransferase (ALT/SGPT) 21 U/L Total Bilirubin 0.3 MG/DL Sodium Level 141 MEQ/L 140 MEQ/L 141 MEQ/L Potassium Level 3.0 MEQ/L 3.3 MEQ/L 3.5 MEQ/L Chloride Level 102 MEQ/L 104 MEQ/L 108 MEQ/L Carbon Dioxide Level 28.9 MEQ/L 28.5 MEQ/L 24.7 MEQ/L Anion Gap 10 MEQ/L 8 MEQ/L 8 MEQ/L Estimat Glomerular Filtration Rate 48 ML/MIN 57 ML/MIN 67 ML/MIN Magnesium Level 1.6 MG/DL 1.7 MG/DL Phosphorus Level 1.8 MG/DL Imaging Last Impressions Thoracic Spine X-Ray 07/25/17 0000 Signed Impressions: Service Date/Time: Tuesday, July 25, 2017 15:47 - CONCLUSION: 1. No acute fracture or subluxation. Moises Ambrose MD Head CT 07/24/17 0000 Signed Impressions: Service Date/Time: Monday, July 24, 2017 03:28 - CONCLUSION: 1. No new findings in the brain. 2. Stable diffuse supratentorial white matter ischemic change. Jorge Baer MD Chest X-Ray 07/24/17 0000 Signed Impressions: Service Date/Time: Monday, July 24, 2017 02:52 - CONCLUSION: Chronic left lower lobe opacity/atelectasis. No acute findings. No focal areas of consolidation. Jorge Baer MD Objective Remarks GENERAL: Awake alert and oriented 3 talkative and cooperative SKIN: Warm and dry. HEAD: Atraumatic. Normocephalic. EYES: Pupils equal and round. No scleral icterus. No injection or drainage. Extraocular muscles intact tongue is midline ENT: No nasal bleeding or discharge. Mucous membranes pink and moist. Tongue is midline NECK: Trachea midline. No JVD. Supple S1-S2 no S3 or S4 CARDIOVASCULAR: Regular rate and rhythm. RESPIRATORY: No accessory muscle use. Clear to auscultation. Breath sounds equal bilaterally. GASTROINTESTINAL: Abdomen soft, non-tender, nondistended. Hepatic and splenic margins not palpable. MUSCULOSKELETAL: Extremities without clubbing, cyanosis, or edema. No obvious deformities. NEUROLOGICAL: Awake and alert. No obvious cranial nerve deficits. Motor grossly within normal limits. Five out of 5 muscle strength in the arms and legs. Normal speech. PSYCHIATRIC: Appropriate mood and affect; insight and judgment normal. Procedures NONE Medications and IVs Current Medications Sodium Chloride 500 ml @ 500 mls/hr BOLUS ONCE IV Last administered on at 00:05; Start 07/24/17 at 00:00; Stop 07/24/17 at 00:59; Status DC Aspirin (Aspirin Chew) 162 mg ONCE ONCE CHEW Last administered on 07/24/17 01 :02; Start 07/24/17 at 01:00; Stop 07/24/17 at 01:01; Status DC Potassium Chloride (KCl) 40 meq ONCE ONCE PO Last administered on 07/24/17at 01 :02; Start 07/24/17 at 01:00; Stop 07/24/17 at 01:01; Status DC Potassium Chloride/Dextrose/ Sod Cl 1,000 ml @ 125 mls/hr Q8H IV Last administered on 07/24/17at 02:20; Start 07/24/17 at 01:45; Stop 07/24/17 at 02:30 ; Status DC Morphine Sulfate (Morphine Inj) 2 mg ONCE ONCE IV PUSH Last administered on at 02:20; Start 07/24/17 at 01:45; Stop 07/24/17 at 01:46; Status DC Diphenhydramine HCl (Benadryl Inj) 25 mg ONCE ONCE IV PUSH Last administered on 07/24/17at 02:20; Start 07/24/17 at 02:15; Stop 07/24/17 at 02:17; Status DC Sodium Chloride 1,000 ml @ 100 mls/hr Q10H IV Last administered on 07/24/17at 02:49; Start 07/24/17 at 02:24; Stop 07/24/17 at 15:59; Status DC Sodium Chloride (NS Flush) 2 ml UNSCH PRN IV FLUSH FLUSH AFTER USING IV ACCESS ; Start 07/24/17 at 02:30 Sodium Chloride (NS Flush) 2 ml BID IV FLUSH Last administered on 07/27/17at 09: 28; Start 07/24/17 at 09:00 Ondansetron HCl (Zofran Inj) 4 mg Q6H PRN IVP NAUSEA OR VOMITING; Start at 02:30 Acetaminophen (Tylenol) 650 mg Q6H PRN PO FEVER/PAIN SCALE 1 TO 2; Start at 02:30 Acetaminophen/ Hydrocodone Bitart ([place] 5-325 Mg) 1 tab Q4H PRN PO PAIN SCALE 3 TO 5; Start 07/24/17 at 02:30 Acetaminophen/ Hydrocodone Bitart ([place] 10-325 Mg) 1 tab Q4H PRN PO PAIN SCALE 6 TO 10 Last administered on 07/27/17at 09:24; Start 07/24/17 at 02:30 Senna/Docusate Sodium (Kae-Colace) 1 tab BID PO Last administered on 07/27/17at 09:28; Start 07/24/17 at 09:00 Magnesium Hydroxide (Milk Of Magnesia Liq) 30 ml Q12H PRN PO Mild constipation ; Start 07/24/17 at 02:30 Sennosides (Senokot) 17.2 mg Q12H PRN PO Moderate constipation; Start 07/24/17 at 02:30 Bisacodyl (Dulcolax Supp) 10 mg DAILY PRN RECTAL SEVERE CONSITIPATION/ IF NPO; Start 07/24/17 at 02:30 Lactulose (Lactulose Liq) 30 ml DAILY PRN PO SEVERE CONSITIPATION/ IF PO; Start 07/24/17 at 02:30 Alprazolam (Xanax) 0.5 mg DAILY PRN PO ANXIETY Last administered on 07/27/17at 09 :31; Start 07/24/17 at 02:30 Aspirin (Ecotrin Ec) 81 mg DAILY PO Last administered on 07/27/17 09:25; Start 07/24/17 at 09:00 Atorvastatin Calcium (Lipitor) 10 mg HS PO Last administered on 07/26/17at 20:22 ; Start 07/24/17 at 21:00 Carvedilol (Coreg) 12.5 mg Q12HR PO ; Start 07/24/17 at 09:00; Stop 07/24/17 at 11:48; Status DC Clopidogrel Bisulfate (Plavix) 75 mg DAILY PO Last administered on 07/27/17 09: 25; Start 07/24/17 at 09:00 Hydralazine HCl (Apresoline Inj) 10 mg Q4H PRN IV PUSH SBP>180, DBP>100; Start 07/24/17 at 11:30 Amlodipine Besylate (Norvasc) 5 mg DAILY PO ; Start 07/24/17 at 11:45; Stop at 11:45; Status DC Estradiol (Estradiol) 0.5 mg DAILY PO Last administered on 07/27/17 09:25; Start 07/24/17 at 11:45 Famotidine (Pepcid) 10 mg BID PO Last administered on 07/27/17 09:28; Start at 11:45 Hydralazine HCl (Apresoline) 50 mg Q8HR PO Last administered on 07/27/17at 13:46 ; Start 07/24/17 at 14:00 Nifedipine (Procardia Xl) 60 mg BID PO Last administered on 07/27/17 09:26; Start 07/24/17 at 11:45 Torsemide (Demadex) 10 mg BID@09,18 PO Last administered on 07/25/17 08:20; Start 07/24/17 at 18:00; Stop 07/25/17 at 11:58; Status DC Carvedilol (Coreg) 6.25 mg Q12HR PO Last administered on 07/27/17 09:28; Start 07/24/17 at 21:00 Potassium Chloride/Dextrose/ Sod Cl 1,000 ml @ 100 mls/hr Q10H IV Last administered on 07/26/17 07:16; Start 07/24/17 at 16:00; Stop 07/26/17 at 12:07 ; Status DC Potassium Chloride (KCl) 20 meq ONCE ONCE PO Last administered on 07/24/17at 16 :24; Start 07/24/17 at 16:00; Stop 07/24/17 at 16:01; Status DC Potassium Bicarb/ Potassium Chloride (K-[place] Cl Eff) 50 meq ONCE ONCE PO Last administered on 07/25/17at 09:02; Start 07/25/17 at 09:00; Stop 07/25/17 at 09:01; Status DC Potassium Bicarb/ Potassium Chloride (K-[place] Cl Eff) 50 meq ONCE ONCE PO Last administered on 07/26/17at 10:26; Start 07/26/17 at 10:00; Stop 07/26/17 at 10:11; Status DC A/P Problem List: (1) Syncope ICD Code: R55 - Syncope and collapse (2) Elevated troponin ICD Code: R74.8 - Abnormal levels of other serum enzymes (3) Hypokalemia ICD Code: E87.6 - Hypokalemia (4) LEYDI (acute kidney injury) ICD Code: N17.9 - Acute kidney failure, unspecified Assessment and Plan Syncope/ elevated troponin Acute syncopal event, pt denies prior lightheadedness/dizziness. Head CT and CXR without acute process. Echo 01/03/17 w/ EF 65-70%. EKG w/ no acute ischemia. No chest pain. Trops are chronically elevated. Cardiology consult appreciated. Possibly exacerbated by bradycardia. - decrease Coreg. Hold clonidine. - repeat echo pending. - follow up with cardiology. Continue cardiac regimen. Outpt follow-up for possible long-term rhythm analysis. - PT. Hypokalemia/ Hypoglycemia K+ 2.5 on admission. Possibly s/t torsemide and dehydration. Requiring D5 with KCl. - d/c IVFs and encourage PO intake. - hold torsemide. LEYDI Acute on Chronic. Creatinine 2.05, previously 1.41 on 01/19/17. Improving. - d/c IVF for hydration. - hold torsemide. DVT Prophylaxis: SCD/Teds CLEARED BY CARDIOLOGY FOR DC TO HOME Echo is stable Follow-up with Dr. Serrano Discharge Planning DC to home today Nelson Solis DO July 27, 2017 15:02
[2017-07-27] MEDS ORDERED: ALPR0.5T3 PO (15:05)
[2017-07-27] MEDS ORDERED: CARV6.25 PO (15:05)
[2017-07-27] MEDS ORDERED: POTA-163 PO (15:05)
--- NOTE | 2017-07-27 15:06 | HHI.FF ---
Face to Face Verification Diagnosis: (1) Essential hypertension (2) Dehydration (3) LEYDI (acute kidney injury) (4) Syncope (5) Elevated troponin (6) Hypokalemia (7) Coronary artery disease (8) Accelerated hypertension (9) GERD Physical Therapy Order: Evaluate and Treat, Improve ambulation, Strength and gait training Occupational Therapy Order: Evaluate and Treat, Gross motor coordination, Fine motor coordination Home Health Nursing Order: Medical education Signs/symptoms of disease process Nursing assessment with vital signs Home Health Aide Order: To Assist In: Bathing and personal care, gardener florist and meal prep I have seen patient Vivian Guillen on 07/27/17. My clinical findings support the need for the requested home health care services because: Deconditioned w/ increased weakness I certify that my clinical findings support that this patient is homebound because: Unsteady gait/balance Nelson Solis DO July 27, 2017 15:06
--- NOTE | 2017-07-27 15:08 | HHI.DS ---
Discharge Summary Admission Date Jul 24, 2017 at 02:35 Discharge Date: July 27, 2017 Admitting Diagnosis low potassium and elevated trop (1) Syncope ICD Code: R55 - Syncope and collapse Diagnosis: Principal (2) Elevated troponin ICD Code: R74.8 - Abnormal levels of other serum enzymes Diagnosis: Principal (3) Hypokalemia ICD Code: E87.6 - Hypokalemia Diagnosis: Principal (4) LEYDI (acute kidney injury) ICD Code: N17.9 - Acute kidney failure, unspecified Diagnosis: Principal Procedures NONE Brief History - From Admission This is a 61-year-old female with a PMH of Anxiety, Depression, HTN, Hyperlipidemia, CAD and h/o CVA who was brought to the ER after syncopal event. Pt states she was having a conversation w/ her Sister In Law and doesn't remember anything else until now. Denies fever, chills, chest pain or SOB. States she was cleaning the house and "feeling good" all day. Family reports pt got up to go to the bathroom when she fell to the floor saying she was going to pass out. No seizure activity noted, no head trauma. On arrival, BP 159/73 , HR 63, O2 sat 98% on RA, Afebrile. CBC unremarkable. K+ 2.5. Creatinine 2.05, previously 1.41 on 01/19/2017. CPK 342. Troponin 0.13. EKG with no acute changes. UA negative for UTI. Patient currently without complaints. States she follows w/ Dr. Valenzuela as outpatient. CBC/BMP: 07/25/17 0454 07/27/17 0534 Significant Findings Laboratory Tests Test 07/25/17 04:54 07/26/17 03:51 07/27/17 05:34 Hemoglobin 11.5 GM/DL (11.6-15.3) Mean Corpuscular Volume 69.2 FL (80.0-100.0) Mean Corpuscular Hemoglobin 22.2 PG (27.0-34.0) Monocytes (%) (Auto) 8.8 % (0.0-8.0) Blood Urea Nitrogen 21 MG/DL (7-18) Creatinine 1.37 MG/DL (0.50-1.00) 1.17 MG/DL (0.50-1.00) 1.02 MG/DL (0.50-1.00) Random Glucose 127 MG/DL (74-106) Albumin 3.3 GM/DL (3.4-5.0) Potassium Level 3.0 MEQ/L (3.5-5.1) 3.3 MEQ/L (3.5-5.1) Estimat Glomerular Filtration Rate 48 ML/MIN (>89) 57 ML/MIN (>89) 67 ML/MIN (>89) Phosphorus Level 1.8 MG/DL (2.5-4.9) Chloride Level 108 MEQ/L (98-107) Imaging Last Impressions Thoracic Spine X-Ray 07/25/17 0000 Signed Impressions: Service Date/Time: Tuesday, July 25, 2017 15:47 - CONCLUSION: 1. No acute fracture or subluxation. Moises Ambrose MD Head CT 07/24/17 0000 Signed Impressions: Service Date/Time: Monday, July 24, 2017 03:28 - CONCLUSION: 1. No new findings in the brain. 2. Stable diffuse supratentorial white matter ischemic change. Jorge Baer MD Chest X-Ray 07/24/17 0000 Signed Impressions: Service Date/Time: Monday, July 24, 2017 02:52 - CONCLUSION: Chronic left lower lobe opacity/atelectasis. No acute findings. No focal areas of consolidation. Jorge Baer MD PE at Discharge GENERAL: Awake alert and oriented 3 talkative and cooperative SKIN: Warm and dry. HEAD: Atraumatic. Normocephalic. EYES: Pupils equal and round. No scleral icterus. No injection or drainage. Extraocular muscles intact tongue is midline ENT: No nasal bleeding or discharge. Mucous membranes pink and moist. Tongue is midline NECK: Trachea midline. No JVD. Supple S1-S2 no S3 or S4 CARDIOVASCULAR: Regular rate and rhythm. RESPIRATORY: No accessory muscle use. Clear to auscultation. Breath sounds equal bilaterally. GASTROINTESTINAL: Abdomen soft, non-tender, nondistended. Hepatic and splenic margins not palpable. MUSCULOSKELETAL: Extremities without clubbing, cyanosis, or edema. No obvious deformities. NEUROLOGICAL: Awake and alert. No obvious cranial nerve deficits. Motor grossly within normal limits. Five out of 5 muscle strength in the arms and legs. Normal speech. PSYCHIATRIC: Appropriate mood and affect; insight and judgment normal. Hospital Course This is a 61-year-old female with a PMH of Anxiety, Depression, HTN, Hyperlipidemia, CAD and h/o CVA who was brought to the ER after syncopal event. Pt states she was having a conversation w/ her Sister In Law and doesn't remember anything else until now. Denies fever, chills, chest pain or SOB. States she was cleaning the house and "feeling good" all day. Family reports pt got up to go to the bathroom when she fell to the floor saying she was going to pass out. No seizure activity noted, no head trauma. On arrival, BP 159/73 , HR 63, O2 sat 98% on RA, Afebrile. CBC unremarkable. K+ 2.5. Creatinine 2.05, previously 1.41 on 01/19/2017. CPK 342. Troponin 0.13. EKG with no acute changes. UA negative for UTI. Patient currently without complaints. States she follows w/ Dr. Valenzuela as outpatient. 4-29 The pt was resting in a chair. She said she feels better. She is breathing comfortably and denies any chest pain. She says her chronic back pain got worse after passing out. Her questions were answered. Discussed with nursing. 4-30 The patient feels well. She has not had any further episodes of passing out or near passing out. She has been ambulating well. She says she normally uses a cane as an outpatient. Discussed with nursing and cardiology. 5-1 PATIENT HAS BEEN CLEARED BY CARDIOLOGY WANTS TO GO HOME DW CARDIOLOGY DW RN AND PT Echo is stable DC to home today Pt Condition on Discharge: Good Discharge Disposition: Disch w/ Home Health Serv Discharge Time: > 30 minutes Discharge Instructions DIET: Follow Instructions for: Heart Healthy Diet Speech Therapy-Diet Recommends: Regular Activities you can perform: Weight Bearing as Angie Follow up Referrals: Cardiology, Interventional - 2 Weeks with Alessandro Serrano DO PCP Follow-up - 07/30/17 New Medications: Potassium Chloride ER (Potassium Chloride ER) 20 Meq Tab 20 MEQ PO DAILY for Electrolyte Replacement, #30 TAB 0 Refills Carvedilol (Coreg) 6.25 Mg Tab 6.25 MG PO Q12HR for Blood Pressure Management, #60 TAB Continued Medications: Alprazolam (Alprazolam) 0.5 Mg Tab 0.5 MG PO DAILY PRN for ANXIETY, #20 TAB 0 Refills (This prescription has been renewed) Aspirin DR (Adult Aspirin EC Low Strength) 81 Mg Tabec 81 MG PO DAILY for proph, #30 TAB Atorvastatin (Lipitor) 10 Mg Tab 10 MG PO HS for Cholesterol Management, #90 TAB 3 Refills Clopidogrel (Plavix) 75 Mg Tab 75 MG PO DAILY for Blood Clot Prevention, #30 TAB 3 Refills Estradiol (Estradiol) 0.5 Mg Tab 0.5 MG PO DAILY for Estrogen Supplements, #30 TAB 0 Refills Famotidine (Pepcid) 20 Mg Tab 10 MG PO BID for Regulate Heart Beat, #60 TAB 0 Refills Hydralazine HCl (Hydralazine HCl) 50 Mg Tablet 50 MG PO Q8HR for Blood Pressure Management, #90 TAB 3 Refills Hydrocodone-Acetaminophen (Hydrocodone-Acetaminophen) 10-325 mg Tab 1 TAB PO BID PRN for PAIN, #60 TAB 0 Refills Nifedipine ER 24 HR (Nifedipine ER 24 HR) 60 Mg Tab 60 MG PO BID for Blood Pressure Management, #60 TAB 2 Refills Torsemide (Torsemide) 5 Mg Tab 10 MG PO BID@09,18 for Blood Pressure Management, #60 TAB Discontinued Medications: Carvedilol (Coreg) 12.5 Mg Tab 12.5 MG PO Q12HR for Blood Pressure Management, #60 TAB 3 Refills Nelson Solis DO July 27, 2017 15:08
[2017-07-27] MEDS ORDERED: HYDR-3583 PO (15:38)
--- NOTE | 2017-07-27 23:26 | PD.CARD.PN ---
Subjective Subjective Remarks Patient was seen earlier today, late entry note No events overnight Up and moving without a problem Objective Vital Signs / I&O Vital Signs Date Time Temp Pulse Resp B/P (MAP) Pulse Ox O2 Delivery O2 Flow Rate FiO2 07/27/17 15:00 75 07/27/17 14:00 62 07/27/17 13:00 66 07/27/17 12:00 64 07/27/17 11:23 98.0 63 20 142/68 (92) 96 07/27/17 11:00 63 07/27/17 10:25 16 07/27/17 10:00 64 07/27/17 09:00 154/68 (96) 07/27/17 09:00 66 07/27/17 08:00 98.0 61 20 164/71 (102) 96 07/27/17 08:00 61 07/27/17 07:00 60 07/27/17 06:11 68 07/27/17 05:12 59 07/27/17 04:28 98.1 70 154/70 (98) 96 07/27/17 04:01 65 07/27/17 03:00 66 07/27/17 02:00 64 07/27/17 01:00 62 07/27/17 00:00 56 07/26/17 23:57 98.2 65 155/68 (97) 97 I/O 07/27/17 07/27/17 07/27/17 07/28/17 07/28/17 07/28/17 07:00 15:00 23:00 07:00 15:00 23:00 Intake Total 600 ml 750 ml Output Total 1150 ml 700 ml Balance -550 ml 50 ml Intake Oral 600 ml 750 ml Output Urine Total 1150 ml 700 ml # Bowel Movements 0 Physical Exam GENERAL: NAD, AAOx3 SKIN: Warm and dry. HEAD: Atraumatic. Normocephalic. EYES: Pupils equal and round. No scleral icterus. No injection or drainage. ENT: No nasal bleeding or discharge. Mucous membranes pink and moist. NECK: Trachea midline. No JVD. CARDIOVASCULAR: Regular rate and rhythm. RESPIRATORY: No accessory muscle use. Clear to auscultation. Breath sounds equal bilaterally. GASTROINTESTINAL: Abdomen soft, non-tender, nondistended. Hepatic and splenic margins not palpable. MUSCULOSKELETAL: Extremities without clubbing, cyanosis, or edema. No obvious deformities. NEUROLOGICAL: Awake and alert. No obvious cranial nerve deficits. Motor grossly within normal limits. Five out of 5 muscle strength in the arms and legs. Normal speech. PSYCHIATRIC: Appropriate mood and affect; insight and judgment normal. Laboratory Laboratory Tests Test 07/27/17 05:34 Blood Urea Nitrogen 8 MG/DL Creatinine 1.02 MG/DL Random Glucose 97 MG/DL Calcium Level 9.5 MG/DL Phosphorus Level 1.8 MG/DL Magnesium Level 1.7 MG/DL Sodium Level 141 MEQ/L Potassium Level 3.5 MEQ/L Chloride Level 108 MEQ/L Carbon Dioxide Level 24.7 MEQ/L Anion Gap 8 MEQ/L Estimat Glomerular Filtration Rate 67 ML/MIN Assessment and Plan Problem List: (1) Syncope ICD Codes: R55 - Syncope and collapse (2) Dehydration ICD Codes: E86.0 - Dehydration (3) LEYDI (acute kidney injury) ICD Codes: N17.9 - Acute kidney failure, unspecified (4) Elevated troponin ICD Codes: R74.8 - Abnormal levels of other serum enzymes (5) Essential hypertension Status: Chronic Assessment and Plan 1) Syncope Difficult to ascertain the cause as does not remember the episode Overall dehydrated with LEYDI Bradycardia on BB, decreased dose 2) EF 60% 3) Elevated troponin Chronic going back to 2013 Negative stress test 12/2016 4) If no cause noted, consideration of outpatient fpc rhythm analysis 5) Cardiovascularly stable for discharge, set up for follow up with me in the office Alessandro Serrano DO July 27, 2017 23:26
== END 2017-07-27 16:25 | disposition home health service (06) | DRG 684 ==
LOC: NEPE 23:32 → NEDA 07-24 02:35 → HCPC 07-24 03:39
PROVIDERS: ADMIT Hospitalist; ATTEND Hospitalist
DX: N17.9 Acute kidney failure, unspecified (principal); I12.9 Hypertensive chronic kidney disease with stage 1 through stage 4 chronic kidney disease, or unspecified chronic kidney disease; R55 Syncope and collapse; E86.0 Dehydration; R00.1 Bradycardia, unspecified; E78.5 Hyperlipidemia, unspecified; N18.9 Chronic kidney disease, unspecified; I25.2 Old myocardial infarction; E87.6 Hypokalemia; I25.10 Atherosclerotic heart disease of native coronary artery without angina pectoris; E16.2 Hypoglycemia, unspecified; R74.8 Abnormal levels of other serum enzymes; M19.90 Unspecified osteoarthritis, unspecified site; F32.9 Major depressive disorder, single episode, unspecified; F41.9 Anxiety disorder, unspecified; Z86.73 Personal history of transient ischemic attack (TIA), and cerebral infarction without residual deficits; Z88.5 Allergy status to narcotic agent; Z95.5 Presence of coronary angioplasty implant and graft
CPT/HCPCS: 70450; 71045; 72072; 76937; 80048; 80053; 81001; 82550; 82552; 83690; 83735; 84100; 84443; 84484; 85025; 93005; 93306; 99285; J1200; J2270; J3480; J7030; J7040

== ENCOUNTER 2017-07-30 08:29 | Inpatient (IN) | payer OTHER, MEDICARE ==
[2017-07-30] VITALS (9 sets, daily range): BP systolic 179–203; BP diastolic 70–89; PULSE 62–99; RESP 16–20; TEMP 97.9–98.4; O2SAT 96–98
[~2017-07-30] VITALS: Ht 160 cm; Wt 75.9 kg
[~2017-07-30 08:29] MED LIST changes: -CARV12.5 PO; +CARV6.25 PO; +POTA-163 PO; -PRED10 PO
--- NOTE | 2017-07-30 08:55 | PD ---
HPI Chief Complaint: ams Time Seen by Provider: 08:47 Travel History International Travel<30 days: No Contact w/Intl Traveler<30days: No History of Present Illness HPI Patient is 61-year-old female with history of CVA, depression, anxiety, hyperlipidemia, CAD, presents to emergency room with EMS for evaluation of altered mental status. As per EMS, the family called EMS as they have noticed that patient was not acting like herself this morning. Patient had mismatched pair of shoes on, reports that she had repetitive language. As per EMS, patient was last seen normal yesterday. Patient was recently admitted to the hospital on July 16, 2017 and was discharged on July 27, 2017 for workup of syncope with elevated troponin. Patient unable to give me an atrial at this time, patient repeatedly says " in 2012" for all of my questions. PFSH Past Medical History Hx Anticoagulant Therapy: No Arthritis: Yes Asthma: No Autoimmune Disease: No Blood Disorders: Yes Anxiety: Yes Depression: Yes Heart Rhythm Problems: Yes Cancer: No Cardiac Catheterization: Yes (MAY 2013) Cardiovascular Problems: Yes High Cholesterol: Yes Chemotherapy: No Chest Pain: Yes Congestive Heart Failure: No COPD: No Cerebrovascular Accident: Yes Diabetes: No Diminished Hearing: No Endocrine: No Gastrointestinal Disorders: Yes GERD: No Genitourinary: No Headaches: Yes Hiatal Hernia: No Hypertension: Yes Immune Disorder: No Implanted Vascular Access Dvce: No Kidney Stones: No Musculoskeletal: Yes Neurologic: Yes (stroke in 2009) Psychiatric: Yes Reproductive: No Respiratory: Yes Immunizations Current: No Migraines: No Myocardial Infarction: Yes Radiation Therapy: No Renal Failure: No Seizures: No Sickle Cell Disease: No Sleep Apnea: No Thyroid Disease: No Ulcer: No PNEUMOCCOCAL Vaccine (Year): 2 Menopausal: Yes : 3 Para: 3 Tubal Ligation: Yes Past Surgical History Abdominal Surgery: Yes (gall bladder) AICD: No Arteriovenous Shunt: No Cardiac Surgery: Yes (stents x1 (1999)) Cholecystectomy: Yes Coronary Artery Bypass Graft: No Coronary Stent: Yes (X1) Ear Surgery: No Endocrine Surgery: No Eye Surgery: No Genitourinary Surgery: No Gynecologic Surgery: Yes (hysterectomy) Hysterectomy: Yes Insulin Pump: No Joint Replacement: No Neurologic Surgery: No Oral Surgery: No Pacemaker: No Thoracic Surgery: No Other Surgery: Yes (gallbladder removed, hysterectomy ) Social History Alcohol Use: No Tobacco Use: No Substance Use: No Allergies-Medications (Allergen,Severity, Reaction): Coded Allergies: meperidine (Unverified Allergy, Severe, HIVES, 07/30/17) morphine (Unverified Allergy, Severe, Itching, 07/30/17) DENIES ALLERGY TODAY 01/18/16 Iodinated Contrast- Oral and IV Dye (Verified Allergy, Unknown, 07/30/17) Reported Meds & Prescriptions Reported Meds & Active Scripts Active Hydrocodone-Acetamin 10-325 mg (Hydrocodone/Acetaminophen) 10 Mg-325 Mg Tablet 1 Tab PO Q4H PRN Potassium Chloride ER (Potassium Chloride) 20 Meq Tab 20 Meq PO DAILY Coreg (Carvedilol) 6.25 Mg Tab 6.25 Mg PO Q12HR Alprazolam 0.5 Mg Tab 0.5 Mg PO DAILY PRN Pepcid (Famotidine) 20 Mg Tab 10 Mg PO BID Torsemide 5 Mg Tab 10 Mg PO BID@09,18 Nifedipine ER 24 HR (Nifedipine) 60 Mg Tab 60 Mg PO BID Lipitor (Atorvastatin Calcium) 10 Mg Tab 10 Mg PO HS Plavix (Clopidogrel Bisulfate) 75 Mg Tab 75 Mg PO DAILY Hydralazine HCl 50 Mg Tablet 50 Mg PO Q8HR Wheelchair (Device) 1 Mis Mis Ea DIRECTED Adult Aspirin EC Low Strength (Aspirin) 81 Mg Tabec 81 Mg PO DAILY Reported Estradiol 0.5 Mg Tab 0.5 Mg PO DAILY Hydrocodone-Acetaminophen 10-325 mg Tab 1 Tab PO BID PRN Review of Systems ROS Limitations: Altered Mental Status, Poor Historian Physical Exam Exam Limitations: Altered Mental Status, Poor Historian Narrative GENERAL: Moderate distress SKIN: Focused skin assessment warm/dry. HEAD: Atraumatic. Normocephalic. EYES: Pupils equal and round. No scleral icterus. No injection or drainage. ENT: No nasal bleeding or discharge. Mucous membranes pink and moist. NECK: Trachea midline. No JVD. CARDIOVASCULAR: Regular rate and rhythm. No murmur appreciated. RESPIRATORY: No accessory muscle use. Clear to auscultation. Breath sounds equal bilaterally. GASTROINTESTINAL: Abdomen soft, non-tender, nondistended. Hepatic and splenic margins not palpable. MUSCULOSKELETAL: No obvious deformities. No clubbing. No cyanosis. No edema. NEUROLOGICAL: Awake and alert. No obvious cranial nerve deficits. Motor grossly within normal limits. PSYCHIATRIC: Anxious mood and affect Data Data Last Documented VS Vital Signs Date Time Temp Pulse Resp B/P (MAP) Pulse Ox O2 Delivery O2 Flow Rate FiO2 07/30/17 09:30 84 20 185/79 (114) 96 Room Air Orders Orders Electrocardiogram (07/30/17 08:47) Prothrombin Time / Inr (Pt) (07/30/17 08:47) Act Partial Throm Time (Ptt) (07/30/17 08:47) Complete Blood Count With Diff (07/30/17 08:47) Comprehensive Metabolic Panel (07/30/17 08:47) Creatine Kinase (Cpk) (07/30/17 08:47) Troponin I (07/30/17 08:47) Urinalysis - C+S If Indicated (07/30/17 08:47) Ct Brain W/O Iv Contrast(Rout) (07/30/17 08:47) Chest, Single Ap (07/30/17 08:47) Ecg Monitoring (07/30/17 08:47) Iv Access Insert/Monitor (07/30/17 08:47) Blood Glucose (07/30/17 08:47) Sodium Chloride 0.9% Flush (Ns Flush) (07/30/17 09:00) Drug Screen, Random Urine (07/30/17 08:58) Urine Culture (07/30/17 09:45) Aspirin Supp (Aspirin Supp) (07/30/17 10:15) Sodium Chlor 0.9% 1000 Ml Inj (Ns 1000 M (07/30/17 10:15) Potassium Chlor 20 Meq Premix (Kcl 20 Me (07/30/17 11:00) Labs Laboratory Tests Test 07/30/17 08:50 07/30/17 09:45 White Blood Count 12.4 TH/MM3 Red Blood Count 5.70 MIL/MM3 Hemoglobin 12.8 GM/DL Hematocrit 39.3 % Mean Corpuscular Volume 68.8 FL Mean Corpuscular Hemoglobin 22.4 PG Mean Corpuscular Hemoglobin Concent 32.5 % Red Cell Distribution Width 16.5 % Platelet Count 284 TH/MM3 Mean Platelet Volume 8.2 FL Neutrophils (%) (Auto) 76.0 % Lymphocytes (%) (Auto) 16.6 % Monocytes (%) (Auto) 6.7 % Eosinophils (%) (Auto) 0.2 % Basophils (%) (Auto) 0.5 % Neutrophils # (Auto) 9.4 TH/MM3 Lymphocytes # (Auto) 2.1 TH/MM3 Monocytes # (Auto) 0.8 TH/MM3 Eosinophils # (Auto) 0.0 TH/MM3 Basophils # (Auto) 0.1 TH/MM3 CBC Comment DIFF FINAL Differential Comment Prothrombin Time 10.8 SEC Prothromb Time International Ratio 1.1 RATIO Activated Partial Thromboplast Time 25.2 SEC Blood Urea Nitrogen 27 MG/DL Creatinine 2.04 MG/DL Random Glucose 133 MG/DL Total Protein 8.8 GM/DL Albumin 4.3 GM/DL Calcium Level 11.0 MG/DL Alkaline Phosphatase 69 U/L Aspartate Amino Transf (AST/SGOT) 19 U/L Alanine Aminotransferase (ALT/SGPT) 28 U/L Total Bilirubin 0.3 MG/DL Sodium Level 141 MEQ/L Potassium Level 3.0 MEQ/L Chloride Level 101 MEQ/L Carbon Dioxide Level 27.0 MEQ/L Anion Gap 13 MEQ/L Estimat Glomerular Filtration Rate 30 ML/MIN Total Creatine Kinase 181 U/L Troponin I 0.12 NG/ML Urine Color YELLOW Urine Turbidity CLEAR Urine pH 5.5 Urine Specific Centre 1.016 Urine Protein NEG mg/dL Urine Glucose (UA) NEG mg/dL Urine Ketones NEG mg/dL Urine Occult Blood NEG Urine Nitrite NEG Urine Bilirubin NEG Urine Urobilinogen 0.2 MG/DL Urine Leukocyte Esterase NEG Urine RBC 1 /hpf Urine WBC 1 /hpf Urine Squamous Epithelial Cells 1 /hpf Urine Bacteria RARE /hpf Urine Hyaline Casts 15 /lpf Microscopic Urinalysis Comment CATH-CULTURE IND MDM Medical Decision Making Medical Screen Exam Complete: Yes Emergency Medical Condition: Yes Medical Record Reviewed: Yes Interpretation(s) EKG at 0849: Normal sinus rhythm at 87 beats minute, QT/QTc 351/395, no acute ST or T-wave changes BS 130 Vital Signs Date Time Temp Pulse Resp B/P (MAP) Pulse Ox O2 Delivery O2 Flow Rate FiO2 07/30/17 08:41 99 192/89 (123) Differential Diagnosis CVA, TIA, ICH, electrolyte abnormality Narrative Course Patient is a 61-year-old female who presents the emergency room for evaluation of altered mental status. Patient was last seen normal yesterday, patient presents the emergency room with repetitive speech, patient unable to perform HPI. Stroke workup was initiated, patient is not a lytic candidate as patient was last seen normal yesterday, unsure when onset of symptoms began During the course of the patients emergency department visit, the patients history, examination, and differential diagnosis were reviewed with the patient. The patient was placed on a monitor and storage bin tender with oximetry and frequent blood pressure monitoring. The patient had an IV access obtained and blood work sent for analysis. The patient was initially provided IV fluids as well as a rectal aspirin. The patients laboratory studies were reviewed and remarkable for: Laboratory Tests Test 07/30/17 08:50 07/30/17 09:45 White Blood Count 12.4 TH/MM3 (4.0-11.0) Red Blood Count 5.70 MIL/MM3 (4.00-5.30) Hemoglobin 12.8 GM/DL (11.6-15.3) Hematocrit 39.3 % (35.0-46.0) Mean Corpuscular Volume 68.8 FL (80.0-100.0) Mean Corpuscular Hemoglobin 22.4 PG (27.0-34.0) Mean Corpuscular Hemoglobin Concent 32.5 % (32.0-36.0) Red Cell Distribution Width 16.5 % (11.6-17.2) Platelet Count 284 TH/MM3 (150-450) Mean Platelet Volume 8.2 FL (7.0-11.0) Neutrophils (%) (Auto) 76.0 % (16.0-70.0) Lymphocytes (%) (Auto) 16.6 % (9.0-44.0) Monocytes (%) (Auto) 6.7 % (0.0-8.0) Eosinophils (%) (Auto) 0.2 % (0.0-4.0) Basophils (%) (Auto) 0.5 % (0.0-2.0) Neutrophils # (Auto) 9.4 TH/MM3 (1.8-7.7) Lymphocytes # (Auto) 2.1 TH/MM3 (1.0-4.8) Monocytes # (Auto) 0.8 TH/MM3 (0-0.9) Eosinophils # (Auto) 0.0 TH/MM3 (0-0.4) Basophils # (Auto) 0.1 TH/MM3 (0-0.2) CBC Comment DIFF FINAL Differential Comment Prothrombin Time 10.8 SEC (9.8-11.6) Prothromb Time International Ratio 1.1 RATIO Activated Partial Thromboplast Time 25.2 SEC (24.3-30.1) Blood Urea Nitrogen 27 MG/DL (7-18) Creatinine 2.04 MG/DL (0.50-1.00) Random Glucose 133 MG/DL (74-106) Total Protein 8.8 GM/DL (6.4-8.2) Albumin 4.3 GM/DL (3.4-5.0) Calcium Level 11.0 MG/DL (8.5-10.1) Alkaline Phosphatase 69 U/L (45-117) Aspartate Amino Transf (AST/SGOT) 19 U/L (15-37) Alanine Aminotransferase (ALT/SGPT) 28 U/L (10-53) Total Bilirubin 0.3 MG/DL (0.2-1.0) Sodium Level 141 MEQ/L (136-145) Potassium Level 3.0 MEQ/L (3.5-5.1) Chloride Level 101 MEQ/L (98-107) Carbon Dioxide Level 27.0 MEQ/L (21.0-32.0) Anion Gap 13 MEQ/L (5-15) Estimat Glomerular Filtration Rate 30 ML/MIN (>89) Total Creatine Kinase 181 U/L (26-192) Troponin I 0.12 NG/ML (0.02-0.05) Urine Color YELLOW (YELLW/STRAW) Urine Turbidity CLEAR (CLEAR) Urine pH 5.5 (5.0-8.5) Urine Specific Centre 1.016 (1.002-1.035) Urine Protein NEG mg/dL (NEG-TRACE) Urine Glucose (UA) NEG mg/dL (NEG) Urine Ketones NEG mg/dL (NEG) Urine Occult Blood NEG (NEG) Urine Nitrite NEG (NEG) Urine Bilirubin NEG (NEG) Urine Urobilinogen 0.2 MG/DL (LESS THAN Urine Leukocyte Esterase NEG (NEG) Urine RBC 1 /hpf (0-3) Urine WBC 1 /hpf (0-5) Urine Squamous Epithelial Cells 1 /hpf (0-5) Urine Bacteria RARE /hpf (NONE) Urine Hyaline Casts 15 /lpf (RARE) Microscopic Urinalysis Comment CATH-CULTURE IND Radiology studies were reviewed and remarkable for: Last Impressions Head CT 07/30/17 [id number] Signed Impressions: Service Date/Time: Sunday, July 30, 2017 09:18 - CONCLUSION: 1. No acute intracranial abnormality. 2. Senescent changes with moderate periventricular ischemic white matter demyelination. Moises Ambrose MD Chest X-Ray 07/30/17 0842 Signed Impressions: Service Date/Time: Sunday, July 30, 2017 08:49 - CONCLUSION: No acute disease. Nelson Mayo MD FACR Patient reevaluated, patient with continued repetitive speech, patient with most likely CVA. Patient will require admission to the hospital, rectal aspirin was administered. Labs are reviewed, patient's creatinine is elevated at 2.04, patient's troponin is also elevated 0.12, patient did have a positive troponin during last admission -troponin is at baseline. Case reviewed with Dr. German's VIDEO EDITOR who accepts pt to service Diagnosis Primary Impression: Altered mental status, unspecified Qualified Codes: R41.82 - Altered mental status, unspecified Additional Impressions: CVA (cerebral vascular accident) Qualified Codes: I63.9 - Cerebral infarction, unspecified Renal failure Hypokalemia NSTEMI (non-ST elevated myocardial infarction) Admitting Information Admitting Physician Requests: Observation Heather Bay DO July 30, 2017 08:55
[2017-07-30] MEDS ORDERED: SODIUM CHLORIDE 0.9% FLUSH 10 ML FLUSH IVF PRN (09:00)
[2017-07-30 09:04] LABS: AUTOMATED NEUTROPHIL # 9.4 TH/MM3 (1.8-7.7); BASOPHIL # 0.1 TH/MM3 (0-0.2); BASOPHIL % 0.5 % (0.0-2.0); EOSINOPHIL % 0.2 % (0.0-4.0); HEMATOCRIT 39.3 % (35.0-46.0); HEMOGLOBIN 12.8 GM/DL (11.6-15.3); LYMPH % 16.6 % (9.0-44.0); LYMPHOCYTE # 2.1 TH/MM3 (1.0-4.8); MEAN CELL VOLUME 68.8 FL (80.0-100.0); MEAN CORPUSCULAR HEMOGLOBIN 22.4 PG (27.0-34.0); MEAN CORPUSCULAR HGB CONC 32.5 % (32.0-36.0); MEAN PLATELET VOLUME 8.2 FL (7.0-11.0); MONO % 6.7 % (0.0-8.0); MONOCYTE # 0.8 TH/MM3 (0-0.9); PLATELET COUNT 284 TH/MM3 (150-450); RED CELL DISTRIBUTION WIDTH 16.5 % (11.6-17.2); WHITE BLOOD COUNT 12.4 TH/MM3 (4.0-11.0)
[2017-07-30 09:10] LABS: INTERNATIONAL NORMALIZED RATIO 1.1 RATIO; PROTHROMBIN TIME - PATIENT 10.8 SEC (9.8-11.6)
--- NOTE | 2017-07-30 09:20 | RADRPT ---
EXAM DATE/TIME: 07/30/2017 08:49 [facility] COMPARISON: CHEST SINGLE AP, July 24, 2017, 2:52. INDICATIONS : Shortness of breath. MEDICAL HISTORY : Hypertension. Myocardial infarction. SURGICAL HISTORY : Hysterectomy. Cholecystectomy. Coronary artery stent. ENCOUNTER: Initial ACUITY: 1 day PAIN SCORE: 0/10 LOCATION: Bilateral chest FINDINGS: A single view of the chest demonstrates the lungs to be symmetrically aerated without evidence of mas s, infiltrate or effusion. The cardiomediastinal contours are unremarkable. Osseous structures are intact. CONCLUSION: No acute disease. Nelson Mayo MD FACR on July 30, 2017 at 9:18 Board Certified Radiologist. This report was verified electronically.
[2017-07-30 09:26] LABS: ALBUMIN 4.3 GM/DL (3.4-5.0); ALT (GPT) 28 U/L (10-53); AST (GOT) 19 U/L (15-37); BLOOD UREA NITROGEN 27 MG/DL (7-18); CHLORIDE 101 MEQ/L (98-107); CREATININE 2.04 MG/DL (0.50-1.00); GLOMERULAR FILTRATION RATE 30 ML/MIN (>89); GLUCOSE,RANDOM 133 MG/DL (74-106); SODIUM (NA) 141 MEQ/L (136-145)
[2017-07-30 09:28] LABS: ALKALINE PHOSPHATASE 69 U/L (45-117); TOTAL BILIRUBIN ADULT 0.3 MG/DL (0.2-1.0); TOTAL PROTEIN 8.8 GM/DL (6.4-8.2); TROPONIN I 0.12 NG/ML (0.02-0.05)
--- NOTE | 2017-07-30 09:28 | RADRPT ---
EXAM DATE/TIME: 07/30/2017 09:18 [facility] COMPARISON: CT BRAIN W/O CONTRAST, July 24, 2017, 3:28. INDICATIONS : Confusion RADIATION DOSE: 42.57 CTDIvol (mGy) MEDICAL HISTORY : Cardiovascular disease. Hypertension. SURGICAL HISTORY : Cholecystectomy. Hysterectomy. ENCOUNTER: Initial ACUITY: 1 day PAIN SCALE: 0/10 LOCATION: cranial TECHNIQUE: Multiple contiguous axial images were obtained of the head. Using automated exposure control and adj ustment of the mA and/or kV according to patient size, radiation dose was kept as low as reasonably a chievable to obtain optimal diagnostic quality images. DICOM format image data is available electro nically for review and comparison. FINDINGS: CEREBRUM: Mild diffuse cerebral atrophy. Moderate periventricular matter hypodensities. The ventricles are norm al for degree of atrophy. No evidence of midline shift, mass lesion, hemorrhage or acute infarction. No extra-axial fluid collections are seen. POSTERIOR FOSSA: The cerebellum and brainstem are intact. The 4th ventricle is midline. The cerebellopontine angle i s unremarkable. EXTRACRANIAL: The visualized portion of the orbits is intact. SKULL: The calvaria is intact. No evidence of skull fracture. CONCLUSION: 1. No acute intracranial abnormality. 2. Senescent changes with moderate periventricular ischemic white matter demyelination. Moises Ambrose MD on July 30, 2017 at 9:24 Board Certified Radiologist. This report was verified electronically.
[2017-07-30 10:02] LABS: BILIRUBIN, URINE NEG (NEG); BLOOD, URINE NEG (NEG); GLUCOSE,URINE NEG (NEG); KETONE, URINE NEG (NEG); NITRITE,URINE NEG (NEG); PH, URINE 5.5 (5.0-8.5); URINE COLOR YELLOW (YELLW/STRAW); URINE LEUKOCYTE ESTERASE NEG (NEG)
[2017-07-30 10:07] LABS: BACTERIA, URINE RARE /hpf; HYALINE CAST, URINE 15 /lpf (RARE); SQUAMOUS EPITHELIAL CELL URINE 1 /hpf (0-5)
[2017-07-30] MEDS ORDERED: ASPIRIN 300 MG SUPP RECTAL ONE (10:15)
[2017-07-30] MEDS ORDERED: SODIUM CHLOR 0.9% 1000 ML INJ 1,000 ML IV ONE (10:15)
[2017-07-30] MEDS: POTASSIUM CHLOR 20 MEQ PREMIX 100 ML IV SCH ×2 (11:06→14:23)
[2017-07-30] MEDS ORDERED: NALOXONE HCL 0.4 MG/ML AMP IV PUSH PRN (11:15)
[2017-07-30] MEDS ORDERED: ACETAMINOPHEN 325 MG TAB PO PRN (11:15)
[2017-07-30] MEDS ORDERED: SENNOSIDES 8.6 MG TAB PO PRN (11:15)
[2017-07-30] MEDS ORDERED: BISACODYL 10 MG SUPP RECTAL PRN (11:15)
[2017-07-30] MEDS ORDERED: SODIUM CHLORIDE 0.9% FLUSH 10 ML FLUSH IV FLUSH PRN (11:15)
[2017-07-30] MEDS ORDERED: MAGNESIUM HYDROXIDE SUSP 30 ML CUP PO PRN (11:15)
[2017-07-30] MEDS ORDERED: ONDANSETRON HCL 4 MG/2 ML VIAL IVP PRN (11:15)
[2017-07-30] MEDS ORDERED: cloNIDine HCL 0.1 MG TAB PO PRN (12:45)
[2017-07-30] MEDS ORDERED: PILL SPLITTER OTHER PRN (13:30)
--- NOTE | 2017-07-30 13:59 | RADRPT ---
EXAM DATE/TIME: 07/30/2017 12:59 [facility] COMPARISON: MRA BRAIN W/O CONTRAST, January 01, 2017, 20:03. INDICATIONS : Aphasia. MEDICAL HISTORY : Hypertension. SURGICAL HISTORY : Hysterectomy. Cholecystectomy. cardiac stents ENCOUNTER: Initial ACUITY: 1 day PAIN SCORE: 0/10 LOCATION: cranial Please note a normal MRA of the brain does not entirely exclude the possibility of a small aneurysm, nor the possibility of distal intracranial vessel disease. TECHNIQUE: 3D time of flight MRA was performed. Source images, multiplanar STS MIP, and 3D volume MIP reconstru ctions were reviewed. FINDINGS: There is excellent visualization of the major intracranial arteries out to the second-order branch ve ssels. There is no evidence for aneurysm, vessel truncation or stenosis, and no evidence for vascula r malformation. CONCLUSION: Negative MRA of the brain Nelson Mayo MD FACR on July 30, 2017 at 13:57 Board Certified Radiologist. This report was verified electronically.
--- NOTE | 2017-07-30 14:06 | RADRPT ---
EXAM DATE/TIME: 07/30/2017 12:59 [facility] COMPARISON: MRI BRAIN W/O CONTRAST, January 01, 2017, 20:03. INDICATIONS : Aphasia. MEDICAL HISTORY : Hypertension. SURGICAL HISTORY : Hysterectomy. Cholecystectomy. cardiac stent ENCOUNTER: Initial ACUITY: 1 day PAIN SCORE: 0/10 LOCATION: cranial TECHNIQUE: Multiplanar, multisequence MRI of the brain was performed without contrast. FINDINGS: Extensive periventricular white matter disease extending to the corpus callosum that has progressed i n the interval. Single 5 mm area restricted diffusion anterior limb internal capsule on the left. There there is minimal hemosiderin in the right mid sylvian region and left vasoganglia suggesting re mote infarct. Posterior fossa is unremarkable. Mild prominence of the ventricles There is no extra-axial fluid appreciated. CONCLUSION: Progression of the substantial periventricular white matter disease extending into th e corpus callosum. This is suspicious for demyelinating process. Old mildly hemorrhagic ischemic events, with 5 mm focal area restricted diffusion anterior limb inter nal capsule left side. This is consistent with small acute ischemic event, probably lacunar infarct. Nelson Mayo MD FACR on July 30, 2017 at 14:01 Board Certified Radiologist. This report was verified electronically.
--- NOTE | 2017-07-30 14:08 | RADRPT ---
EXAM DATE/TIME: 07/30/2017 12:59 [facility] COMPARISON: No previous studies available for comparison. INDICATIONS : Aphasia. MEDICAL HISTORY : Hypertension. SURGICAL HISTORY : Hysterectomy. Cholecystectomy. cardiac stent ENCOUNTER: Initial ACUITY: 1 day PAIN SCORE: 0/10 LOCATION: cranial Percent stenosis is calculated using the diameter of the stenotic region over the diameter of the nor mal distal internal carotid artery. TECHNIQUE: 3D time of flight MRA of the extracranial circulation was performed using a neurovascular coil. Post processing was performed including rotating subvolume maximum intensity projections of each carotid artery, rotating full-volume maximum intensity projections of both carotid arteries, sagittal and cor onal sliding thin-slab reformations of each carotid artery, and left oblique sliding thin slab reform ation through the aortic arch to include the origin of the arch branch vessels. FINDINGS: AORTIC ARCH: There is a three vessel origin of the great vessels from the aorta. No evidence of ostial narrowing. RIGHT CAROTID: The common carotid artery is intact. The carotid bulb has a normal configuration without ulceration or narrowing. The internal carotid artery lumen is smooth without stenosis. The external carotid ar carito is intact. LEFT CAROTID: The common carotid artery is intact. The carotid bulb has a normal configuration without ulceration or narrowing. The internal carotid artery lumen is smooth without stenosis. The external carotid ar carito is intact. VERTEBRALS: The vertebral arteries have a symmetric diameter. No stenotic lesions are seen. CONCLUSION: Negative MRA of the carotids. I don't see as source of emboli. Nelson Mayo MD FACR on July 30, 2017 at 14:06 Board Certified Radiologist. This report was verified electronically.
[2017-07-30] MEDS: POTASSIUM CHLORIDE INJ 10 MEQ in SODIUM CHLOR 0.9% 1000 ML INJ 1,000 ML IV SCH (15:54)
--- NOTE | 2017-07-30 16:10 | HHI.HP ---
[facility] Service [facility] Primary Care Physician Unknown Admission Diagnosis CVA, AMS, RENAL INSUFFIENCY Diagnoses: Chief Complaint: expressive aphasia, AMS Travel History International Travel<30 Days: No Contact w/Intl Traveler <30 Da: No History of Present Illness 61-year-old female with history of CVA, HTN, HLD, CAD s/p stent, anxiety, depression, presents with acute onset of altered mental status earlier this morning 07/30. Patient currently has expressive aphasia and has difficulty explaining events leading up to her admission. Per ER report, the patient's family called 911 as they noticed the patient was not acting like herself this morning. Reportedly the patient was putting on mismatched shoes and had repetitive language. The family reported the patient was last seen normal yesterday. The patient was recently admitted 07/23/17-07/27/17 for syncope with elevated troponins. She had unremarkable workup with normal echocardiogram and negative head CT. She was evaluated by cardiology on that admission, cleared for discharge as she had a negative stress test in December 2016. The patient is now seen in the observation unit. She continues to have expressive aphasia. She was able to tell me her name, year 2017, and [place], [place]. She is able to repeat words such as president Julian, [facility], etc. after prompted. She is able to tell me that she has 3 kids, but cannot remember the names of her 3 children. She repeatedly states "yes ma'am" even when not being asked any questions. She is tearful throughout exam. She denies any other medical complaints although doubt reliability of her answers. Review of Systems ROS Limitations: Altered Mental Status, Speech Impaired Past Family Social History Past Medical History Obtained from EMR: CVA HTN HLD CAD s/p stent anxiety depression Arthritis Past Surgical History Obtained from EMR: Cholecystectomy Hysterectomy Cardiac catheterization with stent placement Reported Medications Hydrocodone-Acetamin 10-325 mg (Hydrocodone/Acetaminophen) 10 Mg-325 Mg Tablet 1 Tab PO Q4H PRN Potassium Chloride ER (Potassium Chloride) 20 Meq Tab 20 Meq PO DAILY Coreg (Carvedilol) 6.25 Mg Tab 6.25 Mg PO Q12HR Alprazolam 0.5 Mg Tab 0.5 Mg PO DAILY PRN Pepcid (Famotidine) 20 Mg Tab 10 Mg PO BID Torsemide 5 Mg Tab 10 Mg PO BID@ Nifedipine ER 24 HR (Nifedipine) 60 Mg Tab 60 Mg PO BID Lipitor (Atorvastatin Calcium) 10 Mg Tab 10 Mg PO HS Plavix (Clopidogrel Bisulfate) 75 Mg Tab 75 Mg PO DAILY Hydralazine HCl 50 Mg Tablet 50 Mg PO Q8HR Wheelchair (Device) 1 Mis Mis Ea DIRECTED Adult Aspirin EC Low Strength (Aspirin) 81 Mg Tabec 81 Mg PO DAILY Estradiol 0.5 Mg Tab 0.5 Mg PO DAILY Hydrocodone-Acetaminophen 10-325 mg Tab 1 Tab PO BID PRN Allergies: Coded Allergies: meperidine (Unverified Allergy, Severe, HIVES, 07/30/17) morphine (Unverified Allergy, Severe, Itching, 07/30/17) DENIES ALLERGY TODAY 01/18/16 Iodinated Contrast- Oral and IV Dye (Verified Allergy, Unknown, 07/30/17) Active Ordered Medications Current Medications Medications (Trade) Dose Ordered Sig/Galilea Route Start Time Stop Time Status Last Admin (NS Flush) 2 ml UNSCH PRN IV FLUSH 07/30/17 11:15 (NS Flush) 2 ml BID IV FLUSH 07/30/17 21:00 (Zofran Inj) 4 mg Q6H PRN IVP 07/30/17 11:15 (Tylenol) 650 mg Q6H PRN PO 07/30/17 11:15 (Narcan Inj) 0.4 mg UNSCH PRN IV PUSH 07/30/17 11:15 (Kae-Colace) 1 tab BID PO 07/30/17 21:00 (Milk Of Magnesia Liq) 30 ml Q12H PRN PO 07/30/17 11:15 (Senokot) 17.2 mg Q12H PRN PO 07/30/17 11:15 (Dulcolax Supp) 10 mg DAILY PRN RECTAL 07/30/17 11:15 Potassium Chloride 10 meq/ Sodium Chloride 1,005 ml @ 70 mls/hr [id number] IV 07/30/17 12:00 07/30/17 15:54 (Ecotrin Ec) 81 mg DAILY PO 07/31/17 09:00 (Lipitor) 10 mg HS PO 07/30/17 21:00 (Plavix) 75 mg DAILY PO 07/31/17 09:00 (Pepcid) 10 mg BID PO 07/30/17 21:00 (Catapres) 0.1 mg Q6H PRN PO 07/30/17 12:45 (Pill Splitter) 1 ea UNSCH PRN OTHER 07/30/17 13:30 Family History Unable to obtain family history from the patient. Social History Per EMR, no tobacco, alcohol, or illicit drug use. Physical Exam Vital Signs Vital Signs Date Time Temp Pulse Resp B/P (MAP) Pulse Ox O2 Delivery O2 Flow Rate FiO2 07/30/17 15:42 69 07/30/17 14:09 98.4 76 16 179/83 (115) 98 07/30/17 10:30 74 18 190/70 (110) 97 Room Air 07/30/17 09:30 84 20 185/79 (114) 96 Room Air 07/30/17 08:41 99 192/89 (123) Physical Exam GENERAL: Well-developed, well-nourished middle-aged AA female patient in [facility]. SKIN: Warm and dry. HEAD: Atraumatic. Normocephalic. EYES: Pupils equal and round. No scleral icterus. No injection or drainage. ENT: No nasal bleeding or discharge. Mucous membranes pink and moist. NECK: Trachea midline. No JVD. CARDIOVASCULAR: Regular rate and rhythm. No murmur appreciated. RESPIRATORY: No accessory muscle use. Clear to auscultation. Breath sounds equal bilaterally. GASTROINTESTINAL: Abdomen soft, non-tender, nondistended. Normoactive bowel sounds 4. MUSCULOSKELETAL: Extremities without clubbing, cyanosis, or edema. No obvious deformities. NEUROLOGICAL: Awake and alert. No obvious cranial nerve deficits. Motor grossly within normal limits. 5/5 strength in bilateral upper and lower extremities. Expressive aphasia, not slurred. No facial droop, lid lag, or tongue deviation. PSYCHIATRIC: Tearful; insight and judgment unable to assess. Laboratory Laboratory Tests Test 07/30/17 08:50 07/30/17 09:45 White Blood Count 12.4 Red Blood Count 5.70 Hemoglobin 12.8 Hematocrit 39.3 Mean Corpuscular Volume 68.8 Mean Corpuscular Hemoglobin 22.4 Mean Corpuscular Hemoglobin Concent 32.5 Red Cell Distribution Width 16.5 Platelet Count 284 Mean Platelet Volume 8.2 Neutrophils (%) (Auto) 76.0 Lymphocytes (%) (Auto) 16.6 Monocytes (%) (Auto) 6.7 Eosinophils (%) (Auto) 0.2 Basophils (%) (Auto) 0.5 Neutrophils # (Auto) 9.4 Lymphocytes # (Auto) 2.1 Monocytes # (Auto) 0.8 Eosinophils # (Auto) 0.0 Basophils # (Auto) 0.1 CBC Comment DIFF FINAL Differential Comment Prothrombin Time 10.8 Prothromb Time International Ratio 1.1 Activated Partial Thromboplast Time 25.2 Blood Urea Nitrogen 27 Creatinine 2.04 Random Glucose 133 Total Protein 8.8 Albumin 4.3 Calcium Level 11.0 Alkaline Phosphatase 69 Aspartate Amino Transf (AST/SGOT) 19 Alanine Aminotransferase (ALT/SGPT) 28 Total Bilirubin 0.3 Sodium Level 141 Potassium Level 3.0 Chloride Level 101 Carbon Dioxide Level 27.0 Anion Gap 13 Estimat Glomerular Filtration Rate 30 Total Creatine Kinase 181 Troponin I 0.12 Urine Color YELLOW Urine Turbidity CLEAR Urine pH 5.5 Urine Specific Braymer 1.016 Urine Protein NEG Urine Glucose (UA) NEG Urine Ketones NEG Urine Occult Blood NEG Urine Nitrite NEG Urine Bilirubin NEG Urine Urobilinogen 0.2 Urine Leukocyte Esterase NEG Urine RBC 1 Urine WBC 1 Urine Squamous Epithelial Cells 1 Urine Bacteria RARE Urine Hyaline Casts 15 Microscopic Urinalysis Comment CATH-CULTURE IND Urine Opiates Screen POS Urine Barbiturates Screen NEG Urine Amphetamines Screen NEG Urine Benzodiazepines Screen NEG Urine Cocaine Screen NEG Urine Cannabinoids Screen NEG Date/Time Source Procedure Growth Status 07/30/17 09:45 Urine Catheterized Urine Urine Culture Pending Received Result Diagram: 07/30/17 0850 07/30/17 0850 Imaging Last Impressions Head CT 07/30/17 0847 Signed Impressions: Service Date/Time: Sunday, July 30, 2017 09:18 - CONCLUSION: 1. No acute intracranial abnormality. 2. Senescent changes with moderate periventricular ischemic white matter demyelination. Moises Ambrose MD Chest X-Ray 07/30/17 0847 Signed Impressions: Service Date/Time: Sunday, July 30, 2017 08:49 - CONCLUSION: No acute disease. Nelson Mayo MD FACR Neck Magnetic Resonance Angiography 07/30/17 Signed Impressions: Service Date/Time: Sunday, July 30, 2017 12:59 - CONCLUSION: Negative MRA of the carotids. I don't see as source of emboli. Nelson Mayo MD FACR Head Magnetic Resonance Angiography 07/30/17 Signed Impressions: Service Date/Time: Sunday, July 30, 2017 12:59 - CONCLUSION: Negative MRA of the brain Nelson Mayo MD FACR Brain MRI 07/30/17 Signed Impressions: Service Date/Time: Sunday, July 30, 2017 12:59 - CONCLUSION: Progression of the substantial periventricular white matter disease extending into the corpus callosum. This is suspicious for demyelinating process. Old mildly hemorrhagic ischemic events, with 5 mm focal area restricted diffusion anterior limb internal capsule left side. This is consistent with small acute ischemic event , probably lacunar infarct. Nelson Mayo MD FACR Caprini VTE Risk Assessment Caprini VTE Risk Assessment: Mod/High Risk (score >= 2) Caprini Risk Assessment Model Point Value = 1 Point Value = 2 Point Value = 3 Point Value = 5 Age 41-60 Minor surgery BMI > 25 kg/m2 Swollen legs Varicose veins or History of unexplained or recurrent spontaneous Oral contraceptives or hormone replacement Sepsis (< 1 month) Serious lung disease, including pneumonia (< 1 month) Abnormal pulmonary function Acute myocardial infarction Congestive heart failure (< 1 month) History of inflammatory bowel disease Medical patient at bed rest Age 61-74 Arthroscopic surgery Major open surgery (> 45 min) Laparoscopic surgery (> 45 min) Malignancy Confined to bed (> 72 hours) Immobilizing plaster cast Central venous access Age >= 75 History of VTE Family history of VTE Factor V Leiden Prothrombin [id number] Lupus anticoagulant Anticardiolipin antibodies Elevated serum homocysteine Heparin-induced thrombocytopenia Other congenital or acquired thrombophilia Stroke (< 1 month) Elective arthroplasty Hip, pelvis, or leg fracture Acute spinal cord injury (< 1 month) Prophylaxis Regimen Total Risk Factor Score Risk Level Prophylaxis Regimen 0-1 Low Early ambulation 2 Moderate Order ONE of the following: *Sequential Compression Device (SCD) *Heparin 5000 units SQ BID 3-4 Higher Order ONE of the following medications: *Heparin 5000 units SQ TID *Enoxaparin/Lovenox 40 mg SQ daily (WT < 150 kg, CrCl > 30 mL/min) *Enoxaparin/Lovenox 30 mg SQ daily (WT < 150 kg, CrCl > 10-29 mL/min) *Enoxaparin/Lovenox 30 mg SQ BID (WT < 150 kg, CrCl > 30 mL/min) AND/OR *Sequential Compression Device (SCD) 5 or more Highest Order ONE of the following medications: *Heparin 5000 units SQ TID (Preferred with Epidurals) *Enoxaparin/Lovenox 40 mg SQ daily (WT < 150 kg, CrCl > 30 mL/min) *Enoxaparin/Lovenox 30 mg SQ daily (WT < 150 kg, CrCl > 10-29 mL/min) *Enoxaparin/Lovenox 30 mg SQ BID (WT < 150 kg, CrCl > 30 mL/min) AND *Sequential Compression Device (SCD) Assessment and Plan Problem List: (1) CVA (cerebral vascular accident) ICD Code: I63.9 - Cerebral infarction, unspecified Status: Acute (2) Altered mental status, unspecified ICD Code: R41.82 - Altered mental status, unspecified Status: Acute Assessment and Plan 61-year-old female with history of CVA, HTN, HLD, CAD s/p stent, anxiety, depression, presents with acute onset of altered mental status and expressive aphasia. Acute Ischemic Lacunar CVA: With persistent neurological deficit of expressive aphasia. -Head CT upon arrival images reviewed, shows no acute intracranial abnormality; senescent changes with moderate periventricular ischemic white matter demyelination -Brain MRI reviewed, shows progression of the substantial periventricular white matter disease extending into the corpus callosum; suspicious for demyelinating process; mildly hemorrhagic ischemic events with 5 mm focal area of restricted diffusion anterior limb internal capsule left side consistent with small acute ischemic event, probably lacunar infarct -Head/neck MRA reviewed, no acute findings -HOB flat x12hrs, allow permissive hypertension for now, clonidine prn SBP > 200 -given aspirin in ED -EMR reviewed, echo on previous admission wnl with EF 60% -holter monitor, monitor on telemetry -neuro checks, NIHSS -check HgbA1c and lipid profile, start statin, consider increasing dose based on lipid profile results -PT/OT/ST consulted -Stroke navigator consulted -Neurology consulted, appreciate recommendations -neurology recommended to discontinue aspirin/plavix, start on heparin sq bid , then start on coumadin 4hours after heparin, pharmacy consulted -cardiology consulted for loop recorder LEYDI: Cr 2.04 upon arrival, previously 1.02 on 07/27/17 -give IVF hydration at 100cc/hr -UA reviewed and unremarkable -avoid nephrotoxins -repeat BMP in am Hypertension: uncontrolled -allowing permissive hypertensive for now -holding home plans, plan to restart slowly after 24 hours -clonidine prn SBP > 200, DBP > 100 Hyperlipidemia: chronic -continue statin -check lipid profile Elevated Troponin with hx of CAD s/p Stent: patient has history of elevated troponins on previously admission -will trend cardiac enzymes and EKGs -s/p aspirin, started on heparin sq with transition to coumadin -monitor on telemetry All other chronic medical conditions stable, continue home medications as appropriate. DVT Prophylaxis: heparin sq Discussed Condition With Patient, RN, Dr. Bay Physician Certification 2 Midnight Certification Type: Admission for Inpatient Services Order for Inpatient Services The services are ordered in accordance with Medicare regulations or non- Medicare payer requirements, as applicable. In the case of services not specified as inpatient-only, they are appropriately provided as inpatient services in accordance with the 2-midnight benchmark. Estimated LOS (days): 3 days is the estimated time the patient will need to remain in the hospital, assuming treatment plan goals are met and no additional complications. Post-Hospital Plan: Not yet determined Problem Qualifiers (1) CVA (cerebral vascular accident): Qualified Codes: I63.9 - Cerebral infarction, unspecified (2) Altered mental status, unspecified: Qualified Codes: R41.82 - Altered mental status, unspecified Kait Gongora PA-C July 30, 2017 4:10 pm
--- NOTE | 2017-07-30 17:52 | MB ---
cc: Al Khan MD, David J MD DATE: 07/30/2017 HISTORY OF PRESENT ILLNESS: A 61-year-old left-handed woman, not a great historian, I am asked to see for mental status change. She can tell me some parts of her history. She has been seen by Dr. Correia here several times, last time was 12/2016. She had hypertension, left arm pain, swelling and numbness, extensive white matter disease seen, acute left MCA stroke in 2009 with residual right-sided weakness, speech difficulty, ambulates with a cane. She came into the ER today with a history of CVA, depression, anxiety, hyperlipidemia, CAD with a change in mental status. She was not acting like herself this morning, mismatched a pair of shoes on. Repetitive language. Just discharged 07/27 for syncope workup with elevated troponin. She perseverates in the ER. ALLERGIES: ALLERGIC TO MEPERIDINE, MORPHINE IODINATED CONTRAST. MEDICATIONS AT HOME: 1. Hydrocodone. 2. Potassium. 3. Coreg. 4. Xanax 0.5 a day as needed. 5. Pepcid. 6. Torsemide. 7. Nifedipine. 8. Lipitor. 9. Plavix. 10. Hydralazine. 11. Aspirin 81 mg 12. Estradiol. 13. Hydrocodone. REVIEW OF SYSTEMS: Really unable to obtain from the patient. SOCIAL HISTORY: Not a smoker or a drinker. She tells me she lives with her daughter. FAMILY HISTORY: Negative for cancer, seizure, stroke. PAST MEDICAL HISTORY: As above. I do note when Dr. Correia saw her last December on his exam she was alert and oriented x3 with a mild expressive aphasia and 2-3/5 on the right side. She was seen on 07/24/2017 after a syncopal event. Potassium was 2.5. Troponin 0.13. She was moving all of her extremities well and was noted to be alert and oriented x3 by the H and P. Her echocardiogram at that time showed a normal ejection fraction, left atrial size mildly dilated, LA size was measured as 3.3 however. NEUROLOGIC EXAM: VITAL SIGNS: On exam, she is in sinus rhythm, afebrile, 76, 16 179/83. NECK: There are no carotid bruits. HEART: Regular rhythm. I did not detect a murmur. NEUROLOGIC: Pupils are equal. Visual harrison are full. Face was symmetric. Tongue was midline. No nystagmus. She had normal strength in upper and lower extremities bilaterally. Toes downgoing bilaterally. Pinprick she was not consistent with. She could repeat and name my glasses, but she tended to perseverate. She said it was 2017. LABORATORY DATA: CBC: White count 12.4, otherwise, CBC essentially normal. She had a sed rate that was normal in December of last year. Her RPR has been negative, rheumatoid factor, RANDALL, anticardiolipin antibody all had been normal back in 2006, the latter back in 2006. Urine drug screen here positive for opiates only. UA is negative. Basic metabolic profile - her creatinine is 2.0 and it was 1.0 three days ago, so that is new and her creatinine has been that high, potassium 3.0, BUN is 27, calcium is 11, several days ago was 9.5, phosphorus 1.8, magnesium 1.7. LFTs are normal. Troponin 0.12. Total protein 8.8. Her B12 was normal in December of last year. Folate also normal back in 2011. TSH normal last month. ABG in 2005 was normal. She had a hypercoagulable panel done in the past that was normal. IMAGING STUDIES: She had a chest x-ray that was negative. CAT scan of the brain showed white matter changes bilaterally. MRI of the brain showed extensive white matter changes, old mildly hemorrhagic ischemic event with focal restricted area, anterior limited internal capsule on the left side with a small acute stroke. She had an MRA of the head that was read as normal and MRA of the neck was also read as normal. She had an MRI of the brain in December of last year. They thought this showed another stroke acute on the left. Cervical spine MRI at that time was negative. Review of the MRI of the film on this admission, there is an acute to subcortical infarct on the left frontal region and some cortical and subcortical small infarcts, right and left, with some focal encephalomalacia. There is an old deep infarct and an old hickman artifact that appears in the right frontotemporal region, although I do not really see much there in the FLAIR images and an old what appears to be hemorrhagic type infarct, left basal ganglia. The December scan shows a very tiny moderately bright on diffusion left deep parietal lobe infarct and those other images on the SWI sequences are unchanged as far as showing the older blood. She had an MRI of the brain in 2009 that was read as white matter changes and an acute left parietal deep white matter infarct, although I cannot look at those films. The MRA of the neck and the MRA [place] are entirely normal. She had a Holter monitor done in 2006, which showed short runs of PACs and occasional PVCs, short runs of SVT 3-4 beats. She saw cardiology, Dr. Serrano, last month. She had chronic ongoing elevated troponins back to 2012 and negative stress test in 12/2016. She considered long-term rhythm analysis. ASSESSMENT AND PLAN: It looks like she has had multiple infarcts over the years and this is another small one. She has had 2 small left MCA infarcts since December. I think she should get a loop recorder placed and if she does not have any stents, I would switch her over to Coumadin with some subcu heparin bridging her so give her some subcu heparin and then I would start her on Coumadin about 4 hours after that and discontinue her Plavix and aspirin. We will notify the [facility] and have cardiology see her for a loop recorder. I note she has been in sinus rhythm so far here. MD KATHRYN Park/ , 05:10 PM , 05:51 PM
[2017-07-30 18:35] LABS: TROPONIN I 0.19 NG/ML (0.02-0.05)
--- NOTE | 2017-07-30 18:57 | EKG ---
Date Performed: 07/30/2017 Time Performed: 08:49:14 PTAGE: 61 years EKG: Sinus rhythm WITH OCCASIONAL ECTOPIC PREMATURE COMPLEXES BORDERLINE LEFT AXIS DEVIATION LEFT VENTRICULAR HYPERTRO PHY AND ST-T CHANGE ABNORMAL ECG Since the PREVIOUS TRACING , no significant change noted PREVIOUS TRACIN07/23/2017 23.44 DOCTOR: Jacob Hawkins Interpretating Date/Time 07/30/2017 16:40:15
[2017-07-30] MEDS: ATORVASTATIN 10 MG TAB PO SCH (20:36)
[2017-07-30] MEDS: SODIUM CHLORIDE 0.9% FLUSH 10 ML FLUSH IV FLUSH SCH (20:36)
[2017-07-30] MEDS: DOCUSATE SODIUM 50 MG/SENNA 8.6 MG TAB PO SCH (20:37)
[2017-07-30] MEDS: FAMOTIDINE 20 MG TAB PO SCH (20:37)
[2017-07-30] MEDS: HEPARIN SODIUM - SQ 10,000 UNITS/ML VIAL SQ SCH (20:40)
[2017-07-30] MEDS: SODIUM CHLOR 0.9% 1000 ML INJ 1,000 ML IV SCH (20:47)
[2017-07-30] MEDS ORDERED: WARFARIN SOD 5 MG TAB PO ONE (22:00)
[2017-07-31] VITALS (27 sets, daily range): BP systolic 159–203; BP diastolic 82–107; PULSE 66–101; RESP 16–22; TEMP 98.3–99.5; O2SAT 92–98
[2017-07-31] MEDS: POTASSIUM CHLORIDE INJ 10 MEQ in SODIUM CHLOR 0.9% 1000 ML INJ 1,000 ML IV SCH ×2 (02:22→16:08)
[2017-07-31 02:53] LABS: AUTOMATED NEUTROPHIL # 5.4 TH/MM3 (1.8-7.7); BASOPHIL % 0.6 % (0.0-2.0); EOSINOPHIL # 0.1 TH/MM3 (0-0.4); EOSINOPHIL % 1.4 % (0.0-4.0); HEMOGLOBIN 10.9 GM/DL (11.6-15.3); LYMPH % 21.8 % (9.0-44.0); LYMPHOCYTE # 1.7 TH/MM3 (1.0-4.8); MEAN CELL VOLUME 68.5 FL (80.0-100.0); MEAN CORPUSCULAR HEMOGLOBIN 22.7 PG (27.0-34.0); MEAN CORPUSCULAR HGB CONC 33.1 % (32.0-36.0); MEAN PLATELET VOLUME 8.5 FL (7.0-11.0); MONO % 8.7 % (0.0-8.0); MONOCYTE # 0.7 TH/MM3 (0-0.9); NEUT % 67.5 % (16.0-70.0); PLATELET COUNT 232 TH/MM3 (150-450); RED BLOOD COUNT 4.81 MIL/MM3 (4.00-5.30); RED CELL DISTRIBUTION WIDTH 16.5 % (11.6-17.2)
[2017-07-31 03:05] LABS: INTERNATIONAL NORMALIZED RATIO 1.1 RATIO; PROTHROMBIN TIME - PATIENT 11.4 SEC (9.8-11.6)
[2017-07-31 03:39] LABS: BICARBONATE 30.1 MEQ/L (21.0-32.0); BLOOD UREA NITROGEN 18 MG/DL (7-18); CALCIUM 9.4 MG/DL (8.5-10.1); CHLORIDE 107 MEQ/L (98-107); CHOLESTEROL 117 MG/DL (120-200); CHOLESTEROL/ HDL RATIO 2.44 RATIO; CREATININE 1.08 MG/DL (0.50-1.00); GLOMERULAR FILTRATION RATE 63 ML/MIN (>89); GLUCOSE,RANDOM 111 MG/DL (74-106); HDL CHOLESTEROL 47.9 MG/DL (40.0-60.0); LDL CHOLESTEROL 42 MG/DL (0-99); SODIUM (NA) 145 MEQ/L (136-145); TRIGLYCERIDES 136 MG/DL (42-150)
[2017-07-31 03:42] LABS: FOLATE GREATER THAN 20.0 NG/ML (3.1-17.5)
[2017-07-31] MEDS: SODIUM CHLOR 0.9% 1000 ML INJ 1,000 ML IV SCH ×2 (06:33→19:53)
[2017-07-31] MEDS: DOCUSATE SODIUM 50 MG/SENNA 8.6 MG TAB PO SCH ×2 (07:47→19:59)
[2017-07-31] MEDS: SODIUM CHLORIDE 0.9% FLUSH 10 ML FLUSH IV FLUSH SCH ×2 (07:48→20:01)
[2017-07-31] MEDS: HEPARIN SODIUM - SQ 10,000 UNITS/ML VIAL SQ SCH ×3 (07:48→19:59)
[2017-07-31] MEDS: FAMOTIDINE 20 MG TAB PO SCH ×2 (07:48→20:02)
[2017-07-31] MEDS ORDERED: ASPIRIN EC 81 MG TABEC PO SCH (09:00)
[2017-07-31] MEDS ORDERED: CLOPIDOGREL 75 MG TAB PO SCH (09:00)
--- NOTE | 2017-07-31 09:38 | MB ---
cc: Dez Weiner MD DATE: 07/31/2017 CHIEF COMPLAINT: Change in mental status, history of CVA/syncope. HISTORY OF PRESENT ILLNESS: The patient is a very pleasant 61-year-old woman who recently was in the hospital for a possible syncopal episode, but complicated by dehydration and chronically elevated troponins. She was worked up and discharged without any clear etiology found but presented again several days later for change in mental status, unclear if there was actual syncopal episode during this occasion. She apparently has had 2 small left MCA infarcts and Neurology has requested a loop recorder insertion. She is currently asymptomatic, denying chest pain, shortness of breath, lightheadedness or dizziness. PAST MEDICAL HISTORY: CVA, hypertension, hyperlipidemia, CAD status post stent, depression, anxiety, and arthritis. CURRENT MEDICATIONS: 1. Warfarin. 2. Atorvastatin 10 mg at bedtime. 3. Pepcid 10 mg b.i.d. ALLERGIES: 1. CONTRAST. 2. MEPERIDINE. 3. MORPHINE. PHYSICAL EXAMINATION: VITAL SIGNS: Afebrile, pulse 70, respiratory rate 18, blood pressure 192/90, satting 98 on room air. GENERAL: Pleasant, woman in no distress. NECK: No JVD. LUNGS: Clear to auscultation bilaterally. HEART: Regular rate and rhythm with a 2-3/6 systolic murmur appreciated. ABDOMEN: Benign. EXTREMITIES: No edema. LABORATORY DATA: White count 8.0, hematocrit 33.0, platelets 232. Sodium 145, potassium 3.0, chloride 107, bicarbonate 30.1, BUN 18, and creatinine 1.08, down from 2.04. Troponin is 0.2 (her troponin is chronically elevated). INR is 1.1. DIAGNOSTIC STUDIES: EKG shows sinus rhythm with occasional PVCs and ST changes, mostly consistent with LVH, though ischemia is not totally excluded. IMPRESSION AND RECOMMENDATIONS: 1. Syncope/change in mental status/cerebrovascular accident. This patient has multiple indications for a loop recorder given these diagnoses. I discussed this with the patient and she agrees to proceed. We will be done Wednesday. She should be kept n.p.o. past midnight at that point. 2. Elevated troponin. The patient's elevated troponin is somewhat chronic. I will defer any further ischemic workup to Dr. Serrano, who will return on Wednesday. 3. Hypertension. The patient is quite hypertensive now. I will add amlodipine to her antihypertensive regimen and we will ask the primary medical team to continue monitoring her hypertension throughout her hospitalization. I will have her Coumadin held in anticipation of her procedure on Wednesday; it could be restarted thereafter. Thank you again for the opportunity to participate in this patient's care. MD BRAYAN Schwartz/JULIAN , 09:18 AM , 09:37 AM
--- NOTE | 2017-07-31 10:42 | HHI.PR ---
Subjective Remarks sr Objective Vital Signs Date Time Temp Pulse Resp B/P (MAP) Pulse Ox O2 Delivery O2 Flow Rate FiO2 07/31/17 07:50 99.5 73 22 180/96 (124) 92 07/31/17 06:00 70 07/31/17 05:00 77 07/31/17 04:00 73 07/31/17 04:00 Room Air 07/31/17 04:00 98.7 73 18 192/90 (124) 98 07/31/17 03:00 75 07/31/17 02:00 72 07/31/17 01:00 69 07/31/17 00:00 98.3 66 16 188/86 (120) 97 07/31/17 00:00 66 07/30/17 22:46 62 07/30/17 20:28 97.9 64 16 203/88 (126) 97 07/30/17 20:00 74 07/30/17 15:42 69 07/30/17 14:09 98.4 76 16 179/83 (115) 98 I/O 07/30/17 07/30/17 07/30/17 07/31/17 07/31/17 07/31/17 07:00 15:00 23:00 07:00 15:00 23:00 Intake Total 590 ml Balance 590 ml Intake Oral 240 ml IV Total 350 ml # Voids 2 # Bowel Movements 0 Result Diagram: 07/31/17 0230 07/31/17 0230 Objective Remarks some aphasia seems to indicate old cva not able to move r side well but is able less effort Assessment and Plan Assessment and Plan imp on coumadin for loop 1 mg coumadin today just to get her up and started tid hep hypercoag pend Al Khan MD July 31, 2017 10:41
[2017-07-31] MEDS: cloNIDine HCL 0.2 MG TAB PO PRN (15:17)
[2017-07-31] MEDS ORDERED: WARFARIN SOD 1 MG TAB PO ONE (16:00)
[2017-07-31] MEDS: ATORVASTATIN 10 MG TAB PO SCH (19:59)
[2017-08-01] VITALS (25 sets, daily range): BP systolic 138–181; BP diastolic 67–97; PULSE 50–76; RESP 17–18; TEMP 98.2–98.8; O2SAT 84–100
[2017-08-01] MEDS: HEPARIN SODIUM - SQ 10,000 UNITS/ML VIAL SQ SCH ×3 (05:34→19:49)
[2017-08-01] MEDS: POTASSIUM CHLORIDE INJ 10 MEQ in SODIUM CHLOR 0.9% 1000 ML INJ 1,000 ML IV SCH ×2 (05:35→19:53)
[2017-08-01 07:10] LABS: INTERNATIONAL NORMALIZED RATIO 1.3 RATIO; PROTHROMBIN TIME - PATIENT 13.1 SEC (9.8-11.6)
[2017-08-01] MEDS: cloNIDine HCL 0.2 MG TAB PO PRN (07:56)
[2017-08-01] MEDS: FAMOTIDINE 20 MG TAB PO SCH ×2 (07:56→19:49)
[2017-08-01] MEDS: SODIUM CHLORIDE 0.9% FLUSH 10 ML FLUSH IV FLUSH SCH ×2 (08:04→19:50)
[2017-08-01] MEDS: DOCUSATE SODIUM 50 MG/SENNA 8.6 MG TAB PO SCH ×2 (08:04→19:48)
--- NOTE | 2017-08-01 12:55 | HHI.PR ---
Subjective Remarks sr Objective Vital Signs Date Time Temp Pulse Resp B/P (MAP) Pulse Ox O2 Delivery O2 Flow Rate FiO2 08/01/17 08:47 63 17 178/97 (124) 100 08/01/17 07:28 Room Air 94 08/01/17 07:28 98.2 72 17 181/97 (125) 94 08/01/17 06:00 56 08/01/17 05:00 64 08/01/17 04:00 Room Air 08/01/17 04:00 98.5 53 18 146/78 (100) 96 08/01/17 04:00 53 08/01/17 03:00 55 08/01/17 02:00 76 08/01/17 01:00 72 08/01/17 00:00 75 08/01/17 00:00 Room Air 08/01/17 00:00 98.8 75 18 138/67 (90) 97 07/31/17 23:00 77 07/31/17 22:00 73 07/31/17 21:00 78 07/31/17 20:00 Room Air 07/31/17 20:00 98.7 75 18 159/82 (107) 98 07/31/17 20:00 75 07/31/17 18:00 78 07/31/17 17:00 68 07/31/17 16:34 99.0 82 20 165/84 (111) 94 07/31/17 16:00 82 07/31/17 15:00 78 07/31/17 14:00 72 07/31/17 13:57 99.1 101 22 192/99 (130) 95 07/31/17 13:00 84 I/O 07/31/17 07/31/17 07/31/17 08/01/17 08/01/17 08/01/17 07:00 15:00 23:00 07:00 15:00 23:00 Intake Total 590 ml 720 ml 480 ml Balance 590 ml 720 ml 480 ml Intake Oral 240 ml 720 ml 480 ml IV Total 350 ml # Voids 2 3 4 # Bowel Movements 0 0 Result Diagram: 07/31/17 0230 07/31/17 0230 Objective Remarks some aphasia seems to indicate old cva not able to move r side well maybe little weak there Assessment and Plan Assessment and Plan imp on coumadin for loop 1.3 inr tid hep hypercoag pend mild rhp stable Al Khan MD August 01, 2017 12:55
[2017-08-01 13:15] LABS: HEMOGLOBIN A1C 6.4 % (4.3-6.0)
[2017-08-01] MEDS ORDERED: POTASSIUM CHLORIDE 20 MEQ CONTROLLED RELEASE TAB PO ONE (14:45)
--- NOTE | 2017-08-01 14:54 | HHI.PR ---
Subjective Remarks Follow up for CVA. The patient reports much improvement of her speech, however still with occasional aphasia and slurred speech. She reports chronic right leg weakness from previous stroke. She denies any headache, lightheadedness, dizziness, chest pain, palpitations, or shortness of breath. Denies any other medical complaints at this time. Agrees to loop recorder placement tomorrow. Discussed that she will be started on coumadin prior to discharge, patient verbalizes understanding. Objective Vitals Vital Signs Date Time Temp Pulse Resp B/P (MAP) Pulse Ox O2 Delivery O2 Flow Rate FiO2 08/01/17 08:47 63 17 178/97 (124) 100 08/01/17 07:28 Room Air 94 08/01/17 07:28 98.2 72 17 181/97 (125) 94 08/01/17 06:00 56 08/01/17 05:00 64 08/01/17 04:00 Room Air 08/01/17 04:00 98.5 53 18 146/78 (100) 96 08/01/17 04:00 53 08/01/17 03:00 55 08/01/17 02:00 76 08/01/17 01:00 72 08/01/17 00:00 75 08/01/17 00:00 Room Air 08/01/17 00:00 98.8 75 18 138/67 (90) 97 07/31/17 23:00 77 07/31/17 22:00 73 07/31/17 21:00 78 07/31/17 20:00 Room Air 07/31/17 20:00 98.7 75 18 159/82 (107) 98 07/31/17 20:00 75 07/31/17 18:00 78 07/31/17 17:00 68 07/31/17 16:34 99.0 82 20 165/84 (111) 94 07/31/17 16:00 82 07/31/17 15:00 78 I/O 07/31/17 07/31/17 07/31/17 08/01/17 08/01/17 08/01/17 07:00 15:00 23:00 07:00 15:00 23:00 Intake Total 590 ml 720 ml 480 ml Balance 590 ml 720 ml 480 ml Intake Oral 240 ml 720 ml 480 ml IV Total 350 ml # Voids 2 3 4 # Bowel Movements 0 0 Result Diagram: 07/31/17 0230 07/31/17 0230 Imaging Last Impressions Head CT 07/30/1747 Signed Impressions: Service Date/Time: Sunday, July 30, 2017 09:18 - CONCLUSION: 1. No acute intracranial abnormality. 2. Senescent changes with moderate periventricular ischemic white matter demyelination. Moises Ambrose MD Chest X-Ray 07/30/1747 Signed Impressions: Service Date/Time: Sunday, July 30, 2017 08:49 - CONCLUSION: No acute disease. Nelson Mayo MD FACR Neck Magnetic Resonance Angiography 07/30/17 0000 Signed Impressions: Service Date/Time: Sunday, July 30, 2017 12:59 - CONCLUSION: Negative MRA of the carotids. I don't see as source of emboli. Nelson Mayo MD FACR Head Magnetic Resonance Angiography 07/30/17 0000 Signed Impressions: Service Date/Time: Sunday, July 30, 2017 12:59 - CONCLUSION: Negative MRA of the brain Nelson Mayo MD FACR Brain MRI 07/30/17 0000 Signed Impressions: Service Date/Time: Sunday, July 30, 2017 12:59 - CONCLUSION: Progression of the substantial periventricular white matter disease extending into the corpus callosum. This is suspicious for demyelinating process. Old mildly hemorrhagic ischemic events, with 5 mm focal area restricted diffusion anterior limb internal capsule left side. This is consistent with small acute ischemic event , probably lacunar infarct. Nelson Mayo MD FACR Objective Remarks GENERAL: Well-developed, well-nourished middle-aged AA female patient in [facility]. SKIN: Warm and dry. HEENT: Atraumatic. Normocephalic.Pupils equal and round. Mucous membranes pink and moist. NECK: Trachea midline. No JVD. CARDIOVASCULAR: Regular rate and rhythm. No murmur appreciated. RESPIRATORY: No accessory muscle use. Clear to auscultation. Breath sounds equal bilaterally. GASTROINTESTINAL: Abdomen soft, non-tender, nondistended. Normoactive bowel sounds 4. MUSCULOSKELETAL: Extremities without clubbing, cyanosis, or edema. No obvious deformities. NEUROLOGICAL: Awake and alert. No obvious cranial nerve deficits. Motor grossly within normal limits. 5/5 strength RUE/LUE/LLE, 4/5 strength of RLE. Occasional expressive aphasia with mild slurred speech at times, much improved. No facial droop, lid lag, or tongue deviation. PSYCHIATRIC: Calm mood; insight and judgment normal. Medications and IVs Current Medications Medications (Trade) Dose Ordered Sig/Galilea Route Start Time Stop Time Status Last Admin (NS Flush) 2 ml UNSCH PRN IV FLUSH 07/30/17 11:15 (NS Flush) 2 ml BID IV FLUSH 07/30/17 21:00 07/31/17 20:01 (Zofran Inj) 4 mg Q6H PRN IVP 07/30/17 11:15 (Tylenol) 650 mg Q6H PRN PO 07/30/17 11:15 07/31/17 09:41 (Narcan Inj) 0.4 mg UNSCH PRN IV PUSH 07/30/17 11:15 (Kae-Colace) 1 tab BID PO 07/30/17 21:00 07/31/17 19:59 (Milk Of Magnesia Liq) 30 ml Q12H PRN PO 07/30/17 11:15 (Senokot) 17.2 mg Q12H PRN PO 07/30/17 11:15 (Dulcolax Supp) 10 mg DAILY PRN RECTAL 07/30/17 11:15 Potassium Chloride 10 meq/ Sodium Chloride 1,005 ml @ 70 mls/hr [id number] IV 07/30/17 12:00 08/01/17 05:35 (Lipitor) 10 mg HS PO 07/30/17 21:00 07/31/17 19:59 (Pepcid) 10 mg BID PO 07/30/17 21:00 08/01/17 07:56 (Pill Splitter) 1 ea UNSCH PRN OTHER 07/30/17 13:30 (Coumadin) 5 mg DAILY@1600 PO 07/31/17 16:00 Future Hold Pharmacy Profile Note 0 ml @ 0 mls/hr UNSCH OTHER 07/30/17 17:30 (Norvasc) 10 mg DAILY PO 07/31/17 09:30 08/01/17 07:56 (Heparin Inj) 5,000 units Q8HR SQ 07/31/17 14:00 08/01/17 05:34 (Catapres) 0.2 mg TID PRN PO 07/31/17 14:45 5/6/18 07:56 A/P Problem List: (1) CVA (cerebral vascular accident) ICD Code: I63.9 - Cerebral infarction, unspecified Status: Acute (2) Altered mental status, unspecified ICD Code: R41.82 - Altered mental status, unspecified Status: Acute Assessment and Plan 61-year-old female with history of CVA, HTN, HLD, CAD s/p stent, anxiety, depression, presents with acute onset of altered mental status and expressive aphasia. Acute Ischemic Lacunar CVA: With persistent neurological deficit of expressive aphasia. -Head CT upon arrival images reviewed, shows no acute intracranial abnormality; senescent changes with moderate periventricular ischemic white matter demyelination -Brain MRI reviewed, shows progression of the substantial periventricular white matter disease extending into the corpus callosum; suspicious for demyelinating process; mildly hemorrhagic ischemic events with 5 mm focal area of restricted diffusion anterior limb internal capsule left side consistent with small acute ischemic event, probably lacunar infarct -Head/neck MRA reviewed, no acute findings -HOB flat x12hrs, s/p permissive hypertension, restart antihypertensives -EMR reviewed, echo on previous admission wnl with EF 60% -holter monitor, monitor on telemetry -neuro checks, NIHSS -HgbA1c 6.4 and lipid profile wnl, on statin -PT/OT/ST consulted -Stroke navigator consulted -Neurology consulted, appreciate recommendations -neurology recommended to discontinue aspirin/plavix, and start coumadin ( currently on hold for loop placement) -cardiology consulted for loop recorder, plan for loop placement on 08/02 LEYDI: Cr 2.04 upon arrival, previously 1.02 on 07/27/17 -give IVF hydration at 70 cc/hr -UA reviewed and unremarkable -avoid nephrotoxins -repeat BMP shows improvement with Cr 1.08 -continue to monitor Hypertension: uncontrolled -s/p permissive hypertension -restart home meds slowly, hydralazine and coreg with hold parameters; consider restarting patient's nifedipine tomorrow -unable to initiate GABBY at this time due to LEYDI -cardiology started patient on norvasc -clonidine prn Hyperlipidemia: chronic -continue statin -lipid profile wnl Elevated Troponin with hx of CAD s/p Stent: patient has history of elevated troponins on previously admission -cardiac enzymes trended 0.12 --> 0.19 --> 0.20 -s/p aspirin, started on heparin sq with plan to transition to coumadin -monitor on telemetry -cardiology consulted, appreciate recommendations All other chronic medical conditions stable, continue home medications as appropriate. DVT Prophylaxis: heparin sq Problem Qualifiers (1) CVA (cerebral vascular accident): Qualified Codes: I63.9 - Cerebral infarction, unspecified (2) Altered mental status, unspecified: Qualified Codes: R41.82 - Altered mental status, unspecified Kait Gongora PA-C August 01, 2017 2:54 pm
[2017-08-01] MEDS ORDERED: CALCIUM CARBONATE 500 MG CHEWABLE TAB PO ONE (18:45)
[2017-08-01] MEDS: ATORVASTATIN 10 MG TAB PO SCH (19:48)
[2017-08-01] MEDS: CARVEDILOL 6.25 MG TAB PO SCH (19:50)
[2017-08-01] MEDS: hydrALAZINE HCL 50 MG TAB PO SCH (20:02)
[2017-08-02] VITALS (14 sets, daily range): BP systolic 148–199; BP diastolic 80–93; PULSE 48–66; RESP 18–20; TEMP 97.4–98.3; O2SAT 95–98
[2017-08-02] MEDS: cloNIDine HCL 0.2 MG TAB PO PRN ×2 (03:39→09:39)
[2017-08-02] MEDS: hydrALAZINE HCL 50 MG TAB PO SCH ×3 (05:16→22:57)
[2017-08-02] MEDS: HEPARIN SODIUM - SQ 10,000 UNITS/ML VIAL SQ SCH ×3 (05:17→22:56)
--- NOTE | 2017-08-02 08:00 | HHI.PR ---
Subjective Remarks Seen in after loop recorder wasdocu placed. The patient says She has headaches. Says she also had headaches like last night. Says Tylenol does not help and asking for other medications. Denies change in vision. No new motor deficit. Says she is ambulating fairly well with physical therapy. No nausea vomiting no diarrhea or constipation. Objective Vitals Vital Signs Date Time Temp Pulse Resp B/P (MAP) Pulse Ox O2 Delivery O2 Flow Rate FiO2 08/02/17 06:00 48 08/02/17 05:00 52 08/02/17 04:00 Room Air 08/02/17 04:00 98.3 49 20 186/86 (119) 97 08/02/17 04:00 49 08/02/17 03:00 52 08/02/17 02:00 56 08/02/17 01:00 58 08/02/17 00:00 98.1 49 18 157/93 (114) 97 08/02/17 00:00 Room Air 08/02/17 00:00 49 08/01/17 23:00 50 08/01/17 22:00 56 08/01/17 21:00 54 08/01/17 20:00 Room Air 08/01/17 20:00 53 08/01/17 20:00 98.5 53 18 155/85 (108) 96 08/01/17 17:00 66 08/01/17 16:00 54 08/01/17 15:17 98.2 58 18 168/87 (114) 98 08/01/17 15:00 54 08/01/17 13:00 54 08/01/17 12:00 54 08/01/17 11:00 50 08/01/17 10:30 98.6 61 18 166/87 (113) 84 08/01/17 10:00 58 08/01/17 09:00 64 08/01/17 08:47 63 17 178/97 (124) 100 08/01/17 08:00 54 I/O 08/01/17 08/01/17 08/01/17 08/02/17 08/02/17 08/02/17 07:00 15:00 23:00 07:00 15:00 23:00 Intake Total 1180 ml 480 ml 1180 ml Output Total 800 ml Balance 1180 ml 480 ml 380 ml Intake Oral 480 ml 480 ml 480 ml IV Total 700 ml 700 ml Output Urine Total 800 ml # Voids 4 3 # Bowel Movements 0 0 Result Diagram: 07/31/17 0230 07/31/17 0230 Imaging Last Impressions Head CT 07/30/1747 Signed Impressions: Service Date/Time: Sunday, July 30, 2017 09:18 - CONCLUSION: 1. No acute intracranial abnormality. 2. Senescent changes with moderate periventricular ischemic white matter demyelination. Moises Ambrose MD Chest X-Ray 07/30/1747 Signed Impressions: Service Date/Time: Sunday, July 30, 2017 08:49 - CONCLUSION: No acute disease. Nelson Mayo MD FACR Neck Magnetic Resonance Angiography 07/30/17 0000 Signed Impressions: Service Date/Time: Sunday, July 30, 2017 12:59 - CONCLUSION: Negative MRA of the carotids. I don't see as source of emboli. Nelson Mayo MD FACR Head Magnetic Resonance Angiography 07/30/17 0000 Signed Impressions: Service Date/Time: Sunday, July 30, 2017 12:59 - CONCLUSION: Negative MRA of the brain Nelson Mayo MD FACR Brain MRI 07/30/17 0000 Signed Impressions: Service Date/Time: Sunday, July 30, 2017 12:59 - CONCLUSION: Progression of the substantial periventricular white matter disease extending into the corpus callosum. This is suspicious for demyelinating process. Old mildly hemorrhagic ischemic events, with 5 mm focal area restricted diffusion anterior limb internal capsule left side. This is consistent with small acute ischemic event , probably lacunar infarct. Nelson Mayo MD FACR Objective Remarks GENERAL: Well-developed, well-nourished middle-aged AA female patient in [facility]. CARDIOVASCULAR: Regular rate and rhythm. No murmur appreciated. RESPIRATORY: No accessory muscle use. Clear to auscultation. Breath sounds equal bilaterally. GASTROINTESTINAL: Abdomen soft, non-tender, nondistended. Normoactive bowel sounds 4. MUSCULOSKELETAL: Extremities without clubbing, cyanosis, or edema. No obvious deformities. NEUROLOGICAL: Awake and alert. No obvious cranial nerve deficits. Motor grossly within normal limits. 5/5 strength RUE/LUE/LLE, 4/5 strength of RLE. Occasional expressive aphasia with mild slurred speech at times, much improved. No facial droop, lid lag, or tongue deviation. PSYCHIATRIC: Calm mood; insight and judgment normal. Procedures s/p Successful loop recorder and insertion. 08/02/[address] FERNANDO Dawkins/Tristan Problem List: (1) CVA (cerebral vascular accident) ICD Code: I63.9 - Cerebral infarction, unspecified Status: Acute (2) Altered mental status, unspecified ICD Code: R41.82 - Altered mental status, unspecified Status: Acute Assessment and Plan 61-year-old female with history of CVA, HTN, HLD, CAD s/p stent, anxiety, depression, presents with acute onset of altered mental status and expressive aphasia. Acute Ischemic Lacunar CVA: With persistent neurological deficit of expressive aphasia. Head CT upon arrival images reviewed, shows no acute intracranial abnormality; senescent changes with moderate periventricular ischemic white matter demyelination Brain MRI reviewed, shows progression of the substantial periventricular white matter disease extending into the corpus callosum; suspicious for demyelinating process; mildly hemorrhagic ischemic events with 5 mm focal area of restricted diffusion anterior limb internal capsule left side consistent with small acute ischemic event, probably lacunar infarct Head/neck MRA reviewed, no acute findings HOB flat x12hrs, s/p permissive hypertension, restart antihypertensives Echo on previous admission with EF 60% holter monitor, monitor on telemetry neuro checks, NIHSS HgbA1c 6.4 and lipid profile wnl, on statin PT/OT/ST consulted Stroke navigator consulted Neurology consulted, appreciate recommendations neurology recommended to discontinue aspirin/plavix, and start coumadin ( currently on hold for loop placement) cardiology consulted for loop recorder, plan for loop placement on 08/02 LEYDI: Cr 2.04 upon arrival, previously 1.02 on 07/27/17 give IVF hydration at 70 cc/hr UA reviewed and unremarkable avoid nephrotoxins repeat BMP shows improvement with Cr 1.08 continue to monitor Hypertension: uncontrolled s/p permissive hypertension restart home meds slowly, hydralazine and coreg with hold parameters; consider restarting patient's nifedipine tomorrow unable to initiate GABBY at this time due to LEYDI cardiology started patient on norvasc clonidine prn Hyperlipidemia: chronic continue statin lipid profile wnl Elevated Troponin with hx of CAD s/p Stent: patient has history of elevated troponins on previously admission cardiac enzymes trended 0.12 --> 0.19 --> 0.20 s/p aspirin, started on heparin sq with plan to transition to coumadin monitor on telemetry cardiology consulted, appreciate recommendations All other chronic medical conditions stable, continue home medications as appropriate. DVT Prophylaxis: heparin sq s/p Successful loop recorder and insertion. Problem Qualifiers (1) CVA (cerebral vascular accident): Qualified Codes: I63.9 - Cerebral infarction, unspecified (2) Altered mental status, unspecified: Qualified Codes: R41.82 - Altered mental status, unspecified Yoli Fuentes MD August 02, 2017 08:00
[2017-08-02 08:23] LABS: INTERNATIONAL NORMALIZED RATIO 1.2 RATIO; PROTHROMBIN TIME - PATIENT 12.4 SEC (9.8-11.6)
[2017-08-02 08:24] LABS: AUTOMATED NEUTROPHIL # 4.3 TH/MM3 (1.8-7.7); BASOPHIL # 0.1 TH/MM3 (0-0.2); EOSINOPHIL # 0.2 TH/MM3 (0-0.4); HEMATOCRIT 36.1 % (35.0-46.0); HEMOGLOBIN 11.8 GM/DL (11.6-15.3); LYMPH % 27.8 % (9.0-44.0); LYMPHOCYTE # 1.9 TH/MM3 (1.0-4.8); MEAN CELL VOLUME 68.2 FL (80.0-100.0); MEAN CORPUSCULAR HEMOGLOBIN 22.3 PG (27.0-34.0); MEAN CORPUSCULAR HGB CONC 32.7 % (32.0-36.0); MEAN PLATELET VOLUME 8.4 FL (7.0-11.0); MONO % 6.1 % (0.0-8.0); MONOCYTE # 0.4 TH/MM3 (0-0.9); NEUT % 62.1 % (16.0-70.0); PLATELET COUNT 254 TH/MM3 (150-450); RED BLOOD COUNT 5.28 MIL/MM3 (4.00-5.30); RED CELL DISTRIBUTION WIDTH 17.1 % (11.6-17.2); WHITE BLOOD COUNT 6.9 TH/MM3 (4.0-11.0)
[2017-08-02 08:47] LABS: BICARBONATE 25.2 MEQ/L (21.0-32.0); CALCIUM 9.9 MG/DL (8.5-10.1); CREATININE 0.94 MG/DL (0.50-1.00)
[2017-08-02] MEDS: CARVEDILOL 6.25 MG TAB PO SCH ×3 (09:00→20:36)
[2017-08-02] MEDS: SODIUM CHLORIDE 0.9% FLUSH 10 ML FLUSH IV FLUSH SCH ×2 (09:00→20:38)
[2017-08-02] MEDS: FAMOTIDINE 20 MG TAB PO SCH ×2 (09:31→20:38)
[2017-08-02] MEDS: DOCUSATE SODIUM 50 MG/SENNA 8.6 MG TAB PO SCH ×2 (09:32→20:38)
[2017-08-02] MEDS ORDERED: MIDAZOLAM HCL 5 MG/ML VIAL (1 ML) IV PUSH ONE (10:26)
[2017-08-02] MEDS ORDERED: MIDAZOLAM HCL 5 MG/ML VIAL (1 ML) ONE (10:26)
[2017-08-02] MEDS ORDERED: ceFAZolin 2 GM PREMIX 50 ML IV SCH (10:30)
[2017-08-02] MEDS ORDERED: MUPIROCIN 2% OINT 1 APPLIC/GM SYR NASAL SCH (10:30)
--- NOTE | 2017-08-02 11:27 | MP ---
cc: Kvng Hammond MD,Dez Fuentes,Yoli Serrano,Alessandro Goodson DO DATE OF OPERATION: 08/02/2017 PROCEDURE PERFORMED: Loop recorder insertion. SURGEON: Alessandro Serrano MD and Kvng Hammond MD. INDICATIONS: Mrs. Cho is a 61-year-old female with an episode of cerebrovascular accident, arrhythmia suspected to undergo loop recorder insertion. The risks, the nature and the benefits of the procedure were clearly stated to her. The risks include pneumothorax, cardiac perforation, stroke and even . She understood and agreed to proceed. PROCEDURE: After written informed consent was obtained, the patient was brought to the DOC unit where she was prepped and draped in the usual sterile fashion. Conscious sedation was initiated and maintained throughout the procedure using intravenous Versed and fentanyl. Sedation was around 30-minutes between initiation and recovery. Once sedation verified, the left parasternal area was anesthetized with 2% Xylocaine. Using a cutter, less than a centimeter incision was made. Subsequently, the loop was injected under the skin. After adequate sensing obtained, the border was approximated using Dermabond and Steri-Strip. No incident report. The patient tolerated the procedure. Blood loss minimal. IMPLANTED HARDWARE: The loop recorder is a [employer], serial number [id number]. Sensing was 0.30 millivolts. SETTING: The setting is adi under 40, tachy over 160. CONCLUSION: Successful loop recorder and insertion. COMMENT AND RECOMMENDATIONS: The patient is going to be transferred to her room. Further decision by the managing team. Kvng Hammond MD HS/DL , 10:46 AM , 11:26 AM
[2017-08-02] MEDS ORDERED: POVIDONE IODINE 5% (ANTISEPSIS KIT) 4 APPLICATIONS EACH NARE SCH (11:30)
[2017-08-02] MEDS ORDERED: CHLORHEXIDINE GLUCONATE 2 % 1 PACK (2 CLOTHS) TOPICAL SCH (11:30)
--- NOTE | 2017-08-02 11:41 | PD.CARD.PN ---
Subjective Subjective Remarks Loop recorder placed No complaints Objective Medications Current Medications Medications (Trade) Dose Ordered Sig/Galilea Route Start Time Stop Time Status Last Admin (NS Flush) 2 ml UNSCH PRN IV FLUSH 07/30/17 11:15 (NS Flush) 2 ml BID IV FLUSH 07/30/17 21:00 08/02/17 09:00 (Zofran Inj) 4 mg Q6H PRN IVP 07/30/17 11:15 (Tylenol) 650 mg Q6H PRN PO 07/30/17 11:15 07/31/17 09:41 (Narcan Inj) 0.4 mg UNSCH PRN IV PUSH 07/30/17 11:15 (Kae-Colace) 1 tab BID PO 07/30/17 21:00 08/02/17 09:32 (Milk Of Magnesia Liq) 30 ml Q12H PRN PO 07/30/17 11:15 (Senokot) 17.2 mg Q12H PRN PO 07/30/17 11:15 (Dulcolax Supp) 10 mg DAILY PRN RECTAL 07/30/17 11:15 Potassium Chloride 10 meq/ Sodium Chloride 1,005 ml @ 70 mls/hr [id number] IV 07/30/17 12:00 08/01/17 19:53 (Lipitor) 10 mg HS PO 07/30/17 21:00 08/01/17 19:48 (Pepcid) 10 mg BID PO 07/30/17 21:00 08/02/17 09:31 (Pill Splitter) 1 ea UNSCH PRN OTHER 07/30/17 13:30 (Coumadin) 5 mg DAILY@1600 PO 07/31/17 16:00 Future Hold Pharmacy Profile Note 0 ml @ 0 mls/hr UNSCH OTHER 07/30/17 17:30 (Norvasc) 10 mg DAILY PO 07/31/17 09:30 08/02/17 09:31 (Heparin Inj) 5,000 units Q8HR SQ 07/31/17 14:00 08/02/17 05:17 (Catapres) 0.2 mg TID PRN PO 07/31/17 14:45 08/02/17 09:39 (Coreg) 6.25 mg Q12HR PO 08/01/17 21:00 (Apresoline) 50 mg Q8HR PO 08/01/17 22:00 08/02/17 05:16 Cefazolin Sodium/ Dextrose 50 ml @ 100 mls/hr TECHNICAL SERVICES COORDINATOR IV 08/02/17 10:30 08/05/17 10:29 08/02/17 10:28 (Bactroban Nasal 2% Oint) 1 applic TECHNICAL SERVICES COORDINATOR NASAL 08/02/17 10:30 08/05/17 10:29 (Betadine 5% Antisepsis Kit) 2 applic TECHNICAL SERVICES COORDINATOR EACH NARE 08/02/17 11:30 08/05/17 11:29 08/02/17 10:15 (Chlorhexidine 2% Cloth) 3 pack TECHNICAL SERVICES COORDINATOR TOPICAL 08/02/17 11:30 08/05/17 11:29 08/02/17 10:15 ([place] 5-325 Mg) 1 tab Q8HR PRN PO 08/02/17 11:45 UNV Vital Signs / I&O Vital Signs Date Time Temp Pulse Resp B/P (MAP) Pulse Ox O2 Delivery O2 Flow Rate FiO2 08/02/17 08:24 96 Room Air 08/02/17 08:24 98.0 58 20 199/85 (123) 96 08/02/17 06:00 48 08/02/17 05:00 52 08/02/17 04:00 Room Air 08/02/17 04:00 98.3 49 20 186/86 (119) 97 08/02/17 04:00 49 08/02/17 03:00 52 08/02/17 02:00 56 08/02/17 01:00 58 08/02/17 00:00 98.1 49 18 157/93 (114) 97 08/02/17 00:00 Room Air 08/02/17 00:00 49 08/01/17 23:00 50 08/01/17 22:00 56 08/01/17 21:00 54 08/01/17 20:00 Room Air 08/01/17 20:00 53 08/01/17 20:00 98.5 53 18 155/85 (108) 96 08/01/17 17:00 66 08/01/17 16:00 54 08/01/17 15:17 98.2 58 18 168/87 (114) 98 08/01/17 15:00 54 08/01/17 13:00 54 08/01/17 12:00 54 I/O 08/01/17 08/01/17 08/01/17 08/02/17 08/02/17 08/02/17 07:00 15:00 23:00 07:00 15:00 23:00 Intake Total 1180 ml 480 ml 1180 ml Output Total 800 ml Balance 1180 ml 480 ml 380 ml Intake Oral 480 ml 480 ml 480 ml IV Total 700 ml 700 ml Output Urine Total 800 ml # Voids 4 3 # Bowel Movements 0 0 Physical Exam GENERAL: NAD, AAOx3 SKIN: Warm and dry. HEAD: Atraumatic. Normocephalic. EYES: Pupils equal and round. No scleral icterus. No injection or drainage. ENT: No nasal bleeding or discharge. Mucous membranes pink and moist. NECK: Trachea midline. No JVD. CARDIOVASCULAR: Regular rate and rhythm. RESPIRATORY: No accessory muscle use. Clear to auscultation. Breath sounds equal bilaterally. GASTROINTESTINAL: Abdomen soft, non-tender, nondistended. Hepatic and splenic margins not palpable. MUSCULOSKELETAL: Extremities without clubbing, cyanosis, or edema. No obvious deformities. NEUROLOGICAL: Awake and alert. No obvious cranial nerve deficits. PSYCHIATRIC: Appropriate mood and affect; insight and judgment normal. Laboratory Laboratory Tests Test 08/02/17 08:09 White Blood Count 6.9 TH/MM3 Red Blood Count 5.28 MIL/MM3 Hemoglobin 11.8 GM/DL Hematocrit 36.1 % Mean Corpuscular Volume 68.2 FL Mean Corpuscular Hemoglobin 22.3 PG Mean Corpuscular Hemoglobin Concent 32.7 % Red Cell Distribution Width 17.1 % Platelet Count 254 TH/MM3 Mean Platelet Volume 8.4 FL Neutrophils (%) (Auto) 62.1 % Lymphocytes (%) (Auto) 27.8 % Monocytes (%) (Auto) 6.1 % Eosinophils (%) (Auto) 3.0 % Basophils (%) (Auto) 1.0 % Neutrophils # (Auto) 4.3 TH/MM3 Lymphocytes # (Auto) 1.9 TH/MM3 Monocytes # (Auto) 0.4 TH/MM3 Eosinophils # (Auto) 0.2 TH/MM3 Basophils # (Auto) 0.1 TH/MM3 CBC Comment DIFF FINAL Differential Comment Prothrombin Time 12.4 SEC Prothromb Time International Ratio 1.2 RATIO Blood Urea Nitrogen 8 MG/DL Creatinine 0.94 MG/DL Random Glucose 110 MG/DL Calcium Level 9.9 MG/DL Sodium Level 143 MEQ/L Potassium Level 4.1 MEQ/L Chloride Level 112 MEQ/L Carbon Dioxide Level 25.2 MEQ/L Anion Gap 6 MEQ/L Estimat Glomerular Filtration Rate 73 ML/MIN Assessment and Plan Problem List: (1) Altered mental status, unspecified ICD Codes: R41.82 - Altered mental status, unspecified Status: Acute (2) CVA (cerebral vascular accident) ICD Codes: I63.9 - Cerebral infarction, unspecified Status: Acute (3) Elevated troponin ICD Codes: R74.8 - Abnormal levels of other serum enzymes Status: Acute Assessment and Plan 1) CVA of unknown cause/previous syncope Loop recorder placed today 2) CVA Placed on Coumadin therapy 3) Elevated troponin Chronically elevated Con't medical management 4) HTN When ok to stop permissive HTN, would place back on Procardia and D/C Norvasc as she needs a stronger agent Problem Qualifiers (1) Altered mental status, unspecified: Qualified Codes: R41.82 - Altered mental status, unspecified (2) CVA (cerebral vascular accident): Qualified Codes: I63.9 - Cerebral infarction, unspecified Alessandro Serrano DO August 02, 2017 11:41
[2017-08-02] MEDS: POTASSIUM CHLORIDE INJ 10 MEQ in SODIUM CHLOR 0.9% 1000 ML INJ 1,000 ML IV SCH (11:50)
--- NOTE | 2017-08-02 11:52 | HM ---
Date Performed: 07/30/2017 Time Performed: 19:54:00 HOOKUP DATE: 07/30/17 07:54:00 PM Fri ANALYSIS START TIME: 07/30/2017 7:59:00 PM ANALYSIS END TIME: 07/31/2017 8:02:59 PM PATIENT AGE: 61 PATIENT HEIGHT PATIENT WEIGHT DRUG LIST PATIENT DIAGNOSIS: CVA/AMS TEST NARRATIVE: The patient's average heart rate was 75 BPM. No episodes of tachycardia wer e noted. No episodes of bradycardia were noted. No pauses exceeding 2.0 seconds were noted. 96 ventricular ectopics, which represented < 1% of the total beat count, were noted. The highest satinder tricular ectopic frequency occurred from 09:00 PM to 10:00 PM Fri. During this time 10 VE(s) occurre d. Ventricular ectopics were observed as 96 isolated beat(s) only. No couplets or runs were noted. 2 supraventricular ectopics, which represented < 1% of the total beat count, were noted. The hig hest supraventricular ectopic frequency occurred from 06:00 AM to 07:00 AM Sat. During this time 1 S VE(s) occurred. No episodes of ST depression (defined as -1.0 mm or more) were noted in channel [address] No episodes of [address] depression (defined as -1.0 mm or more) were noted in channel 2. No episodes of ST depression (defined as -1.0 mm or more) were noted in channel 3. TEST INTERPRETATION: The Holter monitor demonstrates Sinus rhythm with sinus tachycardia to 112 beats per minute. A rare PVC and PAC were noted. No other significant rhythms are seen. Signed by : Brandon Betts
[2017-08-02] MEDS: ACETAMINOPHEN/HYDROcodone 325 MG/5 MG TAB PO PRN ×2 (12:17→20:35)
[2017-08-02] MEDS: ATORVASTATIN 10 MG TAB PO SCH (20:36)
[2017-08-03] VITALS (11 sets, daily range): BP systolic 128–170; BP diastolic 66–99; PULSE 42–74; RESP 14–20; TEMP 97.5–98.5; O2SAT 96–100
[2017-08-03] MEDS: hydrALAZINE HCL 50 MG TAB PO SCH ×3 (06:31→22:14)
[2017-08-03] MEDS: HEPARIN SODIUM - SQ 10,000 UNITS/ML VIAL SQ SCH ×3 (06:32→22:16)
[2017-08-03 06:53] LABS: INTERNATIONAL NORMALIZED RATIO 1.2 RATIO; PROTHROMBIN TIME - PATIENT 11.9 SEC (9.8-11.6)
[2017-08-03] MEDS: FAMOTIDINE 20 MG TAB PO SCH ×2 (08:55→22:13)
[2017-08-03] MEDS: CARVEDILOL 6.25 MG TAB PO SCH ×2 (08:55→22:11)
[2017-08-03] MEDS: ACETAMINOPHEN/HYDROcodone 325 MG/5 MG TAB PO PRN ×2 (08:56→22:10)
[2017-08-03] MEDS: DOCUSATE SODIUM 50 MG/SENNA 8.6 MG TAB PO SCH ×2 (08:56→22:14)
[2017-08-03] MEDS: SODIUM CHLORIDE 0.9% FLUSH 10 ML FLUSH IV FLUSH SCH ×2 (08:56→22:07)
--- NOTE | 2017-08-03 10:37 | PD.CARD.PN ---
Subjective Subjective Remarks Loop recorder placed No chest pain/SOB Mild headache, relieved with warm compress Objective Medications Current Medications Medications (Trade) Dose Ordered Sig/Galilea Route Start Time Stop Time Status Last Admin (NS Flush) 2 ml UNSCH PRN IV FLUSH 07/30/17 11:15 (NS Flush) 2 ml BID IV FLUSH 07/30/17 21:00 08/03/17 08:56 (Zofran Inj) 4 mg Q6H PRN IVP 07/30/17 11:15 (Tylenol) 650 mg Q6H PRN PO 07/30/17 11:15 07/31/17 09:41 (Narcan Inj) 0.4 mg UNSCH PRN IV PUSH 07/30/17 11:15 (Kae-Colace) 1 tab BID PO 07/30/17 21:00 08/03/17 08:56 (Milk Of Magnesia Liq) 30 ml Q12H PRN PO 07/30/17 11:15 (Senokot) 17.2 mg Q12H PRN PO 07/30/17 11:15 (Dulcolax Supp) 10 mg DAILY PRN RECTAL 07/30/17 11:15 Potassium Chloride 10 meq/ Sodium Chloride 1,005 ml @ 70 mls/hr [id number] IV 07/30/17 12:00 08/02/17 11:50 (Lipitor) 10 mg HS PO 07/30/17 21:00 08/02/17 20:36 (Pepcid) 10 mg BID PO 07/30/17 21:00 08/03/17 08:55 (Pill Splitter) 1 ea UNSCH PRN OTHER 07/30/17 13:30 (Coumadin) 5 mg DAILY@1600 PO 07/31/17 16:00 Future Hold Pharmacy Profile Note 0 ml @ 0 mls/hr UNSCH OTHER 07/30/17 17:30 (Norvasc) 10 mg DAILY PO 07/31/17 09:30 08/03/17 08:56 (Heparin Inj) 5,000 units Q8HR SQ 07/31/17 14:00 08/03/17 06:32 (Catapres) 0.2 mg TID PRN PO 07/31/17 14:45 08/02/17 09:39 (Coreg) 6.25 mg Q12HR PO 08/01/17 21:00 08/03/17 08:55 (Apresoline) 50 mg Q8HR PO 08/01/17 22:00 08/03/17 06:31 Cefazolin Sodium/ Dextrose 50 ml @ 100 mls/hr DISTANCE LEARNING ADMINISTRATOR IV 08/02/17 10:30 08/05/17 10:29 08/02/17 10:28 (Bactroban Nasal 2% Oint) 1 applic DISTANCE LEARNING ADMINISTRATOR NASAL 08/02/17 10:30 08/05/17 10:29 (Betadine 5% Antisepsis Kit) 2 applic DISTANCE LEARNING ADMINISTRATOR EACH NARE 08/02/17 11:30 08/05/17 11:29 08/02/17 10:15 (Chlorhexidine 2% Cloth) 3 pack DISTANCE LEARNING ADMINISTRATOR TOPICAL 08/02/17 11:30 08/05/17 11:29 08/02/17 10:15 ([place]ve[place] 5-325 Mg) 1 tab Q8HR PRN PO 08/02/17 11:45 08/03/17 08:56 Vital Signs / I&O Vital Signs Date Time Temp Pulse Resp B/P (MAP) Pulse Ox O2 Delivery O2 Flow Rate FiO2 08/03/17 10:01 18 08/03/17 08:22 98.4 74 18 156/84 (108) 100 08/03/17 08:19 96 Room Air 08/03/17 06:00 48 08/03/17 05:00 46 08/03/17 04:00 97.5 45 18 146/74 (98) 100 08/03/17 04:00 42 08/03/17 03:00 48 08/03/17 02:00 46 08/03/17 01:00 46 08/03/17 00:00 98.1 55 20 149/83 (105) 96 08/03/17 00:00 50 08/02/17 23:00 56 08/02/17 22:00 52 08/02/17 21:00 50 08/02/17 20:00 97.4 66 20 165/92 (116) 98 08/02/17 20:00 Room Air 08/02/17 20:00 56 08/02/17 15:16 97.8 56 18 148/82 (104) 97 08/02/17 11:59 98.1 53 18 166/80 (108) 95 I/O 08/02/17 08/02/17 08/02/17 08/03/17 08/03/17 08/03/17 07:00 15:00 23:00 07:00 15:00 23:00 Intake Total 1180 ml 240 ml Output Total 800 ml 1250 ml Balance 380 ml -1250 ml 240 ml Intake Oral 480 ml 240 ml IV Total 700 ml Output Urine Total 800 ml 1250 ml # Voids 1 # Bowel Movements 0 0 Physical Exam GENERAL: NAD, AAOx3 SKIN: Warm and dry. HEAD: Atraumatic. Normocephalic. EYES: Pupils equal and round. No scleral icterus. No injection or drainage. ENT: No nasal bleeding or discharge. Mucous membranes pink and moist. NECK: Trachea midline. No JVD. CARDIOVASCULAR: Regular rate and rhythm. RESPIRATORY: No accessory muscle use. Clear to auscultation. Breath sounds equal bilaterally. GASTROINTESTINAL: Abdomen soft, non-tender, nondistended. Hepatic and splenic margins not palpable. MUSCULOSKELETAL: Extremities without clubbing, cyanosis, or edema. No obvious deformities. NEUROLOGICAL: Awake and alert. No obvious cranial nerve deficits. PSYCHIATRIC: Appropriate mood and affect; insight and judgment normal. Laboratory Laboratory Tests Test 08/03/17 04:49 Prothrombin Time 11.9 SEC Prothromb Time International Ratio 1.2 RATIO Assessment and Plan Problem List: (1) Altered mental status, unspecified ICD Codes: R41.82 - Altered mental status, unspecified Status: Acute (2) CVA (cerebral vascular accident) ICD Codes: I63.9 - Cerebral infarction, unspecified Status: Acute (3) Elevated troponin ICD Codes: R74.8 - Abnormal levels of other serum enzymes Status: Acute Assessment and Plan 1) CVA of unknown cause/previous syncope Loop recorder placed 2) CVA Placed on Coumadin therapy, restarted 3) Elevated troponin Chronically elevated Con't medical management 4) HTN Blood pressure better controlled today Problem Qualifiers (1) Altered mental status, unspecified: Qualified Codes: R41.82 - Altered mental status, unspecified (2) CVA (cerebral vascular accident): Qualified Codes: I63.9 - Cerebral infarction, unspecified Alessandro Serrano DO August 03, 2017 10:37
[2017-08-03] MEDS ORDERED: AMLO10 PO (11:24)
[2017-08-03] MEDS ORDERED: COUM5TAB PO (11:24)
--- NOTE | 2017-08-03 11:24 | HHI.DS ---
Discharge Summary Admission Date July 30, 2017 at 16:12 Admitting Diagnosis CVA, AMS, RENAL INSUFFIENCY (1) CVA (cerebral vascular accident) ICD Code: I63.9 - Cerebral infarction, unspecified Status: Acute (2) Altered mental status, unspecified ICD Code: R41.82 - Altered mental status, unspecified Status: Acute Procedures s/p Successful loop recorder and insertion. 08/02/[address] KING Brief History - From Admission 61-year-old female with history of CVA, HTN, HLD, CAD s/p stent, anxiety, depression, presents with acute onset of altered mental status earlier this morning 07/30. Patient currently has expressive aphasia and has difficulty explaining events leading up to her admission. Per ER report, the patient's family called 911 as they noticed the patient was not acting like herself this morning. Reportedly the patient was putting on mismatched shoes and had repetitive language. The family reported the patient was last seen normal yesterday. The patient was recently admitted 07/23/17-07/27/17 for syncope with elevated troponins. She had unremarkable workup with normal echocardiogram and negative head CT. She was evaluated by cardiology on that admission, cleared for discharge as she had a negative stress test in December 2016. The patient is now seen in the observation unit. She continues to have expressive aphasia. She was able to tell me her name, year 2017, and [place], [place]. She is able to repeat words such as [facility], [facility], etc. after prompted. She is able to tell me that she has 3 kids, but cannot remember the names of her 3 children. She repeatedly states "yes ma'am" even when not being asked any questions. She is tearful throughout exam. She denies any other medical complaints although doubt reliability of her answers. CBC/BMP: 08/02/17 0809 08/02/17 0809 Significant Findings Laboratory Tests Test 08/01/17 05:27 08/02/17 08:09 08/03/17 04:49 Prothrombin Time 13.1 SEC (9.8-11.6) 12.4 SEC (9.8-11.6) 11.9 SEC (9.8-11.6) Mean Corpuscular Volume 68.2 FL (80.0-100.0) Mean Corpuscular Hemoglobin 22.3 PG (27.0-34.0) Random Glucose 110 MG/DL (74-106) Chloride Level 112 MEQ/L (98-107) Estimat Glomerular Filtration Rate 73 ML/MIN (>89) PE at Discharge GENERAL: Well-developed, well-nourished middle-aged AA female patient in NAD. CARDIOVASCULAR: Regular rate and rhythm. No murmur appreciated. RESPIRATORY: No accessory muscle use. Clear to auscultation. Breath sounds equal bilaterally. GASTROINTESTINAL: Abdomen soft, non-tender, nondistended. Normoactive bowel sounds 4. MUSCULOSKELETAL: Extremities without clubbing, cyanosis, or edema. No obvious deformities. NEUROLOGICAL: Awake and alert. No obvious cranial nerve deficits. Motor grossly within normal limits. 5/5 strength RUE/LUE/LLE, 4/5 strength of RLE. Occasional expressive aphasia with mild slurred speech at times, much improved. No facial droop, lid lag, or tongue deviation. PSYCHIATRIC: Calm mood; insight and judgment normal. Pt Condition on Discharge: Stable Discharge Disposition: Disch w/ Home Health Serv Discharge Instructions DIET: Follow Instructions for: Heart Healthy Diet Activities you can perform: Regular-No Restrictions Yoli Fuentes MD August 03, 2017 11:24
[2017-08-03 15:25] LABS: CARDIOLIPIN IGG AB <9.4 GPL; CARDIOLIPIN IGM AB <9.4 MPL
[2017-08-03] MEDS: WARFARIN SOD 5 MG TAB PO SCH (16:20)
[2017-08-03] MEDS: POTASSIUM CHLORIDE INJ 10 MEQ in SODIUM CHLOR 0.9% 1000 ML INJ 1,000 ML IV SCH (16:24)
--- NOTE | 2017-08-03 17:52 | HHI.PR ---
Subjective Remarks F/U syncope, CVA. S/p loop recorder. Anticoagulated INR subtherapeutic The patient is in the chair. Says she feels some improvement today says he would prefer to go home as has all arrangements done at home. Still with headache but improved. Denies cp, sob. No n/v/d/c. Objective Vitals Vital Signs Date Time Temp Pulse Resp B/P (MAP) Pulse Ox O2 Delivery O2 Flow Rate FiO2 08/03/17 16:22 98.2 52 18 128/66 (86) 100 08/03/17 11:58 98.4 62 18 134/75 (94) 97 08/03/17 10:01 18 08/03/17 08:22 98.4 74 18 156/84 (108) 100 08/03/17 08:19 96 Room Air 08/03/17 06:00 48 08/03/17 05:00 46 08/03/17 04:00 97.5 45 18 146/74 (98) 100 08/03/17 04:00 42 08/03/17 03:00 48 08/03/17 02:00 46 08/03/17 01:00 46 08/03/17 00:00 98.1 55 20 149/83 (105) 96 08/03/17 00:00 50 08/02/17 23:00 56 08/02/17 22:00 52 08/02/17 21:00 50 08/02/17 20:00 97.4 66 20 165/92 (116) 98 08/02/17 20:00 Room Air 08/02/17 20:00 56 I/O 08/02/17 08/02/17 08/02/17 08/03/17 08/03/17 08/03/17 06:59 14:59 22:59 06:59 14:59 22:59 Intake Total 1180 ml 240 ml Output Total 800 ml 1250 ml Balance 380 ml -1250 ml 240 ml Intake Oral 480 ml 240 ml IV Total 700 ml Output Urine Total 800 ml 1250 ml # Voids 1 # Bowel Movements 0 0 Result Diagram: 08/02/17 0809 08/02/17 0809 Imaging Last Impressions Head CT 07/30/17 0847 Signed Impressions: Service Date/Time: Sunday, July 30, 2017 09:18 - CONCLUSION: 1. No acute intracranial abnormality. 2. Senescent changes with moderate periventricular ischemic white matter demyelination. Moises Ambrose MD Chest X-Ray 07/30/17 0847 Signed Impressions: Service Date/Time: Sunday, July 30, 2017 08:49 - CONCLUSION: No acute disease. Nelson Mayo MD FACR Neck Magnetic Resonance Angiography 07/30/17 0000 Signed Impressions: Service Date/Time: Sunday, July 30, 2017 12:59 - CONCLUSION: Negative MRA of the carotids. I don't see as source of emboli. Nelson Mayo MD FACR Head Magnetic Resonance Angiography 07/30/17 0000 Signed Impressions: Service Date/Time: Sunday, July 30, 2017 12:59 - CONCLUSION: Negative MRA of the brain Nelson Mayo MD FACR Brain MRI 07/30/17 0000 Signed Impressions: Service Date/Time: Sunday, July 30, 2017 12:59 - CONCLUSION: Progression of the substantial periventricular white matter disease extending into the corpus callosum. This is suspicious for demyelinating process. Old mildly hemorrhagic ischemic events, with 5 mm focal area restricted diffusion anterior limb internal capsule left side. This is consistent with small acute ischemic event , probably lacunar infarct. Nelson Mayo MD FACR Objective Remarks GENERAL: Well-developed, well-nourished middle-aged AA female patient in [facility]. CARDIOVASCULAR: Loop recorder in placed c/d/i. Regular rate and rhythm. No murmur appreciated. RESPIRATORY: No accessory muscle use. Clear to auscultation. Breath sounds equal bilaterally. GASTROINTESTINAL: Abdomen soft, non-tender, nondistended. Normoactive bowel sounds 4. MUSCULOSKELETAL: Extremities without clubbing, cyanosis, or edema. No obvious deformities. NEUROLOGICAL: Awake and alert. No obvious cranial nerve deficits. Motor grossly within normal limits. 5/5 strength RUE/LUE/LLE, 4/5 strength of RLE. Occasional expressive aphasia with mild slurred speech at times, much improved. No facial droop, lid lag, or tongue deviation. PSYCHIATRIC: Calm mood; insight and judgment normal. Procedures s/p Successful loop recorder and insertion. 08/02/[address] KING A/P Problem List: (1) CVA (cerebral vascular accident) ICD Code: I63.9 - Cerebral infarction, unspecified Status: Acute (2) Altered mental status, unspecified ICD Code: R41.82 - Altered mental status, unspecified Status: Acute Assessment and Plan 61-year-old female with history of CVA, HTN, HLD, CAD s/p stent, anxiety, depression, presents with acute onset of altered mental status and expressive aphasia. Acute Ischemic Lacunar CVA: With persistent neurological deficit of expressive aphasia. Head CT upon arrival images reviewed, shows no acute intracranial abnormality; senescent changes with moderate periventricular ischemic white matter demyelination Brain MRI reviewed, shows progression of the substantial periventricular white matter disease extending into the corpus callosum; suspicious for demyelinating process; mildly hemorrhagic ischemic events with 5 mm focal area of restricted diffusion anterior limb internal capsule left side consistent with small acute ischemic event, probably lacunar infarct Head/neck MRA reviewed, no acute findings HOB flat x12hrs, s/p permissive hypertension, restart antihypertensives Echo on previous admission with EF 60% holter monitor, monitor on telemetry neuro checks, NIHSS HgbA1c 6.4 and lipid profile wnl, on statin PT/OT/ST consulted Stroke navigator consulted Neurology consulted, appreciate recommendations neurology recommended to discontinue aspirin/plavix, and start coumadin ( currently on hold for loop placement) cardiology consulted for loop recorder, S/p loop placement on 08/02 LEYDI: Cr 2.04 upon arrival, previously 1.02 on 07/27/17 give IVF hydration at 70 cc/hr UA reviewed and unremarkable avoid nephrotoxins repeat BMP shows improvement with Cr 1.08 continue to monitor Hypertension: uncontrolled s/p permissive hypertension restart home meds slowly, hydralazine and coreg with hold parameters; consider restarting patient's nifedipine tomorrow unable to initiate GABBY at this time due to LEYDI cardiology started patient on norvasc clonidine prn Hyperlipidemia: chronic continue statin lipid profile wnl Elevated Troponin with hx of CAD s/p Stent: patient has history of elevated troponin on previously admission cardiac enzymes trended 0.12 --> 0.19 --> 0.20 s/p aspirin, started on heparin sq and transitioned to Coumadin Monitor INR , subtherapeutic at this time ./Pharm consulted fo INR monitor on telemetry cardiology consulted, appreciate recommendations All other chronic medical conditions stable, continue home medications as appropriate. DVT Prophylaxis: heparin sq s/p Successful loop recorder and insertion. DC when cleared by neuro INR is subtherapeutic at this time. Problem Qualifiers (1) CVA (cerebral vascular accident): Qualified Codes: I63.9 - Cerebral infarction, unspecified (2) Altered mental status, unspecified: Qualified Codes: R41.82 - Altered mental status, unspecified Yoli Fuentes MD August 03, 2017 17:52
--- NOTE | 2017-08-03 18:50 | RADRPT ---
EXAM DATE/TIME: 08/03/2017 18:07 [facility] COMPARISON: MRI BRAIN W/O CONTRAST, January 01, 2017, 20:03. CT BRAIN W/O CONTRAST, July 30, 2017, 9:18. MRI BRA IN W/O CONTRAST, July 30, 2017, 12:59. INDICATIONS : CVA. MEDICAL HISTORY : Hypertension. SURGICAL HISTORY : Cholecystectomy. ENCOUNTER: Initial ACUITY: 3 day PAIN SCORE: 2/10 LOCATION: Bilateral cranial TECHNIQUE: Multiplanar, multisequence MRI of the brain was performed without contrast. FINDINGS: CEREBRUM: The ventricles are normal for age. There continues to be a small air signal abnormality on the diffu antonina weighted images in the left frontal centrum semi-ovale. No evidence of midline shift, mass lesio n, hemorrhage or acute infarction. No extraaxial fluid collections are seen. The pituitary gland an d suprasellar cistern are normal in configuration. There are areas of decreased signal on the SWI keaton ges likely from prior hemorrhage. These were present previously. WHITE MATTER: There is increased signal seen in the periventricular white matter. There is areas of abnormal signal seen throughout the corpus callosum. Some of the increased signal radiating out from the corpus call osum. POSTERIOR FOSSA: The cerebellum and brainstem are intact. The 4th ventricle is midline. The cerebellopontine angle is unremarkable. The cerebellar tonsils are normal in position. DIFFUSION IMAGING: There continues to be a small air signal abnormality on the diffusion weighted images in the left abimael trum semi-ovale. EXTRACRANIAL: The visualized portions of the orbits and paranasal sinuses are unremarkable. CONCLUSION: 1. Small persistent acute to subacute area of lacunar infarction at the left frontal centrum semioval e. 2. Extensive demyelination raising the possibility of underlying demyelinating condition such as mult iple sclerosis. Alex Macias MD on August 03, 2017 at 18:43 Board Certified Radiologist. This report was verified electronically.
[2017-08-03] MEDS: ATORVASTATIN 10 MG TAB PO SCH (22:14)
[2017-08-03 23:26] LABS: PROTEIN C ACTIVITY 122 % (70 - 150); PROTEIN S ACTIVITY 123 % (65 - 160)
[2017-08-04] VITALS (7 sets, daily range): BP systolic 157–186; BP diastolic 72–91; PULSE 48–81; RESP 16–20; TEMP 97.6–99.4; O2SAT 98–99
[2017-08-04] MEDS: POTASSIUM CHLORIDE INJ 10 MEQ in SODIUM CHLOR 0.9% 1000 ML INJ 1,000 ML IV SCH (06:30)
[2017-08-04] MEDS: HEPARIN SODIUM - SQ 10,000 UNITS/ML VIAL SQ SCH ×2 (06:30→13:33)
[2017-08-04] MEDS: hydrALAZINE HCL 50 MG TAB PO SCH ×2 (06:30→13:33)
[2017-08-04] MEDS: ACETAMINOPHEN/HYDROcodone 325 MG/5 MG TAB PO PRN (06:42)
--- NOTE | 2017-08-04 08:09 | HHI.PR ---
Subjective Remarks sr Objective Vital Signs Date Time Temp Pulse Resp B/P (MAP) Pulse Ox O2 Delivery O2 Flow Rate FiO2 08/04/17 06:37 65 08/04/17 05:47 98 Room Air 08/04/17 04:00 48 08/04/17 04:00 98.3 63 16 175/77 (109) 98 08/03/17 23:26 18 08/03/17 20:00 98 Room Air 08/03/17 20:00 98.5 60 18 155/99 (117) 98 08/03/17 16:22 98.2 52 18 128/66 (86) 100 08/03/17 11:58 98.4 62 18 134/75 (94) 97 08/03/17 08:22 98.4 74 18 156/84 (108) 100 08/03/17 08:19 96 Room Air I/O 08/03/17 08/03/17 08/03/17 08/04/17 08/04/17 08/04/17 07:00 15:00 23:00 07:00 15:00 23:00 Intake Total 240 ml 720 ml 1700 ml Output Total 600 ml Balance 240 ml 120 ml 1700 ml Intake Oral 240 ml 720 ml IV Total 1700 ml Output Urine Total 600 ml # Voids 1 2 4 Result Diagram: 08/02/17 0809 08/02/17 0809 Objective Remarks some aphasia seems to indicate old cva not able to move r side well maybe little weak there long hx white Assessment and Plan Assessment and Plan imp on coumadin for loop inr hep hypercoag pend neg so far repeat mri no chasnge not ms she has daily white for yrs likey due to rebound white from chronic narcotics topamax and dc narcotics mild rhp stable oob ready for dc to rehab they could manage coumadin Al Khan MD August 04, 2017 08:09
[2017-08-04] MEDS: FAMOTIDINE 20 MG TAB PO SCH (08:12)
[2017-08-04] MEDS: DOCUSATE SODIUM 50 MG/SENNA 8.6 MG TAB PO SCH (08:12)
[2017-08-04] MEDS: CARVEDILOL 6.25 MG TAB PO SCH (08:12)
[2017-08-04] MEDS: SODIUM CHLORIDE 0.9% FLUSH 10 ML FLUSH IV FLUSH SCH (08:13)
--- NOTE | 2017-08-04 08:22 | HHI.PR ---
Subjective Remarks Follow-up CVA. Case discussed with previous provider, patient wants to go home which patient confirms. Improving headache discussed with nursing Objective Vitals Vital Signs Date Time Temp Pulse Resp B/P (MAP) Pulse Ox O2 Delivery O2 Flow Rate FiO2 08/04/17 06:37 65 08/04/17 05:47 98 Room Air 08/04/17 04:00 48 08/04/17 04:00 98.3 63 16 175/77 (109) 98 08/03/17 23:26 18 08/03/17 20:00 98 Room Air 08/03/17 20:00 98.5 60 18 155/99 (117) 98 08/03/17 16:22 98.2 52 18 128/66 (86) 100 08/03/17 11:58 98.4 62 18 134/75 (94) 97 08/03/17 08:22 98.4 74 18 156/84 (108) 100 08/03/17 08:19 96 Room Air I/O 08/03/17 08/03/17 08/03/17 08/04/17 08/04/17 08/04/17 07:00 15:00 23:00 07:00 15:00 23:00 Intake Total 240 ml 720 ml 1700 ml Output Total 600 ml Balance 240 ml 120 ml 1700 ml Intake Oral 240 ml 720 ml IV Total 1700 ml Output Urine Total 600 ml # Voids 1 2 4 Result Diagram: 08/02/17 0809 08/02/17 0809 Imaging Last Impressions Brain MRI 08/03/17 0000 Signed Impressions: Service Date/Time: Thursday, August 03, 2017 18:07 - CONCLUSION: 1. Small persistent acute to subacute area of lacunar infarction at the left frontal centrum semiovale. 2. Extensive demyelination raising the possibility of underlying demyelinating condition such as multiple sclerosis. Alex Macias MD Head CT 07/30/17 0847 Signed Impressions: Service Date/Time: Sunday, July 30, 2017 09:18 - CONCLUSION: 1. No acute intracranial abnormality. 2. Senescent changes with moderate periventricular ischemic white matter demyelination. Moises Ambrose MD Chest X-Ray 07/30/17 0847 Signed Impressions: Service Date/Time: Sunday, July 30, 2017 08:49 - CONCLUSION: No acute disease. Nelson Mayo MD FACR Neck Magnetic Resonance Angiography 07/30/17 0000 Signed Impressions: Service Date/Time: Sunday, July 30, 2017 12:59 - CONCLUSION: Negative MRA of the carotids. I don't see as source of emboli. Nelson Mayo MD FACR Head Magnetic Resonance Angiography 07/30/17 0000 Signed Impressions: Service Date/Time: Sunday, July 30, 2017 12:59 - CONCLUSION: Negative MRA of the brain Nelson Mayo MD FACR Objective Remarks GENERAL: Well-developed, well-nourished middle-aged AA female patient in [facility]. CARDIOVASCULAR: Loop recorder in placed c/d/i. Regular rate and rhythm. No murmur appreciated. RESPIRATORY: No accessory muscle use. Clear to auscultation. Breath sounds equal bilaterally. GASTROINTESTINAL: Abdomen soft, non-tender, nondistended. Normoactive bowel sounds 4. MUSCULOSKELETAL: Extremities without clubbing, cyanosis, or edema. No obvious deformities. NEUROLOGICAL: Awake and alert. No obvious cranial nerve deficits. Motor grossly within normal limits. 5/5 strength RUE/LUE/LLE, 4/5 strength of RLE. Occasional expressive aphasia with mild slurred speech at times, much improved. No facial droop, lid lag, or tongue deviation. PSYCHIATRIC: Calm mood; insight and judgment normal. Procedures s/p Successful loop recorder and insertion. 08/02/[address] KING A/P Problem List: (1) CVA (cerebral vascular accident) ICD Code: I63.9 - Cerebral infarction, unspecified Status: Acute (2) Altered mental status, unspecified ICD Code: R41.82 - Altered mental status, unspecified Status: Acute Assessment and Plan 61-year-old female with history of CVA, HTN, HLD, CAD s/p stent, anxiety, depression, presents with acute onset of altered mental status and expressive aphasia. Acute Ischemic Lacunar CVA: With persistent neurological deficit of expressive aphasia. Head CT upon arrival images reviewed, shows no acute intracranial abnormality; senescent changes with moderate periventricular ischemic white matter demyelination Brain MRI reviewed, shows progression of the substantial periventricular white matter disease extending into the corpus callosum; suspicious for demyelinating process; mildly hemorrhagic ischemic events with 5 mm focal area of restricted diffusion anterior limb internal capsule left side consistent with small acute ischemic event, probably lacunar infarct Head/neck MRA reviewed, no acute findings HOB flat x12hrs, s/p permissive hypertension, restart antihypertensives Echo on previous admission with EF 60% holter monitor with sinus rhythm, monitor on telemetry neuro checks, NIHSS HgbA1c 6.4 and lipid profile wnl, on statin PT/OT/ST consulted Stroke navigator consulted Neurology consulted, appreciate recommendations follow-up hypercoagulable panel neurology recommended to discontinue aspirin/plavix, and start coumadin. No MS per neurology cardiology consulted for loop recorder, S/p loop placement on 08/02 Chronic headaches from rebound headache due to narcotics. Recommended to start Topamax and discontinue narcotics per neurology LEYDI: Cr 2.04 upon arrival, previously 1.02 on 07/27/17 give IVF hydration at 70 cc/hr UA reviewed and unremarkable avoid nephrotoxins repeat BMP shows improvement with Cr 1.08 continue to monitor Hypertension: uncontrolled s/p permissive hypertension restart home meds slowly, hydralazine and coreg with hold parameters; unable to initiate GABBY at this time due to LEYDI cardiology started patient on norvasc clonidine prn Discontinue IV fluids Hyperlipidemia: chronic continue statin lipid profile wnl Elevated Troponin with hx of CAD s/p Stent: patient has history of elevated troponin on previously admission cardiac enzymes trended 0.12 --> 0.19 --> 0.20 which is chronic s/p aspirin, started on heparin sq and transitioned to Coumadin Monitor INR , subtherapeutic at this time ./Pharm consulted fo INR monitor on telemetry cardiology consulted, appreciate recommendations All other chronic medical conditions stable, continue home medications as appropriate. DVT Prophylaxis: heparin sq s/p Successful loop recorder and insertion. DC when cleared by neuro INR is subtherapeutic at this time. Discharge Planning Stable for discharge Problem Qualifiers (1) CVA (cerebral vascular accident): Qualified Codes: I63.9 - Cerebral infarction, unspecified (2) Altered mental status, unspecified: Qualified Codes: R41.82 - Altered mental status, unspecified Mina Larsen MD August 04, 2017 08:22
--- NOTE | 2017-08-04 08:31 | HHI.DCPOC ---
Discharge Care Plan Diagnosis: (1) CVA (cerebral vascular accident) Your Health Problems Are: Difficulty with ADL Exercise Tolerance Goals to Promote Your Health * To prevent worsening of your condition and complications * To maintain your health at the optimal level Directions to Meet Your Goals Take your medications as prescribed Follow your dietary instruction Follow activity as directed Keep your appointments as scheduled Take your immunizations and boosters as scheduled If your symptoms worsen call your PCP, if no PCP go to Urgent Care Center or Emergency Room Smoking is Dangerous to Your Health. Avoid second hand smoke Call the 24-hour hour crisis hotline for domestic abuse at Mina Larsen MD August 04, 2017 08:31
--- NOTE | 2017-08-04 08:32 | HHI.FF ---
Face to Face Verification Diagnosis: (1) CVA (cerebral vascular accident) Physical Therapy Order: Evaluate and Treat, Improve ambulation, Strength and gait training Home Health Nursing Order: Medical education Signs/symptoms of disease process Medication education-adverse effect Nursing assessment with vital signs I have seen patient Vivian Guillen on 08/04/17. My clinical findings support the need for the requested home health care services because: Deconditioned w/ increased weakness I certify that my clinical findings support that this patient is homebound because: Unsafe to leave home unassisted Mina Larsen MD August 04, 2017 08:32
[2017-08-04] MEDS ORDERED: TOPI25 PO (08:34)
[2017-08-04 09:39] LABS: INTERNATIONAL NORMALIZED RATIO 1.2 RATIO; PROTHROMBIN TIME - PATIENT 12.5 SEC (9.8-11.6)
[2017-08-04 13:53] LABS: DRVVT 1:1 MIX ND (CORRECTED); DRVVT CONFIRM ND (NEGATIVE); HEXAGONAL PHASE CONFIRM ND (NEGATIVE)
[2017-08-04] MEDS: WARFARIN SOD 5 MG TAB PO SCH (15:46)
--- NOTE | 2017-08-04 15:48 | HHI.DS ---
Discharge Summary Admission Date July 30, 2017 at 16:12 Discharge Date: August 04, 2017 Admitting Diagnosis CVA, AMS, RENAL INSUFFIENCY (1) CVA (cerebral vascular accident) ICD Code: I63.9 - Cerebral infarction, unspecified Diagnosis: Principal Status: Acute (2) Altered mental status, unspecified ICD Code: R41.82 - Altered mental status, unspecified Diagnosis: Principal Status: Acute Procedures s/p Successful loop recorder and insertion. 08/02/[address] KING Brief History - From Admission 61-year-old female with history of CVA, HTN, HLD, CAD s/p stent, anxiety, depression, presents with acute onset of altered mental status earlier this morning 07/30. Patient currently has expressive aphasia and has difficulty explaining events leading up to her admission. Per ER report, the patient's family called 911 as they noticed the patient was not acting like herself this morning. Reportedly the patient was putting on mismatched shoes and had repetitive language. The family reported the patient was last seen normal yesterday. The patient was recently admitted 07/23/17-07/27/17 for syncope with elevated troponins. She had unremarkable workup with normal echocardiogram and negative head CT. She was evaluated by cardiology on that admission, cleared for discharge as she had a negative stress test in December 2016. The patient is now seen in the observation unit. She continues to have expressive aphasia. She was able to tell me her name, year 2017, and [place], [place]. She is able to repeat words such as [facility], [facility], etc. after prompted. She is able to tell me that she has 3 kids, but cannot remember the names of her 3 children. She repeatedly states "yes ma'am" even when not being asked any questions. She is tearful throughout exam. She denies any other medical complaints although doubt reliability of her answers. CBC/BMP: 08/02/17 0809 08/02/17 0809 Significant Findings Laboratory Tests Test 08/02/17 08:09 08/03/17 04:49 08/04/17 08:55 Mean Corpuscular Volume 68.2 FL (80.0-100.0) Mean Corpuscular Hemoglobin 22.3 PG (27.0-34.0) Prothrombin Time 12.4 SEC (9.8-11.6) 11.9 SEC (9.8-11.6) 12.5 SEC (9.8-11.6) Random Glucose 110 MG/DL (74-106) Chloride Level 112 MEQ/L (98-107) Estimat Glomerular Filtration Rate 73 ML/MIN (>89) Imaging Last Impressions Brain MRI 08/03/17 0000 Signed Impressions: Service Date/Time: Thursday, August 03, 2017 18:07 - CONCLUSION: 1. Small persistent acute to subacute area of lacunar infarction at the left frontal centrum semiovale. 2. Extensive demyelination raising the possibility of underlying demyelinating condition such as multiple sclerosis. Alex Macias MD Head CT 07/30/1747 Signed Impressions: Service Date/Time: Sunday, July 30, 2017 09:18 - CONCLUSION: 1. No acute intracranial abnormality. 2. Senescent changes with moderate periventricular ischemic white matter demyelination. Moises Ambrose MD Chest X-Ray 07/30/1747 Signed Impressions: Service Date/Time: Sunday, July 30, 2017 08:49 - CONCLUSION: No acute disease. Nelson Mayo MD FACR Neck Magnetic Resonance Angiography 07/30/17 0000 Signed Impressions: Service Date/Time: Sunday, July 30, 2017 12:59 - CONCLUSION: Negative MRA of the carotids. I don't see as source of emboli. Nelson Mayo MD FACR Head Magnetic Resonance Angiography 07/30/17 0000 Signed Impressions: Service Date/Time: Sunday, July 30, 2017 12:59 - CONCLUSION: Negative MRA of the brain Nelson Mayo MD FACR PE at Discharge GENERAL: Well-developed, well-nourished middle-aged AA female patient in NAD. CARDIOVASCULAR: Loop recorder in placed c/d/i. Regular rate and rhythm. No murmur appreciated. RESPIRATORY: No accessory muscle use. Clear to auscultation. Breath sounds equal bilaterally. GASTROINTESTINAL: Abdomen soft, non-tender, nondistended. Normoactive bowel sounds 4. MUSCULOSKELETAL: Extremities without clubbing, cyanosis, or edema. No obvious deformities. NEUROLOGICAL: Awake and alert. No obvious cranial nerve deficits. Motor grossly within normal limits. 5/5 strength RUE/LUE/LLE, 4/5 strength of RLE. Occasional expressive aphasia with mild slurred speech at times, much improved. No facial droop, lid lag, or tongue deviation. PSYCHIATRIC: Calm mood; insight and judgment normal. Hospital Course 61-year-old female with history of CVA, HTN, HLD, CAD s/p stent, anxiety, depression, presents with acute onset of altered mental status and expressive aphasia. Acute Ischemic Lacunar CVA: With persistent neurological deficit of expressive aphasia. Head CT upon arrival images reviewed, shows no acute intracranial abnormality; senescent changes with moderate periventricular ischemic white matter demyelination Brain MRI reviewed, shows progression of the substantial periventricular white matter disease extending into the corpus callosum; suspicious for demyelinating process; mildly hemorrhagic ischemic events with 5 mm focal area of restricted diffusion anterior limb internal capsule left side consistent with small acute ischemic event, probably lacunar infarct Head/neck MRA reviewed, no acute findings HOB flat x12hrs, s/p permissive hypertension, restart antihypertensives Echo on previous admission with EF 60% holter monitor with sinus rhythm, monitor on telemetry neuro checks, NIHSS HgbA1c 6.4 and lipid profile wnl, on statin PT/OT/ST consulted Stroke navigator consulted Neurology consulted, appreciate recommendations follow-up hypercoagulable panel neurology recommended to discontinue aspirin/plavix, and start coumadin. No MS per neurology cardiology consulted for loop recorder, S/p loop placement on 08/02 Chronic headaches from rebound headache due to narcotics. Recommended to start Topamax and discontinue narcotics per neurology LEYDI: Cr 2.04 upon arrival, previously 1.02 on 07/27/17 give IVF hydration at 70 cc/hr UA reviewed and unremarkable avoid nephrotoxins repeat BMP shows improvement with Cr 1.08 continue to monitor Hypertension: uncontrolled s/p permissive hypertension restart home meds slowly, hydralazine and coreg with hold parameters; unable to initiate GABBY at this time due to LEYDI cardiology started patient on norvasc clonidine prn Discontinue IV fluids Hyperlipidemia: chronic continue statin lipid profile wnl Elevated Troponin with hx of CAD s/p Stent: patient has history of elevated troponin on previously admission cardiac enzymes trended 0.12 --> 0.19 --> 0.20 which is chronic s/p aspirin, started on heparin sq and transitioned to Coumadin Monitor INR , subtherapeutic at this time ./Pharm consulted fo INR monitor on telemetry cardiology consulted, appreciate recommendations All other chronic medical conditions stable, continue home medications as appropriate. DVT Prophylaxis: heparin sq s/p Successful loop recorder and insertion. DC when cleared by neuro INR is subtherapeutic at this time. Pt Condition on Discharge: Stable Discharge Disposition: Disch w/ Home Health Serv Discharge Time: > 30 minutes Discharge Instructions DIET: Follow Instructions for: Heart Healthy Diet Activities you can perform: Regular-No Restrictions Follow up Referrals: Cardiology - 1 Week Neurology - 2 Weeks PCP Follow-up - 2-3 Days New Orders: BASIC METABOLIC PROF - 1 Week PT/INR New Medications: Amlodipine (Norvasc) 10 Mg Tab 10 MG PO DAILY for Blood Pressure Management, #60 TAB Topiramate (Topamax) 25 Mg Tab 25 MG PO HS for RIDER, #30 TAB Warfarin (Coumadin) 5 Mg Tab 5 MG PO DAILY@1600 for Blood Clot Prevention, #30 TAB Continued Medications: Alprazolam (Alprazolam) 0.5 Mg Tab 0.5 MG PO DAILY PRN for ANXIETY, #20 TAB 0 Refills Atorvastatin (Lipitor) 10 Mg Tab 10 MG PO HS for Cholesterol Management, #90 TAB 3 Refills Carvedilol (Coreg) 6.25 Mg Tab 6.25 MG PO Q12HR for Blood Pressure Management, #60 TAB Estradiol (Estradiol) 0.5 Mg Tab 0.5 MG PO DAILY for Estrogen Supplements, #30 TAB 0 Refills Famotidine (Pepcid) 20 Mg Tab 10 MG PO BID for Regulate Heart Beat, #60 TAB 0 Refills Hydralazine HCl (Hydralazine HCl) 50 Mg Tablet 50 MG PO Q8HR for Blood Pressure Management, #90 TAB 3 Refills Potassium Chloride ER (Potassium Chloride ER) 20 Meq Tab 20 MEQ PO DAILY for Electrolyte Replacement, #30 TAB 0 Refills Torsemide (Torsemide) 5 Mg Tab 10 MG PO BID@09,18 for Blood Pressure Management, #60 TAB Wheelchair (Wheelchair) 1 Mis Mis EA DIRECTED, #1 0 Refills Discontinued Medications: Aspirin DR (Adult Aspirin EC Low Strength) 81 Mg Tabec 81 MG PO DAILY for proph, #30 TAB Clopidogrel (Plavix) 75 Mg Tab 75 MG PO DAILY for Blood Clot Prevention, #30 TAB 3 Refills Hydrocodone-Acetaminophen (Hydrocodone-Acetaminophen) 10-325 mg Tab 1 TAB PO BID PRN for PAIN, #60 TAB 0 Refills Hydrocodone/Acetaminophen (Hydrocodone-Acetamin 10-325 mg) 10 Mg-325 Mg Tablet 1 TAB PO Q4H PRN for PAIN SCALE 6 TO 10, #30 TAB Nifedipine ER 24 HR (Nifedipine ER 24 HR) 60 Mg Tab 60 MG PO BID for Blood Pressure Management, #60 TAB 2 Refills Mina Larsen MD August 04, 2017 15:48
--- NOTE | 2017-08-04 16:25 | PD.CARD.PN ---
Subjective Subjective Remarks Loop recorder placed No chest pain/SOB Mild headache, relieved with warm compress Objective Medications Current Medications Medications (Trade) Dose Ordered Sig/Galilea Route Start Time Stop Time Status Last Admin (NS Flush) 2 ml UNSCH PRN IV FLUSH 07/30/17 11:15 (NS Flush) 2 ml BID IV FLUSH 07/30/17 21:00 08/03/17 22:07 (Zofran Inj) 4 mg Q6H PRN IVP 07/30/17 11:15 (Tylenol) 650 mg Q6H PRN PO 07/30/17 11:15 07/31/17 09:41 (Narcan Inj) 0.4 mg UNSCH PRN IV PUSH 07/30/17 11:15 (Kae-Colace) 1 tab BID PO 07/30/17 21:00 08/04/17 08:12 (Milk Of Magnesia Liq) 30 ml Q12H PRN PO 07/30/17 11:15 (Senokot) 17.2 mg Q12H PRN PO 07/30/17 11:15 (Dulcolax Supp) 10 mg DAILY PRN RECTAL 07/30/17 11:15 (Lipitor) 10 mg HS PO 07/30/17 21:00 08/03/17 22:14 (Pepcid) 10 mg BID PO 07/30/17 21:00 08/04/17 08:12 (Pill Splitter) 1 ea UNSCH PRN OTHER 07/30/17 13:30 (Coumadin) 5 mg DAILY@1600 PO 07/31/17 16:00 Future hold 08/04/17 15:46 Pharmacy Profile Note 0 ml @ 0 mls/hr UNSCH OTHER 07/30/17 17:30 (Norvasc) 10 mg DAILY PO 07/31/17 09:30 08/04/17 08:12 (Heparin Inj) 5,000 units Q8HR SQ 07/31/17 14:00 08/04/17 13:33 (Catapres) 0.2 mg TID PRN PO 07/31/17 14:45 08/02/17 09:39 (Coreg) 6.25 mg Q12HR PO 08/01/17 21:00 08/04/17 08:12 (Apresoline) 50 mg Q8HR PO 08/01/17 22:00 08/04/17 13:33 Cefazolin Sodium/ Dextrose 50 ml @ 100 mls/hr VEST TAILOR IV 08/02/17 10:30 08/05/17 10:29 08/02/17 10:28 (Bactroban Nasal 2% Oint) 1 applic VEST TAILOR NASAL 08/02/17 10:30 08/05/17 10:29 (Betadine 5% Antisepsis Kit) 2 applic VEST TAILOR EACH NARE 08/02/17 11:30 08/05/17 11:29 08/02/17 10:15 (Chlorhexidine 2% Cloth) 3 pack VEST TAILOR TOPICAL 08/02/17 11:30 08/05/17 11:29 08/02/17 10:15 (Topamax) 25 mg HS PO 08/04/17 21:00 Vital Signs / I&O Vital Signs Date Time Temp Pulse Resp B/P (MAP) Pulse Ox O2 Delivery O2 Flow Rate FiO2 08/04/17 12:40 75 08/04/17 12:15 98.4 76 20 157/72 (100) 98 08/04/17 08:25 97.6 80 20 186/84 (118) 99 08/04/17 08:18 Room Air 08/04/17 08:00 71 08/04/17 06:37 65 08/04/17 05:47 98 Room Air 08/04/17 04:00 48 08/04/17 04:00 98.3 63 16 175/77 (109) 98 08/03/17 23:26 18 08/03/17 20:00 98 Room Air 08/03/17 20:00 98.5 60 18 155/99 (117) 98 I/O 08/03/17 08/03/17 08/03/17 08/04/17 08/04/17 08/04/17 07:00 15:00 23:00 07:00 15:00 23:00 Intake Total 240 ml 720 ml 1700 ml Output Total 600 ml Balance 240 ml 120 ml 1700 ml Intake Oral 240 ml 720 ml IV Total 1700 ml Output Urine Total 600 ml # Voids 1 2 4 # Bowel Movements 1 Physical Exam GENERAL: NAD, AAOx3 SKIN: Warm and dry. HEAD: Atraumatic. Normocephalic. EYES: Pupils equal and round. No scleral icterus. No injection or drainage. ENT: No nasal bleeding or discharge. Mucous membranes pink and moist. NECK: Trachea midline. No JVD. CARDIOVASCULAR: Regular rate and rhythm. RESPIRATORY: No accessory muscle use. Clear to auscultation. Breath sounds equal bilaterally. GASTROINTESTINAL: Abdomen soft, non-tender, nondistended. Hepatic and splenic margins not palpable. MUSCULOSKELETAL: Extremities without clubbing, cyanosis, or edema. No obvious deformities. NEUROLOGICAL: Awake and alert. No obvious cranial nerve deficits. PSYCHIATRIC: Appropriate mood and affect; insight and judgment normal. Laboratory Laboratory Tests Test 08/04/17 08:55 Prothrombin Time 12.5 SEC Prothromb Time International Ratio 1.2 RATIO Assessment and Plan Problem List: (1) Altered mental status, unspecified ICD Codes: R41.82 - Altered mental status, unspecified Status: Acute (2) CVA (cerebral vascular accident) ICD Codes: I63.9 - Cerebral infarction, unspecified Status: Acute (3) Elevated troponin ICD Codes: R74.8 - Abnormal levels of other serum enzymes Status: Acute Assessment and Plan 1) CVA of unknown cause/previous syncope Loop recorder placed 2) CVA Placed on Coumadin therapy, restarted 3) Elevated troponin Chronically elevated Con't medical management 4) HTN Blood pressure better controlled today Problem Qualifiers (1) Altered mental status, unspecified: Qualified Codes: R41.82 - Altered mental status, unspecified (2) CVA (cerebral vascular accident): Qualified Codes: I63.9 - Cerebral infarction, unspecified Alessandro Serrano DO August 04, 2017 16:25
[2017-08-04 19:51] LABS: FACTOR VIII(8) ACTIVITY 144 (50-180)
[2017-08-04] MEDS ORDERED: TOPIRAMATE 25 MG TAB PO SCH (21:00)
== END 2017-08-04 18:27 | disposition home health service (06) | DRG 41 ==
LOC: NEPE 08:29 → NEDA 11:07 → NEPFCDU 14:32 → OBSVTOIN 16:12 → HCIS 07-31 00:08 → N05B 08-03 22:53
PROVIDERS: ADMIT Internal Medicine; ATTEND Internal Medicine
PROC: 0JH632Z Insertion of Monitoring Device into Chest Subcutaneous Tissue and Fascia, Percutaneous Approach (ICD-10-PCS; principal; 2017-08-02)
DX: I63.9 Cerebral infarction, unspecified (principal); N17.9 Acute kidney failure, unspecified; I10 Essential (primary) hypertension; I25.10 Atherosclerotic heart disease of native coronary artery without angina pectoris; R41.82 Altered mental status, unspecified; F41.9 Anxiety disorder, unspecified; F32.9 Major depressive disorder, single episode, unspecified; E78.5 Hyperlipidemia, unspecified; G44.40 Drug-induced headache, not elsewhere classified, not intractable; T40.605A Adverse effect of unspecified narcotics, initial encounter; M19.90 Unspecified osteoarthritis, unspecified site; Z95.5 Presence of coronary angioplasty implant and graft; Z79.82 Long term (current) use of aspirin; I69.320 Aphasia following cerebral infarction
CPT/HCPCS: 33282; 70450; 70544; 70547; 70551; 71045; 76937; 80048; 80053; 80061; 80307; 81001; 81240; 81241; 81291; 82550; 82552; 82746; 83036; 84484; 85025; 85240; 85300; 85303; 85306; 85610; 85613; 85730; 86147; 87086; 93005; 93225; 93226; 99152; C1764; G8996-GN; G8997-GN; J0690; J1644; J2250; J3010; J3480; J7030